=== PATIENT | female | born 1930 | race Caucasian/White ===

== ENCOUNTER 2019-02-03 09:00 | Inpatient (IN) | payer OTHER, MEDICARE ==
--- NOTE | 2019-02-03 14:09 | R.PREADM ---
SCREENING DATE AND TIME 02/03/2019 11:10 (CDT) ANTICIPATED REHAB ADMISSION DATE 02/05/2019 REFERRING FACILITY [facility] REFERRAL DATE AND TIME 02/03/2019 11:11 (CDT) ACUTE ADMIT DATE 02/01/2019 Previous Rehabilitation(s): No. ACUTE MEDIA MANAGER/DC PERFORMANCE ENGINEER Prasanna Booth REFERRING PHYSICIAN Parisa Brito REHAB FACILITY [facility] CLINICAL LIAISON Thomas Orourke PHYSICIAN REVIEWER Dr. Conor Cervantes M.D. MR# [id number] NAME RADHA MOLINA ADDRESS [address] [facility] PHONE [facility] [address] DATE OF 1930 AGE 88 SSN# [id number] GENDER female MARITAL STATUS RACE white ADMIT FROM 02 - [facility] PRE-HOSPITAL LIVING SETTING 01 - Home (private home/apt. board/care, assisted living, senior living, transitional living) HOME TYPE AND DETAILS Type of home: single family house # of levels in the residence: 1 # of steps within the residence: 0 # of steps to enter the residence: 0 PRE-HOSPITAL LIVING WITH Family/Relatives FAMILY SUPPORT Yes PRIMARY FAMILY CONTACT NAME Stephanie Gonzalez PRIMARY FAMILY CONTACT PHONE PRIMARY FAMILY CONTACT ALT. PHONE PRIMARY FAMILY CONTACT RELATIONSHIP Daughter PHONE PRIMARY FAMILY CONTACT ON ADM.? no IS PRIMARY FAMILY CONTACT AUTH. REP.? no 1ST EMERGENCY CONTACT Stephanie Gonzalez 1ST CONTACT PHONE 1ST CONTACT ALT. PHONE 1ST CONTACT RELATIONSHIP Daughter PHONE 1ST CONTACT ON ADM. no IS 1ST CONTACT AUTH. REP.? no PHONE 2ND CONTACT ON ADM.? no PATIENT EMPLOYMENT STATUS Retired (for age) PATIENT EMPLOYER No Employer PAYOR INFORMATION: 1ST PAYOR NAME MEDICARE 1ST PAYOR PHONE [phone] 1ST PAYOR INJURY/ILLNESS DUE TO ACCIDENT? No ANOTHER GREEN PARTY RESPONSIBLE? 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 is a 88 yo Right-handed white female. 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 Pre-morbidly, Pt. was independent/mod-I in Self-Care, Sphincter Control, Transfers Control, Locomotio n, Communication, and Social Cognition; and she had good Sphincter Control. Currently, she has deficits of Self-Care, Transfers Control, Locomotion, Communication, Social Cognit ion, Endurance, Balance, and Safety Awareness. Pt. is now referred to [facility] for acute in-patient rehabilitation in order to maximize patient's functional independence in activities of daily living, strength, ROM, and mobi lity. Patient has realistic goal of being discharged at assistance level 6-Caroline to reside at Home with Fam mic/Relatives. PAST MEDICAL HISTORY Anxiety Asthma Constipation Edema Insomnia Unspecified vitamin D deficiency PAST SURGICAL HISTORY: Breast Surgery Cholecystectomy Colon Surgery Hysterectomy MEDICATION ALLERGIES: No Known Drug Allergies (NKDA) ENVIRONMENTAL ALLERGIES: None Known - Substance Allergies None Known - Other Allergies None Known CODE STATUS: Full code WEIGHT/HEIGHT/BMI: WEIGHT 184 lbs HEIGHT 5' 4" BMI 31.6 DIET: - Diet Type Regular - Diet - Solid Texture Regular - Diet - Liquid Texture Regular - Tube Feed N/A REVIEW OF SYSTEMS: - Gen Alert and awake Lying in bed No apparent distress Oriented to: person, time, and place - Vital Signs Temperature: 97.8 F SBP/DBP: 111/60 Pulse: 92 Resp: 16 Vital signs stable, afebrile - CVS RRR VITAL SIGNS Temperature: 97.8 F SBP/DBP: 111/60 Pulse: 92 Resp: 16 Vital signs stable, afebrile CURRENT SPHINCTER CONTROL: Pre-hospital bladder status: continent # of bladder accidents in the last 7 days prior to screenin Pre-hospital bowel status: continent # of bowel accidents in the last 7 days prior to screenin Last Bowel Movement Date: DETAILED CURRENT FUNCTIONAL STATUS: - Bladder accident frequency: Ind - No accidents in the past 7 days - Bowel accident frequency: Ind - No accidents in the past 7 days - Walking score based on distance walked: 1(<=50ft) - Wheelchair score based on distance traveled: 0(N/A) FUNCTIONAL STATUS: - Self-Care A. Eating Ind sup B. Grooming Ind sup C. Bathing Ind maxA D. Dressing - Upper Ind maxA E. Dressing - Lower Ind maxA F. Toileting Ind maxA - Sphincter Control G: Bladder control Ind Ind H: Bowel control Ind Ind - Transfers Control I. Bed/Chair/Wheelchair Ind Radha J. Toilet Ind Radha K. Tub/Shower Ind ADNO - Locomotion L. Walk/Wheelchair (B) Ind maxA M. Stairs Ind ADNO - Communication N. Comprehension (B) Ind Radha O. Expression (B) Ind Radha - Social Cognition P. Social Interaction Ind Rdaha Q. Problem Solving Ind Radha R. Memory Ind min-to-modA - Endurance Fair - Balance Fair - Safety Awareness Fair CURRENT FUNC. DEFICITS: Self-Care, Transfers Control, Locomotion, Communication, Social Cognition, Endurance, Balance, and Sa fety Awareness THERAPY NOTES FROM ACUTE CARE: Attached. SPECIAL NEEDS: - Safety Concerns Skin breakdown precautions needed due to skin breakdown risk PATIENT NEEDS ACTIVE AND ONGOING THERAPEUTIC INTERVENTION OF MULTIPLE THERAPY DISCIPLINES, INCLUDING: - Orthotics/Prosthetics Splinting/Casting. Orthotic Evaluation. - Occupational Therapy Evaluate and Treat. - Physical Therapy Evaluate and Treat. PATIENT NEEDS CLOSE MEDICAL SUPERVISION BY A REHABILITATION PHYSICIAN FOR: Bowel and Bladder Management Coordination of Treatment Team Medical and Co-Morbidity Management Sleep Problems Pain Management DVT Management PATIENT REQUIRES 24X7 REHAB NURSING FOR MEDICAL AND FUNCTIONAL MGT. OF THE FOLLOWING DEFICITS: ADL's Ambulation Bowel and Bladder Management Cognition Communication Disease Management Medication Management Patient/Family Education Providing Safe Environment Transfers Pain Management Skin Integrity PATIENT REQUIRES INTENSIVE, COORDINATED INTERDISCIPLINARY APPROACH TO REHAB: Arranging Home Equipment/Services Discharge Planning Family Intervention/Training Ice Rink Attendant/Case Management PATIENT REHAB POTENTIAL: Expected level of measurable improvement will be of a practical value to patient's functional capacit y or adaptations to impairments Has a viable Discharge Plan Medically appropriate; condition is sufficiently stable to participate in intensive rehab program Patient is able and expected to receive 3 hours of individualized therapy daily on at least 5 of ever y 7 days Patient's prognosis for significant practical improvement within a reasonable period of time appears Good DISCHARGE PLAN: - Estimated Length of Stay (days) 27. - Consensus on plan Discharge plan has been discussed with primary caregiver. Patient/Family is in agreement with the magaly n. Primary caregiver is in agreement with the plan. - Patient/Family Goals Return home with assistance. - Planned Living Setting Upon Discharge Home, to live with Family/Relatives. Transitional Living. RECOMMENDED CARE LEVEL: IRF RECOMMENDATION DETAILS: Recommended Admission to Comprehensive Rehabilitation Program to Increase Functional [place] SCREENER'S COMPLETENESS CONFIRMATION: - Screening Confirmation The patient data collection on this preadmission screening form is finished PHYSICIANS REVIEW AND ADMISSION DETERMINATION Admit - Based on my review of the Pre-Admission Screening results, in my medical judgment and experie nce, I concur with the findings and recommend admission to [facility], as this patient requires an IRF level of care. SIGNATURE PANEL: Clinical Liaison - [electronically] signed by Thomas Orourke on 02/03/2019 at 13:39 (CDT) Physician Reviewer - [electronically] signed by Dr. Conor Cervantes M.D. on 02/03/2019 at 14:08 (CDT )
--- OUTSIDE RECORDS SUMMARY | 2019-02-03 18:10 | XMS REPORT ---
:1930 [facility] Address [address] [place] [address] Care Team Providers Name Role Phone Unavailable Unavailable Unavailable Problems This patient has no known problems. Allergies, Adverse Reactions, Alerts This patient has no known allergies or adverse reactions. Medications This patient has no known medications.
[2019-02-03] MEDS ORDERED: ALBUTEROL 2.5 MG/3 ML NEB SOL NEB PRN (18:48)
[2019-02-03] MEDS ORDERED: LACTULOSE 20 GM/30 ML UCUP PO PRN (18:48)
[2019-02-03] MEDS ORDERED: IPRATROPIUM BROM 0.5MG/2.5ML NEB PRN (18:48)
[2019-02-03] MEDS ORDERED: FLEET ENEMA ADULT PR PRN (19:58)
[2019-02-03] MEDS ORDERED: DOCUSATE NA/SENNA CONC 1 TAB PO PRN (19:59)
[2019-02-03] MEDS: NYSTATIN PWDR 100000 UNIT/GM TOP SCH (20:00)
--- NOTE | 2019-02-03 20:03 | R.HP ---
FACILITY: [facility] ENCOUNTER DATE AND TIME: 02/03/2019 19:57 (CDT) MR#: [id number] NAME RADHA MOLINA ADDRESS: [address] [place] [address]: [place] [address] PHONE: DATE OF : 1930 AGE: 88 SSN# [id number] GENDER: Female DEXTERITY Right-handed MARITAL STATUS RACE White PRE-HOSPITAL LIVING SETTING 01 - Home (private home/apt. board/care, assisted living, chcf, transitional living) PRE-HOSPITAL LIVING WITH Family/Relatives ENCOUNTER PHYSICIAN: Dr. Conor Cervantes M.D. REFERRING DOCTOR: Alisha matthew DATE OF ADMISSION: 02/03/2019 19:57 (Central Daylight Time) REFERRING FACILITY [facility] HOME TYPE AND DETAILS: Type of home: single family house # of levels in the residence: 1 # of steps within the residence: 0 # of steps to enter the residence: 0 ADMISSION DIAGNOSIS: T12 Compression Fracture ONSET DATE: 02/01/2019 PRIMARY DIAGNOSIS-RELATED SURGERIES: N/A SECONDARY/COMORBID DIAGNOSES (TIERED): - N/A Anxiety Asthma Constipation Edema Insomnia Unspecified vitamin D deficiency HISTORY OF PRESENT ILLNESS (HPI): Pt. is a 88 yo Right-handed white female. 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 230). Pre-morbidly, Pt. was independent/mod-I in Self-Care, Sphincter Control, Transfers Control, Locomotio n, Communication, and Social Cognition; and she had good Sphincter Control. Currently, she has deficits of Self-Care, Transfers Control, Locomotion, Communication, Social Cognit ion, Endurance, Balance, and Safety Awareness. Pt. is now referred to [facility] for acute in-patient rehabilitation in order to maximize patient's functional independence in activities of daily living, strength, ROM, and mobi lity. Patient has realistic goal of being discharged at assistance level 6-Caroline to reside at Home with Fam mic/Relatives. MEDICATION ALLERGIES: No Known Drug Allergies (NKDA) ENVIRONMENTAL ALLERGIES: None Known - Substance Allergies None Known - Other Allergies None Known PAST MEDICAL HISTORY: Anxiety Asthma Constipation Edema Insomnia Unspecified vitamin D deficiency PAST SURGICAL HISTORY: Breast Surgery Cholecystectomy Colon Surgery Hysterectomy FAMILY HISTORY: Family history is not contributory. SOCIAL HISTORY: - Home Living Family/Relatives REVIEW OF SYSTEMS: - Gen No Chills Fatigue No Fever - Eyes No Double Vision No itchiness - ENMT No Difficulty Swallowing - CVS No Chest Discomfort No Chest Pain Fatigue No Weight Gain - Resp No Cough No Shortness of Breath - GI Incontinent No Abdominal Pain Constipation No Diarrhea - Continent No Kidney Pain No Painful Urination No Urinary Urgency - MSK No Joint Pain No Muscle Cramps Stiffness - Skin No Itching Rash in left groin. No Suspicious Lesions - Neuro No Coordination Difficulty Difficulty with Concentration No Memory Loss No Seizures Weakness - Psych No Anxiety No Depression No HIV Exposure No Persistent Infections No Seasonal Allergies - Endo No Cold/Heat Intolerance No Excessive Hunger No Excessive Thirst No Excessive Urination PHYSICAL EXAM - Gen Alert and awake Lying in bed No apparent distress Oriented to: person, time, and place - Skin Rash in left groin No abnormalities - Eyes No abnormalities - ENMT No abnormalities - Neck No abnormalities - CVS RRR - Chest No abnormalities - Abd +bowel sounds - GI Soft Deferred - Urinary incontinence - Ext No significant edema. - MSK 4+/5 weakness in both lower extremities. Back muscle spasms. Back shell brace is in place. - Neuro No focal neurological deficits - Psych No abnormalities VITAL SIGNS Temperature: 97.8 F SBP/DBP: 111/60 Pulse: 92 Resp: 16 NURSING: - Shower allowing shower - Bladder care per protocol - Skin care per protocol ACTIVITIES OOB only with supervision FUNCTIONAL STATUS: - Self-Care A. Eating Ind sup B. Grooming Ind sup C. Bathing Ind maxA D. Dressing - Upper Ind maxA E. Dressing - Lower Ind maxA F. Toileting Ind maxA - Sphincter Control G: Bladder control Ind Ind H: Bowel control Ind Ind - Transfers Control I. Bed/Chair/Wheelchair Ind Radha J. Toilet Ind Radha K. Tub/Shower Ind ADNO - Locomotion L. Walk/Wheelchair (B) Ind maxA M. Stairs Ind ADNO - Communication N. Comprehension (B) Ind Radha O. Expression (B) Ind Radha - Social Cognition P. Social Interaction Ind Radha Q. Problem Solving Ind Radha R. Memory Ind min-to-modA - Endurance Fair - Balance Fair - Safety Awareness Fair CURRENT FUNC. DEFICITS: Self-Care, Transfers Control, Locomotion, Communication, Social Cognition, Endurance, Balance, and Sa fety Awareness ASSESSMENT: Pt. is a 88 yo Right-handed white female.Her impairment category is Spinal Cord Dysfunction 04 - Ot er Traumatic Spinal Cord Dysfunction ().Pre-morbidly, Pt. was independent/mod-I in Self-Care, S phincter Control, Transfers Control, Locomotion, Communication, and Social Cognition; and she had goo d Sphincter Control.Currently, she has deficits of Self-Care, Transfers Control, Locomotion, Communic ation, Social Cognition, Endurance, Balance, and Safety Awareness.Pt. is now referred to [facility] for acute in-patient rehabilitation in order to maximize patient's functional i ndependence in activities of daily living, strength, ROM, and mobility.- Rehab Goal Patient has realistic goal of being discharged at assistance level 6-Caroline to reside at Home with Fam mic/Relatives. REHAB PLAN: - Physical Therapy Gait dysfunction - to improve, our physical therapists will perform initial evaluation of pt's status upon admission and devise an individualized program for Gait Training, and Wheel Chair mobility Inability to transfer - to improve, our physical therapists will perform initial evaluation of pt's s tatus upon admission and devise an individualized program for Bed mobility Need for home safety evaluation - to improve, our physical therapists will perform initial evaluation of pt's status upon admission and devise an individualized program for Home Evaluation Need in caregiver upon discharge - to improve, our physical therapists will perform initial evaluatio n of pt's status upon admission and devise an individualized program for Caregiver Training New precaution - to improve, our physical therapists will perform initial evaluation of pt's status u armando admission and devise an individualized program for Patient precaution education Edema - to improve, our physical therapists will perform initial evaluation of pt's status upon admi ssion and devise an individualized program for Elevation Training, and Lymphedema Therapy Poor balance - to improve, our physical therapists will perform initial evaluation of pt's status upo n admission and devise an individualized program for Balance Training Poor endurance - to improve, our physical therapists will perform initial evaluation of pt's status u armando admission and devise an individualized program for Endurance Training Weakness - to improve, our physical therapists will perform initial evaluation of pt's status upon ad mission and devise an individualized program for Aquatic Therapy, Neuromuscular Reeducation, and Stre ngthening Achieving independence - to improve, our physical therapists will perform initial evaluation of pt's status upon admission and devise an individualized program for Community Reintegration Activities - Occupational Therapy ADL deficits - to improve, our occupation therapists will perform initial evaluation of pt's status u armando admission and devise an individualized program for Bathing, Bed mobility, Community Reintegration , Cooking, Dressing, Eating, Fine Motor Skills, Grooming, Homemaking, Kitchen Mobility, Laundry, Micki ent Education, Safety Awareness, Splinting - Positioning, Transfers(Toilet, Tub, Shower), and Wheel C hair Management Cognitive deficits - to improve, our occupation therapists will perform initial evaluation of pt's st atus upon admission and devise an individualized program for Cognition - orientation Need for respiratory care program director - to improve, our occupation therapists will perform initial evaluation of pt's s tatus upon admission and devise an individualized program for Caregiver Training Weakness - to improve, our occupation therapists will perform initial evaluation of pt's status upon admission and devise an individualized program for Aquatic Therapy, Balance, Endurance, UE ROM, and U E strengthening MEDICAL PLAN: - Diet Type Start Regular - Diet - Liquid Texture Start Regular - Tube Feed Start N/A - Bladder care per protocol - Skin care per protocol - Diet - Solid Texture Regular - Shower shower DISCHARGE PLAN: - Estimated Length of Stay (days) 27. - Consensus on plan Discharge plan has been discussed with primary caregiver. Patient/Family is in agreement with the magaly n. Primary caregiver is in agreement with the plan. - Patient/Family Goals Return home with assistance. - Planned Living Setting Upon Discharge Home, to live with Family/Relatives. Transitional Living. SIGNATURE PANEL: (CDT)
--- NOTE | 2019-02-03 20:04 | PAPE ---
PATIENT: [facility] MR# [id number] REFERRING DOCTOR Alisha, march EVALUATION DATE AND TIME 02/03/2019 20:02 (CDT) NAME RADHA MOLINA DATE OF 1930 AGE 88 PHONE SSN# [id number] GENDER female EVALUATING PHYSICIAN Dr. Conor Cervantes M.D. ADMISSION DIAGNOSIS: T12 Compression Fracture ONSET DATE 02/01/2019 SECONDARY/COMORBID DIAGNOSES TIERED: - N/A Anxiety Asthma Constipation Edema Insomnia Unspecified vitamin D deficiency POST-ADMISSION FUNCTIONAL/MEDICAL STATUS: - Bladder Same accident frequency: Ind - No accidents in the past 7 days - Bowel Same accident frequency: Ind - No accidents in the past 7 days - Walking Same score based on distance walked: 1(<=50ft) - Wheelchair Same score based on distance traveled: 0(N/A) STATUS CHANGE EVALUATION: No change in Functional or Medical Status is identified compared with Pre-Admission screening. PATIENT NEEDS CLOSE MEDICAL SUPERVISION BY A REHABILITATION PHYSICIAN FOR: Bowel and Bladder Management Coordination of Treatment Team Medical and Co-Morbidity Management Sleep Problems Pain Management DVT Management PATIENT REQUIRES 24X7 REHAB NURSING FOR MEDICAL AND FUNCTIONAL MGT. OF THE FOLLOWING DEFICITS: ADL's Ambulation Bowel and Bladder Management Cognition Communication Disease Management Medication Management Patient/Family Education Providing Safe Environment Transfers Pain Management Skin Integrity PATIENT REQUIRES INTENSIVE, COORDINATED INTERDISCIPLINARY APPROACH TO REHAB: Arranging Home Equipment/Services Discharge Planning Family Intervention/Training Table Tender/Case Management LIST OF IDENTIFIED AND POTENTIAL PROBLEMS: Alteration in Sleep Alteration in leisure activities Bladder, Incontinence Bowel, Constipation Bowel, Incontinence Infection, Actual or Potential Mobility Impaired Pain, Alteration in Comfort Self Care Deficit Skin Integrity, Actual or Potential Urinary Tract Infection (UTI), Actual or Potential RISK FOR COMPLICATIONS - Asthma Hypoxia. Metabolic acidosis. Worsening of asthma. INTERVENTIONS - Asthma ABG's. Inhalers. Medications. Nebulizers. Respiratory therapy. X-Rays. PATIENT COULD BE AT RISK FOR COMPLICATIONS FROM ADVERSE MEDICAL CONDITIONS DUE TO HIS/HER COMORBIDITI ES AND THE RIGORS OF THE INTENSIVE REHABILLITATION PROGRAM. METHODS OR INTERVENTIONS TO AVOID COMPLIC ATIONS INCLUDE: - Deep Vein Thrombosis (DVT) Prophylaxis therapy for prevention . Sequential Compression Device (SCD). TE D Hose. - Infection Clinical staff to assess and manage the signs and symptoms of infection including fever, redness, war mth, etc. - Urinary Tract Infection - Falls Patient will be evaluated for Fall Precautions and will be placed on Fall Precautions as indicated pe r protocol. - Skin Breakdown Nursing will assess skin daily using assessment tool and will place on Skin Breakdown Precautions as indicated per protocol. - Pain Clinical staff may employ non-medication methods such as massage, distraction, decrease stimulus, etc . as needed. Clinical staff will assess patient's pain level every shift per protocol to assess and e nsure pain management effectiveness. Medications will be given and the pain level re-assessed. PRELIMINARY PLAN OF CARE: - Physical Therapy Patient needs Physical Therapy for a daily minimum of 1.5 hours at least 5 out of 7 days, to improve: Mobility, Strengthening, Transfers, Stretching, ROM, Endurance, Ability to manage stairs, Gait, and Balance. - Speech Therapy Patient needs Speech Therapy for a daily minimum of 0.5 hours at least 5 out of 7 days, to improve: S wallowing, Cognition, Language Skills, and Compensatory Strategies. - Rehabilitation Nursing Patient requires 24x7 Rehabilitation Nursing for: Pain Issues, Identifying and preventing risk factor s, Monitoring and reporting current medical conditions, Assisting with ambulation and transfer, Hillary ting with all ADL-s, Teaching patients about disease process and medications, Family teaching, Provid ing safe environment, Bowel and Bladder Issues, Skin Integrity, and Medication Management. Patient needs Table Tender and/or Case Management for: Discharge Planning, Arranging Home Equipmen t or Services, and Family Interventions. - Dietary and Nutrition Services Patient needs Dietary and Nutrition Services for: Adequate Nutrition, Nutritional Supplements, and Nu tritional Education. - Occupational Therapy Patient needs Occupational Therapy for a daily minimum of 1.5 hours at least 5 out of 7 days, to impr ove Activities of Daily Living, including: Eating, Grooming, Bathing, Dressing, Toileting, Toilet Tra nsfers, Community Reintegration, Higher functional activities, Adaptive Equipment, Splinting, Househo ld Tasks, and Other activities as determined. POTENTIAL FUNCTIONAL GOALS FOR PATIENT TO ACHIEVE BY DISCHARGE: - Safety Precaution Patient will remain free from falls or injury at time of discharge. - Bed Mobility Patient will perform bed mobility at 4-Radha level of assistance. - Transfers Patient will complete transfers from bed to chair at 4-Radha level of assistance. - Mobility Patient will ambulate 150 ft with 4-Radha level of assistance with RW. PATIENT REHAB POTENTIAL Expected level of measurable improvement will be of a practical value to patient's functional capacit y or adaptations to impairments Has a viable Discharge Plan Medically appropriate; condition is sufficiently stable to participate in intensive rehab program Patient is able and expected to receive 3 hours of individualized therapy daily on at least 5 of ever y 7 days Patient's prognosis for significant practical improvement within a reasonable period of time appears Good DISCHARGE PLAN: - Estimated Length of Stay (days) 27. - Consensus on plan Discharge plan has been discussed with primary caregiver. Patient/Family is in agreement with the magaly n. Primary caregiver is in agreement with the plan. - Patient/Family Goals Return home with assistance. - Planned Living Setting Upon Discharge Home, to live with Family/Relatives. Transitional Living. CONCLUSION ON REHABILITATION NECESSITY: I have evaluated patient's pre-admission functional status and, comparing it to the patient's post-ad mission functional status now, I conclude that the pre-admission assessment was accurate. Patient's c ondition on admission supports the medical necessity of admission to IRF. It is safe to proceed with patient's therapy program. SIGNATURE PANEL: (CDT)
[2019-02-03] MEDS: AMITRIPTYLINE 25 MG TAB PO SCH (21:00)
[2019-02-03] MEDS ORDERED: AMITRIPTYLINE 25 MG TAB PO SCH (21:00)
[2019-02-03] MEDS ORDERED: MELATONIN 5 MG TABLET PO SCH (21:00)
[2019-02-03] MEDS: BENZONATATE 100 MG CAP PO SCH (21:13)
[2019-02-03] MEDS: TRAMADOL HCL 50 MG TAB PO SCH (21:14)
[2019-02-03] MEDS: APIXABAN 2.5 MG TABLET PO SCH (21:14)
[2019-02-03 21:31] LABS: Urine Appearance CLEAR; Urine Blood NEGATIVE (NEG); Urine Color YELLOW; Urine Glucose NEGATIVE (NEG); Urine Protein NEGATIVE (NEG); Urine Urobilinogen 0.2 mg/dL (0.2-1.0); Urine pH 5.5 (5.0-7.0)
[2019-02-03 21:43] LABS: Urine Bilirubin NEGATIVE (NEG)
[2019-02-03 21:54] LABS: Urine Bacteria <20 /HPF (<20); Urine Culture Reflex Order NOT NEEDED; Urine RBC <5 /HPF (NONE SEEN)
[2019-02-03] MEDS: ACETAMINOPHEN 325 MG TABLET PO PRN (22:50)
--- NOTE | 2019-02-04 01:16 | FAST ---
SHIFT START DATE/TIME: 02/03/2019 19:00 (CDT) SHIFT END DATE/TIME: 02/04/2019 07:00 (CDT) NAME RADHA MOLINA DATE OF : 1930 DATE OF ADMISSION: 02/03/2019 19:57 (CDT) PHONE: AGE: 88 N# [id number] GENDER: Female ENCOUNTER PHYSICIAN: Dr. Conor Cervantes M.D. 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 EATING: Activity did not occur on this shift EATING - SCORE: 0-UNK GROOMING: Activity did not occur on this shift GROOMING - SCORE: 0-UNK BATHING: Activity did not occur on this shift BATHING - SCORE: 0-UNK DRESSING - UPPER BODY: Activity did not occur on this shift ARTICLES SCORE Total number of steps: 0 DRESSING - UPPER BODY - SCORE: 0-UNK DRESSING - LOWER BODY: Activity did not occur on this shift ARTICLES SCORE Total number of steps: 0 DRESSING - LOWER BODY - SCORE: 0-UNK TOILETING: TOILETING - STEP 1: Does the patient require the assistance of a person or device, or need extra time with toileting? Yes . TOILETING - STEP 2: Does the patient require the assistance of a helper? Yes. TOILETING - STEP 3: How much assistance does the patient require from the helper? Hands-on assistance from the helper TOILETING - STEP 4: Of the 3 tasks: 1) Adjusting clothing prior to use, 2) Cleansing of perineal area, 3) Adjusting clot loni after use; How many tasks does the patient perform WITHOUT assistance of the helper? Two tasks TOILETING - SCORE: 3-MOD BLADDER MANAGEMENT: BLADDER MANAGEMENT - STEP 1: Does the patient control the bladder completely and intentionally without equipment or devices or med ications, and is always continent? No. BLADDER MANAGEMENT - STEP 2: Does the patient require the assistance of a helper? Yes. BLADDER MANAGEMENT - STEP 3: How much assistance does the patient require from the helper? Patient requires contact assistance fro m the helper BLADDER MANAGEMENT - STEP 4: How much contact assistance does the patient require from the helper? Patient requires minimal assist ance to maintain an external device - by positioning, and the patient performs 75% or more of bladder management tasks, while the helper provides less than 25% of the assistance to position patient on / off bedpan BLADDER MANAGEMENT - SCORE: 4-MIN BOWEL MANAGEMENT: Activity did not occur on this shift BOWEL MANAGEMENT - SCORE: 7-IND TRANSFERS: BED, CHAIR, WHEELCHAIR: TRANSFERS: BED, CHAIR, WHEELCHAIR - STEP 1: Does the patient require assistance of a person or device, or need extra time with bed, chair, or whe elchair transfers? Yes. TRANSFERS: BED, CHAIR, WHEELCHAIR - STEP 2: Does the patient require the assistance of a helper? Yes. TRANSFERS: BED, CHAIR, WHEELCHAIR - STEP 3: How much assistance does the patient require from the helper? Lifting of the legs TRANSFERS: BED, CHAIR, WHEELCHAIR - STEP 4: How many legs does the patient require the helper to lift? both legs TRANSFERS: BED, CHAIR, WHEELCHAIR - SCORE: 3-MOD TRANSFERS: TOILET: TRANSFERS: TOILET - STEP 1: Does the patient require the assistance of a person or device, or need extra time with toilet transfe rs? Yes. TRANSFERS: TOILET - STEP 2: Does the patient require the assistance of a helper? Yes. TRANSFERS: TOILET - STEP 3: How much assistance does the patient require from the helper? Patient performs half or more of the tr ansferring tasks TRANSFERS: TOILET - STEP 4: Does the patient need only incidental help such as contact guard or steadying during toilet transfer? No. Patient needs more than incidental help TRANSFERS: TOILET - SCORE: 3-MOD TRANSFERS: SHOWER: Activity did not occur on this shift TRANSFERS: SHOWER - SCORE: 0-UNK TRANSFERS: TUB: Activity did not occur on this shift TRANSFERS: TUB - SCORE: 0-UNK LOCOMOTION: WALK: Activity did not occur on this shift LOCOMOTION: WALK - SCORE: 0-UNK LOCOMOTION: WHEELCHAIR: Activity did not occur on this shift LOCOMOTION: WHEELCHAIR - SCORE: 0-UNK COMPREHENSION: COMPREHENSION: TYPE: Both COMPREHENSION - STEP 1: Does the patient require help from a person or device, or need extra time to understand complex and a bstract ideas (such as current events, finances, discharge planning, medical issues, relationships, e tc)? Yes. COMPREHENSION - STEP 2: Does the patient require help to understand questions or statements about basic needs or ideas (such as hunger, thirst, sleep, safety, daily schedule, room location, or discomfort) half or more of the t shirley? No. COMPREHENSION - STEP 3: How often does the patient need help to understand directions and conversation about basic needs? Les s than 10% of the time COMPREHENSION - SCORE: 5-SUP EXPRESSION EXPRESSION: TYPE: Both EXPRESSION - STEP 1: Does the patient require help from a person or device, or need extra time expressing complex and abst ract ideas (such as current events, finances, discharge planning, medical issues, relationships, etc) ? Yes. EXPRESSION - STEP 2: Does the patient require help to express basic necessities or ideas (such as hunger, thirst, sleep, s afety, daily schedule, room location, or discomfort) half or more of the time? No. EXPRESSION - STEP 3: How often does the patient need help to express directions and conversation about basic needs? Less t locke 10% of the time EXPRESSION - SCORE: 5-SUP SOCIAL INTERACTION: SOCIAL INTERACTION - STEP 1: Does the patient require a helper to interact with others in social and therapeutic situations? No. SOCIAL INTERACTION - STEP 2: Does the patient need extra time in social situations, OR does s/he interact with staff, other patien ts, and family members ONLY in structured environments, OR does s/he require medication for social in teraction? Yes, patient requires medication for social interaction SOCIAL INTERACTION - SCORE: 6-SIRI PROBLEM SOLVING: Patient requires bed/chair alarms due to attempts to get up unassisted when helper is needed. PROBLEM SOLVING - STEP 1: How often do the bed/chair alarms go off? Occasionally - the alarms go off about 25% or less PROBLEM SOLVING - SCORE: 4-MIN MEMORY: MEMORY - STEP 1: How often do the bed/chair alarms go off? Occasionally - the alarms go off about 25% of the time or l ess MEMORY - SCORE: 4-MIN SIGNATURE PANEL: The following modified sections: Eating - Score, Grooming - Score, Bathing - Score, Dressing - Upper Body - Score, Dressing - Lower Body - Score, Toileting - Score, Bladder Management - Score, Bowel Man agement - Score, Transfers: Bed, Chair, Wheelchair - Score, Transfers: Toilet - Score, Transfers: Ping wer - Score, Transfers: Tub - Score, Locomotion: Walk - Score, Locomotion: Wheelchair - Score, Compre hension - Score, Expression - Score, Social Interaction - Score, Problem Solving - Score, Memory - Sc ore were [electronically] signed by Delicia Ham RN on FriFeb 04 2019 01:15:52 T-0500 ([facility] Time)
[2019-02-04] MEDS: TRAMADOL HCL 50 MG TAB PO SCH ×4 (01:36→19:27)
[2019-02-04 06:07] LABS: Absolute Lymphocytes (CBC) 1.2 K/uL (0.7-4.9); Absolute Monocytes 0.7 K/uL (0.1-1.3); Absolute Neutrophil 7.8 K/uL (1.8-8.0); Basophils % 0.3 % (0-1.3); Eosinophils % 3.2 % (0-4.4); Hematocrit 46.1 % (36.0-45.0); Lymphocytes % 11.7 % (15.3-44.8); MPV 8.2 fL (7.6-11.3); Monocytes % 7.1 % (3.3-12.3); RBC Red Blood Cell Count 5.26 M/uL (3.86-4.86)
[2019-02-04 06:18] LABS: Albumin 2.7 g/dL (3.4-5.0); BUN Blood Urea Nitrogen 13 mg/dL (7-18); Bicarbonate 32 mmol/L (21-32); Glucose Level 103 mg/dL (74-106); Magnesium 2.4 mg/dL (1.8-2.4); Potassium 3.7 mmol/L (3.5-5.1); Prealbumin 15.1 mg/dL (20-40); Sodium Level 135 mmol/L (136-145)
[2019-02-04] MEDS: LEVOTHYROXINE SOD 0.05 MG TABLET PO SCH (07:04)
[2019-02-04] MEDS: LEVOTHYROXINE SOD 0.1 MG TAB PO SCH (07:04)
[2019-02-04] MEDS ORDERED: DOCUSATE NA/SENNA CONC 1 TAB PO SCH (08:00)
[2019-02-04] MEDS: FUROSEMIDE 20 MG TABLET PO SCH (08:21)
[2019-02-04] MEDS: DOCUSATE NA 100 MG CAP PO SCH (08:21)
[2019-02-04] MEDS: APIXABAN 2.5 MG TABLET PO SCH ×2 (08:22→19:26)
[2019-02-04] MEDS: POLYETHYL GLY 3350 17 GM/DOSE PO SCH (08:22)
--- NOTE | 2019-02-04 10:32 | FAST ---
SHIFT START DATE/TIME: 02/04/2019 07:00 (CDT) SHIFT END DATE/TIME: 02/04/2019 19:00 (CDT) NAME RADHA MOLINA DATE OF : 1930 DATE OF ADMISSION: 02/03/2019 19:57 (CDT) PHONE: AGE: 88 N# [id number] GENDER: Female ENCOUNTER PHYSICIAN: Dr. Conor Cervantes M.D. 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 EATING: EATING - STEP 1: Does the patient require the assistance of a person or device, or need extra time when eating? Yes. EATING - STEP 2: Does the patient require the assistance of a helper? Yes. EATING - STEP 3: Does the patient perform half or more of the eating tasks? Yes. EATING - STEP 4: Does the patient need only supervision, cuing, coaxing OR help to apply an orthosis OR help to cut fo od, open containers, pour liquids, or butter bread? Yes. EATING - SCORE: 5-SUP GROOMING: Comb/brush hair Oral care GROOMING - STEP 1: Does the patient require the assistance of a person or device, or need extra time when grooming? Yes. GROOMING - STEP 2: Does the patient require the assistance of a helper? Yes. GROOMING - STEP 3: How much assistance does the patient require from the helper? Only prior equipment preparation/set up from the helper GROOMING - SCORE: 5-SUP BATHING: Activity did not occur on this shift BATHING - SCORE: 0-UNK DRESSING - UPPER BODY: Activity did not occur on this shift ARTICLES SCORE Total number of steps: 0 DRESSING - UPPER BODY - SCORE: 0-UNK DRESSING - LOWER BODY: Activity did not occur on this shift ARTICLES SCORE Total number of steps: 0 DRESSING - LOWER BODY - SCORE: 0-UNK TOILETING: TOILETING - STEP 1: Does the patient require the assistance of a person or device, or need extra time with toileting? Yes . TOILETING - STEP 2: Does the patient require the assistance of a helper? Yes. TOILETING - STEP 3: How much assistance does the patient require from the helper? Hands-on assistance from the helper TOILETING - STEP 4: Of the 3 tasks: 1) Adjusting clothing prior to use, 2) Cleansing of perineal area, 3) Adjusting clot loni after use; How many tasks does the patient perform WITHOUT assistance of the helper? Two tasks TOILETING - SCORE: 3-MOD BLADDER MANAGEMENT: BLADDER MANAGEMENT - STEP 1: Does the patient control the bladder completely and intentionally without equipment or devices or med ications, and is always continent? No. BLADDER MANAGEMENT - STEP 2: Does the patient require the assistance of a helper? No, patient requires and independently uses an a ssistive device, such as a urinal, bedpan, bedside commode, catheter, absorbent pad, or collecting de vice BLADDER MANAGEMENT - SCORE: 6-SIRI BOWEL MANAGEMENT: BOWEL MANAGEMENT - STEP 1: Does the patient control bowels completely and intentionally without equipment devices or medications AND is always continent? No. BOWEL MANAGEMENT - STEP 2: Does the patient require the assistance of a helper? No, patient requires and manages independently a n assistive device such as a bedpan, bedside commode, absorbent pad, incontinent device, or collectin g device BOWEL MANAGEMENT - SCORE: 6-SIRI TRANSFERS: BED, CHAIR, WHEELCHAIR: TRANSFERS: BED, CHAIR, WHEELCHAIR - STEP 1: Does the patient require assistance of a person or device, or need extra time with bed, chair, or whe elchair transfers? Yes. TRANSFERS: BED, CHAIR, WHEELCHAIR - STEP 2: Does the patient require the assistance of a helper? Yes. TRANSFERS: BED, CHAIR, WHEELCHAIR - STEP 3: How much assistance does the patient require from the helper? Steadying/guiding assistance TRANSFERS: BED, CHAIR, WHEELCHAIR - SCORE: 4-MIN TRANSFERS: TOILET: TRANSFERS: TOILET - STEP 1: Does the patient require the assistance of a person or device, or need extra time with toilet transfe rs? Yes. TRANSFERS: TOILET - STEP 2: Does the patient require the assistance of a helper? Yes. TRANSFERS: TOILET - STEP 3: How much assistance does the patient require from the helper? Patient performs half or more of the tr ansferring tasks TRANSFERS: TOILET - STEP 4: Does the patient need only incidental help such as contact guard or steadying during toilet transfer? No. Patient needs more than incidental help TRANSFERS: TOILET - SCORE: 3-MOD TRANSFERS: SHOWER: Activity did not occur on this shift TRANSFERS: SHOWER - SCORE: 0-UNK TRANSFERS: TUB: Activity did not occur on this shift TRANSFERS: TUB - SCORE: 0-UNK LOCOMOTION: WALK: Activity did not occur on this shift LOCOMOTION: WALK - SCORE: 0-UNK LOCOMOTION: WHEELCHAIR: Activity did not occur on this shift LOCOMOTION: WHEELCHAIR - SCORE: 0-UNK COMPREHENSION: COMPREHENSION: TYPE: Both COMPREHENSION - STEP 1: Does the patient require help from a person or device, or need extra time to understand complex and a bstract ideas (such as current events, finances, discharge planning, medical issues, relationships, e tc)? Yes. COMPREHENSION - STEP 2: Does the patient require help to understand questions or statements about basic needs or ideas (such as hunger, thirst, sleep, safety, daily schedule, room location, or discomfort) half or more of the t shirley? No. COMPREHENSION - STEP 3: How often does the patient need help to understand directions and conversation about basic needs? Les s than 10% of the time COMPREHENSION - SCORE: 5-SUP EXPRESSION EXPRESSION: TYPE: Both EXPRESSION - STEP 1: Does the patient require help from a person or device, or need extra time expressing complex and abst ract ideas (such as current events, finances, discharge planning, medical issues, relationships, etc) ? Yes. EXPRESSION - STEP 2: Does the patient require help to express basic necessities or ideas (such as hunger, thirst, sleep, s afety, daily schedule, room location, or discomfort) half or more of the time? No. EXPRESSION - STEP 3: How often does the patient need help to express directions and conversation about basic needs? Less t locke 10% of the time EXPRESSION - SCORE: 5-SUP SOCIAL INTERACTION: SOCIAL INTERACTION - STEP 1: Does the patient require a helper to interact with others in social and therapeutic situations? Yes. SOCIAL INTERACTION - STEP 2: Does the patient interact appropriately half or more of the time? Yes. SOCIAL INTERACTION - STEP 3: How often does the patient need help to interact appropriately? 10-24% of the time SOCIAL INTERACTION - SCORE: 4-MIN PROBLEM SOLVING: PROBLEM SOLVING - STEP 1: Does the patient need help from a person or device, or need extra time to solve complex problems such as managing a checking account or confronting interpersonal problems? Yes. PROBLEM SOLVING - STEP 2: Does the patient solve basic routine problems half or more of the time? Yes. PROBLEM SOLVING - STEP 3: How often does the patient need help to solve basic routine problems? Less than 10% of the time PROBLEM SOLVING - SCORE: 5-SUP MEMORY: MEMORY - STEP 1: Does the patient need help from a person or device, or need extra time to remember frequently encount ered people, daily routines, and executing requests? Yes. MEMORY - STEP 2: How often does the patient need help to remember frequently encountered people, daily routines, and e xecuting requests? Less than 10% of the time MEMORY - SCORE: 5-SUP SIGNATURE PANEL: The following modified sections: Eating - Score, Grooming - Score, Bathing - Score, Dressing - Upper Body - Score, Dressing - Lower Body - Score, Toileting - Score, Bladder Management - Score, Bowel Man agement - Score, Transfers: Bed, Chair, Wheelchair - Score, Transfers: Toilet - Score, Transfers: Ping wer - Score, Transfers: Tub - Score, Locomotion: Walk - Score, Locomotion: Wheelchair - Score, Compre hension - Score, Expression - Score, Social Interaction - Score, Problem Solving - Score, Memory - Sc ore were [electronically] signed by Reyes Hernandez on FriFeb 04 2019 10:31:39 T-0500 (Central Daylight Time)
[2019-02-04] MEDS: NYSTATIN PWDR 100000 UNIT/GM TOP SCH ×2 (10:35→19:27)
--- NOTE | 2019-02-04 11:53 | RAD REPORT ---
EXAM DESCRIPTION: RAD - Abdomen 1 View (KUB) - 02/04/2019 11:30 am CLINICAL HISTORY: Abdomen pain. FINDINGS: A large amount of stool is present throughout the colon. The colon is mildly dilated. A fecal impaction is present which obstructs the colon.
[2019-02-04] MEDS: BISACODYL 10 MG RECTAL SUPP PR PRN (14:00)
[2019-02-04 14:38] VITALS: BMI 31.2
--- NOTE | 2019-02-04 15:14 | FAST ---
ENCOUNTER DATE AND TIME: 02/04/2019 08:00 (CDT) NAME RADHA MOLINA DATE OF : 1930 DATE OF ADMISSION: 02/03/2019 19:57 (CDT) PHONE: AGE: 88 N# [id number] GENDER: Female ENCOUNTER PHYSICIAN: Dr. Conor Cervantes M.D. 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 EATING: Activity did not occur on this shift EATING - SCORE: 0-UNK GROOMING: Activity did not occur on this shift GROOMING - SCORE: 0-UNK BATHING: Activity did not occur on this shift BATHING - SCORE: 0-UNK DRESSING - UPPER BODY: Activity did not occur on this shift Patient is not dressing in public clothing ARTICLES SCORE Total number of steps: 0 DRESSING - UPPER BODY - SCORE: 0-UNK DRESSING - LOWER BODY: Activity did not occur on this shift Patient is not dressing in public clothing ARTICLES SCORE Total number of steps: 0 DRESSING - LOWER BODY - SCORE: 0-UNK TOILETING: Activity did not occur on this shift TOILETING - SCORE: 0-UNK BLADDER MANAGEMENT: Activity did not occur on this shift BLADDER MANAGEMENT - SCORE: 7-IND BOWEL MANAGEMENT: Activity did not occur on this shift BOWEL MANAGEMENT - SCORE: 7-IND TRANSFERS: BED, CHAIR, WHEELCHAIR: TRANSFERS: BED, CHAIR, WHEELCHAIR - STEP 1: Does the patient require assistance of a person or device, or need extra time with bed, chair, or whe elchair transfers? Yes. TRANSFERS: BED, CHAIR, WHEELCHAIR - STEP 2: Does the patient require the assistance of a helper? Yes. TRANSFERS: BED, CHAIR, WHEELCHAIR - STEP 3: How much assistance does the patient require from the helper? Lifting of the patient TRANSFERS: BED, CHAIR, WHEELCHAIR - STEP 4: Does the helper lift the patient ONLY up? ONLY down? Up AND Down? Up AND Down. TRANSFERS: BED, CHAIR, WHEELCHAIR - SCORE: 2-MAX TRANSFERS: TOILET: Activity did not occur on this shift TRANSFERS: TOILET - SCORE: 0-UNK TRANSFERS: SHOWER: Activity did not occur on this shift TRANSFERS: SHOWER - SCORE: 0-UNK TRANSFERS: TUB: Activity did not occur on this shift TRANSFERS: TUB - SCORE: 0-UNK LOCOMOTION: WALK: LOCOMOTION: WALK - STEP 1: Does the patient need help from a person or device, or need extra time to walk 150 feet? Yes. LOCOMOTION: WALK - STEP 2: How much assistance does the patient require to walk a minimum of 150 feet? Only incidental help such as contact guarding or steadying LOCOMOTION: WALK - SCORE: 4-MIN LOCOMOTION: WHEELCHAIR: Activity did not occur on this shift LOCOMOTION: WHEELCHAIR - SCORE: 0-UNK LOCOMOTION: STAIRS: Activity did not occur on this shift LOCOMOTION: STAIRS - SCORE: 0-UNK COMPREHENSION: COMPREHENSION - SCORE: 0-UNK EXPRESSION EXPRESSION - SCORE: 0-UNK SOCIAL INTERACTION: SOCIAL INTERACTION - SCORE: 0-UNK PROBLEM SOLVING: PROBLEM SOLVING - SCORE: 0-UNK MEMORY: MEMORY - SCORE: 0-UNK SIGNATURE PANEL: The following modified sections: Transfers: Bed, Chair, Wheelchair - Score, Transfers: Toilet - Score , Locomotion: Walk - Score, Locomotion: Wheelchair - Score, Locomotion: Stairs - Score were [electron zully] signed by Derrek Verma, PT on FriFeb 04 2019 15:13:40 T-0500 (Central Daylight Time)
--- NOTE | 2019-02-04 18:06 | R.PN ---
ENCOUNTER DATE AND TIME: 02/04/2019 18:00 (CDT) NAME RADHA MOLINA DATE OF : 1930 DATE OF ADMISSION: 02/03/2019 19:57 (CDT) T12 Compression FractureCHIEF COMPLAINT: T12 compression fracture. SUBJECTIVE: Pt denied any Shortness of Breath. Pt denied any depression. Ambulated 175' with contact guard assistance using a rolling walker. WBC 10.0, Hgb 15.3, prealbumin 15.1. KUB shows a large amount of stool with fecal impaction in the co [place]. Will give fleets enema for disempaction. Ambulated 150' with contact guard assistance with a rolling walker. Up and down 5 steps with contact guard assistance. VITAL SIGNS Temperature: 97.8 F SBP/DBP: 163/72 Pulse: 94 Resp: 16 MEDICATION ALLERGIES: No Known Drug Allergies (NKDA) ENVIRONMENTAL ALLERGIES: None Known - Substance Allergies None Known - Other Allergies None Known NURSING: - Shower allowing shower - Bladder care per protocol - Skin care per protocol ACTIVITIES OOB only with supervision THERAPIES: - Orthotics/Prosthetics Splinting/Casting. Orthotic Evaluation. - Occupational Therapy Evaluate and Treat. - Physical Therapy Evaluate and Treat. PHYSICAL EXAM - Gen Alert and awake Lying in bed No apparent distress Oriented to: person, time, and place - Skin Rash in left groin No abnormalities - Eyes No abnormalities - ENMT No abnormalities - Neck No abnormalities - CVS RRR - Chest No abnormalities - Abd +bowel sounds - GI Soft Deferred - Urinary incontinence - Ext No significant edema. - MSK 4+/5 weakness in both lower extremities. Back muscle spasms. Back shell brace is in place. - Neuro No focal neurological deficits - Psych No abnormalities ASSESSMENT: Pt. 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 was independent/mod-I in Self-Care, S phincter Control, Transfers Control, Locomotion, Communication, and Social Cognition; and she had goo d Sphincter Control.Currently, she has deficits of Self-Care, Transfers Control, Locomotion, Communic ation, Social Cognition, Endurance, Balance, and Safety Awareness.Pt. is now referred to [facility] for acute in-patient rehabilitation in order to maximize patient's functional i ndependence in activities of daily living, strength, ROM, and mobility.- Rehab Goal Patient has realistic goal of being discharged at assistance level 6-Caroline to reside at Home with Fam mic/Relatives. MDM/PLAN: - Physical Therapy Gait dysfunction - to improve, our physical therapists will perform initial evaluation of pt's statu s upon admission and devise an individualized program for Gait Training, and Wheel Chair mobility Inability to transfer - to improve, our physical therapists will perform initial evaluation of pt's status upon admission and devise an individualized program for Bed mobility Need for home safety evaluation - to improve, our physical therapists will perform initial evaluatio n of pt's status upon admission and devise an individualized program for Home Evaluation Need in caregiver upon discharge - to improve, our physical therapists will perform initial evaluati on of pt's status upon admission and devise an individualized program for Caregiver Training Edema - to improve, our physical therapists will perform initial evaluation of pt's status upon admis tiffany and devise an individualized program for Elevation Training, and Lymphedema Therapy New precaution - to improve, our physical therapists will perform initial evaluation of pt's status upon admission and devise an individualized program for Patient precaution education Poor balance - to improve, our physical therapists will perform initial evaluation of pt's status up on admission and devise an individualized program for Balance Training Poor endurance - to improve, our physical therapists will perform initial evaluation of pt's status upon admission and devise an individualized program for Endurance Training Weakness - to improve, our physical therapists will perform initial evaluation of pt's status upon a dmission and devise an individualized program for Aquatic Therapy, Neuromuscular Reeducation, and Str engthening Achieving independence - to improve, our physical therapists will perform initial evaluation of pt's status upon admission and devise an individualized program for Community Reintegration Activities - Occupational Therapy ADL deficits - to improve, our occupation therapists will perform initial evaluation of pt's status upon admission and devise an individualized program for Bathing, Bed mobility, Community Reintegratio n, Cooking, Dressing, Eating, Fine Motor Skills, Grooming, Homemaking, Kitchen Mobility, Laundry, Pat ient Education, Safety Awareness, Splinting - Positioning, Transfers(Toilet, Tub, Shower), and Wheel Chair Management Cognitive deficits - to improve, our occupation therapists will perform initial evaluation of pt's s tatus upon admission and devise an individualized program for Cognition - orientation Need for intensive care unit nurse - to improve, our occupation therapists will perform initial evaluation of pt's status upon admission and devise an individualized program for Caregiver Training Weakness - to improve, our occupation therapists will perform initial evaluation of pt's status upon admission and devise an individualized program for Aquatic Therapy, Balance, Endurance, UE ROM, and UE strengthening - Diet Type Continue Regular - Diet - Liquid Texture Continue Regular - Tube Feed Continue N/A - Bladder care per protocol - Skin care per protocol - Diet - Solid Texture Continue Regular - Shower allowing shower FUNCTIONAL STATUS: UPDATED AT WEEKLY TEAM CONFERENCE - Bladder Same accident frequency: 7-Ind - No accidents in the past 7 days - Bowel Same accident frequency: 7-Ind - No accidents in the past 7 days - Walking Same score based on distance walked: 1(<=50ft) - Wheelchair Same score based on distance traveled: 0(N/A) FUNCTIONAL STATUS: - Self-Care A. Eating sup B. Grooming sup C. Bathing maxA D. Dressing - Upper maxA E. Dressing - Lower maxA F. Toileting maxA - Sphincter Control G: Bladder control Ind H: Bowel control Ind - Transfers Control I. Bed/Chair/Wheelchair Radha J. Toilet Radha K. Tub/Shower ADNO - Locomotion L. Walk/Wheelchair (B) maxA M. Stairs ADNO - Communication N. Comprehension (B) Radha O. Expression (B) Radha - Social Cognition P. Social Interaction Radha Q. Problem Solving Radha R. Memory min-to-modA - Endurance Fair - Balance Fair - Safety Awareness Fair CURRENT FUNC. DEFICITS: Self-Care, Transfers Control, Locomotion, Communication, Social Cognition, Endurance, Balance, and Sa fety Awareness SIGNATURE PANEL: (CDT)
[2019-02-04] MEDS: DOCUSATE NA/SENNA CONC 1 TAB PO SCH (20:45)
[2019-02-04] MEDS: AMITRIPTYLINE 25 MG TAB PO SCH (20:45)
[2019-02-04] MEDS: BENZONATATE 100 MG CAP PO SCH (20:45)
[2019-02-05] MEDS: TRAMADOL HCL 50 MG TAB PO SCH ×4 (01:07→20:14)
--- NOTE | 2019-02-05 01:16 | FAST ---
SHIFT START DATE/TIME: 02/04/2019 19:00 (CDT) SHIFT END DATE/TIME: 02/05/2019 07:00 (CDT) NAME RADHA MOLINA DATE OF : 1930 DATE OF ADMISSION: 02/03/2019 19:57 (CDT) PHONE: AGE: 88 N# [id number] GENDER: Female ENCOUNTER PHYSICIAN: Dr. Conor Cervantes M.D. 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 EATING: Activity did not occur on this shift EATING - SCORE: 0-UNK GROOMING: Activity did not occur on this shift GROOMING - SCORE: 0-UNK BATHING: Activity did not occur on this shift BATHING - SCORE: 0-UNK DRESSING - UPPER BODY: Patient is not dressing in public clothing ARTICLES SCORE Total number of steps: 0 DRESSING - UPPER BODY - SCORE: 0-UNK DRESSING - LOWER BODY: Patient is not dressing in public clothing ARTICLES SCORE Total number of steps: 0 DRESSING - LOWER BODY - SCORE: 0-UNK TOILETING: TOILETING - STEP 1: Does the patient require the assistance of a person or device, or need extra time with toileting? Yes . TOILETING - STEP 2: Does the patient require the assistance of a helper? Yes. TOILETING - STEP 3: How much assistance does the patient require from the helper? Hands-on assistance from the helper TOILETING - STEP 4: Of the 3 tasks: 1) Adjusting clothing prior to use, 2) Cleansing of perineal area, 3) Adjusting clot loni after use; How many tasks does the patient perform WITHOUT assistance of the helper? No tasks; h maty performs all three tasks TOILETING - SCORE: 1-DEP BLADDER MANAGEMENT: BLADDER MANAGEMENT - STEP 1: Does the patient control the bladder completely and intentionally without equipment or devices or med ications, and is always continent? No. BLADDER MANAGEMENT - STEP 2: Does the patient require the assistance of a helper? Yes. BLADDER MANAGEMENT - STEP 3: How much assistance does the patient require from the helper? Patient requires contact assistance fro m the helper BLADDER MANAGEMENT - STEP 4: How much contact assistance does the patient require from the helper? Patient requires maximal assist ance, and only performs 25% to 49% of bladder management tasks BLADDER MANAGEMENT - SCORE: 2-MAX BOWEL MANAGEMENT: Deerton removes incontinent device (depends, pull ups, etc.); cleans the patient after accident / inco ntinent episode; and, applies new device (depends, pull-ups, padding, etc.). BOWEL MANAGEMENT - SCORE: 1-DEP BOWEL MANAGEMENT - FREQUENCY OF ACCIDENTS: BOWEL MANAGEMENT(FA) - STEP 1: How many accidents has the patient had during the current shift? 1 TRANSFERS: BED, CHAIR, WHEELCHAIR: TRANSFERS: BED, CHAIR, WHEELCHAIR - STEP 1: Does the patient require assistance of a person or device, or need extra time with bed, chair, or whe elchair transfers? Yes. TRANSFERS: BED, CHAIR, WHEELCHAIR - STEP 2: Does the patient require the assistance of a helper? Yes. TRANSFERS: BED, CHAIR, WHEELCHAIR - STEP 3: How much assistance does the patient require from the helper? Steadying/guiding assistance TRANSFERS: BED, CHAIR, WHEELCHAIR - SCORE: 4-MIN TRANSFERS: TOILET: TRANSFERS: TOILET - STEP 1: Does the patient require the assistance of a person or device, or need extra time with toilet transfe rs? Yes. TRANSFERS: TOILET - STEP 2: Does the patient require the assistance of a helper? Yes. TRANSFERS: TOILET - STEP 3: How much assistance does the patient require from the helper? Patient performs half or more of the tr ansferring tasks TRANSFERS: TOILET - STEP 4: Does the patient need only incidental help such as contact guard or steadying during toilet transfer? Yes. TRANSFERS: TOILET - SCORE: 4-MIN TRANSFERS: SHOWER: Activity did not occur on this shift TRANSFERS: SHOWER - SCORE: 0-UNK TRANSFERS: TUB: Activity did not occur on this shift TRANSFERS: TUB - SCORE: 0-UNK LOCOMOTION: WALK: Activity did not occur on this shift LOCOMOTION: WALK - SCORE: 0-UNK LOCOMOTION: WHEELCHAIR: Activity did not occur on this shift LOCOMOTION: WHEELCHAIR - SCORE: 0-UNK COMPREHENSION: COMPREHENSION: TYPE: Both COMPREHENSION - STEP 1: Does the patient require help from a person or device, or need extra time to understand complex and a bstract ideas (such as current events, finances, discharge planning, medical issues, relationships, e tc)? Yes. COMPREHENSION - STEP 2: Does the patient require help to understand questions or statements about basic needs or ideas (such as hunger, thirst, sleep, safety, daily schedule, room location, or discomfort) half or more of the t shirley? No. COMPREHENSION - STEP 3: How often does the patient need help to understand directions and conversation about basic needs? Les s than 10% of the time COMPREHENSION - SCORE: 5-SUP EXPRESSION EXPRESSION: TYPE: Both EXPRESSION - STEP 1: Does the patient require help from a person or device, or need extra time expressing complex and abst ract ideas (such as current events, finances, discharge planning, medical issues, relationships, etc) ? Yes. EXPRESSION - STEP 2: Does the patient require help to express basic necessities or ideas (such as hunger, thirst, sleep, s afety, daily schedule, room location, or discomfort) half or more of the time? No. EXPRESSION - STEP 3: How often does the patient need help to express directions and conversation about basic needs? Less t locke 10% of the time EXPRESSION - SCORE: 5-SUP SOCIAL INTERACTION: SOCIAL INTERACTION - STEP 1: Does the patient require a helper to interact with others in social and therapeutic situations? Yes. SOCIAL INTERACTION - STEP 2: Does the patient interact appropriately half or more of the time? Yes. SOCIAL INTERACTION - STEP 3: How often does the patient need help to interact appropriately? Less than 10% of the time SOCIAL INTERACTION - SCORE: 5-SUP PROBLEM SOLVING: Patient requires bed/chair alarms due to attempts to get up unassisted when helper is needed. PROBLEM SOLVING - STEP 1: How often do the bed/chair alarms go off? Occasionally - the alarms go off about 25% or less PROBLEM SOLVING - SCORE: 4-MIN MEMORY: MEMORY - STEP 1: How often do the bed/chair alarms go off? Occasionally - the alarms go off about 25% of the time or l ess MEMORY - SCORE: 4-MIN SIGNATURE PANEL: The following modified sections: Eating - Score, Grooming - Score, Bathing - Score, Dressing - Upper Body - Score, Dressing - Lower Body - Score, Toileting - Score, Bladder Management - Score, Bowel Man agement - Score, Transfers: Bed, Chair, Wheelchair - Score, Transfers: Toilet - Score, Transfers: Ping wer - Score, Transfers: Tub - Score, Locomotion: Walk - Score, Locomotion: Wheelchair - Score, Compre hension - Score, Expression - Score, Social Interaction - Score, Problem Solving - Score, Memory - Sc ore were [electronically] signed by Delicia Ham RN on FriFeb 05 2019 01:15:48 T[facility]0500 [facility]
[2019-02-05] MEDS: METHOCARBAMOL 500 MG TAB PO PRN (03:34)
[2019-02-05] MEDS: LEVOTHYROXINE SOD 0.05 MG TABLET PO SCH (06:24)
[2019-02-05] MEDS: LEVOTHYROXINE SOD 0.1 MG TAB PO SCH (06:24)
[2019-02-05] MEDS: POLYETHYL GLY 3350 17 GM/DOSE PO SCH (08:23)
[2019-02-05] MEDS: APIXABAN 2.5 MG TABLET PO SCH ×2 (08:23→19:41)
[2019-02-05] MEDS: DOCUSATE NA 100 MG CAP PO SCH (08:23)
[2019-02-05] MEDS: NYSTATIN PWDR 100000 UNIT/GM TOP SCH ×2 (08:24→19:41)
[2019-02-05] MEDS: FUROSEMIDE 20 MG TABLET PO SCH (08:25)
--- NOTE | 2019-02-05 09:16 | FAST ---
ENCOUNTER DATE AND TIME: 02/04/2019 08:00 (CDT) NAME RADHA MOLINA DATE OF : 1930 DATE OF ADMISSION: 02/03/2019 19:57 (CDT) PHONE: AGE: 88 N# [id number] GENDER: Female ENCOUNTER PHYSICIAN: Dr. Conor Cervantes M.D. 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 EATING: Activity did not occur on this shift EATING - SCORE: 0-UNK GROOMING: Comb/brush hair Wash, rinse, and dry face Wash, rinse, and dry hands GROOMING - STEP 1: Does the patient require the assistance of a person or device, or need extra time when grooming? Yes. GROOMING - STEP 2: Does the patient require the assistance of a helper? Yes. GROOMING - STEP 3: How much assistance does the patient require from the helper? Cuing, coaxing, instructions, or encour agement for completion of grooming GROOMING - SCORE: 5-SUP BATHING: Abdomen Buttocks Chest Left arm Left lower leg and foot Left upper leg Perineal area Right arm Right lower leg and foot Right upper leg BATHING - STEP 1: Does the patient require the assistance of a person or device, or need extra time when bathing? Yes. BATHING - STEP 2: Does the patient require the assistance of a helper? Yes. BATHING - STEP 3: How much assistance does the patient require from the helper? More than just incidental help BATHING - STEP 4: What percent of the body parts did the patient bathe WITHOUT the helper? Half or more of the body par ts BATHING - SCORE: 3-MOD DRESSING - UPPER BODY: Sweater (four steps) T-shirt/pullover shirt (four steps) ARTICLES SCORE Total number of steps: 8 DRESSING - UPPER BODY - STEP 1: Does the patient require help from a person or device, or need extra time when dressing above the star st? Yes. DRESSING - UPPER BODY - STEP 2: Does the patient require the assistance of a helper? Yes. DRESSING - UPPER BODY - STEP 3: Does the helper touch the patient while dressing? Yes. DRESSING - UPPER BODY - STEP 4: How many of the total steps does the patient complete on his/her own? 6 DRESSING - UPPER BODY - SCORE: 4-MIN DRESSING - LOWER BODY: Elastic waist pants (three steps) Slip-on shoe - Left foot (one step) Slip-on shoe - Right foot (one step) Sock - Left foot (one step) Sock - Right foot (one step) Underwear (three steps) ARTICLES SCORE Total number of steps: 10 DRESSING - LOWER BODY - STEP 1: Does the patient require help from a person or device, or need extra time when dressing below the star st? Yes. DRESSING - LOWER BODY - STEP 2: Does the patient require the assistance of a helper? Yes. DRESSING - LOWER BODY - STEP 3: Does the helper touch the patient while dressing? Yes. DRESSING - LOWER BODY - STEP 4: How many of the total steps does the patient complete on his/her own? 0 DRESSING - LOWER BODY - STEP 5: Does patient require total assistance for dressing below the waist such as the helper holding clothin g and performing basically all the activities? Yes. DRESSING - LOWER BODY - SCORE: 1-DEP TOILETING: Activity did not occur on this shift TOILETING - SCORE: 0-UNK BLADDER MANAGEMENT: Activity did not occur on this shift BLADDER MANAGEMENT - SCORE: 7-IND BOWEL MANAGEMENT: Activity did not occur on this shift BOWEL MANAGEMENT - SCORE: 7-IND TRANSFERS: BED, CHAIR, WHEELCHAIR: Activity did not occur on this shift TRANSFERS: BED, CHAIR, WHEELCHAIR - SCORE: 0-UNK TRANSFERS: TOILET: Activity did not occur on this shift TRANSFERS: TOILET - SCORE: 0-UNK TRANSFERS: SHOWER: TRANSFERS: SHOWER - STEP 1: Does the patient require the assistance of a person or device, or need extra time with shower transfe rs? Yes. TRANSFERS: SHOWER - STEP 2: Does the patient require the assistance of a helper? Yes. TRANSFERS: SHOWER - STEP 3: How much assistance does the patient require from the helper? More than incidental help TRANSFERS: SHOWER - STEP 4: How much more help does the patient require from the helper? Lifting the patient up AND down from the wheelchair onto the shower chair TRANSFERS: SHOWER - SCORE: 2-MAX TRANSFERS: TUB: Activity did not occur on this shift TRANSFERS: TUB - SCORE: 0-UNK LOCOMOTION: WALK: Activity did not occur on this shift LOCOMOTION: WALK - SCORE: 0-UNK LOCOMOTION: WHEELCHAIR: Activity did not occur on this shift LOCOMOTION: WHEELCHAIR - SCORE: 0-UNK LOCOMOTION: STAIRS: Activity did not occur on this shift LOCOMOTION: STAIRS - SCORE: 0-UNK COMPREHENSION: COMPREHENSION: TYPE: Both COMPREHENSION - STEP 1: Does the patient require help from a person or device, or need extra time to understand complex and a bstract ideas (such as current events, finances, discharge planning, medical issues, relationships, e tc)? Yes. COMPREHENSION - STEP 2: Does the patient require help to understand questions or statements about basic needs or ideas (such as hunger, thirst, sleep, safety, daily schedule, room location, or discomfort) half or more of the t shirley? No. COMPREHENSION - STEP 3: How often does the patient need help to understand directions and conversation about basic needs? 10% - 24% of the time COMPREHENSION - SCORE: 4-MIN EXPRESSION EXPRESSION: TYPE: Both EXPRESSION - STEP 1: Does the patient require help from a person or device, or need extra time expressing complex and abst ract ideas (such as current events, finances, discharge planning, medical issues, relationships, etc) ? Yes. EXPRESSION - STEP 2: Does the patient require help to express basic necessities or ideas (such as hunger, thirst, sleep, s afety, daily schedule, room location, or discomfort) half or more of the time? No. EXPRESSION - STEP 3: How often does the patient need help to express directions and conversation about basic needs? Less t locke 10% of the time EXPRESSION - SCORE: 5-SUP SOCIAL INTERACTION: SOCIAL INTERACTION - STEP 1: Does the patient require a helper to interact with others in social and therapeutic situations? Yes. SOCIAL INTERACTION - STEP 2: Does the patient interact appropriately half or more of the time? Yes. SOCIAL INTERACTION - STEP 3: How often does the patient need help to interact appropriately? Less than 10% of the time SOCIAL INTERACTION - SCORE: 5-SUP PROBLEM SOLVING: PROBLEM SOLVING - STEP 1: Does the patient need help from a person or device, or need extra time to solve complex problems such as managing a checking account or confronting interpersonal problems? Yes. PROBLEM SOLVING - STEP 2: Does the patient solve basic routine problems half or more of the time? Yes. PROBLEM SOLVING - STEP 3: How often does the patient need help to solve basic routine problems? 25%-49% of the time PROBLEM SOLVING - SCORE: 3-MOD MEMORY: MEMORY - STEP 1: Does the patient need help from a person or device, or need extra time to remember frequently encount ered people, daily routines, and executing requests? Yes. MEMORY - STEP 2: How often does the patient need help to remember frequently encountered people, daily routines, and e xecuting requests? 25% - 49% of the time MEMORY - SCORE: 3-MOD SIGNATURE PANEL: The following modified sections: Eating - Score, Grooming - Score, Bathing - Score, Dressing - Upper Body - Score, Dressing - Lower Body - Score, Toileting - Score, Transfers: Bed, Chair, Wheelchair - S core, Transfers: Toilet - Score, Transfers: Tub - Score, Transfers: Shower - Score, Comprehension - S core, Expression - Score, Social Interaction - Score, Problem Solving - Score, Memory - Score were [e lectronically] signed by Arlen Shelton OT on FriFeb 05 2019 09:16:25 T-0500 ([facility])
--- NOTE | 2019-02-05 09:43 | P.RH.PN ---
Estimated Length of Stay: 14 Expected Discharge Date: 02/16/19 Discharge Disposition Plan: Home Family Support: Yes Fdc Goal: Mobility, Transfers, Self Care Vital Signs: Last Vital Signs Temp 97.9 F 02/05/19 07:00 Pulse 107 H 02/05/19 08:25 Resp 16 02/05/19 07:00 BP 125/57 L 02/05/19 08:25 Pulse Ox 95 02/05/19 07:00 Laboratory: Laboratory Last Values WBC 10.0 K/uL (4.3-10.9) 02/04/19 05:32 RBC 5.26 M/uL (3.86-4.86) H 02/04/19 05:32 Hgb 15.3 g/dL (12.0-15.0) H 02/04/19 05:32 Hct 46.1 % (36.0-45.0) H 02/04/19 05:32 MCV 87.7 fL (80-100) 02/04/19 05:32 MCH 29.1 pg (27.0-35.0) 02/04/19 05:32 MCHC 33.2 g/dL (32.0-36.0) 02/04/19 05:32 RDW 14.8 % (12.1-15.2) 02/04/19 05:32 Plt Count 370 K/uL (152-406) 02/04/19 05:32 MPV 8.2 fL (7.6-11.3) 02/04/19 05:32 Neutrophils % 77.7 % (41.7-73.7) H 02/04/19 05:32 Lymphocytes % 11.7 % (15.3-44.8) L 02/04/19 05:32 Monocytes % 7.1 % (3.3-12.3) 02/04/19 05:32 Eosinophils % 3.2 % (0-4.4) 02/04/19 05:32 Basophils % 0.3 % (0-1.3) 02/04/19 05:32 Absolute Neutrophils 7.8 K/uL (1.8-8.0) 02/04/19 05:32 Absolute Lymphocytes 1.2 K/uL (0.7-4.9) 02/04/19 05:32 Absolute Monocytes 0.7 K/uL (0.1-1.3) 02/04/19 05:32 Absolute Eosinophils 0.3 K/uL (0-0.5) 02/04/19 05:32 Absolute Basophils 0.0 K/uL (0-0.5) 02/04/19 05:32 Sodium 135 mmol/L (136-145) L 02/04/19 05:32 Potassium 3.7 mmol/L (3.5-5.1) 02/04/19 05:32 Chloride 99 mmol/L (98-107) 02/04/19 05:32 Carbon Dioxide 32 mmol/L (21-32) 02/04/19 05:32 BUN 13 mg/dL (7-18) 02/04/19 05:32 Creatinine 0.61 mg/dL (0.55-1.3) 02/04/19 05:32 Estimated GFR > 90 mL/min (=/>90) 02/04/19 05:32 Glucose 103 mg/dL (74-106) 02/04/19 05:32 Calcium 8.3 mg/dL (8.5-10.1) L 02/04/19 05:32 Magnesium 2.4 mg/dL (1.8-2.4) 02/04/19 05:32 Albumin 2.7 g/dL (3.4-5.0) L 02/04/19 05:32 Prealbumin 15.1 mg/dL (20-40) L 02/04/19 05:32 Urine Color Yellow 02/03/19 20:10 Urine Appearance Clear 02/03/19 20:10 Urine pH 5.5 (5.0-7.0) 02/03/19 20:10 Ur Specific [place] 1.020 (1.005-1.030) 02/03/19 20:10 Urine Ketones 1+ (NEG) H 02/03/19 20:10 Urine Blood Negative (NEG) 02/03/19 20:10 Urine Nitrite Negative (NEG) 02/03/19 20:10 Urine Bilirubin Negative (NEG) 02/03/19 20:10 Urine Urobilinogen 0.2 mg/dL (0.2-1.0) 02/03/19 20:10 Ur Leukocyte Esterase 1+ (NEG) H 02/03/19 20:10 Urine RBC <5 /HPF (NONE SEEN) 02/03/19 20:10 Urine WBC <5 /HPF (<5) 02/03/19 20:10 Ur Squamous Epith Cells <5 /HPF (NONE SEEN) 02/03/19 20:10 Urine Bacteria <20 /HPF (<20) 02/03/19 20:10 Urine Culture Reflexed Not needed 02/03/19 20:10 Urine Glucose Negative (NEG) 02/03/19 20:10 Urine Total Protein Negative (NEG) 02/03/19 20:10 Weight: 182 lb 3.2 oz Wound Present: No Closed Surgical Incision Present: No Negative Pressure Wound Therapy Present: No Physician Update: CBC with differential, BMP are essentially normal. She needs 8 -10 glasses of water daily. She has poor hearing. She requires enc ouragement to keep doing therapy. She is mild to moderate cognitive impairment and requires frequent reminders. She walked 250' with encouragement. Functional Improvement: pt presents with moderate <-> severe strength deficits globally. pt demonstrates poor trunk strength. pt exhibits reduced balance and stability during ambulation and transitional movements. pt experiences reduced tolerance to functional activity due to fatigue, weakness, pain, and reduced motivation. Skilled PT services are necessary to address the above mentioned impairments and functional limitations. Functional Improvement Occupational Therapy: Patient fatigues very quickly and wants to stop activity, then requires max verbal cues and encouragement to continue with tasks. She also is very hard of hearing, making it very difficulty for her to follow instructions. Summary: Patient's care plan and long-term goals have been reviewed and revised as necessary. Please see the Rehabilitation Signature page for all necessary signatures.
[2019-02-05] MEDS: NAPROXEN 250 MG TAB PO PRN (16:05)
--- NOTE | 2019-02-05 17:55 | FAST ---
SHIFT START DATE/TIME: 02/05/2019 07:00 (CDT) SHIFT END DATE/TIME: 02/05/2019 19:00 (CDT) NAME RADHA MOLINA DATE OF : 1930 DATE OF ADMISSION: 02/03/2019 19:57 (CDT) PHONE: AGE: 88 N# [id number] GENDER: Female ENCOUNTER PHYSICIAN: Dr. Conor Cervantes M.D. 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 EATING: EATING - STEP 1: Does the patient require the assistance of a person or device, or need extra time when eating? No. EATING - SCORE: 7-IND GROOMING: Comb/brush hair Wash, rinse, and dry hands GROOMING - STEP 1: Does the patient require the assistance of a person or device, or need extra time when grooming? Yes. GROOMING - STEP 2: Does the patient require the assistance of a helper? No. The patient only requires an assistive devic e, OR takes more than reasonable time to groom, OR there is a concern for safety as the patient groom s GROOMING - SCORE: 6-SIRI BATHING: Activity did not occur on this shift BATHING - SCORE: 0-UNK DRESSING - UPPER BODY: Button down shirt or blouse - NOT tucked in (four steps) ARTICLES SCORE Total number of steps: 4 DRESSING - UPPER BODY - STEP 1: Does the patient require help from a person or device, or need extra time when dressing above the star st? Yes. DRESSING - UPPER BODY - STEP 2: Does the patient require the assistance of a helper? Yes. DRESSING - UPPER BODY - STEP 3: Does the helper touch the patient while dressing? Yes. DRESSING - UPPER BODY - STEP 4: How many of the total steps does the patient complete on his/her own? 2 DRESSING - UPPER BODY - SCORE: 3-MOD DRESSING - LOWER BODY: Elastic waist pants (three steps) Underwear (three steps) ARTICLES SCORE Total number of steps: 6 DRESSING - LOWER BODY - STEP 1: Does the patient require help from a person or device, or need extra time when dressing below the star st? Yes. DRESSING - LOWER BODY - STEP 2: Does the patient require the assistance of a helper? Yes. DRESSING - LOWER BODY - STEP 3: Does the helper touch the patient while dressing? Yes. DRESSING - LOWER BODY - STEP 4: How many of the total steps does the patient complete on his/her own? 4 DRESSING - LOWER BODY - SCORE: 3-MOD TOILETING: TOILETING - STEP 1: Does the patient require the assistance of a person or device, or need extra time with toileting? Yes . TOILETING - STEP 2: Does the patient require the assistance of a helper? Yes. TOILETING - STEP 3: How much assistance does the patient require from the helper? Only supervision TOILETING - SCORE: 5-SUP BLADDER MANAGEMENT: [place] removes incontinent device (Depends, pull ups, etc.); cleans the patient after accident / inco ntinent episode; and, applies new incontinent device. BLADDER MANAGEMENT - SCORE: 1-DEP BLADDER MANAGEMENT - FREQUENCY OF ACCIDENTS: BLADDER MANAGEMENT(FA) - STEP 1: How many accidents has the patient had during the current shift? 2 BOWEL MANAGEMENT: BOWEL MANAGEMENT - STEP 1: Does the patient control bowels completely and intentionally without equipment devices or medications AND is always continent? Yes. BOWEL MANAGEMENT - SCORE: 7-IND BOWEL MANAGEMENT - FREQUENCY OF ACCIDENTS: BOWEL MANAGEMENT(FA) - STEP 1: How many accidents has the patient had during the current shift? 0 TRANSFERS: BED, CHAIR, WHEELCHAIR: TRANSFERS: BED, CHAIR, WHEELCHAIR - STEP 1: Does the patient require assistance of a person or device, or need extra time with bed, chair, or whe elchair transfers? Yes. TRANSFERS: BED, CHAIR, WHEELCHAIR - STEP 2: Does the patient require the assistance of a helper? Yes. TRANSFERS: BED, CHAIR, WHEELCHAIR - STEP 3: How much assistance does the patient require from the helper? Steadying/guiding assistance TRANSFERS: BED, CHAIR, WHEELCHAIR - SCORE: 4-MIN TRANSFERS: TOILET: TRANSFERS: TOILET - STEP 1: Does the patient require the assistance of a person or device, or need extra time with toilet transfe rs? Yes. TRANSFERS: TOILET - STEP 2: Does the patient require the assistance of a helper? Yes. TRANSFERS: TOILET - STEP 3: How much assistance does the patient require from the helper? Patient performs half or more of the tr ansferring tasks TRANSFERS: TOILET - STEP 4: Does the patient need only incidental help such as contact guard or steadying during toilet transfer? Yes. TRANSFERS: TOILET - SCORE: 4-MIN TRANSFERS: SHOWER: Activity did not occur on this shift TRANSFERS: SHOWER - SCORE: 0-UNK TRANSFERS: TUB: Activity did not occur on this shift TRANSFERS: TUB - SCORE: 0-UNK LOCOMOTION: WALK: Activity did not occur on this shift LOCOMOTION: WALK - SCORE: 0-UNK LOCOMOTION: WHEELCHAIR: Activity did not occur on this shift LOCOMOTION: WHEELCHAIR - SCORE: 0-UNK COMPREHENSION: COMPREHENSION - SCORE: 0-UNK EXPRESSION EXPRESSION - SCORE: 0-UNK SOCIAL INTERACTION: SOCIAL INTERACTION - SCORE: 0-UNK PROBLEM SOLVING: PROBLEM SOLVING - SCORE: 0-UNK MEMORY: MEMORY - SCORE: 0-UNK SIGNATURE PANEL: The following modified sections: Eating - Score, Grooming - Score, Bathing - Score, Dressing - Upper Body - Score, Dressing - Lower Body - Score, Toileting - Score, Bladder Management - Score, Bowel Man agement - Score, Transfers: Bed, Chair, Wheelchair - Score, Transfers: Toilet - Score, Transfers: Ping wer - Score, Transfers: Tub - Score, Locomotion: Walk - Score, Locomotion: Wheelchair - Score, Compre hension - Score, Expression - Score, Social Interaction - Score, Problem Solving - Score, Memory - Sc ore were [electronically] signed by Karime Vega CNA on FriFeb 05 2019 17:54:51 GMT-0500 (Centra l Daylight Time)
[2019-02-05] MEDS: MELATONIN 5 MG TABLET PO PRN (20:14)
[2019-02-05] MEDS: DOCUSATE NA/SENNA CONC 1 TAB PO SCH (20:17)
[2019-02-05] MEDS: BENZONATATE 100 MG CAP PO SCH (20:18)
[2019-02-05] MEDS: AMITRIPTYLINE 25 MG TAB PO SCH (20:18)
[2019-02-06] MEDS: TRAMADOL HCL 50 MG TAB PO SCH ×4 (01:32→20:01)
--- NOTE | 2019-02-06 02:10 | FAST ---
SHIFT START DATE/TIME: 02/05/2019 19:00 (CDT) SHIFT END DATE/TIME: 02/06/2019 07:00 (CDT) NAME RADHA MOLINA DATE OF : 1930 DATE OF ADMISSION: 02/03/2019 19:57 (CDT) PHONE: AGE: 88 N# [id number] GENDER: Female ENCOUNTER PHYSICIAN: Dr. Conor Cervantes M.D. 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 EATING: Activity did not occur on this shift EATING - SCORE: 0-UNK GROOMING: Activity did not occur on this shift GROOMING - SCORE: 0-UNK BATHING: Activity did not occur on this shift BATHING - SCORE: 0-UNK DRESSING - UPPER BODY: Patient is not dressing in public clothing ARTICLES SCORE Total number of steps: 0 DRESSING - UPPER BODY - SCORE: 0-UNK DRESSING - LOWER BODY: Patient is not dressing in public clothing ARTICLES SCORE Total number of steps: 0 DRESSING - LOWER BODY - SCORE: 0-UNK TOILETING: TOILETING - STEP 1: Does the patient require the assistance of a person or device, or need extra time with toileting? Yes . TOILETING - STEP 2: Does the patient require the assistance of a helper? Yes. TOILETING - STEP 3: How much assistance does the patient require from the helper? Hands-on assistance from the helper TOILETING - STEP 4: Of the 3 tasks: 1) Adjusting clothing prior to use, 2) Cleansing of perineal area, 3) Adjusting clot loni after use; How many tasks does the patient perform WITHOUT assistance of the helper? Three tasks with steadying assistance from the helper TOILETING - SCORE: 4-MIN BLADDER MANAGEMENT: BLADDER MANAGEMENT - STEP 1: Does the patient control the bladder completely and intentionally without equipment or devices or med ications, and is always continent? No. BLADDER MANAGEMENT - STEP 2: Does the patient require the assistance of a helper? Yes. BLADDER MANAGEMENT - STEP 3: How much assistance does the patient require from the helper? Only set-up of equipment - such as plac ing it within reach of the patient or emptying a device - to maintain either satisfactory voiding pat tern or managing an external device, such as an absorbent pad, ileal device, or catheter BLADDER MANAGEMENT - SCORE: 5-SUP BOWEL MANAGEMENT: Activity did not occur on this shift BOWEL MANAGEMENT - SCORE: 7-IND TRANSFERS: BED, CHAIR, WHEELCHAIR: TRANSFERS: BED, CHAIR, WHEELCHAIR - STEP 1: Does the patient require assistance of a person or device, or need extra time with bed, chair, or whe elchair transfers? Yes. TRANSFERS: BED, CHAIR, WHEELCHAIR - STEP 2: Does the patient require the assistance of a helper? Yes. TRANSFERS: BED, CHAIR, WHEELCHAIR - STEP 3: How much assistance does the patient require from the helper? Lifting of the legs TRANSFERS: BED, CHAIR, WHEELCHAIR - STEP 4: How many legs does the patient require the helper to lift? both legs TRANSFERS: BED, CHAIR, WHEELCHAIR - SCORE: 3-MOD TRANSFERS: TOILET: TRANSFERS: TOILET - STEP 1: Does the patient require the assistance of a person or device, or need extra time with toilet transfe rs? Yes. TRANSFERS: TOILET - STEP 2: Does the patient require the assistance of a helper? Yes. TRANSFERS: TOILET - STEP 3: How much assistance does the patient require from the helper? Only supervision, cuing, coaxing, OR he lp to set out transfer equipment or to lock brakes and/or lift foot rests TRANSFERS: TOILET - SCORE: 5-SUP TRANSFERS: SHOWER: Activity did not occur on this shift TRANSFERS: SHOWER - SCORE: 0-UNK TRANSFERS: TUB: Activity did not occur on this shift TRANSFERS: TUB - SCORE: 0-UNK LOCOMOTION: WALK: Activity did not occur on this shift LOCOMOTION: WALK - SCORE: 0-UNK LOCOMOTION: WHEELCHAIR: Activity did not occur on this shift LOCOMOTION: WHEELCHAIR - SCORE: 0-UNK COMPREHENSION: COMPREHENSION: TYPE: Both COMPREHENSION - STEP 1: Does the patient require help from a person or device, or need extra time to understand complex and a bstract ideas (such as current events, finances, discharge planning, medical issues, relationships, e tc)? No. COMPREHENSION - STEP 2: Does the patient need extra time, require an assistive device (such as glasses for visual comprehensi on or a hearing aid for auditory comprehension) or does s/he have mild difficulty understanding compl ex and abstract information? Yes. COMPREHENSION - SCORE: 6-SIRI EXPRESSION EXPRESSION: TYPE: Both EXPRESSION - STEP 1: Does the patient require help from a person or device, or need extra time expressing complex and abst ract ideas (such as current events, finances, discharge planning, medical issues, relationships, etc) ? No. EXPRESSION - STEP 2: Does the patient need extra time, require an assistive device (such as augmentive communication syste m or a communication board), OR does s/he have mild difficulty expressing complex and abstract ideas (including mild dysarthria or mild word-find problems)? Yes. EXPRESSION - SCORE: 6-SIRI SOCIAL INTERACTION: SOCIAL INTERACTION - STEP 1: Does the patient require a helper to interact with others in social and therapeutic situations? No. SOCIAL INTERACTION - STEP 2: Does the patient need extra time in social situations, OR does s/he interact with staff, other patien ts, and family members ONLY in structured environments, OR does s/he require medication for social in teraction? Yes, patient needs extra time SOCIAL INTERACTION - SCORE: 6-SIRI PROBLEM SOLVING: PROBLEM SOLVING - STEP 1: Does the patient need help from a person or device, or need extra time to solve complex problems such as managing a checking account or confronting interpersonal problems? No. PROBLEM SOLVING - STEP 2: Does the patient require extra time to make decisions or solve problems, OR does s/he have slight dif ficulty reading, initiating, or self-correcting in unfamiliar situations? Yes, patient needs extra ti me. PROBLEM SOLVING - SCORE: 6-SIRI MEMORY: MEMORY - STEP 1: Does the patient need help from a person or device, or need extra time to remember frequently encount ered people, daily routines, and executing requests? No. MEMORY - STEP 2: Does the patient have slight difficulty recognizing frequently encountered people, daily routines, or executing requests without the need for repetition or using self-initiated or environmental cues to remember? Yes. MEMORY - SCORE: 6-SIRI
[2019-02-06] MEDS: LEVOTHYROXINE SOD 0.1 MG TAB PO SCH (06:47)
[2019-02-06] MEDS: LEVOTHYROXINE SOD 0.05 MG TABLET PO SCH (06:47)
[2019-02-06] MEDS: NYSTATIN PWDR 100000 UNIT/GM TOP SCH ×2 (08:00→20:00)
[2019-02-06] MEDS: POLYETHYL GLY 3350 17 GM/DOSE PO SCH (08:25)
[2019-02-06] MEDS: FUROSEMIDE 20 MG TABLET PO SCH (08:26)
[2019-02-06] MEDS: DOCUSATE NA 100 MG CAP PO SCH (08:26)
[2019-02-06] MEDS: APIXABAN 2.5 MG TABLET PO SCH ×2 (08:26→20:01)
--- NOTE | 2019-02-06 14:44 | FAST ---
SHIFT START DATE/TIME: 02/06/2019 07:00 (CDT) SHIFT END DATE/TIME: 02/06/2019 19:00 (CDT) NAME RADHA MOLINA DATE OF : 1930 DATE OF ADMISSION: 02/03/2019 19:57 (CDT) PHONE: AGE: 88 N# [id number] GENDER: Female ENCOUNTER PHYSICIAN: Dr. Conor Cervantes M.D. 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 EATING: EATING - STEP 1: Does the patient require the assistance of a person or device, or need extra time when eating? Yes. EATING - STEP 2: Does the patient require the assistance of a helper? Yes. EATING - STEP 3: Does the patient perform half or more of the eating tasks? Yes. EATING - STEP 4: Does the patient need only supervision, cuing, coaxing OR help to apply an orthosis OR help to cut fo od, open containers, pour liquids, or butter bread? Yes. EATING - SCORE: 5-SUP GROOMING: Comb/brush hair Oral care Wash, rinse, and dry face Wash, rinse, and dry hands GROOMING - STEP 1: Does the patient require the assistance of a person or device, or need extra time when grooming? Yes. GROOMING - STEP 2: Does the patient require the assistance of a helper? Yes. GROOMING - STEP 3: How much assistance does the patient require from the helper? Cuing, coaxing, instructions, or encour agement for completion of grooming GROOMING - SCORE: 5-SUP BATHING: Activity did not occur on this shift BATHING - SCORE: 0-UNK DRESSING - UPPER BODY: Activity did not occur on this shift ARTICLES SCORE Total number of steps: 0 DRESSING - UPPER BODY - SCORE: 0-UNK DRESSING - LOWER BODY: Activity did not occur on this shift ARTICLES SCORE Total number of steps: 0 DRESSING - LOWER BODY - SCORE: 0-UNK TOILETING: TOILETING - STEP 1: Does the patient require the assistance of a person or device, or need extra time with toileting? Yes . TOILETING - STEP 2: Does the patient require the assistance of a helper? Yes. TOILETING - STEP 3: How much assistance does the patient require from the helper? Only supervision TOILETING - SCORE: 5-SUP BLADDER MANAGEMENT: BLADDER MANAGEMENT - STEP 1: Does the patient control the bladder completely and intentionally without equipment or devices or med ications, and is always continent? Yes. BLADDER MANAGEMENT - SCORE: 7-IND BLADDER MANAGEMENT - FREQUENCY OF ACCIDENTS: BLADDER MANAGEMENT(FA) - STEP 1: How many accidents has the patient had during the current shift? 0 BOWEL MANAGEMENT: Activity did not occur on this shift BOWEL MANAGEMENT - SCORE: 7-IND BOWEL MANAGEMENT - FREQUENCY OF ACCIDENTS: BOWEL MANAGEMENT(FA) - STEP 1: How many accidents has the patient had during the current shift? 0 TRANSFERS: BED, CHAIR, WHEELCHAIR: TRANSFERS: BED, CHAIR, WHEELCHAIR - STEP 1: Does the patient require assistance of a person or device, or need extra time with bed, chair, or whe elchair transfers? Yes. TRANSFERS: BED, CHAIR, WHEELCHAIR - STEP 2: Does the patient require the assistance of a helper? Yes. TRANSFERS: BED, CHAIR, WHEELCHAIR - STEP 3: How much assistance does the patient require from the helper? Steadying/guiding assistance TRANSFERS: BED, CHAIR, WHEELCHAIR - SCORE: 4-MIN TRANSFERS: TOILET: TRANSFERS: TOILET - STEP 1: Does the patient require the assistance of a person or device, or need extra time with toilet transfe rs? Yes. TRANSFERS: TOILET - STEP 2: Does the patient require the assistance of a helper? Yes. TRANSFERS: TOILET - STEP 3: How much assistance does the patient require from the helper? Patient performs half or more of the tr ansferring tasks TRANSFERS: TOILET - STEP 4: Does the patient need only incidental help such as contact guard or steadying during toilet transfer? Yes. TRANSFERS: TOILET - SCORE: 4-MIN TRANSFERS: SHOWER: Activity did not occur on this shift TRANSFERS: SHOWER - SCORE: 0-UNK TRANSFERS: TUB: Activity did not occur on this shift TRANSFERS: TUB - SCORE: 0-UNK LOCOMOTION: WALK: Activity did not occur on this shift LOCOMOTION: WALK - SCORE: 0-UNK LOCOMOTION: WHEELCHAIR: Activity did not occur on this shift LOCOMOTION: WHEELCHAIR - SCORE: 0-UNK COMPREHENSION: COMPREHENSION: TYPE: Both COMPREHENSION - STEP 1: Does the patient require help from a person or device, or need extra time to understand complex and a bstract ideas (such as current events, finances, discharge planning, medical issues, relationships, e tc)? Yes. COMPREHENSION - STEP 2: Does the patient require help to understand questions or statements about basic needs or ideas (such as hunger, thirst, sleep, safety, daily schedule, room location, or discomfort) half or more of the t shirley? No. COMPREHENSION - STEP 3: How often does the patient need help to understand directions and conversation about basic needs? Les s than 10% of the time COMPREHENSION - SCORE: 5-SUP EXPRESSION EXPRESSION: TYPE: Both EXPRESSION - STEP 1: Does the patient require help from a person or device, or need extra time expressing complex and abst ract ideas (such as current events, finances, discharge planning, medical issues, relationships, etc) ? Yes. EXPRESSION - STEP 2: Does the patient require help to express basic necessities or ideas (such as hunger, thirst, sleep, s afety, daily schedule, room location, or discomfort) half or more of the time? No. EXPRESSION - STEP 3: How often does the patient need help to express directions and conversation about basic needs? Less t locke 10% of the time EXPRESSION - SCORE: 5-SUP EXPRESSION - COMMENTS: Hard of hearing SOCIAL INTERACTION: SOCIAL INTERACTION - STEP 1: Does the patient require a helper to interact with others in social and therapeutic situations? Yes. SOCIAL INTERACTION - STEP 2: Does the patient interact appropriately half or more of the time? Yes. SOCIAL INTERACTION - STEP 3: How often does the patient need help to interact appropriately? 10-24% of the time SOCIAL INTERACTION - SCORE: 4-MIN COMMENTS: Hard of hearing with hearing aids PROBLEM SOLVING: PROBLEM SOLVING - STEP 1: Does the patient need help from a person or device, or need extra time to solve complex problems such as managing a checking account or confronting interpersonal problems? Yes. PROBLEM SOLVING - STEP 2: Does the patient solve basic routine problems half or more of the time? Yes. PROBLEM SOLVING - STEP 3: How often does the patient need help to solve basic routine problems? Less than 10% of the time PROBLEM SOLVING - SCORE: 5-SUP MEMORY: MEMORY - STEP 1: Does the patient need help from a person or device, or need extra time to remember frequently encount ered people, daily routines, and executing requests? Yes. MEMORY - STEP 2: How often does the patient need help to remember frequently encountered people, daily routines, and e xecuting requests? Less than 10% of the time MEMORY - SCORE: 5-SUP SIGNATURE PANEL: The following modified sections: Eating - Score, Grooming - Score, Bathing - Score, Dressing - Upper Body - Score, Dressing - Lower Body - Score, Toileting - Score, Bladder Management - Score, Bowel Man agement - Score, Transfers: Bed, Chair, Wheelchair - Score, Transfers: Toilet - Score, Transfers: Ping wer - Score, Transfers: Tub - Score, Locomotion: Walk - Score, Locomotion: Wheelchair - Score, Compre hension - Score, Expression - Score, Social Interaction - Score, Comments:, Expression - Comments:Prisca Solving - Score, Memory - Score were [electronically] signed by Lisa Ortega C.N.A. on Sat Ap r 2018 14:43:14 T-0500 (Central Daylight Time)
--- NOTE | 2019-02-06 16:59 | FAST ---
ENCOUNTER DATE AND TIME: 02/06/2019 08:00 (CDT) NAME RADHA MOLINA DATE OF : 1930 DATE OF ADMISSION: 02/03/2019 19:57 (CDT) PHONE: AGE: 88 N# [id number] GENDER: Female ENCOUNTER PHYSICIAN: Dr. Conor Cervantes M.D. 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 EATING: Activity did not occur on this shift EATING - SCORE: 0-UNK GROOMING: Comb/brush hair Oral care GROOMING - STEP 1: Does the patient require the assistance of a person or device, or need extra time when grooming? No. GROOMING - SCORE: 7-IND BATHING: Abdomen Buttocks Chest Left arm Left lower leg and foot Left upper leg Perineal area Right arm Right lower leg and foot Right upper leg BATHING - STEP 1: Does the patient require the assistance of a person or device, or need extra time when bathing? Yes. BATHING - STEP 2: Does the patient require the assistance of a helper? Yes. BATHING - STEP 3: How much assistance does the patient require from the helper? More than just incidental help BATHING - STEP 4: What percent of the body parts did the patient bathe WITHOUT the helper? Half or more of the body par ts BATHING - SCORE: 3-MOD DRESSING - UPPER BODY: Button down shirt or blouse - NOT tucked in (four steps) ARTICLES SCORE Total number of steps: 4 DRESSING - UPPER BODY - STEP 1: Does the patient require help from a person or device, or need extra time when dressing above the star st? Yes. DRESSING - UPPER BODY - STEP 2: Does the patient require the assistance of a helper? Yes. DRESSING - UPPER BODY - STEP 3: Does the helper touch the patient while dressing? Yes. DRESSING - UPPER BODY - STEP 4: How many of the total steps does the patient complete on his/her own? 4 DRESSING - UPPER BODY - SCORE: 4-MIN DRESSING - UPPER BODY - COMMENTS: Pt requires assist with TLSO DRESSING - LOWER BODY: Elastic waist pants (three steps) Sock - Left foot (one step) Sock - Right foot (one step) Underwear (three steps) ARTICLES SCORE Total number of steps: 8 DRESSING - LOWER BODY - STEP 1: Does the patient require help from a person or device, or need extra time when dressing below the star st? Yes. DRESSING - LOWER BODY - STEP 2: Does the patient require the assistance of a helper? Yes. DRESSING - LOWER BODY - STEP 3: Does the helper touch the patient while dressing? Yes. DRESSING - LOWER BODY - STEP 4: How many of the total steps does the patient complete on his/her own? 6 DRESSING - LOWER BODY - SCORE: 4-MIN TOILETING: Activity did not occur on this shift TOILETING - SCORE: 0-UNK BLADDER MANAGEMENT: Activity did not occur on this shift BLADDER MANAGEMENT - SCORE: 7-IND BOWEL MANAGEMENT: Activity did not occur on this shift BOWEL MANAGEMENT - SCORE: 7-IND TRANSFERS: BED, CHAIR, WHEELCHAIR: Activity did not occur on this shift TRANSFERS: BED, CHAIR, WHEELCHAIR - SCORE: 0-UNK TRANSFERS: TOILET: Activity did not occur on this shift TRANSFERS: TOILET - SCORE: 0-UNK TRANSFERS: SHOWER: TRANSFERS: SHOWER - STEP 1: Does the patient require the assistance of a person or device, or need extra time with shower transfe rs? Yes. TRANSFERS: SHOWER - STEP 2: Does the patient require the assistance of a helper? Yes. TRANSFERS: SHOWER - STEP 3: How much assistance does the patient require from the helper? Only incidental help such as contact gu arding or steadying during shower transfers, or help to lift one leg into the shower TRANSFERS: SHOWER - SCORE: 4-MIN TRANSFERS: TUB: Activity did not occur on this shift TRANSFERS: TUB - SCORE: 0-UNK LOCOMOTION: WALK: Activity did not occur on this shift LOCOMOTION: WALK - SCORE: 0-UNK LOCOMOTION: WHEELCHAIR: Activity did not occur on this shift LOCOMOTION: WHEELCHAIR - SCORE: 0-UNK LOCOMOTION: STAIRS: Activity did not occur on this shift LOCOMOTION: STAIRS - SCORE: 0-UNK COMPREHENSION: COMPREHENSION: TYPE: Both COMPREHENSION - STEP 1: Does the patient require help from a person or device, or need extra time to understand complex and a bstract ideas (such as current events, finances, discharge planning, medical issues, relationships, e tc)? Yes. COMPREHENSION - STEP 2: Does the patient require help to understand questions or statements about basic needs or ideas (such as hunger, thirst, sleep, safety, daily schedule, room location, or discomfort) half or more of the t shirley? No. COMPREHENSION - STEP 3: How often does the patient need help to understand directions and conversation about basic needs? Les s than 10% of the time COMPREHENSION - SCORE: 5-SUP EXPRESSION EXPRESSION: TYPE: Vocal EXPRESSION - STEP 1: Does the patient require help from a person or device, or need extra time expressing complex and abst ract ideas (such as current events, finances, discharge planning, medical issues, relationships, etc) ? Yes. EXPRESSION - STEP 2: Does the patient require help to express basic necessities or ideas (such as hunger, thirst, sleep, s afety, daily schedule, room location, or discomfort) half or more of the time? No. EXPRESSION - STEP 3: How often does the patient need help to express directions and conversation about basic needs? Less t locke 10% of the time EXPRESSION - SCORE: 5-SUP SOCIAL INTERACTION: SOCIAL INTERACTION - STEP 1: Does the patient require a helper to interact with others in social and therapeutic situations? No. SOCIAL INTERACTION - STEP 2: Does the patient need extra time in social situations, OR does s/he interact with staff, other patien ts, and family members ONLY in structured environments, OR does s/he require medication for social in teraction? No. SOCIAL INTERACTION - SCORE: 7-IND PROBLEM SOLVING: PROBLEM SOLVING - STEP 1: Does the patient need help from a person or device, or need extra time to solve complex problems such as managing a checking account or confronting interpersonal problems? Yes. PROBLEM SOLVING - STEP 2: Does the patient solve basic routine problems half or more of the time? Yes. PROBLEM SOLVING - STEP 3: How often does the patient need help to solve basic routine problems? 10%-24% of the time PROBLEM SOLVING - SCORE: 4-MIN MEMORY: MEMORY - STEP 1: Does the patient need help from a person or device, or need extra time to remember frequently encount ered people, daily routines, and executing requests? Yes. MEMORY - STEP 2: How often does the patient need help to remember frequently encountered people, daily routines, and e xecuting requests? Less than 10% of the time MEMORY - SCORE: 5-SUP SIGNATURE PANEL: The following modified sections: Eating - Score, Grooming - Score, Bathing - Score, Dressing - Upper Body - Score, Dressing - Upper Body - Comments:, Dressing - Lower Body - Score, Toileting - Score, Tr ansfers: Bed, Chair, Wheelchair - Score, Transfers: Toilet - Score, Transfers: Shower - Score, Transf ers: Tub - Score, Comprehension - Score, Expression - Score, Social Interaction - Score, Problem Solv ing - Score, Memory - Score were [electronically] signed by Chio Oliveira OT on Sat Feb 06 2019 16: 58:18 T-0500 (Central Daylight Time)
[2019-02-06] MEDS ORDERED: PROAIR IH PRN (17:14)
[2019-02-06] MEDS: METHOCARBAMOL 500 MG TAB PO PRN (19:27)
[2019-02-06] MEDS: MELATONIN 5 MG TABLET PO PRN (20:01)
[2019-02-06] MEDS: DOCUSATE NA/SENNA CONC 1 TAB PO SCH (20:01)
[2019-02-06] MEDS: AMITRIPTYLINE 25 MG TAB PO SCH (20:01)
[2019-02-06] MEDS: BENZONATATE 100 MG CAP PO SCH (20:01)
[2019-02-06] MEDS: NAPROXEN 250 MG TAB PO PRN (23:45)
--- NOTE | 2019-02-07 01:12 | FAST ---
SHIFT START DATE/TIME: 02/06/2019 19:00 (CDT) SHIFT END DATE/TIME: 02/07/2019 07:00 (CDT) NAME RADHA MOLINA DATE OF : 1930 DATE OF ADMISSION: 02/03/2019 19:57 (CDT) PHONE: AGE: 88 N# [id number] GENDER: Female ENCOUNTER PHYSICIAN: Dr. Conor Cervantes M.D. 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 EATING: Activity did not occur on this shift EATING - SCORE: 0-UNK GROOMING: Wash, rinse, and dry hands GROOMING - STEP 1: Does the patient require the assistance of a person or device, or need extra time when grooming? Yes. GROOMING - STEP 2: Does the patient require the assistance of a helper? Yes. GROOMING - STEP 3: How much assistance does the patient require from the helper? Only prior equipment preparation/set up from the helper GROOMING - SCORE: 5-SUP BATHING: Activity did not occur on this shift BATHING - SCORE: 0-UNK DRESSING - UPPER BODY: Patient is not dressing in public clothing ARTICLES SCORE Total number of steps: 0 DRESSING - UPPER BODY - SCORE: 0-UNK DRESSING - LOWER BODY: Patient is not dressing in public clothing ARTICLES SCORE Total number of steps: 0 DRESSING - LOWER BODY - SCORE: 0-UNK TOILETING: TOILETING - STEP 1: Does the patient require the assistance of a person or device, or need extra time with toileting? Yes . TOILETING - STEP 2: Does the patient require the assistance of a helper? Yes. TOILETING - STEP 3: How much assistance does the patient require from the helper? Hands-on assistance from the helper TOILETING - STEP 4: Of the 3 tasks: 1) Adjusting clothing prior to use, 2) Cleansing of perineal area, 3) Adjusting clot loni after use; How many tasks does the patient perform WITHOUT assistance of the helper? One task TOILETING - SCORE: 2-MAX BLADDER MANAGEMENT: BLADDER MANAGEMENT - STEP 1: Does the patient control the bladder completely and intentionally without equipment or devices or med ications, and is always continent? No. BLADDER MANAGEMENT - STEP 2: Does the patient require the assistance of a helper? Yes. BLADDER MANAGEMENT - STEP 3: How much assistance does the patient require from the helper? Only set-up of equipment - such as plac ing it within reach of the patient or emptying a device - to maintain either satisfactory voiding pat tern or managing an external device, such as an absorbent pad, ileal device, or catheter BLADDER MANAGEMENT - SCORE: 5-SUP BOWEL MANAGEMENT: Activity did not occur on this shift BOWEL MANAGEMENT - SCORE: 7-IND TRANSFERS: BED, CHAIR, WHEELCHAIR: TRANSFERS: BED, CHAIR, WHEELCHAIR - STEP 1: Does the patient require assistance of a person or device, or need extra time with bed, chair, or whe elchair transfers? Yes. TRANSFERS: BED, CHAIR, WHEELCHAIR - STEP 2: Does the patient require the assistance of a helper? Yes. TRANSFERS: BED, CHAIR, WHEELCHAIR - STEP 3: How much assistance does the patient require from the helper? Steadying/guiding assistance TRANSFERS: BED, CHAIR, WHEELCHAIR - SCORE: 4-MIN TRANSFERS: TOILET: TRANSFERS: TOILET - STEP 1: Does the patient require the assistance of a person or device, or need extra time with toilet transfe rs? Yes. TRANSFERS: TOILET - STEP 2: Does the patient require the assistance of a helper? Yes. TRANSFERS: TOILET - STEP 3: How much assistance does the patient require from the helper? Only supervision, cuing, coaxing, OR he lp to set out transfer equipment or to lock brakes and/or lift foot rests TRANSFERS: TOILET - SCORE: 5-SUP TRANSFERS: SHOWER: Activity did not occur on this shift TRANSFERS: SHOWER - SCORE: 0-UNK TRANSFERS: TUB: Activity did not occur on this shift TRANSFERS: TUB - SCORE: 0-UNK LOCOMOTION: WALK: Activity did not occur on this shift LOCOMOTION: WALK - SCORE: 0-UNK LOCOMOTION: WHEELCHAIR: Activity did not occur on this shift LOCOMOTION: WHEELCHAIR - SCORE: 0-UNK COMPREHENSION: COMPREHENSION: TYPE: Both COMPREHENSION - STEP 1: Does the patient require help from a person or device, or need extra time to understand complex and a bstract ideas (such as current events, finances, discharge planning, medical issues, relationships, e tc)? No. COMPREHENSION - STEP 2: Does the patient need extra time, require an assistive device (such as glasses for visual comprehensi on or a hearing aid for auditory comprehension) or does s/he have mild difficulty understanding compl ex and abstract information? Yes. COMPREHENSION - SCORE: 6-SIRI EXPRESSION EXPRESSION: TYPE: Both EXPRESSION - STEP 1: Does the patient require help from a person or device, or need extra time expressing complex and abst ract ideas (such as current events, finances, discharge planning, medical issues, relationships, etc) ? No. EXPRESSION - STEP 2: Does the patient need extra time, require an assistive device (such as augmentive communication syste m or a communication board), OR does s/he have mild difficulty expressing complex and abstract ideas (including mild dysarthria or mild word-find problems)? Yes. EXPRESSION - SCORE: 6-SIRI SOCIAL INTERACTION: SOCIAL INTERACTION - STEP 1: Does the patient require a helper to interact with others in social and therapeutic situations? No. SOCIAL INTERACTION - STEP 2: Does the patient need extra time in social situations, OR does s/he interact with staff, other patien ts, and family members ONLY in structured environments, OR does s/he require medication for social in teraction? Yes, patient needs extra time SOCIAL INTERACTION - SCORE: 6-SIRI PROBLEM SOLVING: PROBLEM SOLVING - STEP 1: Does the patient need help from a person or device, or need extra time to solve complex problems such as managing a checking account or confronting interpersonal problems? Yes. PROBLEM SOLVING - STEP 2: Does the patient solve basic routine problems half or more of the time? Yes. PROBLEM SOLVING - STEP 3: How often does the patient need help to solve basic routine problems? 10%-24% of the time PROBLEM SOLVING - SCORE: 4-MIN MEMORY: MEMORY - STEP 1: Does the patient need help from a person or device, or need extra time to remember frequently encount ered people, daily routines, and executing requests? No. MEMORY - STEP 2: Does the patient have slight difficulty recognizing frequently encountered people, daily routines, or executing requests without the need for repetition or using self-initiated or environmental cues to remember? Yes. MEMORY - SCORE: 6-SIRI SIGNATURE PANEL: The following modified sections: Eating - Score, Grooming - Score, Dressing - Upper Body - Score, Juan José ssing - Lower Body - Score, Toileting - Score, Bladder Management - Score, Bowel Management - Score, Transfers: Bed, Chair, Wheelchair - Score, Transfers: Toilet - Score, Transfers: Shower - Score, Milton sfers: Tub - Score, Locomotion: Walk - Score, Locomotion: Wheelchair - Score, Comprehension - Score, Expression - Score, Social Interaction - Score, Problem Solving - Score, Memory - Score were [electro nically] signed by Tasha Dunne CNA on FriFeb 07 2019 01:11:08 GMT-0500 (Central Daylight Time)
[2019-02-07] MEDS: TRAMADOL HCL 50 MG TAB PO SCH ×4 (01:39→20:06)
[2019-02-07] MEDS: LEVOTHYROXINE SOD 0.1 MG TAB PO SCH (06:56)
[2019-02-07] MEDS: LEVOTHYROXINE SOD 0.05 MG TABLET PO SCH (06:56)
[2019-02-07] MEDS: DOCUSATE NA 100 MG CAP PO SCH (08:00)
[2019-02-07] MEDS: NYSTATIN PWDR 100000 UNIT/GM TOP SCH ×2 (08:00→20:00)
[2019-02-07] MEDS: FUROSEMIDE 20 MG TABLET PO SCH (09:08)
[2019-02-07] MEDS: POLYETHYL GLY 3350 17 GM/DOSE PO SCH (09:08)
[2019-02-07] MEDS: APIXABAN 2.5 MG TABLET PO SCH ×2 (09:08→20:06)
[2019-02-07] MEDS: BISACODYL 10 MG RECTAL SUPP PR PRN (13:35)
[2019-02-07] MEDS: AMITRIPTYLINE 25 MG TAB PO SCH (20:07)
[2019-02-07] MEDS: PROMOD 30 ML DOSE PO SCH (20:07)
[2019-02-07] MEDS: BENZONATATE 100 MG CAP PO SCH (20:07)
[2019-02-07] MEDS: DOCUSATE NA/SENNA CONC 1 TAB PO SCH (20:08)
--- NOTE | 2019-02-08 00:19 | FAST ---
SHIFT START DATE/TIME: 02/07/2019 19:00 (CDT) SHIFT END DATE/TIME: 02/08/2019 07:00 (CDT) NAME RADHA MOLINA DATE OF : 1930 DATE OF ADMISSION: 02/03/2019 19:57 (CDT) PHONE: AGE: 88 N# [id number] GENDER: Female ENCOUNTER PHYSICIAN: Dr. Conor Cervantes M.D. 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 EATING: Activity did not occur on this shift EATING - SCORE: 0-UNK GROOMING: Wash, rinse, and dry hands GROOMING - STEP 1: Does the patient require the assistance of a person or device, or need extra time when grooming? Yes. GROOMING - STEP 2: Does the patient require the assistance of a helper? Yes. GROOMING - STEP 3: How much assistance does the patient require from the helper? Only prior equipment preparation/set up from the helper GROOMING - SCORE: 5-SUP BATHING: Activity did not occur on this shift BATHING - SCORE: 0-UNK DRESSING - UPPER BODY: Patient is not dressing in public clothing ARTICLES SCORE Total number of steps: 0 DRESSING - UPPER BODY - SCORE: 0-UNK DRESSING - LOWER BODY: Patient is not dressing in public clothing ARTICLES SCORE Total number of steps: 0 DRESSING - LOWER BODY - SCORE: 0-UNK TOILETING: TOILETING - STEP 1: Does the patient require the assistance of a person or device, or need extra time with toileting? Yes . TOILETING - STEP 2: Does the patient require the assistance of a helper? Yes. TOILETING - STEP 3: How much assistance does the patient require from the helper? Hands-on assistance from the helper TOILETING - STEP 4: Of the 3 tasks: 1) Adjusting clothing prior to use, 2) Cleansing of perineal area, 3) Adjusting clot loni after use; How many tasks does the patient perform WITHOUT assistance of the helper? One task TOILETING - SCORE: 2-MAX BLADDER MANAGEMENT: BLADDER MANAGEMENT - STEP 1: Does the patient control the bladder completely and intentionally without equipment or devices or med ications, and is always continent? No. BLADDER MANAGEMENT - STEP 2: Does the patient require the assistance of a helper? No, patient only requires extra time BLADDER MANAGEMENT - SCORE: 6-SIRI BOWEL MANAGEMENT: Activity did not occur on this shift BOWEL MANAGEMENT - SCORE: 7-IND TRANSFERS: BED, CHAIR, WHEELCHAIR: TRANSFERS: BED, CHAIR, WHEELCHAIR - STEP 1: Does the patient require assistance of a person or device, or need extra time with bed, chair, or whe elchair transfers? Yes. TRANSFERS: BED, CHAIR, WHEELCHAIR - STEP 2: Does the patient require the assistance of a helper? Yes. TRANSFERS: BED, CHAIR, WHEELCHAIR - STEP 3: How much assistance does the patient require from the helper? Steadying/guiding assistance TRANSFERS: BED, CHAIR, WHEELCHAIR - SCORE: 4-MIN TRANSFERS: TOILET: TRANSFERS: TOILET - STEP 1: Does the patient require the assistance of a person or device, or need extra time with toilet transfe rs? Yes. TRANSFERS: TOILET - STEP 2: Does the patient require the assistance of a helper? Yes. TRANSFERS: TOILET - STEP 3: How much assistance does the patient require from the helper? Only supervision, cuing, coaxing, OR he lp to set out transfer equipment or to lock brakes and/or lift foot rests TRANSFERS: TOILET - SCORE: 5-SUP TRANSFERS: SHOWER: Activity did not occur on this shift TRANSFERS: SHOWER - SCORE: 0-UNK TRANSFERS: TUB: Activity did not occur on this shift TRANSFERS: TUB - SCORE: 0-UNK LOCOMOTION: WALK: Activity did not occur on this shift LOCOMOTION: WALK - SCORE: 0-UNK LOCOMOTION: WHEELCHAIR: Activity did not occur on this shift LOCOMOTION: WHEELCHAIR - SCORE: 0-UNK COMPREHENSION: COMPREHENSION: TYPE: Both COMPREHENSION - STEP 1: Does the patient require help from a person or device, or need extra time to understand complex and a bstract ideas (such as current events, finances, discharge planning, medical issues, relationships, e tc)? No. COMPREHENSION - STEP 2: Does the patient need extra time, require an assistive device (such as glasses for visual comprehensi on or a hearing aid for auditory comprehension) or does s/he have mild difficulty understanding compl ex and abstract information? Yes. COMPREHENSION - SCORE: 6-SIRI EXPRESSION EXPRESSION: TYPE: Both EXPRESSION - STEP 1: Does the patient require help from a person or device, or need extra time expressing complex and abst ract ideas (such as current events, finances, discharge planning, medical issues, relationships, etc) ? No. EXPRESSION - STEP 2: Does the patient need extra time, require an assistive device (such as augmentive communication syste m or a communication board), OR does s/he have mild difficulty expressing complex and abstract ideas (including mild dysarthria or mild word-find problems)? Yes. EXPRESSION - SCORE: 6-SIRI SOCIAL INTERACTION: SOCIAL INTERACTION - STEP 1: Does the patient require a helper to interact with others in social and therapeutic situations? No. SOCIAL INTERACTION - STEP 2: Does the patient need extra time in social situations, OR does s/he interact with staff, other patien ts, and family members ONLY in structured environments, OR does s/he require medication for social in teraction? Yes, patient requires medication for social interaction SOCIAL INTERACTION - SCORE: 6-SIRI PROBLEM SOLVING: PROBLEM SOLVING - STEP 1: Does the patient need help from a person or device, or need extra time to solve complex problems such as managing a checking account or confronting interpersonal problems? Yes. PROBLEM SOLVING - STEP 2: Does the patient solve basic routine problems half or more of the time? Yes. PROBLEM SOLVING - STEP 3: How often does the patient need help to solve basic routine problems? Less than 10% of the time PROBLEM SOLVING - SCORE: 5-SUP MEMORY: MEMORY - STEP 1: Does the patient need help from a person or device, or need extra time to remember frequently encount ered people, daily routines, and executing requests? No. MEMORY - STEP 2: Does the patient have slight difficulty recognizing frequently encountered people, daily routines, or executing requests without the need for repetition or using self-initiated or environmental cues to remember? Yes. MEMORY - SCORE: 6-SIRI SIGNATURE PANEL: The following modified sections: Eating - Score, Grooming - Score, Dressing - Upper Body - Score, Juan José ssing - Lower Body - Score, Toileting - Score, Bladder Management - Score, Bowel Management - Score, Transfers: Bed, Chair, Wheelchair - Score, Transfers: Toilet - Score, Transfers: Shower - Score, Milton sfers: Tub - Score, Locomotion: Walk - Score, Locomotion: Wheelchair - Score, Comprehension - Score, Expression - Score, Social Interaction - Score, Problem Solving - Score, Memory - Score were [electro nically] signed by Tasha Dunne CNA on FriFeb 08 2019 00:18:49 GMT-0500 (Central Daylight Time)
[2019-02-08] MEDS: TRAMADOL HCL 50 MG TAB PO SCH ×4 (02:28→19:32)
[2019-02-08] MEDS: METHOCARBAMOL 500 MG TAB PO PRN ×2 (03:58→11:00)
[2019-02-08] MEDS: LEVOTHYROXINE SOD 0.1 MG TAB PO SCH (06:32)
[2019-02-08] MEDS: LEVOTHYROXINE SOD 0.05 MG TABLET PO SCH (06:32)
[2019-02-08] MEDS: NAPROXEN 250 MG TAB PO PRN (06:47)
[2019-02-08 07:41] LABS: BUN Blood Urea Nitrogen 16 mg/dL (7-18); Bicarbonate 34 mmol/L (21-32); Glucose Level 111 mg/dL (74-106); Potassium 3.7 mmol/L (3.5-5.1); Sodium Level 138 mmol/L (136-145)
[2019-02-08] MEDS: NYSTATIN PWDR 100000 UNIT/GM TOP SCH ×2 (08:00→19:32)
[2019-02-08] MEDS: POLYETHYL GLY 3350 17 GM/DOSE PO SCH (08:07)
[2019-02-08] MEDS: APIXABAN 2.5 MG TABLET PO SCH ×2 (08:08→19:33)
[2019-02-08] MEDS: FUROSEMIDE 20 MG TABLET PO SCH (08:08)
[2019-02-08] MEDS: DOCUSATE NA 100 MG CAP PO SCH (08:08)
[2019-02-08] MEDS: PROMOD 30 ML DOSE PO SCH ×2 (08:09→19:29)
[2019-02-08] MEDS: LIDOCAINE 5% PATCH TOP SCH (13:19)
--- NOTE | 2019-02-08 14:45 | FAST ---
SHIFT START DATE/TIME: 02/07/2019 07:00 (CDT) SHIFT END DATE/TIME: 02/07/2019 19:00 (CDT) NAME RADHA MOLINA DATE OF : 1930 DATE OF ADMISSION: 02/03/2019 19:57 (CDT) PHONE: AGE: 88 N# [id number] GENDER: Female ENCOUNTER PHYSICIAN: Dr. Conor Cervantes M.D. 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 EATING: EATING - STEP 1: Does the patient require the assistance of a person or device, or need extra time when eating? Yes. EATING - STEP 2: Does the patient require the assistance of a helper? Yes. EATING - STEP 3: Does the patient perform half or more of the eating tasks? Yes. EATING - STEP 4: Does the patient need only supervision, cuing, coaxing OR help to apply an orthosis OR help to cut fo od, open containers, pour liquids, or butter bread? Yes. EATING - SCORE: 5-SUP GROOMING: Comb/brush hair Oral care Wash, rinse, and dry face Wash, rinse, and dry hands GROOMING - STEP 1: Does the patient require the assistance of a person or device, or need extra time when grooming? Yes. GROOMING - STEP 2: Does the patient require the assistance of a helper? No. The patient only requires an assistive devic e, OR takes more than reasonable time to groom, OR there is a concern for safety as the patient groom s GROOMING - SCORE: 6-SIRI BATHING: Activity did not occur on this shift BATHING - SCORE: 0-UNK DRESSING - UPPER BODY: T-shirt/pullover shirt (four steps) ARTICLES SCORE Total number of steps: 4 DRESSING - UPPER BODY - STEP 1: Does the patient require help from a person or device, or need extra time when dressing above the star st? Yes. DRESSING - UPPER BODY - STEP 2: Does the patient require the assistance of a helper? Yes. DRESSING - UPPER BODY - STEP 3: Does the helper touch the patient while dressing? Yes. DRESSING - UPPER BODY - STEP 4: How many of the total steps does the patient complete on his/her own? 2 DRESSING - UPPER BODY - SCORE: 3-MOD DRESSING - LOWER BODY: Elastic waist pants (three steps) ARTICLES SCORE Total number of steps: 3 DRESSING - LOWER BODY - STEP 1: Does the patient require help from a person or device, or need extra time when dressing below the star st? Yes. DRESSING - LOWER BODY - STEP 2: Does the patient require the assistance of a helper? Yes. DRESSING - LOWER BODY - STEP 3: Does the helper touch the patient while dressing? Yes. DRESSING - LOWER BODY - STEP 4: How many of the total steps does the patient complete on his/her own? 3 DRESSING - LOWER BODY - SCORE: 4-MIN TOILETING: TOILETING - STEP 1: Does the patient require the assistance of a person or device, or need extra time with toileting? Yes . TOILETING - STEP 2: Does the patient require the assistance of a helper? Yes. TOILETING - STEP 3: How much assistance does the patient require from the helper? Only supervision TOILETING - SCORE: 5-SUP BLADDER MANAGEMENT: BLADDER MANAGEMENT - STEP 1: Does the patient control the bladder completely and intentionally without equipment or devices or med ications, and is always continent? No. BLADDER MANAGEMENT - STEP 2: Does the patient require the assistance of a helper? Yes. BLADDER MANAGEMENT - STEP 3: How much assistance does the patient require from the helper? Only supervision, stand-by, cuing, or c oaxing BLADDER MANAGEMENT - SCORE: 5-SUP BLADDER MANAGEMENT - FREQUENCY OF ACCIDENTS: BLADDER MANAGEMENT(FA) - STEP 1: How many accidents has the patient had during the current shift? 0 BOWEL MANAGEMENT: Activity did not occur on this shift BOWEL MANAGEMENT - SCORE: 7-IND BOWEL MANAGEMENT - FREQUENCY OF ACCIDENTS: BOWEL MANAGEMENT(FA) - STEP 1: How many accidents has the patient had during the current shift? 0 TRANSFERS: BED, CHAIR, WHEELCHAIR: TRANSFERS: BED, CHAIR, WHEELCHAIR - STEP 1: Does the patient require assistance of a person or device, or need extra time with bed, chair, or whe elchair transfers? Yes. TRANSFERS: BED, CHAIR, WHEELCHAIR - STEP 2: Does the patient require the assistance of a helper? Yes. TRANSFERS: BED, CHAIR, WHEELCHAIR - STEP 3: How much assistance does the patient require from the helper? Steadying/guiding assistance TRANSFERS: BED, CHAIR, WHEELCHAIR - SCORE: 4-MIN TRANSFERS: TOILET: TRANSFERS: TOILET - STEP 1: Does the patient require the assistance of a person or device, or need extra time with toilet transfe rs? Yes. TRANSFERS: TOILET - STEP 2: Does the patient require the assistance of a helper? Yes. TRANSFERS: TOILET - STEP 3: How much assistance does the patient require from the helper? Patient performs half or more of the tr ansferring tasks TRANSFERS: TOILET - STEP 4: Does the patient need only incidental help such as contact guard or steadying during toilet transfer? Yes. TRANSFERS: TOILET - SCORE: 4-MIN TRANSFERS: SHOWER: Activity did not occur on this shift TRANSFERS: SHOWER - SCORE: 0-UNK TRANSFERS: TUB: Activity did not occur on this shift TRANSFERS: TUB - SCORE: 0-UNK LOCOMOTION: WALK: Activity did not occur on this shift LOCOMOTION: WALK - SCORE: 0-UNK LOCOMOTION: WHEELCHAIR: Activity did not occur on this shift LOCOMOTION: WHEELCHAIR - SCORE: 0-UNK COMPREHENSION: COMPREHENSION: TYPE: Both COMPREHENSION - STEP 1: Does the patient require help from a person or device, or need extra time to understand complex and a bstract ideas (such as current events, finances, discharge planning, medical issues, relationships, e tc)? Yes. COMPREHENSION - STEP 2: Does the patient require help to understand questions or statements about basic needs or ideas (such as hunger, thirst, sleep, safety, daily schedule, room location, or discomfort) half or more of the t shirley? No. COMPREHENSION - STEP 3: How often does the patient need help to understand directions and conversation about basic needs? Les s than 10% of the time COMPREHENSION - SCORE: 5-SUP EXPRESSION EXPRESSION: TYPE: Both EXPRESSION - STEP 1: Does the patient require help from a person or device, or need extra time expressing complex and abst ract ideas (such as current events, finances, discharge planning, medical issues, relationships, etc) ? Yes. EXPRESSION - STEP 2: Does the patient require help to express basic necessities or ideas (such as hunger, thirst, sleep, s afety, daily schedule, room location, or discomfort) half or more of the time? No. EXPRESSION - STEP 3: How often does the patient need help to express directions and conversation about basic needs? Less t locke 10% of the time EXPRESSION - SCORE: 5-SUP SOCIAL INTERACTION: SOCIAL INTERACTION - STEP 1: Does the patient require a helper to interact with others in social and therapeutic situations? Yes. SOCIAL INTERACTION - STEP 2: Does the patient interact appropriately half or more of the time? Yes. SOCIAL INTERACTION - STEP 3: How often does the patient need help to interact appropriately? 10-24% of the time SOCIAL INTERACTION - SCORE: 4-MIN PROBLEM SOLVING: PROBLEM SOLVING - STEP 1: Does the patient need help from a person or device, or need extra time to solve complex problems such as managing a checking account or confronting interpersonal problems? Yes. PROBLEM SOLVING - STEP 2: Does the patient solve basic routine problems half or more of the time? Yes. PROBLEM SOLVING - STEP 3: How often does the patient need help to solve basic routine problems? Less than 10% of the time PROBLEM SOLVING - SCORE: 5-SUP MEMORY: MEMORY - STEP 1: Does the patient need help from a person or device, or need extra time to remember frequently encount ered people, daily routines, and executing requests? Yes. MEMORY - STEP 2: How often does the patient need help to remember frequently encountered people, daily routines, and e xecuting requests? Less than 10% of the time MEMORY - SCORE: 5-SUP SIGNATURE PANEL: The following modified sections: Eating - Score, Grooming - Score, Bathing - Score, Dressing - Upper Body - Score, Toileting - Score, Bladder Management - Score, Bowel Management - Score, Transfers: Bed , Chair, Wheelchair - Score, Transfers: Toilet - Score, Transfers: Shower - Score, Transfers: Tub - S core, Locomotion: Walk - Score, Locomotion: Wheelchair - Score, Comprehension - Score, Expression - S core, Social Interaction - Score, Problem Solving - Score, Memory - Score, Dressing - Lower Body - Sc ore were [electronically] signed by Lisa Ortega C.N.A. on FriFeb 08 2019 14:44:16 T-0500 ([facility] Day[facility] Time)
--- NOTE | 2019-02-08 14:52 | FAST ---
ENCOUNTER DATE AND TIME: 02/08/2019 08:00 (CDT) NAME RADHA MOLINA DATE OF : 1930 DATE OF ADMISSION: 02/03/2019 19:57 (CDT) PHONE: AGE: 88 N# [id number] GENDER: Female ENCOUNTER PHYSICIAN: Dr. Conor Cervantes M.D. 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 EATING: EATING - STEP 1: Does the patient require the assistance of a person or device, or need extra time when eating? No. EATING - SCORE: 7-IND GROOMING: Comb/brush hair Wash, rinse, and dry face Wash, rinse, and dry hands GROOMING - STEP 1: Does the patient require the assistance of a person or device, or need extra time when grooming? No. GROOMING - SCORE: 7-IND BATHING: Abdomen Buttocks Chest Left arm Left lower leg and foot Left upper leg Perineal area Right arm Right lower leg and foot Right upper leg BATHING - STEP 1: Does the patient require the assistance of a person or device, or need extra time when bathing? Yes. BATHING - STEP 2: Does the patient require the assistance of a helper? Yes. BATHING - STEP 3: How much assistance does the patient require from the helper? Only incidental help such as placement of a wash cloth in his/her hand a few times as s/he bathes OR help to bathe just one or two areas of the body BATHING - SCORE: 4-MIN DRESSING - UPPER BODY: T-shirt/pullover shirt (four steps) ARTICLES SCORE Total number of steps: 4 DRESSING - UPPER BODY - STEP 1: Does the patient require help from a person or device, or need extra time when dressing above the star st? Yes. DRESSING - UPPER BODY - STEP 2: Does the patient require the assistance of a helper? Yes. DRESSING - UPPER BODY - STEP 3: Does the helper touch the patient while dressing? No. DRESSING - UPPER BODY - SCORE: 5-SUP DRESSING - LOWER BODY: Elastic waist pants (three steps) Sock - Left foot (one step) Sock - Right foot (one step) Underwear (three steps) ARTICLES SCORE Total number of steps: 8 DRESSING - LOWER BODY - STEP 1: Does the patient require help from a person or device, or need extra time when dressing below the star st? Yes. DRESSING - LOWER BODY - STEP 2: Does the patient require the assistance of a helper? Yes. DRESSING - LOWER BODY - STEP 3: Does the helper touch the patient while dressing? Yes. DRESSING - LOWER BODY - STEP 4: How many of the total steps does the patient complete on his/her own? 6 DRESSING - LOWER BODY - SCORE: 4-MIN TOILETING: TOILETING - STEP 1: Does the patient require the assistance of a person or device, or need extra time with toileting? Yes . TOILETING - STEP 2: Does the patient require the assistance of a helper? Yes. TOILETING - STEP 3: How much assistance does the patient require from the helper? Only supervision TOILETING - SCORE: 5-SUP BLADDER MANAGEMENT: Activity did not occur on this shift BLADDER MANAGEMENT - SCORE: 7-IND BOWEL MANAGEMENT: Activity did not occur on this shift BOWEL MANAGEMENT - SCORE: 7-IND TRANSFERS: BED, CHAIR, WHEELCHAIR: Activity did not occur on this shift TRANSFERS: BED, CHAIR, WHEELCHAIR - SCORE: 0-UNK TRANSFERS: TOILET: TRANSFERS: TOILET - STEP 1: Does the patient require the assistance of a person or device, or need extra time with toilet transfe rs? Yes. TRANSFERS: TOILET - STEP 2: Does the patient require the assistance of a helper? Yes. TRANSFERS: TOILET - STEP 3: How much assistance does the patient require from the helper? Only supervision, cuing, coaxing, OR he lp to set out transfer equipment or to lock brakes and/or lift foot rests TRANSFERS: TOILET - SCORE: 5-SUP TRANSFERS: SHOWER: TRANSFERS: SHOWER - STEP 1: Does the patient require the assistance of a person or device, or need extra time with shower transfe rs? Yes. TRANSFERS: SHOWER - STEP 2: Does the patient require the assistance of a helper? Yes. TRANSFERS: SHOWER - STEP 3: How much assistance does the patient require from the helper? Only incidental help such as contact gu arding or steadying during shower transfers, or help to lift one leg into the shower TRANSFERS: SHOWER - SCORE: 4-MIN TRANSFERS: TUB: Activity did not occur on this shift TRANSFERS: TUB - SCORE: 0-UNK LOCOMOTION: WALK: Activity did not occur on this shift LOCOMOTION: WALK - SCORE: 0-UNK LOCOMOTION: WHEELCHAIR: Activity did not occur on this shift LOCOMOTION: WHEELCHAIR - SCORE: 0-UNK LOCOMOTION: STAIRS: Activity did not occur on this shift LOCOMOTION: STAIRS - SCORE: 0-UNK COMPREHENSION: COMPREHENSION: TYPE: Both COMPREHENSION - STEP 1: Does the patient require help from a person or device, or need extra time to understand complex and a bstract ideas (such as current events, finances, discharge planning, medical issues, relationships, e tc)? Yes. COMPREHENSION - STEP 2: Does the patient require help to understand questions or statements about basic needs or ideas (such as hunger, thirst, sleep, safety, daily schedule, room location, or discomfort) half or more of the t shirley? No. COMPREHENSION - STEP 3: How often does the patient need help to understand directions and conversation about basic needs? 10% - 24% of the time COMPREHENSION - SCORE: 4-MIN EXPRESSION EXPRESSION: TYPE: Both EXPRESSION - STEP 1: Does the patient require help from a person or device, or need extra time expressing complex and abst ract ideas (such as current events, finances, discharge planning, medical issues, relationships, etc) ? No. EXPRESSION - STEP 2: Does the patient need extra time, require an assistive device (such as augmentive communication syste m or a communication board), OR does s/he have mild difficulty expressing complex and abstract ideas (including mild dysarthria or mild word-find problems)? Yes. EXPRESSION - SCORE: 6-SIRI SOCIAL INTERACTION: SOCIAL INTERACTION - STEP 1: Does the patient require a helper to interact with others in social and therapeutic situations? Yes. SOCIAL INTERACTION - STEP 2: Does the patient interact appropriately half or more of the time? Yes. SOCIAL INTERACTION - STEP 3: How often does the patient need help to interact appropriately? Less than 10% of the time SOCIAL INTERACTION - SCORE: 5-SUP PROBLEM SOLVING: PROBLEM SOLVING - STEP 1: Does the patient need help from a person or device, or need extra time to solve complex problems such as managing a checking account or confronting interpersonal problems? Yes. PROBLEM SOLVING - STEP 2: Does the patient solve basic routine problems half or more of the time? Yes. PROBLEM SOLVING - STEP 3: How often does the patient need help to solve basic routine problems? 25%-49% of the time PROBLEM SOLVING - SCORE: 3-MOD MEMORY: MEMORY - STEP 1: Does the patient need help from a person or device, or need extra time to remember frequently encount ered people, daily routines, and executing requests? Yes. MEMORY - STEP 2: How often does the patient need help to remember frequently encountered people, daily routines, and e xecuting requests? 25% - 49% of the time MEMORY - SCORE: 3-MOD SIGNATURE PANEL: The following modified sections: Eating - Score, Grooming - Score, Bathing - Score, Dressing - Upper Body - Score, Dressing - Lower Body - Score, Toileting - Score, Transfers: Bed, Chair, Wheelchair - S core, Transfers: Toilet - Score, Transfers: Tub - Score, Transfers: Shower - Score, Expression - Scor e, Comprehension - Score, Social Interaction - Score, Problem Solving - Score, Memory - Score were [e lectronically] signed by Arlen Shelton OT on FriFeb 08 2019 14:50:50 T-0500 (Central Daylight T shirley)
--- NOTE | 2019-02-08 14:59 | FAST ---
ENCOUNTER DATE AND TIME: 02/08/2019 08:00 (CDT) NAME RADHA MOLINA DATE OF : 1930 DATE OF ADMISSION: 02/03/2019 19:57 (CDT) PHONE: AGE: 88 N# [id number] GENDER: Female ENCOUNTER PHYSICIAN: Dr. Conor Cervantes M.D. 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 EATING: Activity did not occur on this shift EATING - SCORE: 0-UNK GROOMING: Activity did not occur on this shift GROOMING - SCORE: 0-UNK BATHING: Activity did not occur on this shift BATHING - SCORE: 0-UNK DRESSING - UPPER BODY: Activity did not occur on this shift Patient is not dressing in public clothing ARTICLES SCORE Total number of steps: 0 DRESSING - UPPER BODY - SCORE: 0-UNK DRESSING - LOWER BODY: Activity did not occur on this shift Patient is not dressing in public clothing ARTICLES SCORE Total number of steps: 0 DRESSING - LOWER BODY - SCORE: 0-UNK TOILETING: Activity did not occur on this shift TOILETING - SCORE: 0-UNK BLADDER MANAGEMENT: Activity did not occur on this shift BLADDER MANAGEMENT - SCORE: 7-IND BOWEL MANAGEMENT: Activity did not occur on this shift BOWEL MANAGEMENT - SCORE: 7-IND TRANSFERS: BED, CHAIR, WHEELCHAIR: TRANSFERS: BED, CHAIR, WHEELCHAIR - STEP 1: Does the patient require assistance of a person or device, or need extra time with bed, chair, or whe elchair transfers? Yes. TRANSFERS: BED, CHAIR, WHEELCHAIR - STEP 2: Does the patient require the assistance of a helper? Yes. TRANSFERS: BED, CHAIR, WHEELCHAIR - STEP 3: How much assistance does the patient require from the helper? Steadying/guiding assistance TRANSFERS: BED, CHAIR, WHEELCHAIR - SCORE: 4-MIN TRANSFERS: TOILET: Activity did not occur on this shift TRANSFERS: TOILET - SCORE: 0-UNK TRANSFERS: SHOWER: Activity did not occur on this shift TRANSFERS: SHOWER - SCORE: 0-UNK TRANSFERS: TUB: Activity did not occur on this shift TRANSFERS: TUB - SCORE: 0-UNK LOCOMOTION: WALK: LOCOMOTION: WALK - STEP 1: Does the patient need help from a person or device, or need extra time to walk 150 feet? Yes. LOCOMOTION: WALK - STEP 2: How much assistance does the patient require to walk a minimum of 150 feet? Only supervision, cuing, or coaxing LOCOMOTION: WALK - SCORE: 5-SUP LOCOMOTION: WHEELCHAIR: LOCOMOTION: WHEELCHAIR - STEP 1: Does the patient need help to go 150 feet in a wheelchair? Yes. LOCOMOTION: WHEELCHAIR - STEP 2: How much assistance does the patient need from the helper? Only supervision, cuing, or coaxing LOCOMOTION: WHEELCHAIR - SCORE: 5-SUP LOCOMOTION: STAIRS: Activity did not occur on this shift LOCOMOTION: STAIRS - SCORE: 0-UNK COMPREHENSION: COMPREHENSION - SCORE: 0-UNK EXPRESSION EXPRESSION - SCORE: 0-UNK SOCIAL INTERACTION: SOCIAL INTERACTION - SCORE: 0-UNK PROBLEM SOLVING: PROBLEM SOLVING - SCORE: 0-UNK MEMORY: MEMORY - SCORE: 0-UNK SIGNATURE PANEL: The following modified sections: Transfers: Bed, Chair, Wheelchair - Score, Transfers: Toilet - Score , Locomotion: Walk - Score, Locomotion: Wheelchair - Score, Locomotion: Stairs - Score were [lucinda andrea] signed by Lester Esposito PTA on FriFeb 08 2019 14:58:14 T-0500 (Central Daylight Time)
--- NOTE | 2019-02-08 15:00 | FAST ---
SHIFT START DATE/TIME: 02/08/2019 07:00 (CDT) SHIFT END DATE/TIME: 02/08/2019 19:00 (CDT) NAME RADHA MOLINA DATE OF : 1930 DATE OF ADMISSION: 02/03/2019 19:57 (CDT) PHONE: AGE: 88 N# [id number] GENDER: Female ENCOUNTER PHYSICIAN: Dr. Conor Cervantes M.D. 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 EATING: EATING - STEP 1: Does the patient require the assistance of a person or device, or need extra time when eating? Yes. EATING - STEP 2: Does the patient require the assistance of a helper? Yes. EATING - STEP 3: Does the patient perform half or more of the eating tasks? Yes. EATING - STEP 4: Does the patient need only supervision, cuing, coaxing OR help to apply an orthosis OR help to cut fo od, open containers, pour liquids, or butter bread? Yes. EATING - SCORE: 5-SUP GROOMING: Comb/brush hair Oral care Wash, rinse, and dry face Wash, rinse, and dry hands GROOMING - STEP 1: Does the patient require the assistance of a person or device, or need extra time when grooming? Yes. GROOMING - STEP 2: Does the patient require the assistance of a helper? No. The patient only requires an assistive devic e, OR takes more than reasonable time to groom, OR there is a concern for safety as the patient groom s GROOMING - SCORE: 6-SIRI BATHING: Activity did not occur on this shift BATHING - SCORE: 0-UNK DRESSING - UPPER BODY: Activity did not occur on this shift ARTICLES SCORE Total number of steps: 0 DRESSING - UPPER BODY - SCORE: 0-UNK DRESSING - LOWER BODY: Activity did not occur on this shift ARTICLES SCORE Total number of steps: 0 DRESSING - LOWER BODY - SCORE: 0-UNK TOILETING: TOILETING - STEP 1: Does the patient require the assistance of a person or device, or need extra time with toileting? Yes . TOILETING - STEP 2: Does the patient require the assistance of a helper? Yes. TOILETING - STEP 3: How much assistance does the patient require from the helper? Only supervision TOILETING - SCORE: 5-SUP BLADDER MANAGEMENT: BLADDER MANAGEMENT - STEP 1: Does the patient control the bladder completely and intentionally without equipment or devices or med ications, and is always continent? No. BLADDER MANAGEMENT - STEP 2: Does the patient require the assistance of a helper? Yes. BLADDER MANAGEMENT - STEP 3: How much assistance does the patient require from the helper? Only supervision, stand-by, cuing, or c oaxing BLADDER MANAGEMENT - SCORE: 5-SUP BLADDER MANAGEMENT - FREQUENCY OF ACCIDENTS: BLADDER MANAGEMENT(FA) - STEP 1: How many accidents has the patient had during the current shift? 0 BOWEL MANAGEMENT: Activity did not occur on this shift BOWEL MANAGEMENT - SCORE: 7-IND BOWEL MANAGEMENT - FREQUENCY OF ACCIDENTS: BOWEL MANAGEMENT(FA) - STEP 1: How many accidents has the patient had during the current shift? 0 TRANSFERS: BED, CHAIR, WHEELCHAIR: TRANSFERS: BED, CHAIR, WHEELCHAIR - STEP 1: Does the patient require assistance of a person or device, or need extra time with bed, chair, or whe elchair transfers? Yes. TRANSFERS: BED, CHAIR, WHEELCHAIR - STEP 2: Does the patient require the assistance of a helper? Yes. TRANSFERS: BED, CHAIR, WHEELCHAIR - STEP 3: How much assistance does the patient require from the helper? Steadying/guiding assistance TRANSFERS: BED, CHAIR, WHEELCHAIR - SCORE: 4-MIN TRANSFERS: TOILET: TRANSFERS: TOILET - STEP 1: Does the patient require the assistance of a person or device, or need extra time with toilet transfe rs? Yes. TRANSFERS: TOILET - STEP 2: Does the patient require the assistance of a helper? Yes. TRANSFERS: TOILET - STEP 3: How much assistance does the patient require from the helper? Patient performs half or more of the tr ansferring tasks TRANSFERS: TOILET - STEP 4: Does the patient need only incidental help such as contact guard or steadying during toilet transfer? Yes. TRANSFERS: TOILET - SCORE: 4-MIN TRANSFERS: SHOWER: Activity did not occur on this shift TRANSFERS: SHOWER - SCORE: 0-UNK TRANSFERS: TUB: Activity did not occur on this shift TRANSFERS: TUB - SCORE: 0-UNK LOCOMOTION: WALK: Activity did not occur on this shift LOCOMOTION: WALK - SCORE: 0-UNK LOCOMOTION: WHEELCHAIR: LOCOMOTION: WHEELCHAIR - STEP 1: Does the patient need help to go 150 feet in a wheelchair? Yes. LOCOMOTION: WHEELCHAIR - STEP 2: How much assistance does the patient need from the helper? Only supervision, cuing, or coaxing LOCOMOTION: WHEELCHAIR - SCORE: 5-SUP COMPREHENSION: COMPREHENSION: TYPE: Both COMPREHENSION - STEP 1: Does the patient require help from a person or device, or need extra time to understand complex and a bstract ideas (such as current events, finances, discharge planning, medical issues, relationships, e tc)? Yes. COMPREHENSION - STEP 2: Does the patient require help to understand questions or statements about basic needs or ideas (such as hunger, thirst, sleep, safety, daily schedule, room location, or discomfort) half or more of the t shirley? No. COMPREHENSION - STEP 3: How often does the patient need help to understand directions and conversation about basic needs? Les s than 10% of the time COMPREHENSION - SCORE: 5-SUP EXPRESSION EXPRESSION: TYPE: Both EXPRESSION - STEP 1: Does the patient require help from a person or device, or need extra time expressing complex and abst ract ideas (such as current events, finances, discharge planning, medical issues, relationships, etc) ? Yes. EXPRESSION - STEP 2: Does the patient require help to express basic necessities or ideas (such as hunger, thirst, sleep, s afety, daily schedule, room location, or discomfort) half or more of the time? No. EXPRESSION - STEP 3: How often does the patient need help to express directions and conversation about basic needs? Less t locke 10% of the time EXPRESSION - SCORE: 5-SUP SOCIAL INTERACTION: SOCIAL INTERACTION - STEP 1: Does the patient require a helper to interact with others in social and therapeutic situations? Yes. SOCIAL INTERACTION - STEP 2: Does the patient interact appropriately half or more of the time? Yes. SOCIAL INTERACTION - STEP 3: How often does the patient need help to interact appropriately? 10-24% of the time SOCIAL INTERACTION - SCORE: 4-MIN PROBLEM SOLVING: PROBLEM SOLVING - STEP 1: Does the patient need help from a person or device, or need extra time to solve complex problems such as managing a checking account or confronting interpersonal problems? Yes. PROBLEM SOLVING - STEP 2: Does the patient solve basic routine problems half or more of the time? Yes. PROBLEM SOLVING - STEP 3: How often does the patient need help to solve basic routine problems? Less than 10% of the time PROBLEM SOLVING - SCORE: 5-SUP MEMORY: MEMORY - STEP 1: Does the patient need help from a person or device, or need extra time to remember frequently encount ered people, daily routines, and executing requests? Yes. MEMORY - STEP 2: How often does the patient need help to remember frequently encountered people, daily routines, and e xecuting requests? Less than 10% of the time MEMORY - SCORE: 5-SUP SIGNATURE PANEL: The following modified sections: Eating - Score, Grooming - Score, Bathing - Score, Dressing - Upper Body - Score, Dressing - Lower Body - Score, Toileting - Score, Bladder Management - Score, Bowel Man agement - Score, Transfers: Bed, Chair, Wheelchair - Score, Transfers: Toilet - Score, Transfers: Ping wer - Score, Transfers: Tub - Score, Locomotion: Walk - Score, Locomotion: Wheelchair - Score, Compre hension - Score, Expression - Score, Social Interaction - Score, Problem Solving - Score, Memory - Sc ore were [electronically] signed by Jm DenneyNRobin on FriFeb 08 2019 14:58:56 T-0500 ([place])
--- NOTE | 2019-02-08 17:51 | R.PN ---
ENCOUNTER DATE AND TIME: 02/08/2019 17:45 (CDT) NAME RADHA MOLINA DATE OF : 1930 DATE OF ADMISSION: 02/03/2019 19:57 (CDT) T12 Compression FractureCHIEF COMPLAINT: T12 compression fracture. SUBJECTIVE: Pt denied any Shortness of Breath. Pt denied any depression. Ambulated 520' with standby assistance using a rolling walker. Self-propelled wheelchair 200' with st andby assistance. WBC 10.0, Hgb 15.3, Na 138, glucose 103 to 111, prealbumin 15.1. KUB shows a large amount of stool wi th fecal impaction in the colon. Will give fleets enema for disempaction. VITAL SIGNS Temperature: 97.8 F SBP/DBP: 127/64 Pulse: 92 Resp: 16 MEDICATION ALLERGIES: No Known Drug Allergies (NKDA) ENVIRONMENTAL ALLERGIES: None Known - Substance Allergies None Known - Other Allergies None Known NURSING: - Shower allowing shower - Bladder care per protocol - Skin care per protocol ACTIVITIES OOB only with supervision THERAPIES: - Orthotics/Prosthetics Splinting/Casting. Orthotic Evaluation. - Occupational Therapy Evaluate and Treat. - Physical Therapy Evaluate and Treat. PHYSICAL EXAM - Gen Alert and awake Lying in bed No apparent distress Oriented to: person, time, and place - Skin Rash in left groin No abnormalities - Eyes No abnormalities - ENMT No abnormalities - Neck No abnormalities - CVS RRR - Chest No abnormalities - Abd +bowel sounds - GI Soft Deferred - Urinary incontinence - Ext No significant edema. - MSK 4+/5 weakness in both lower extremities. Back muscle spasms. Back shell brace is in place. - Neuro No focal neurological deficits - Psych No abnormalities ASSESSMENT: Pt. 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 was independent/mod-I in Self-Care, S phincter Control, Transfers Control, Locomotion, Communication, and Social Cognition; and she had goo d Sphincter Control.Currently, she has deficits of Self-Care, Transfers Control, Locomotion, Communic ation, Social Cognition, Endurance, Balance, and Safety Awareness.Pt. is now referred to [facility] for acute in-patient rehabilitation in order to maximize patient's functional i ndependence in activities of daily living, strength, ROM, and mobility.- Rehab Goal Patient has realistic goal of being discharged at assistance level 6-Caroline to reside at Home with Fam mic/Relatives. MDM/PLAN: - Physical Therapy Gait dysfunction - to improve, our physical therapists will perform initial evaluation of pt's statu s upon admission and devise an individualized program for Gait Training, and Wheel Chair mobility Inability to transfer - to improve, our physical therapists will perform initial evaluation of pt's status upon admission and devise an individualized program for Bed mobility Need for home safety evaluation - to improve, our physical therapists will perform initial evaluatio n of pt's status upon admission and devise an individualized program for Home Evaluation Need in caregiver upon discharge - to improve, our physical therapists will perform initial evaluati on of pt's status upon admission and devise an individualized program for Caregiver Training Edema - to improve, our physical therapists will perform initial evaluation of pt's status upon admi ssion and devise an individualized program for Elevation Training, and Lymphedema Therapy New precaution - to improve, our physical therapists will perform initial evaluation of pt's status upon admission and devise an individualized program for Patient precaution education Poor balance - to improve, our physical therapists will perform initial evaluation of pt's status up on admission and devise an individualized program for Balance Training Poor endurance - to improve, our physical therapists will perform initial evaluation of pt's status upon admission and devise an individualized program for Endurance Training Weakness - to improve, our physical therapists will perform initial evaluation of pt's status upon a dmission and devise an individualized program for Aquatic Therapy, Neuromuscular Reeducation, and Str engthening Achieving independence - to improve, our physical therapists will perform initial evaluation of pt's status upon admission and devise an individualized program for Community Reintegration Activities - Occupational Therapy ADL deficits - to improve, our occupation therapists will perform initial evaluation of pt's status upon admission and devise an individualized program for Bathing, Bed mobility, Community Reintegratio n, Cooking, Dressing, Eating, Fine Motor Skills, Grooming, Homemaking, Kitchen Mobility, Laundry, Pat ient Education, Safety Awareness, Splinting - Positioning, Transfers(Toilet, Tub, Shower), and Wheel Chair Management Cognitive deficits - to improve, our occupation therapists will perform initial evaluation of pt's s tatus upon admission and devise an individualized program for Cognition - orientation Need for critical care nurse specialist - to improve, our occupation therapists will perform initial evaluation of pt's status upon admission and devise an individualized program for Caregiver Training Weakness - to improve, our occupation therapists will perform initial evaluation of pt's status upon admission and devise an individualized program for Aquatic Therapy, Balance, Endurance, UE ROM, and UE strengthening - Diet Type Continue Regular - Diet - Liquid Texture Continue Regular - Tube Feed Continue N/A - Bladder care per protocol - Skin care per protocol - Diet - Solid Texture Continue Regular - Shower allowing shower FUNCTIONAL STATUS: UPDATED AT WEEKLY TEAM CONFERENCE - Bladder Same accident frequency: 7-Ind - No accidents in the past 7 days - Bowel Same accident frequency: 7-Ind - No accidents in the past 7 days - Walking Same score based on distance walked: 1(<=50ft) - Wheelchair Same score based on distance traveled: 0(N/A) FUNCTIONAL STATUS: - Self-Care A. Eating sup B. Grooming sup C. Bathing maxA D. Dressing - Upper maxA E. Dressing - Lower maxA F. Toileting maxA - Sphincter Control G: Bladder control Ind H: Bowel control Ind - Transfers Control I. Bed/Chair/Wheelchair Radha J. Toilet Radha K. Tub/Shower ADNO - Locomotion L. Walk/Wheelchair (B) maxA M. Stairs ADNO - Communication N. Comprehension (B) Radha O. Expression (B) Radha - Social Cognition P. Social Interaction Radha Q. Problem Solving Radha R. Memory min-to-modA - Endurance Fair - Balance Fair - Safety Awareness Fair CURRENT FUNC. DEFICITS: Self-Care, Transfers Control, Locomotion, Communication, Social Cognition, Endurance, Balance, and Sa fety Awareness SIGNATURE PANEL: (CDT)
[2019-02-08] MEDS: BENZONATATE 100 MG CAP PO SCH (20:12)
[2019-02-08] MEDS: AMITRIPTYLINE 25 MG TAB PO SCH (20:13)
[2019-02-08] MEDS: DOCUSATE NA/SENNA CONC 1 TAB PO SCH (20:13)
[2019-02-08] MEDS: MELATONIN 5 MG TABLET PO PRN (21:53)
[2019-02-09] MEDS: TRAMADOL HCL 50 MG TAB PO SCH ×4 (02:00→20:28)
--- NOTE | 2019-02-09 02:26 | FAST ---
SHIFT START DATE/TIME: 02/08/2019 19:00 (CDT) SHIFT END DATE/TIME: 02/09/2019 07:00 (CDT) NAME RADHA MOLINA DATE OF : 1930 DATE OF ADMISSION: 02/03/2019 19:57 (CDT) PHONE: AGE: 88 N# [id number] GENDER: Female ENCOUNTER PHYSICIAN: Dr. Conor Cervantes M.D. 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 EATING: Activity did not occur on this shift EATING - SCORE: 0-UNK GROOMING: Activity did not occur on this shift GROOMING - SCORE: 0-UNK BATHING: Activity did not occur on this shift BATHING - SCORE: 0-UNK DRESSING - UPPER BODY: Patient is not dressing in public clothing ARTICLES SCORE Total number of steps: 0 DRESSING - UPPER BODY - SCORE: 0-UNK DRESSING - LOWER BODY: Patient is not dressing in public clothing ARTICLES SCORE Total number of steps: 0 DRESSING - LOWER BODY - SCORE: 0-UNK TOILETING: TOILETING - STEP 1: Does the patient require the assistance of a person or device, or need extra time with toileting? Yes . TOILETING - STEP 2: Does the patient require the assistance of a helper? Yes. TOILETING - STEP 3: How much assistance does the patient require from the helper? Hands-on assistance from the helper TOILETING - STEP 4: Of the 3 tasks: 1) Adjusting clothing prior to use, 2) Cleansing of perineal area, 3) Adjusting clot loni after use; How many tasks does the patient perform WITHOUT assistance of the helper? Three tasks with steadying assistance from the helper TOILETING - SCORE: 4-MIN BLADDER MANAGEMENT: BLADDER MANAGEMENT - STEP 1: Does the patient control the bladder completely and intentionally without equipment or devices or med ications, and is always continent? No. BLADDER MANAGEMENT - STEP 2: Does the patient require the assistance of a helper? Yes. BLADDER MANAGEMENT - STEP 3: How much assistance does the patient require from the helper? Patient requires contact assistance fro m the helper BLADDER MANAGEMENT - STEP 4: How much contact assistance does the patient require from the helper? Patient requires moderate bret tance, and performs 50% to 75% of bladder management tasks - [place] positions AND holds urinal or bed ackerman BLADDER MANAGEMENT - SCORE: 3-MOD BOWEL MANAGEMENT: Activity did not occur on this shift BOWEL MANAGEMENT - SCORE: 7-IND TRANSFERS: BED, CHAIR, WHEELCHAIR: TRANSFERS: BED, CHAIR, WHEELCHAIR - STEP 1: Does the patient require assistance of a person or device, or need extra time with bed, chair, or whe elchair transfers? Yes. TRANSFERS: BED, CHAIR, WHEELCHAIR - STEP 2: Does the patient require the assistance of a helper? Yes. TRANSFERS: BED, CHAIR, WHEELCHAIR - STEP 3: How much assistance does the patient require from the helper? Lifting of the legs TRANSFERS: BED, CHAIR, WHEELCHAIR - STEP 4: How many legs does the patient require the helper to lift? both legs TRANSFERS: BED, CHAIR, WHEELCHAIR - SCORE: 3-MOD TRANSFERS: TOILET: TRANSFERS: TOILET - STEP 1: Does the patient require the assistance of a person or device, or need extra time with toilet transfe rs? Yes. TRANSFERS: TOILET - STEP 2: Does the patient require the assistance of a helper? Yes. TRANSFERS: TOILET - STEP 3: How much assistance does the patient require from the helper? Patient performs half or more of the tr ansferring tasks TRANSFERS: TOILET - STEP 4: Does the patient need only incidental help such as contact guard or steadying during toilet transfer? Yes. TRANSFERS: TOILET - SCORE: 4-MIN TRANSFERS: SHOWER: Activity did not occur on this shift TRANSFERS: SHOWER - SCORE: 0-UNK TRANSFERS: TUB: Activity did not occur on this shift TRANSFERS: TUB - SCORE: 0-UNK LOCOMOTION: WALK: Activity did not occur on this shift LOCOMOTION: WALK - SCORE: 0-UNK LOCOMOTION: WHEELCHAIR: Activity did not occur on this shift LOCOMOTION: WHEELCHAIR - SCORE: 0-UNK COMPREHENSION: COMPREHENSION: TYPE: Both COMPREHENSION - STEP 1: Does the patient require help from a person or device, or need extra time to understand complex and a bstract ideas (such as current events, finances, discharge planning, medical issues, relationships, e tc)? No. COMPREHENSION - STEP 2: Does the patient need extra time, require an assistive device (such as glasses for visual comprehensi on or a hearing aid for auditory comprehension) or does s/he have mild difficulty understanding compl ex and abstract information? Yes. COMPREHENSION - SCORE: 6-SIRI EXPRESSION EXPRESSION: TYPE: Both EXPRESSION - STEP 1: Does the patient require help from a person or device, or need extra time expressing complex and abst ract ideas (such as current events, finances, discharge planning, medical issues, relationships, etc) ? No. EXPRESSION - STEP 2: Does the patient need extra time, require an assistive device (such as augmentive communication syste m or a communication board), OR does s/he have mild difficulty expressing complex and abstract ideas (including mild dysarthria or mild word-find problems)? No. EXPRESSION - SCORE: 7-IND SOCIAL INTERACTION: SOCIAL INTERACTION - STEP 1: Does the patient require a helper to interact with others in social and therapeutic situations? No. SOCIAL INTERACTION - STEP 2: Does the patient need extra time in social situations, OR does s/he interact with staff, other patien ts, and family members ONLY in structured environments, OR does s/he require medication for social in teraction? Yes, patient requires medication for social interaction SOCIAL INTERACTION - SCORE: 6-SIRI PROBLEM SOLVING: Patient requires bed/chair alarms due to attempts to get up unassisted when helper is needed. PROBLEM SOLVING - STEP 1: How often do the bed/chair alarms go off? Occasionally - the alarms go off about 25% or less PROBLEM SOLVING - SCORE: 4-MIN MEMORY: MEMORY - STEP 1: How often do the bed/chair alarms go off? Occasionally - the alarms go off about 25% of the time or l ess MEMORY - SCORE: 4-MIN SIGNATURE PANEL: The following modified sections: Eating - Score, Grooming - Score, Bathing - Score, Dressing - Upper Body - Score, Dressing - Lower Body - Score, Toileting - Score, Bladder Management - Score, Bowel Man agement - Score, Transfers: Bed, Chair, Wheelchair - Score, Transfers: Toilet - Score, Transfers: Ping wer - Score, Transfers: Tub - Score, Locomotion: Walk - Score, Locomotion: Wheelchair - Score, Compre hension - Score, Expression - Score, Social Interaction - Score, Problem Solving - Score, Memory - Sc ore were [electronically] signed by Yasmine Meza CNA on FriFeb 09 2019 02:25:49 GMT-0500 ([place] Da [place] Time)
[2019-02-09] MEDS: LEVOTHYROXINE SOD 0.05 MG TABLET PO SCH (06:46)
[2019-02-09] MEDS: LEVOTHYROXINE SOD 0.1 MG TAB PO SCH (06:46)
[2019-02-09] MEDS: LIDOCAINE 5% PATCH TOP SCH (06:47)
[2019-02-09] MEDS: NYSTATIN PWDR 100000 UNIT/GM TOP SCH ×2 (08:00→20:00)
[2019-02-09] MEDS: DOCUSATE NA 100 MG CAP PO SCH (08:07)
[2019-02-09] MEDS: POLYETHYL GLY 3350 17 GM/DOSE PO SCH (08:08)
[2019-02-09] MEDS: APIXABAN 2.5 MG TABLET PO SCH ×2 (08:08→20:28)
[2019-02-09] MEDS: FUROSEMIDE 20 MG TABLET PO SCH (08:08)
[2019-02-09] MEDS: PROMOD 30 ML DOSE PO SCH ×2 (08:09→20:29)
--- NOTE | 2019-02-09 13:07 | FAST ---
SHIFT START DATE/TIME: 02/09/2019 07:00 (CDT) SHIFT END DATE/TIME: 02/09/2019 19:00 (CDT) NAME RADHA MOLINA DATE OF : 1930 DATE OF ADMISSION: 02/03/2019 19:57 (CDT) PHONE: AGE: 88 N# [id number] GENDER: Female ENCOUNTER PHYSICIAN: Dr. Conor Cervantes M.D. 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 EATING: EATING - STEP 1: Does the patient require the assistance of a person or device, or need extra time when eating? Yes. EATING - STEP 2: Does the patient require the assistance of a helper? Yes. EATING - STEP 3: Does the patient perform half or more of the eating tasks? Yes. EATING - STEP 4: Does the patient need only supervision, cuing, coaxing OR help to apply an orthosis OR help to cut fo od, open containers, pour liquids, or butter bread? Yes. EATING - SCORE: 5-SUP GROOMING: Comb/brush hair Oral care Wash, rinse, and dry face Wash, rinse, and dry hands GROOMING - STEP 1: Does the patient require the assistance of a person or device, or need extra time when grooming? Yes. GROOMING - STEP 2: Does the patient require the assistance of a helper? Yes. GROOMING - STEP 3: How much assistance does the patient require from the helper? Only prior equipment preparation/set up from the helper GROOMING - SCORE: 5-SUP BATHING: Activity did not occur on this shift BATHING - SCORE: 0-UNK DRESSING - UPPER BODY: T-shirt/pullover shirt (four steps) ARTICLES SCORE Total number of steps: 4 DRESSING - UPPER BODY - STEP 1: Does the patient require help from a person or device, or need extra time when dressing above the star st? Yes. DRESSING - UPPER BODY - STEP 2: Does the patient require the assistance of a helper? Yes. DRESSING - UPPER BODY - STEP 3: Does the helper touch the patient while dressing? Yes. DRESSING - UPPER BODY - STEP 4: How many of the total steps does the patient complete on his/her own? 2 DRESSING - UPPER BODY - SCORE: 3-MOD DRESSING - LOWER BODY: ARTICLES SCORE Total number of steps: 3 DRESSING - LOWER BODY - STEP 1: Does the patient require help from a person or device, or need extra time when dressing below the star st? Yes. DRESSING - LOWER BODY - STEP 2: Does the patient require the assistance of a helper? Yes. DRESSING - LOWER BODY - STEP 3: Does the helper touch the patient while dressing? Yes. DRESSING - LOWER BODY - STEP 4: How many of the total steps does the patient complete on his/her own? 2 DRESSING - LOWER BODY - SCORE: 3-MOD TOILETING: TOILETING - STEP 1: Does the patient require the assistance of a person or device, or need extra time with toileting? Yes . TOILETING - STEP 2: Does the patient require the assistance of a helper? Yes. TOILETING - STEP 3: How much assistance does the patient require from the helper? Hands-on assistance from the helper TOILETING - STEP 4: Of the 3 tasks: 1) Adjusting clothing prior to use, 2) Cleansing of perineal area, 3) Adjusting clot loni after use; How many tasks does the patient perform WITHOUT assistance of the helper? Three tasks with steadying assistance from the helper TOILETING - SCORE: 4-MIN BLADDER MANAGEMENT: BLADDER MANAGEMENT - STEP 1: Does the patient control the bladder completely and intentionally without equipment or devices or med ications, and is always continent? No. BLADDER MANAGEMENT - STEP 2: Does the patient require the assistance of a helper? No, patient requires and independently uses an a ssistive device, such as a urinal, bedpan, bedside commode, catheter, absorbent pad, or collecting de vice BLADDER MANAGEMENT - SCORE: 6-SIRI BOWEL MANAGEMENT: BOWEL MANAGEMENT - STEP 1: Does the patient control bowels completely and intentionally without equipment devices or medications AND is always continent? No. BOWEL MANAGEMENT - STEP 2: Does the patient require the assistance of a helper? No, patient requires medication for control such as stool softeners, suppositories, laxatives, enemas, or OTC medications BOWEL MANAGEMENT - SCORE: 6-SIRI TRANSFERS: BED, CHAIR, WHEELCHAIR: TRANSFERS: BED, CHAIR, WHEELCHAIR - STEP 1: Does the patient require assistance of a person or device, or need extra time with bed, chair, or whe elchair transfers? Yes. TRANSFERS: BED, CHAIR, WHEELCHAIR - STEP 2: Does the patient require the assistance of a helper? Yes. TRANSFERS: BED, CHAIR, WHEELCHAIR - STEP 3: How much assistance does the patient require from the helper? Steadying/guiding assistance TRANSFERS: BED, CHAIR, WHEELCHAIR - SCORE: 4-MIN TRANSFERS: TOILET: TRANSFERS: TOILET - STEP 1: Does the patient require the assistance of a person or device, or need extra time with toilet transfe rs? Yes. TRANSFERS: TOILET - STEP 2: Does the patient require the assistance of a helper? Yes. TRANSFERS: TOILET - STEP 3: How much assistance does the patient require from the helper? Patient performs half or more of the tr ansferring tasks TRANSFERS: TOILET - STEP 4: Does the patient need only incidental help such as contact guard or steadying during toilet transfer? Yes. TRANSFERS: TOILET - SCORE: 4-MIN TRANSFERS: SHOWER: Activity did not occur on this shift TRANSFERS: SHOWER - SCORE: 0-UNK TRANSFERS: TUB: Activity did not occur on this shift TRANSFERS: TUB - SCORE: 0-UNK LOCOMOTION: WALK: Activity did not occur on this shift LOCOMOTION: WALK - SCORE: 0-UNK LOCOMOTION: WHEELCHAIR: Activity did not occur on this shift LOCOMOTION: WHEELCHAIR - SCORE: 0-UNK COMPREHENSION: COMPREHENSION: TYPE: Both COMPREHENSION - STEP 1: Does the patient require help from a person or device, or need extra time to understand complex and a bstract ideas (such as current events, finances, discharge planning, medical issues, relationships, e tc)? No. COMPREHENSION - STEP 2: Does the patient need extra time, require an assistive device (such as glasses for visual comprehensi on or a hearing aid for auditory comprehension) or does s/he have mild difficulty understanding compl ex and abstract information? Yes. COMPREHENSION - SCORE: 6-SIRI EXPRESSION EXPRESSION: TYPE: Both EXPRESSION - STEP 1: Does the patient require help from a person or device, or need extra time expressing complex and abst ract ideas (such as current events, finances, discharge planning, medical issues, relationships, etc) ? No. EXPRESSION - STEP 2: Does the patient need extra time, require an assistive device (such as augmentive communication syste m or a communication board), OR does s/he have mild difficulty expressing complex and abstract ideas (including mild dysarthria or mild word-find problems)? Yes. EXPRESSION - SCORE: 6-SIRI SOCIAL INTERACTION: SOCIAL INTERACTION - STEP 1: Does the patient require a helper to interact with others in social and therapeutic situations? No. SOCIAL INTERACTION - STEP 2: Does the patient need extra time in social situations, OR does s/he interact with staff, other patien ts, and family members ONLY in structured environments, OR does s/he require medication for social in teraction? Yes, patient needs extra time SOCIAL INTERACTION - SCORE: 6-SIRI PROBLEM SOLVING: PROBLEM SOLVING - STEP 1: Does the patient need help from a person or device, or need extra time to solve complex problems such as managing a checking account or confronting interpersonal problems? No. PROBLEM SOLVING - STEP 2: Does the patient require extra time to make decisions or solve problems, OR does s/he have slight dif ficulty reading, initiating, or self-correcting in unfamiliar situations? Yes, patient needs extra ti me. PROBLEM SOLVING - SCORE: 6-SIRI MEMORY: MEMORY - STEP 1: Does the patient need help from a person or device, or need extra time to remember frequently encount ered people, daily routines, and executing requests? Yes. MEMORY - STEP 2: How often does the patient need help to remember frequently encountered people, daily routines, and e xecuting requests? Less than 10% of the time MEMORY - SCORE: 5-SUP SIGNATURE PANEL: The following modified sections: Eating - Score, Grooming - Score, Bathing - Score, Dressing - Upper Body - Score, Dressing - Lower Body - Score, Toileting - Score, Bladder Management - Score, Bowel Man agement - Score, Transfers: Bed, Chair, Wheelchair - Score, Transfers: Toilet - Score, Transfers: Ping wer - Score, Transfers: Tub - Score, Locomotion: Walk - Score, Locomotion: Wheelchair - Score, Compre hension - Score, Expression - Score, Social Interaction - Score, Problem Solving - Score, Memory - Sc ore were [electronically] signed by Reyes Hernandez on FriFeb 09 2019 13:05:37 GMT-0500 (Central Daylight Time)
--- NOTE | 2019-02-09 15:24 | FAST ---
ENCOUNTER DATE AND TIME: 02/09/2019 08:00 (CDT) NAME RADHA MOLINA DATE OF : 1930 DATE OF ADMISSION: 02/03/2019 19:57 (CDT) PHONE: AGE: 88 N# [id number] GENDER: Female ENCOUNTER PHYSICIAN: Dr. Conor Cervantes M.D. 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 EATING: Activity did not occur on this shift EATING - SCORE: 0-UNK GROOMING: Activity did not occur on this shift GROOMING - SCORE: 0-UNK BATHING: Activity did not occur on this shift BATHING - SCORE: 0-UNK DRESSING - UPPER BODY: Activity did not occur on this shift Patient is not dressing in public clothing ARTICLES SCORE Total number of steps: 0 DRESSING - UPPER BODY - SCORE: 0-UNK DRESSING - LOWER BODY: Activity did not occur on this shift Patient is not dressing in public clothing ARTICLES SCORE Total number of steps: 0 DRESSING - LOWER BODY - SCORE: 0-UNK TOILETING: Activity did not occur on this shift TOILETING - SCORE: 0-UNK BLADDER MANAGEMENT: Activity did not occur on this shift BLADDER MANAGEMENT - SCORE: 7-IND BOWEL MANAGEMENT: Activity did not occur on this shift BOWEL MANAGEMENT - SCORE: 7-IND TRANSFERS: BED, CHAIR, WHEELCHAIR: TRANSFERS: BED, CHAIR, WHEELCHAIR - STEP 1: Does the patient require assistance of a person or device, or need extra time with bed, chair, or whe elchair transfers? Yes. TRANSFERS: BED, CHAIR, WHEELCHAIR - STEP 2: Does the patient require the assistance of a helper? Yes. TRANSFERS: BED, CHAIR, WHEELCHAIR - STEP 3: How much assistance does the patient require from the helper? Steadying/guiding assistance TRANSFERS: BED, CHAIR, WHEELCHAIR - SCORE: 4-MIN TRANSFERS: TOILET: Activity did not occur on this shift TRANSFERS: TOILET - SCORE: 0-UNK TRANSFERS: SHOWER: Activity did not occur on this shift TRANSFERS: SHOWER - SCORE: 0-UNK TRANSFERS: TUB: Activity did not occur on this shift TRANSFERS: TUB - SCORE: 0-UNK LOCOMOTION: WALK: LOCOMOTION: WALK - STEP 1: Does the patient need help from a person or device, or need extra time to walk 150 feet? Yes. LOCOMOTION: WALK - STEP 2: How much assistance does the patient require to walk a minimum of 150 feet? Only supervision, cuing, or coaxing LOCOMOTION: WALK - SCORE: 5-SUP LOCOMOTION: WHEELCHAIR: LOCOMOTION: WHEELCHAIR - STEP 1: Does the patient need help to go 150 feet in a wheelchair? Yes. LOCOMOTION: WHEELCHAIR - STEP 2: How much assistance does the patient need from the helper? Only supervision, cuing, or coaxing LOCOMOTION: WHEELCHAIR - SCORE: 5-SUP LOCOMOTION: STAIRS: LOCOMOTION: STAIRS - STEP 1: Does the patient need help to go up and down 12 to 14 stairs? Yes. LOCOMOTION: STAIRS - STEP 2: How much assistance does the patient need from the helper to go a minimum of 12 to 14 stairs? The pat ient goes less than 12 stairs, but at least 4 stairs LOCOMOTION: STAIRS - SCORE: 2-MAX COMPREHENSION: COMPREHENSION - SCORE: 0-UNK EXPRESSION EXPRESSION - SCORE: 0-UNK SOCIAL INTERACTION: SOCIAL INTERACTION - SCORE: 0-UNK PROBLEM SOLVING: PROBLEM SOLVING - SCORE: 0-UNK MEMORY: MEMORY - SCORE: 0-UNK SIGNATURE PANEL: The following modified sections: Transfers: Bed, Chair, Wheelchair - Score, Transfers: Toilet - Score , Locomotion: Walk - Score, Locomotion: Wheelchair - Score, Locomotion: Stairs - Score were [lucinda andrea] signed by Lester Esposito PTA on FriFeb 09 2019 15:23:03 GMT-0500 (Central Daylight Time)
[2019-02-09] MEDS: METHOCARBAMOL 500 MG TAB PO PRN (18:30)
--- NOTE | 2019-02-09 18:46 | R.PN ---
ENCOUNTER DATE AND TIME: 02/09/2019 18:44 (CDT) NAME RADHA MOLINA DATE OF : 1930 DATE OF ADMISSION: 02/03/2019 19:57 (CDT) T12 Compression FractureCHIEF COMPLAINT: T12 compression fracture. SUBJECTIVE: Pt denied any Shortness of Breath. Pt denied any depression. Ambulated 520' with standby assistance using a rolling walker. Self-propelled wheelchair 200' with st andby assistance. WBC 10.0, Hgb 15.3, Na 138, glucose 103 to 111, prealbumin 15.1. KUB shows a large amount of stool wi th fecal impaction in the colon. Will give fleets enema for disempaction. VITAL SIGNS Temperature: 97.8 F SBP/DBP: 110/63 Pulse: 89 Resp: 16 MEDICATION ALLERGIES: No Known Drug Allergies (NKDA) ENVIRONMENTAL ALLERGIES: None Known - Substance Allergies None Known - Other Allergies None Known NURSING: - Shower allowing shower - Bladder care per protocol - Skin care per protocol ACTIVITIES OOB only with supervision THERAPIES: - Orthotics/Prosthetics Splinting/Casting. Orthotic Evaluation. - Occupational Therapy Evaluate and Treat. - Physical Therapy Evaluate and Treat. PHYSICAL EXAM - Gen Alert and awake Lying in bed No apparent distress Oriented to: person, time, and place - Skin Rash in left groin No abnormalities - Eyes No abnormalities - ENMT No abnormalities - Neck No abnormalities - CVS RRR - Chest No abnormalities - Abd +bowel sounds - GI Soft Deferred - Urinary incontinence - Ext No significant edema. - MSK 4+/5 weakness in both lower extremities. Back muscle spasms. Back shell brace is in place. - Neuro No focal neurological deficits - Psych No abnormalities ASSESSMENT: Pt. 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 was independent/mod-I in Self-Care, S phincter Control, Transfers Control, Locomotion, Communication, and Social Cognition; and she had goo d Sphincter Control.Currently, she has deficits of Self-Care, Transfers Control, Locomotion, Communic ation, Social Cognition, Endurance, Balance, and Safety Awareness.Pt. is now referred to [facility] for acute in-patient rehabilitation in order to maximize patient's functional i ndependence in activities of daily living, strength, ROM, and mobility.- Rehab Goal Patient has realistic goal of being discharged at assistance level 6-Caroline to reside at Home with Fam mic/Relatives. MDM/PLAN: - Physical Therapy Gait dysfunction - to improve, our physical therapists will perform initial evaluation of pt's statu s upon admission and devise an individualized program for Gait Training, and Wheel Chair mobility Inability to transfer - to improve, our physical therapists will perform initial evaluation of pt's status upon admission and devise an individualized program for Bed mobility Need for home safety evaluation - to improve, our physical therapists will perform initial evaluatio n of pt's status upon admission and devise an individualized program for Home Evaluation Need in caregiver upon discharge - to improve, our physical therapists will perform initial evaluati on of pt's status upon admission and devise an individualized program for Caregiver Training Edema - to improve, our physical therapists will perform initial evaluation of pt's status upon admi ssion and devise an individualized program for Elevation Training, and Lymphedema Therapy New precaution - to improve, our physical therapists will perform initial evaluation of pt's status upon admission and devise an individualized program for Patient precaution education Poor balance - to improve, our physical therapists will perform initial evaluation of pt's status up on admission and devise an individualized program for Balance Training Poor endurance - to improve, our physical therapists will perform initial evaluation of pt's status upon admission and devise an individualized program for Endurance Training Weakness - to improve, our physical therapists will perform initial evaluation of pt's status upon a dmission and devise an individualized program for Aquatic Therapy, Neuromuscular Reeducation, and Str engthening Achieving independence - to improve, our physical therapists will perform initial evaluation of pt's status upon admission and devise an individualized program for Community Reintegration Activities - Occupational Therapy ADL deficits - to improve, our occupation therapists will perform initial evaluation of pt's status upon admission and devise an individualized program for Bathing, Bed mobility, Community Reintegratio n, Cooking, Dressing, Eating, Fine Motor Skills, Grooming, Homemaking, Kitchen Mobility, Laundry, Pat ient Education, Safety Awareness, Splinting - Positioning, Transfers(Toilet, Tub, Shower), and Wheel Chair Management Cognitive deficits - to improve, our occupation therapists will perform initial evaluation of pt's s tatus upon admission and devise an individualized program for Cognition - orientation Need for manager wound care - to improve, our occupation therapists will perform initial evaluation of pt's status upon admission and devise an individualized program for Caregiver Training Weakness - to improve, our occupation therapists will perform initial evaluation of pt's status upon admission and devise an individualized program for Aquatic Therapy, Balance, Endurance, UE ROM, and UE strengthening - Diet Type Continue Regular - Diet - Liquid Texture Continue Regular - Tube Feed Continue N/A - Bladder care per protocol - Skin care per protocol - Diet - Solid Texture Continue Regular - Shower allowing shower FUNCTIONAL STATUS: UPDATED AT WEEKLY TEAM CONFERENCE - Bladder Same accident frequency: 7-Ind - No accidents in the past 7 days - Bowel Same accident frequency: 7-Ind - No accidents in the past 7 days - Walking Same score based on distance walked: 1(<=50ft) - Wheelchair Same score based on distance traveled: 0(N/A) FUNCTIONAL STATUS: - Self-Care A. Eating sup B. Grooming sup C. Bathing maxA D. Dressing - Upper maxA E. Dressing - Lower maxA F. Toileting maxA - Sphincter Control G: Bladder control Ind H: Bowel control Ind - Transfers Control I. Bed/Chair/Wheelchair Radha J. Toilet Radha K. Tub/Shower ADNO - Locomotion L. Walk/Wheelchair (B) maxA M. Stairs ADNO - Communication N. Comprehension (B) Radha O. Expression (B) Radha - Social Cognition P. Social Interaction Radha Q. Problem Solving Radha R. Memory min-to-modA - Endurance Fair - Balance Fair - Safety Awareness Fair CURRENT FUNC. DEFICITS: Self-Care, Transfers Control, Locomotion, Communication, Social Cognition, Endurance, Balance, and Sa fety Awareness SIGNATURE PANEL: (CDT)
[2019-02-09] MEDS: BENZONATATE 100 MG CAP PO SCH (20:28)
[2019-02-09] MEDS: DOCUSATE NA/SENNA CONC 1 TAB PO SCH (20:28)
[2019-02-09] MEDS: MELATONIN 5 MG TABLET PO PRN (20:28)
[2019-02-09] MEDS: AMITRIPTYLINE 25 MG TAB PO SCH (20:29)
[2019-02-10] MEDS: TRAMADOL HCL 50 MG TAB PO SCH ×4 (02:18→20:00)
--- NOTE | 2019-02-10 03:29 | FAST ---
SHIFT START DATE/TIME: 02/09/2019 19:00 (CDT) SHIFT END DATE/TIME: 02/10/2019 07:00 (CDT) NAME RADHA MOLINA DATE OF : 1930 DATE OF ADMISSION: 02/03/2019 19:57 (CDT) PHONE: AGE: 88 N# [id number] GENDER: Female ENCOUNTER PHYSICIAN: Dr. Conor Cervantes M.D. 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 EATING: Activity did not occur on this shift EATING - SCORE: 0-UNK GROOMING: Activity did not occur on this shift GROOMING - SCORE: 0-UNK BATHING: Activity did not occur on this shift BATHING - SCORE: 0-UNK DRESSING - UPPER BODY: Patient is not dressing in public clothing ARTICLES SCORE Total number of steps: 0 DRESSING - UPPER BODY - SCORE: 0-UNK DRESSING - LOWER BODY: Patient is not dressing in public clothing ARTICLES SCORE Total number of steps: 0 DRESSING - LOWER BODY - SCORE: 0-UNK TOILETING: TOILETING - STEP 1: Does the patient require the assistance of a person or device, or need extra time with toileting? Yes . TOILETING - STEP 2: Does the patient require the assistance of a helper? Yes. TOILETING - STEP 3: How much assistance does the patient require from the helper? Hands-on assistance from the helper TOILETING - STEP 4: Of the 3 tasks: 1) Adjusting clothing prior to use, 2) Cleansing of perineal area, 3) Adjusting clot loni after use; How many tasks does the patient perform WITHOUT assistance of the helper? Three tasks with steadying assistance from the helper TOILETING - SCORE: 4-MIN BLADDER MANAGEMENT: BLADDER MANAGEMENT - STEP 1: Does the patient control the bladder completely and intentionally without equipment or devices or med ications, and is always continent? Yes. BLADDER MANAGEMENT - SCORE: 7-IND BOWEL MANAGEMENT: Activity did not occur on this shift BOWEL MANAGEMENT - SCORE: 7-IND TRANSFERS: BED, CHAIR, WHEELCHAIR: TRANSFERS: BED, CHAIR, WHEELCHAIR - STEP 1: Does the patient require assistance of a person or device, or need extra time with bed, chair, or whe elchair transfers? Yes. TRANSFERS: BED, CHAIR, WHEELCHAIR - STEP 2: Does the patient require the assistance of a helper? Yes. TRANSFERS: BED, CHAIR, WHEELCHAIR - STEP 3: How much assistance does the patient require from the helper? Steadying/guiding assistance TRANSFERS: BED, CHAIR, WHEELCHAIR - SCORE: 4-MIN TRANSFERS: TOILET: TRANSFERS: TOILET - STEP 1: Does the patient require the assistance of a person or device, or need extra time with toilet transfe rs? Yes. TRANSFERS: TOILET - STEP 2: Does the patient require the assistance of a helper? Yes. TRANSFERS: TOILET - STEP 3: How much assistance does the patient require from the helper? Patient performs half or more of the tr ansferring tasks TRANSFERS: TOILET - STEP 4: Does the patient need only incidental help such as contact guard or steadying during toilet transfer? Yes. TRANSFERS: TOILET - SCORE: 4-MIN TRANSFERS: SHOWER: Activity did not occur on this shift TRANSFERS: SHOWER - SCORE: 0-UNK TRANSFERS: TUB: Activity did not occur on this shift TRANSFERS: TUB - SCORE: 0-UNK LOCOMOTION: WALK: Activity did not occur on this shift LOCOMOTION: WALK - SCORE: 0-UNK LOCOMOTION: WHEELCHAIR: Activity did not occur on this shift LOCOMOTION: WHEELCHAIR - SCORE: 0-UNK COMPREHENSION: COMPREHENSION: TYPE: Both COMPREHENSION - STEP 1: Does the patient require help from a person or device, or need extra time to understand complex and a bstract ideas (such as current events, finances, discharge planning, medical issues, relationships, e tc)? No. COMPREHENSION - STEP 2: Does the patient need extra time, require an assistive device (such as glasses for visual comprehensi on or a hearing aid for auditory comprehension) or does s/he have mild difficulty understanding compl ex and abstract information? Yes. COMPREHENSION - SCORE: 6-SIRI EXPRESSION EXPRESSION: TYPE: Both EXPRESSION - STEP 1: Does the patient require help from a person or device, or need extra time expressing complex and abst ract ideas (such as current events, finances, discharge planning, medical issues, relationships, etc) ? No. EXPRESSION - STEP 2: Does the patient need extra time, require an assistive device (such as augmentive communication syste m or a communication board), OR does s/he have mild difficulty expressing complex and abstract ideas (including mild dysarthria or mild word-find problems)? No. EXPRESSION - SCORE: 7-IND SOCIAL INTERACTION: SOCIAL INTERACTION - STEP 1: Does the patient require a helper to interact with others in social and therapeutic situations? No. SOCIAL INTERACTION - STEP 2: Does the patient need extra time in social situations, OR does s/he interact with staff, other patien ts, and family members ONLY in structured environments, OR does s/he require medication for social in teraction? Yes, patient requires medication for social interaction SOCIAL INTERACTION - SCORE: 6-SIRI PROBLEM SOLVING: Patient requires bed/chair alarms due to attempts to get up unassisted when helper is needed. PROBLEM SOLVING - STEP 1: How often do the bed/chair alarms go off? Occasionally - the alarms go off about 25% or less PROBLEM SOLVING - SCORE: 4-MIN MEMORY: MEMORY - STEP 1: How often do the bed/chair alarms go off? Occasionally - the alarms go off about 25% of the time or l ess MEMORY - SCORE: 4-MIN SIGNATURE PANEL: The following modified sections: Eating - Score, Grooming - Score, Bathing - Score, Dressing - Upper Body - Score, Dressing - Lower Body - Score, Toileting - Score, Bladder Management - Score, Bowel Man agement - Score, Transfers: Bed, Chair, Wheelchair - Score, Transfers: Toilet - Score, Transfers: Ping wer - Score, Transfers: Tub - Score, Locomotion: Walk - Score, Locomotion: Wheelchair - Score, Compre hension - Score, Expression - Score, Social Interaction - Score, Problem Solving - Score, Memory - Sc ore were [electronically] signed by Yasmine Meza CNA on FriFeb 10 2019 03:28:26 T-0500 ([place] Da ylight Time)
[2019-02-10] MEDS: LEVOTHYROXINE SOD 0.1 MG TAB PO SCH (05:12)
[2019-02-10] MEDS: LEVOTHYROXINE SOD 0.05 MG TABLET PO SCH (05:12)
[2019-02-10] MEDS: METHOCARBAMOL 500 MG TAB PO PRN (05:12)
[2019-02-10] MEDS: NYSTATIN PWDR 100000 UNIT/GM TOP SCH ×2 (08:00→20:00)
[2019-02-10] MEDS: LIDOCAINE 5% PATCH TOP SCH (08:14)
[2019-02-10] MEDS: DOCUSATE NA 100 MG CAP PO SCH (08:14)
[2019-02-10] MEDS: POLYETHYL GLY 3350 17 GM/DOSE PO SCH (08:14)
[2019-02-10] MEDS: APIXABAN 2.5 MG TABLET PO SCH ×2 (08:15→20:01)
[2019-02-10] MEDS: FUROSEMIDE 20 MG TABLET PO SCH (08:15)
[2019-02-10] MEDS: PROMOD 30 ML DOSE PO SCH ×2 (08:15→20:02)
[2019-02-10] MEDS ORDERED: MAGNESIUM HYDROXIDE 8% 30 ML PO PRN (13:21)
--- NOTE | 2019-02-10 13:46 | FAST ---
SHIFT START DATE/TIME: 02/10/2019 07:00 (CDT) SHIFT END DATE/TIME: 02/10/2019 19:00 (CDT) NAME RADHA MOLINA DATE OF : 1930 DATE OF ADMISSION: 02/03/2019 19:57 (CDT) PHONE: AGE: 88 N# [id number] GENDER: Female ENCOUNTER PHYSICIAN: Dr. Conor Cervantes M.D. 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 EATING: EATING - STEP 1: Does the patient require the assistance of a person or device, or need extra time when eating? Yes. EATING - STEP 2: Does the patient require the assistance of a helper? Yes. EATING - STEP 3: Does the patient perform half or more of the eating tasks? Yes. EATING - STEP 4: Does the patient need only supervision, cuing, coaxing OR help to apply an orthosis OR help to cut fo od, open containers, pour liquids, or butter bread? Yes. EATING - SCORE: 5-SUP GROOMING: Comb/brush hair Oral care Wash, rinse, and dry face Wash, rinse, and dry hands GROOMING - STEP 1: Does the patient require the assistance of a person or device, or need extra time when grooming? Yes. GROOMING - STEP 2: Does the patient require the assistance of a helper? No. The patient only requires an assistive devic e, OR takes more than reasonable time to groom, OR there is a concern for safety as the patient groom s GROOMING - SCORE: 6-SIRI BATHING: Activity did not occur on this shift BATHING - SCORE: 0-UNK DRESSING - UPPER BODY: T-shirt/pullover shirt (four steps) ARTICLES SCORE Total number of steps: 4 DRESSING - UPPER BODY - STEP 1: Does the patient require help from a person or device, or need extra time when dressing above the star st? Yes. DRESSING - UPPER BODY - STEP 2: Does the patient require the assistance of a helper? Yes. DRESSING - UPPER BODY - STEP 3: Does the helper touch the patient while dressing? Yes. DRESSING - UPPER BODY - STEP 4: How many of the total steps does the patient complete on his/her own? 0 DRESSING - UPPER BODY - STEP 5: Does Patient require total assistance for dressing above the waist such as the helper holding clothin g and performing basically all the activities? Yes. DRESSING - UPPER BODY - SCORE: 1-DEP DRESSING - UPPER BODY - COMMENTS: Pt requires assistance to remove TLSO brace and to thread clothes on her body and replace and secure her TLSO brace DRESSING - LOWER BODY: Elastic waist pants (three steps) Underwear (three steps) ARTICLES SCORE Total number of steps: 6 DRESSING - LOWER BODY - STEP 1: Does the patient require help from a person or device, or need extra time when dressing below the star st? Yes. DRESSING - LOWER BODY - STEP 2: Does the patient require the assistance of a helper? Yes. DRESSING - LOWER BODY - STEP 3: Does the helper touch the patient while dressing? Yes. DRESSING - LOWER BODY - STEP 4: How many of the total steps does the patient complete on his/her own? 2 DRESSING - LOWER BODY - STEP 5: Does patient require total assistance for dressing below the waist such as the helper holding clothin g and performing basically all the activities? Yes. DRESSING - LOWER BODY - SCORE: 1-DEP DRESSING - LOWER BODY - COMMENTS: Pt has difficulty reaching over her TLSO brace to hold clothes and thread feet into clothes- pt has d ifficulty pulling clothes up over her hips TOILETING: TOILETING - STEP 1: Does the patient require the assistance of a person or device, or need extra time with toileting? Yes . TOILETING - STEP 2: Does the patient require the assistance of a helper? Yes. TOILETING - STEP 3: How much assistance does the patient require from the helper? Hands-on assistance from the helper TOILETING - STEP 4: Of the 3 tasks: 1) Adjusting clothing prior to use, 2) Cleansing of perineal area, 3) Adjusting clot loni after use; How many tasks does the patient perform WITHOUT assistance of the helper? One task TOILETING - SCORE: 2-MAX BLADDER MANAGEMENT: BLADDER MANAGEMENT - STEP 1: Does the patient control the bladder completely and intentionally without equipment or devices or med ications, and is always continent? No. BLADDER MANAGEMENT - STEP 2: Does the patient require the assistance of a helper? No, patient only requires extra time BLADDER MANAGEMENT - SCORE: 6-SIRI BLADDER MANAGEMENT - FREQUENCY OF ACCIDENTS: BLADDER MANAGEMENT(FA) - STEP 1: How many accidents has the patient had during the current shift? 0 BOWEL MANAGEMENT: Activity did not occur on this shift BOWEL MANAGEMENT - SCORE: 7-IND BOWEL MANAGEMENT - FREQUENCY OF ACCIDENTS: BOWEL MANAGEMENT(FA) - STEP 1: How many accidents has the patient had during the current shift? 0 TRANSFERS: BED, CHAIR, WHEELCHAIR: TRANSFERS: BED, CHAIR, WHEELCHAIR - STEP 1: Does the patient require assistance of a person or device, or need extra time with bed, chair, or whe elchair transfers? Yes. TRANSFERS: BED, CHAIR, WHEELCHAIR - STEP 2: Does the patient require the assistance of a helper? Yes. TRANSFERS: BED, CHAIR, WHEELCHAIR - STEP 3: How much assistance does the patient require from the helper? Steadying/guiding assistance TRANSFERS: BED, CHAIR, WHEELCHAIR - SCORE: 4-MIN TRANSFERS: TOILET: TRANSFERS: TOILET - STEP 1: Does the patient require the assistance of a person or device, or need extra time with toilet transfe rs? Yes. TRANSFERS: TOILET - STEP 2: Does the patient require the assistance of a helper? Yes. TRANSFERS: TOILET - STEP 3: How much assistance does the patient require from the helper? Patient performs half or more of the tr ansferring tasks TRANSFERS: TOILET - STEP 4: Does the patient need only incidental help such as contact guard or steadying during toilet transfer? Yes. TRANSFERS: TOILET - SCORE: 4-MIN TRANSFERS: SHOWER: Activity did not occur on this shift TRANSFERS: SHOWER - SCORE: 0-UNK TRANSFERS: TUB: Activity did not occur on this shift TRANSFERS: TUB - SCORE: 0-UNK LOCOMOTION: WALK: Activity did not occur on this shift LOCOMOTION: WALK - SCORE: 0-UNK LOCOMOTION: WHEELCHAIR: Activity did not occur on this shift LOCOMOTION: WHEELCHAIR - SCORE: 0-UNK COMPREHENSION: COMPREHENSION: TYPE: Both COMPREHENSION - STEP 1: Does the patient require help from a person or device, or need extra time to understand complex and a bstract ideas (such as current events, finances, discharge planning, medical issues, relationships, e tc)? No. COMPREHENSION - STEP 2: Does the patient need extra time, require an assistive device (such as glasses for visual comprehensi on or a hearing aid for auditory comprehension) or does s/he have mild difficulty understanding compl ex and abstract information? Yes. COMPREHENSION - SCORE: 6-SIRI EXPRESSION EXPRESSION: TYPE: Both EXPRESSION - STEP 1: Does the patient require help from a person or device, or need extra time expressing complex and abst ract ideas (such as current events, finances, discharge planning, medical issues, relationships, etc) ? No. EXPRESSION - STEP 2: Does the patient need extra time, require an assistive device (such as augmentive communication syste m or a communication board), OR does s/he have mild difficulty expressing complex and abstract ideas (including mild dysarthria or mild word-find problems)? Yes. EXPRESSION - SCORE: 6-SIRI SOCIAL INTERACTION: SOCIAL INTERACTION - STEP 1: Does the patient require a helper to interact with others in social and therapeutic situations? No. SOCIAL INTERACTION - STEP 2: Does the patient need extra time in social situations, OR does s/he interact with staff, other patien ts, and family members ONLY in structured environments, OR does s/he require medication for social in teraction? Yes, patient needs extra time SOCIAL INTERACTION - SCORE: 6-SIRI PROBLEM SOLVING: PROBLEM SOLVING - STEP 1: Does the patient need help from a person or device, or need extra time to solve complex problems such as managing a checking account or confronting interpersonal problems? No. PROBLEM SOLVING - STEP 2: Does the patient require extra time to make decisions or solve problems, OR does s/he have slight dif ficulty reading, initiating, or self-correcting in unfamiliar situations? Yes, patient needs extra ti me. PROBLEM SOLVING - SCORE: 6-SIRI MEMORY: MEMORY - STEP 1: Does the patient need help from a person or device, or need extra time to remember frequently encount ered people, daily routines, and executing requests? Yes. MEMORY - STEP 2: How often does the patient need help to remember frequently encountered people, daily routines, and e xecuting requests? Less than 10% of the time MEMORY - SCORE: 5-SUP SIGNATURE PANEL: The following modified sections: Eating - Score, Grooming - Score, Bathing - Score, Dressing - Upper Body - Score, Dressing - Upper Body - Comments:, Dressing - Lower Body - Score, Dressing - Lower Body - Comments:, Toileting - Score, Bladder Management - Score, Bowel Management - Score, Transfers: Bed , Chair, Wheelchair - Score, Transfers: Toilet - Score, Transfers: Shower - Score, Transfers: Tub - S core, Locomotion: Walk - Score, Locomotion: Wheelchair - Score, Comprehension - Score, Expression - S core, Social Interaction - Score, Problem Solving - Score, Memory - Score were [electronically] flynn d by Lisa Ortega C.N.A. on FriFeb 10 2019 13:45:27 [facility]-0500 (Central Daylight Time)
--- NOTE | 2019-02-10 15:18 | FAST ---
ENCOUNTER DATE AND TIME: 02/10/2019 08:00 (CDT) NAME RADHA MOLINA DATE OF : 1930 DATE OF ADMISSION: 02/03/2019 19:57 (CDT) PHONE: AGE: 88 N# [id number] GENDER: Female ENCOUNTER PHYSICIAN: Dr. Conor Cervantes M.D. 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 EATING: Activity did not occur on this shift EATING - SCORE: 0-UNK GROOMING: Activity did not occur on this shift GROOMING - SCORE: 0-UNK BATHING: Activity did not occur on this shift BATHING - SCORE: 0-UNK DRESSING - UPPER BODY: Activity did not occur on this shift Patient is not dressing in public clothing ARTICLES SCORE Total number of steps: 0 DRESSING - UPPER BODY - SCORE: 0-UNK DRESSING - LOWER BODY: Activity did not occur on this shift Patient is not dressing in public clothing ARTICLES SCORE Total number of steps: 0 DRESSING - LOWER BODY - SCORE: 0-UNK TOILETING: Activity did not occur on this shift TOILETING - SCORE: 0-UNK BLADDER MANAGEMENT: Activity did not occur on this shift BLADDER MANAGEMENT - SCORE: 7-IND BOWEL MANAGEMENT: Activity did not occur on this shift BOWEL MANAGEMENT - SCORE: 7-IND TRANSFERS: BED, CHAIR, WHEELCHAIR: TRANSFERS: BED, CHAIR, WHEELCHAIR - STEP 1: Does the patient require assistance of a person or device, or need extra time with bed, chair, or whe elchair transfers? Yes. TRANSFERS: BED, CHAIR, WHEELCHAIR - STEP 2: Does the patient require the assistance of a helper? Yes. TRANSFERS: BED, CHAIR, WHEELCHAIR - STEP 3: How much assistance does the patient require from the helper? Only supervision TRANSFERS: BED, CHAIR, WHEELCHAIR - SCORE: 5-SUP TRANSFERS: TOILET: Activity did not occur on this shift TRANSFERS: TOILET - SCORE: 0-UNK TRANSFERS: SHOWER: Activity did not occur on this shift TRANSFERS: SHOWER - SCORE: 0-UNK TRANSFERS: TUB: Activity did not occur on this shift TRANSFERS: TUB - SCORE: 0-UNK LOCOMOTION: WALK: LOCOMOTION: WALK - STEP 1: Does the patient need help from a person or device, or need extra time to walk 150 feet? Yes. LOCOMOTION: WALK - STEP 2: How much assistance does the patient require to walk a minimum of 150 feet? Only supervision, cuing, or coaxing LOCOMOTION: WALK - SCORE: 5-SUP LOCOMOTION: WHEELCHAIR: LOCOMOTION: WHEELCHAIR - STEP 1: Does the patient need help to go 150 feet in a wheelchair? Yes. LOCOMOTION: WHEELCHAIR - STEP 2: How much assistance does the patient need from the helper? Only supervision, cuing, or coaxing LOCOMOTION: WHEELCHAIR - SCORE: 5-SUP LOCOMOTION: STAIRS: LOCOMOTION: STAIRS - STEP 1: Does the patient need help to go up and down 12 to 14 stairs? Yes. LOCOMOTION: STAIRS - STEP 2: How much assistance does the patient need from the helper to go a minimum of 12 to 14 stairs? The pat ient goes less than 12 stairs, but at least 4 stairs LOCOMOTION: STAIRS - SCORE: 2-MAX COMPREHENSION: COMPREHENSION - SCORE: 0-UNK EXPRESSION EXPRESSION - SCORE: 0-UNK SOCIAL INTERACTION: SOCIAL INTERACTION - SCORE: 0-UNK PROBLEM SOLVING: PROBLEM SOLVING - SCORE: 0-UNK MEMORY: MEMORY - SCORE: 0-UNK SIGNATURE PANEL: The following modified sections: Transfers: Bed, Chair, Wheelchair - Score, Transfers: Toilet - Score , Locomotion: Walk - Score, Locomotion: Wheelchair - Score, Locomotion: Stairs - Score were [electron zully] signed by Lester Esposito PTA on FriFeb 10 2019 15:16:54 GMT-0500 (Central Daylight Time)
[2019-02-10] MEDS: BISACODYL 10 MG RECTAL SUPP PR PRN (15:25)
--- NOTE | 2019-02-10 17:50 | R.PN ---
ENCOUNTER DATE AND TIME: 02/10/2019 17:47 (CDT) NAME RADHA MOLINA DATE OF : 1930 DATE OF ADMISSION: 02/03/2019 19:57 (CDT) T12 Compression FractureCHIEF COMPLAINT: T12 compression fracture. SUBJECTIVE: Pt denied any Shortness of Breath. Pt denied any depression. Ambulated 770' with standby assistance using a rolling walker. Self-propelled wheelchair 250' with st andby assistance. Up and down 5 steps with contact guard assistance. WBC 10.0, Hgb 15.3, Na 138, glucose 103 to 111, prealbumin 15.1. KUB shows a large amount of stool wi th fecal impaction in the colon. Will give fleets enema for disempaction. VITAL SIGNS Temperature: 97.8 F SBP/DBP: 128/50 Pulse: 90 Resp: 16 MEDICATION ALLERGIES: No Known Drug Allergies (NKDA) ENVIRONMENTAL ALLERGIES: None Known - Substance Allergies None Known - Other Allergies None Known NURSING: - Shower allowing shower - Bladder care per protocol - Skin care per protocol ACTIVITIES OOB only with supervision THERAPIES: - Orthotics/Prosthetics Splinting/Casting. Orthotic Evaluation. - Occupational Therapy Evaluate and Treat. - Physical Therapy Evaluate and Treat. PHYSICAL EXAM - Gen Alert and awake Lying in bed No apparent distress Oriented to: person, time, and place - Skin Rash in left groin No abnormalities - Eyes No abnormalities - ENMT No abnormalities - Neck No abnormalities - CVS RRR - Chest No abnormalities - Abd +bowel sounds - GI Soft Deferred - Urinary incontinence - Ext No significant edema. - MSK 4+/5 weakness in both lower extremities. Back muscle spasms. Back shell brace is in place. - Neuro No focal neurological deficits - Psych No abnormalities ASSESSMENT: Pt. 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 was independent/mod-I in Self-Care, S phincter Control, Transfers Control, Locomotion, Communication, and Social Cognition; and she had goo d Sphincter Control.Currently, she has deficits of Self-Care, Transfers Control, Locomotion, Communic ation, Social Cognition, Endurance, Balance, and Safety Awareness.Pt. is now referred to [facility] for acute in-patient rehabilitation in order to maximize patient's functional i ndependence in activities of daily living, strength, ROM, and mobility.- Rehab Goal Patient has realistic goal of being discharged at assistance level 6-Caroline to reside at Home with Fam mic/Relatives. MDM/PLAN: - Physical Therapy Gait dysfunction - to improve, our physical therapists will perform initial evaluation of pt's statu s upon admission and devise an individualized program for Gait Training, and Wheel Chair mobility Inability to transfer - to improve, our physical therapists will perform initial evaluation of pt's status upon admission and devise an individualized program for Bed mobility Need for home safety evaluation - to improve, our physical therapists will perform initial evaluatio n of pt's status upon admission and devise an individualized program for Home Evaluation Need in caregiver upon discharge - to improve, our physical therapists will perform initial evaluati on of pt's status upon admission and devise an individualized program for Caregiver Training Edema - to improve, our physical therapists will perform initial evaluation of pt's status upon admi ssion and devise an individualized program for Elevation Training, and Lymphedema Therapy New precaution - to improve, our physical therapists will perform initial evaluation of pt's status upon admission and devise an individualized program for Patient precaution education Poor balance - to improve, our physical therapists will perform initial evaluation of pt's status up on admission and devise an individualized program for Balance Training Poor endurance - to improve, our physical therapists will perform initial evaluation of pt's status upon admission and devise an individualized program for Endurance Training Weakness - to improve, our physical therapists will perform initial evaluation of pt's status upon a dmission and devise an individualized program for Aquatic Therapy, Neuromuscular Reeducation, and Str engthening Achieving independence - to improve, our physical therapists will perform initial evaluation of pt's status upon admission and devise an individualized program for Community Reintegration Activities - Occupational Therapy ADL deficits - to improve, our occupation therapists will perform initial evaluation of pt's status upon admission and devise an individualized program for Bathing, Bed mobility, Community Reintegratio n, Cooking, Dressing, Eating, Fine Motor Skills, Grooming, Homemaking, Kitchen Mobility, Laundry, Pat ient Education, Safety Awareness, Splinting - Positioning, Transfers(Toilet, Tub, Shower), and Wheel Chair Management Cognitive deficits - to improve, our occupation therapists will perform initial evaluation of pt's s tatus upon admission and devise an individualized program for Cognition - orientation Need for acute care occupational therapist - to improve, our occupation therapists will perform initial evaluation of pt's status upon admission and devise an individualized program for Caregiver Training Weakness - to improve, our occupation therapists will perform initial evaluation of pt's status upon admission and devise an individualized program for Aquatic Therapy, Balance, Endurance, UE ROM, and UE strengthening - Diet Type Continue Regular - Diet - Liquid Texture Continue Regular - Tube Feed Continue N/A - Bladder care per protocol - Skin care per protocol - Diet - Solid Texture Continue Regular - Shower allowing shower FUNCTIONAL STATUS: UPDATED AT WEEKLY TEAM CONFERENCE - Bladder Same accident frequency: 7-Ind - No accidents in the past 7 days - Bowel Same accident frequency: 7-Ind - No accidents in the past 7 days - Walking Same score based on distance walked: 1(<=50ft) - Wheelchair Same score based on distance traveled: 0(N/A) FUNCTIONAL STATUS: - Self-Care A. Eating sup B. Grooming sup C. Bathing maxA D. Dressing - Upper maxA E. Dressing - Lower maxA F. Toileting maxA - Sphincter Control G: Bladder control Ind H: Bowel control Ind - Transfers Control I. Bed/Chair/Wheelchair Radha J. Toilet Radha K. Tub/Shower ADNO - Locomotion L. Walk/Wheelchair (B) maxA M. Stairs ADNO - Communication N. Comprehension (B) Radha O. Expression (B) Radha - Social Cognition P. Social Interaction Radha Q. Problem Solving Radha R. Memory min-to-modA - Endurance Fair - Balance Fair - Safety Awareness Fair CURRENT FUNC. DEFICITS: Self-Care, Transfers Control, Locomotion, Communication, Social Cognition, Endurance, Balance, and Sa fety Awareness SIGNATURE PANEL: (CDT)
[2019-02-10] MEDS: AMITRIPTYLINE 25 MG TAB PO SCH (20:02)
[2019-02-10] MEDS: BENZONATATE 100 MG CAP PO SCH (20:03)
[2019-02-10] MEDS: DOCUSATE NA/SENNA CONC 1 TAB PO SCH (20:03)
[2019-02-11] MEDS: TRAMADOL HCL 50 MG TAB PO SCH ×4 (01:50→20:04)
[2019-02-11] MEDS: LEVOTHYROXINE SOD 0.05 MG TABLET PO SCH (06:26)
[2019-02-11] MEDS: LEVOTHYROXINE SOD 0.1 MG TAB PO SCH (06:26)
[2019-02-11 06:46] LABS: Absolute Lymphocytes (CBC) 1.2 K/uL (0.7-4.9); Absolute Monocytes 0.5 K/uL (0.1-1.3); Absolute Neutrophil 4.6 K/uL (1.8-8.0); Basophils % 0.7 % (0-1.3); Eosinophils % 6.1 % (0-4.4); Hematocrit 41.9 % (36.0-45.0); Lymphocytes % 17.1 % (15.3-44.8); MPV 8.9 fL (7.6-11.3); Monocytes % 7.8 % (3.3-12.3); RBC Red Blood Cell Count 4.76 M/uL (3.86-4.86)
[2019-02-11 07:04] LABS: Albumin 2.6 g/dL (3.4-5.0); BUN Blood Urea Nitrogen 18 mg/dL (7-18); Bicarbonate 35 mmol/L (21-32); Glucose Level 111 mg/dL (74-106); Potassium 3.6 mmol/L (3.5-5.1); Prealbumin 19.5 mg/dL (20-40); Sodium Level 139 mmol/L (136-145)
[2019-02-11] MEDS: NYSTATIN PWDR 100000 UNIT/GM TOP SCH ×2 (08:00→20:00)
[2019-02-11] MEDS: APIXABAN 2.5 MG TABLET PO SCH ×2 (08:17→20:05)
[2019-02-11] MEDS: FUROSEMIDE 20 MG TABLET PO SCH (08:17)
[2019-02-11] MEDS: LIDOCAINE 5% PATCH TOP SCH (08:17)
[2019-02-11] MEDS: POLYETHYL GLY 3350 17 GM/DOSE PO SCH (08:17)
[2019-02-11] MEDS: DOCUSATE NA 100 MG CAP PO SCH (08:17)
[2019-02-11] MEDS: PROMOD 30 ML DOSE PO SCH ×2 (08:18→20:06)
--- NOTE | 2019-02-11 14:25 | FAST ---
SHIFT START DATE/TIME: 02/11/2019 07:00 (CDT) SHIFT END DATE/TIME: 02/11/2019 19:00 (CDT) NAME RADHA MOLINA DATE OF : 1930 DATE OF ADMISSION: 02/03/2019 19:57 (CDT) PHONE: AGE: 88 N# [id number] GENDER: Female ENCOUNTER PHYSICIAN: Dr. Conor Cervantes M.D. 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 EATING: EATING - STEP 1: Does the patient require the assistance of a person or device, or need extra time when eating? Yes. EATING - STEP 2: Does the patient require the assistance of a helper? Yes. EATING - STEP 3: Does the patient perform half or more of the eating tasks? Yes. EATING - STEP 4: Does the patient need only supervision, cuing, coaxing OR help to apply an orthosis OR help to cut fo od, open containers, pour liquids, or butter bread? Yes. EATING - SCORE: 5-SUP GROOMING: Comb/brush hair Wash, rinse, and dry face Wash, rinse, and dry hands GROOMING - STEP 1: Does the patient require the assistance of a person or device, or need extra time when grooming? Yes. GROOMING - STEP 2: Does the patient require the assistance of a helper? No. The patient only requires an assistive devic e, OR takes more than reasonable time to groom, OR there is a concern for safety as the patient groom s GROOMING - SCORE: 6-SIRI BATHING: Activity did not occur on this shift BATHING - SCORE: 0-UNK DRESSING - UPPER BODY: T-shirt/pullover shirt (four steps) ARTICLES SCORE Total number of steps: 4 DRESSING - UPPER BODY - STEP 1: Does the patient require help from a person or device, or need extra time when dressing above the star st? Yes. DRESSING - UPPER BODY - STEP 2: Does the patient require the assistance of a helper? Yes. DRESSING - UPPER BODY - STEP 3: Does the helper touch the patient while dressing? Yes. DRESSING - UPPER BODY - STEP 4: How many of the total steps does the patient complete on his/her own? 3 DRESSING - UPPER BODY - SCORE: 4-MIN DRESSING - LOWER BODY: Elastic waist pants (three steps) Underwear (three steps) ARTICLES SCORE Total number of steps: 6 DRESSING - LOWER BODY - STEP 1: Does the patient require help from a person or device, or need extra time when dressing below the star st? Yes. DRESSING - LOWER BODY - STEP 2: Does the patient require the assistance of a helper? Yes. DRESSING - LOWER BODY - STEP 3: Does the helper touch the patient while dressing? Yes. DRESSING - LOWER BODY - STEP 4: How many of the total steps does the patient complete on his/her own? 3 DRESSING - LOWER BODY - SCORE: 3-MOD TOILETING: TOILETING - STEP 1: Does the patient require the assistance of a person or device, or need extra time with toileting? Yes . TOILETING - STEP 2: Does the patient require the assistance of a helper? Yes. TOILETING - STEP 3: How much assistance does the patient require from the helper? Hands-on assistance from the helper TOILETING - STEP 4: Of the 3 tasks: 1) Adjusting clothing prior to use, 2) Cleansing of perineal area, 3) Adjusting clot loni after use; How many tasks does the patient perform WITHOUT assistance of the helper? One task TOILETING - SCORE: 2-MAX BLADDER MANAGEMENT: BLADDER MANAGEMENT - STEP 1: Does the patient control the bladder completely and intentionally without equipment or devices or med ications, and is always continent? No. BLADDER MANAGEMENT - STEP 2: Does the patient require the assistance of a helper? No, patient only requires extra time BLADDER MANAGEMENT - SCORE: 6-SIRI BLADDER MANAGEMENT - FREQUENCY OF ACCIDENTS: BLADDER MANAGEMENT(FA) - STEP 1: How many accidents has the patient had during the current shift? 0 BOWEL MANAGEMENT: Activity did not occur on this shift BOWEL MANAGEMENT - SCORE: 7-IND BOWEL MANAGEMENT - FREQUENCY OF ACCIDENTS: BOWEL MANAGEMENT(FA) - STEP 1: How many accidents has the patient had during the current shift? 0 TRANSFERS: BED, CHAIR, WHEELCHAIR: TRANSFERS: BED, CHAIR, WHEELCHAIR - STEP 1: Does the patient require assistance of a person or device, or need extra time with bed, chair, or whe elchair transfers? Yes. TRANSFERS: BED, CHAIR, WHEELCHAIR - STEP 2: Does the patient require the assistance of a helper? Yes. TRANSFERS: BED, CHAIR, WHEELCHAIR - STEP 3: How much assistance does the patient require from the helper? Steadying/guiding assistance TRANSFERS: BED, CHAIR, WHEELCHAIR - SCORE: 4-MIN TRANSFERS: TOILET: TRANSFERS: TOILET - STEP 1: Does the patient require the assistance of a person or device, or need extra time with toilet transfe rs? Yes. TRANSFERS: TOILET - STEP 2: Does the patient require the assistance of a helper? Yes. TRANSFERS: TOILET - STEP 3: How much assistance does the patient require from the helper? Patient performs half or more of the tr ansferring tasks TRANSFERS: TOILET - STEP 4: Does the patient need only incidental help such as contact guard or steadying during toilet transfer? Yes. TRANSFERS: TOILET - SCORE: 4-MIN TRANSFERS: SHOWER: Activity did not occur on this shift TRANSFERS: SHOWER - SCORE: 0-UNK TRANSFERS: TUB: Activity did not occur on this shift TRANSFERS: TUB - SCORE: 0-UNK LOCOMOTION: WALK: Activity did not occur on this shift LOCOMOTION: WALK - SCORE: 0-UNK LOCOMOTION: WHEELCHAIR: Activity did not occur on this shift LOCOMOTION: WHEELCHAIR - SCORE: 0-UNK COMPREHENSION: COMPREHENSION: TYPE: Both COMPREHENSION - STEP 1: Does the patient require help from a person or device, or need extra time to understand complex and a bstract ideas (such as current events, finances, discharge planning, medical issues, relationships, e tc)? No. COMPREHENSION - STEP 2: Does the patient need extra time, require an assistive device (such as glasses for visual comprehensi on or a hearing aid for auditory comprehension) or does s/he have mild difficulty understanding compl ex and abstract information? Yes. COMPREHENSION - SCORE: 6-SIRI EXPRESSION EXPRESSION: TYPE: Both EXPRESSION - STEP 1: Does the patient require help from a person or device, or need extra time expressing complex and abst ract ideas (such as current events, finances, discharge planning, medical issues, relationships, etc) ? No. EXPRESSION - STEP 2: Does the patient need extra time, require an assistive device (such as augmentive communication syste m or a communication board), OR does s/he have mild difficulty expressing complex and abstract ideas (including mild dysarthria or mild word-find problems)? Yes. EXPRESSION - SCORE: 6-SIRI SOCIAL INTERACTION: SOCIAL INTERACTION - STEP 1: Does the patient require a helper to interact with others in social and therapeutic situations? No. SOCIAL INTERACTION - STEP 2: Does the patient need extra time in social situations, OR does s/he interact with staff, other patien ts, and family members ONLY in structured environments, OR does s/he require medication for social in teraction? Yes, patient needs extra time SOCIAL INTERACTION - SCORE: 6-SIRI PROBLEM SOLVING: PROBLEM SOLVING - STEP 1: Does the patient need help from a person or device, or need extra time to solve complex problems such as managing a checking account or confronting interpersonal problems? No. PROBLEM SOLVING - STEP 2: Does the patient require extra time to make decisions or solve problems, OR does s/he have slight dif ficulty reading, initiating, or self-correcting in unfamiliar situations? Yes, patient needs extra ti me. PROBLEM SOLVING - SCORE: 6-SIRI MEMORY: MEMORY - STEP 1: Does the patient need help from a person or device, or need extra time to remember frequently encount ered people, daily routines, and executing requests? Yes. MEMORY - STEP 2: How often does the patient need help to remember frequently encountered people, daily routines, and e xecuting requests? Less than 10% of the time MEMORY - SCORE: 5-SUP SIGNATURE PANEL: The following modified sections: Eating - Score, Grooming - Score, Bathing - Score, Dressing - Upper Body - Score, Dressing - Lower Body - Score, Toileting - Score, Bladder Management - Score, Bowel Man agement - Score, Transfers: Bed, Chair, Wheelchair - Score, Transfers: Toilet - Score, Transfers: Ping wer - Score, Transfers: Tub - Score, Locomotion: Walk - Score, Locomotion: Wheelchair - Score, Compre hension - Score, Expression - Score, Social Interaction - Score, Problem Solving - Score, Memory - Sc ore were [electronically] signed by Lisa Ortega C.N.A. on FriFeb 11 2019 14:25:10 T-0500 (Centra [place] Daylight Time)
--- NOTE | 2019-02-11 14:54 | FAST ---
ENCOUNTER DATE AND TIME: 02/11/2019 08:00 (CDT) NAME RADHA MOLINA DATE OF : 1930 DATE OF ADMISSION: 02/03/2019 19:57 (CDT) PHONE: AGE: 88 N# [id number] GENDER: Female ENCOUNTER PHYSICIAN: Dr. Conor Cervantes M.D. 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 EATING: Activity did not occur on this shift EATING - SCORE: 0-UNK GROOMING: Activity did not occur on this shift GROOMING - SCORE: 0-UNK BATHING: Activity did not occur on this shift BATHING - SCORE: 0-UNK DRESSING - UPPER BODY: Activity did not occur on this shift Patient is not dressing in public clothing ARTICLES SCORE Total number of steps: 0 DRESSING - UPPER BODY - SCORE: 0-UNK DRESSING - LOWER BODY: Activity did not occur on this shift Patient is not dressing in public clothing ARTICLES SCORE Total number of steps: 0 DRESSING - LOWER BODY - SCORE: 0-UNK TOILETING: Activity did not occur on this shift TOILETING - SCORE: 0-UNK BLADDER MANAGEMENT: Activity did not occur on this shift BLADDER MANAGEMENT - SCORE: 7-IND BOWEL MANAGEMENT: Activity did not occur on this shift BOWEL MANAGEMENT - SCORE: 7-IND TRANSFERS: BED, CHAIR, WHEELCHAIR: TRANSFERS: BED, CHAIR, WHEELCHAIR - STEP 1: Does the patient require assistance of a person or device, or need extra time with bed, chair, or whe elchair transfers? Yes. TRANSFERS: BED, CHAIR, WHEELCHAIR - STEP 2: Does the patient require the assistance of a helper? Yes. TRANSFERS: BED, CHAIR, WHEELCHAIR - STEP 3: How much assistance does the patient require from the helper? Steadying/guiding assistance TRANSFERS: BED, CHAIR, WHEELCHAIR - SCORE: 4-MIN TRANSFERS: TOILET: Activity did not occur on this shift TRANSFERS: TOILET - SCORE: 0-UNK TRANSFERS: SHOWER: Activity did not occur on this shift TRANSFERS: SHOWER - SCORE: 0-UNK TRANSFERS: TUB: Activity did not occur on this shift TRANSFERS: TUB - SCORE: 0-UNK LOCOMOTION: WALK: LOCOMOTION: WALK - STEP 1: Does the patient need help from a person or device, or need extra time to walk 150 feet? Yes. LOCOMOTION: WALK - STEP 2: How much assistance does the patient require to walk a minimum of 150 feet? Only incidental help such as contact guarding or steadying LOCOMOTION: WALK - SCORE: 4-MIN LOCOMOTION: WHEELCHAIR: Activity did not occur on this shift LOCOMOTION: WHEELCHAIR - SCORE: 0-UNK LOCOMOTION: STAIRS: Activity did not occur on this shift LOCOMOTION: STAIRS - SCORE: 0-UNK COMPREHENSION: COMPREHENSION - SCORE: 0-UNK EXPRESSION EXPRESSION - SCORE: 0-UNK SOCIAL INTERACTION: SOCIAL INTERACTION - SCORE: 0-UNK PROBLEM SOLVING: PROBLEM SOLVING - SCORE: 0-UNK MEMORY: MEMORY - SCORE: 0-UNK SIGNATURE PANEL: The following modified sections: Transfers: Bed, Chair, Wheelchair - Score, Transfers: Toilet - Score , Locomotion: Walk - Score, Locomotion: Wheelchair - Score, Locomotion: Stairs - Score were [electron [email or web address]] signed by Derrek Verma PT on FriFeb 11 2019 14:53:53 T-0500 (Central Daylight Time)
--- NOTE | 2019-02-11 17:02 | R.PN ---
ENCOUNTER DATE AND TIME: 02/11/2019 16:57 (CDT) NAME RADHA MOLINA DATE OF : 1930 DATE OF ADMISSION: 02/03/2019 19:57 (CDT) T12 Compression FractureCHIEF COMPLAINT: T12 compression fracture. SUBJECTIVE: Pt denied any Shortness of Breath. Pt denied any depression. Ambulated 750' with standby assistance using a rolling walker. Self-propelled wheelchair 250' with st andby assistance. Up and down 5 steps with contact guard assistance. WBC 6.8, Hgb 14, prealbumin 19.5. Had good BM today. fecal impaction in the colon. Will give fleets e nema for disempaction. VITAL SIGNS Temperature: 97.8 F SBP/DBP: 139/62 Pulse: 90 Resp: 16 MEDICATION ALLERGIES: No Known Drug Allergies (NKDA) ENVIRONMENTAL ALLERGIES: None Known - Substance Allergies None Known - Other Allergies None Known NURSING: - Shower allowing shower - Bladder care per protocol - Skin care per protocol ACTIVITIES OOB only with supervision THERAPIES: - Orthotics/Prosthetics Splinting/Casting. Orthotic Evaluation. - Occupational Therapy Evaluate and Treat. - Physical Therapy Evaluate and Treat. PHYSICAL EXAM - Gen Alert and awake Lying in bed No apparent distress Oriented to: person, time, and place - Skin Rash in left groin No abnormalities - Eyes No abnormalities - ENMT No abnormalities - Neck No abnormalities - CVS RRR - Chest No abnormalities - Abd +bowel sounds - GI Soft Deferred - Urinary incontinence - Ext No significant edema. - MSK 4+/5 weakness in both lower extremities. Back muscle spasms. Back shell brace is in place. - Neuro No focal neurological deficits - Psych No abnormalities ASSESSMENT: Pt. 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 was independent/mod-I in Self-Care, S phincter Control, Transfers Control, Locomotion, Communication, and Social Cognition; and she had goo d Sphincter Control.Currently, she has deficits of Self-Care, Transfers Control, Locomotion, Communic ation, Social Cognition, Endurance, Balance, and Safety Awareness.Pt. is now referred to [facility] for acute in-patient rehabilitation in order to maximize patient's functional i ndependence in activities of daily living, strength, ROM, and mobility.- Rehab Goal Patient has realistic goal of being discharged at assistance level 6-Caroline to reside at Home with Fam mic/Relatives. MDM/PLAN: - Physical Therapy Gait dysfunction - to improve, our physical therapists will perform initial evaluation of pt's statu s upon admission and devise an individualized program for Gait Training, and Wheel Chair mobility Inability to transfer - to improve, our physical therapists will perform initial evaluation of pt's status upon admission and devise an individualized program for Bed mobility Need for home safety evaluation - to improve, our physical therapists will perform initial evaluatio n of pt's status upon admission and devise an individualized program for Home Evaluation Need in caregiver upon discharge - to improve, our physical therapists will perform initial evaluati on of pt's status upon admission and devise an individualized program for Caregiver Training Edema - to improve, our physical therapists will perform initial evaluation of pt's status upon admi ssion and devise an individualized program for Elevation Training, and Lymphedema Therapy New precaution - to improve, our physical therapists will perform initial evaluation of pt's status upon admission and devise an individualized program for Patient precaution education Poor balance - to improve, our physical therapists will perform initial evaluation of pt's status up on admission and devise an individualized program for Balance Training Poor endurance - to improve, our physical therapists will perform initial evaluation of pt's status upon admission and devise an individualized program for Endurance Training Weakness - to improve, our physical therapists will perform initial evaluation of pt's status upon a dmission and devise an individualized program for Aquatic Therapy, Neuromuscular Reeducation, and Str engthening Achieving independence - to improve, our physical therapists will perform initial evaluation of pt's status upon admission and devise an individualized program for Community Reintegration Activities - Occupational Therapy ADL deficits - to improve, our occupation therapists will perform initial evaluation of pt's status upon admission and devise an individualized program for Bathing, Bed mobility, Community Reintegratio n, Cooking, Dressing, Eating, Fine Motor Skills, Grooming, Homemaking, Kitchen Mobility, Laundry, Pat ient Education, Safety Awareness, Splinting - Positioning, Transfers(Toilet, Tub, Shower), and Wheel Chair Management Cognitive deficits - to improve, our occupation therapists will perform initial evaluation of pt's s tatus upon admission and devise an individualized program for Cognition - orientation Need for animal care giver - to improve, our occupation therapists will perform initial evaluation of pt's status upon admission and devise an individualized program for Caregiver Training Weakness - to improve, our occupation therapists will perform initial evaluation of pt's status upon admission and devise an individualized program for Aquatic Therapy, Balance, Endurance, UE ROM, and UE strengthening - Diet Type Continue Regular - Diet - Liquid Texture Continue Regular - Tube Feed Continue N/A - Bladder care per protocol - Skin care per protocol - Diet - Solid Texture Continue Regular - Shower allowing shower FUNCTIONAL STATUS: UPDATED AT WEEKLY TEAM CONFERENCE - Bladder Same accident frequency: 7-Ind - No accidents in the past 7 days - Bowel Same accident frequency: 7-Ind - No accidents in the past 7 days - Walking Same score based on distance walked: 1(<=50ft) - Wheelchair Same score based on distance traveled: 0(N/A) FUNCTIONAL STATUS: - Self-Care A. Eating sup B. Grooming sup C. Bathing maxA D. Dressing - Upper maxA E. Dressing - Lower maxA F. Toileting maxA - Sphincter Control G: Bladder control Ind H: Bowel control Ind - Transfers Control I. Bed/Chair/Wheelchair Radha J. Toilet Radha K. Tub/Shower ADNO - Locomotion L. Walk/Wheelchair (B) maxA M. Stairs ADNO - Communication N. Comprehension (B) Radha O. Expression (B) Radha - Social Cognition P. Social Interaction Radha Q. Problem Solving Radha R. Memory min-to-modA - Endurance Fair - Balance Fair - Safety Awareness Fair CURRENT FUNC. DEFICITS: Self-Care, Transfers Control, Locomotion, Communication, Social Cognition, Endurance, Balance, and Sa fety Awareness SIGNATURE PANEL: (CDT)
[2019-02-11] MEDS: AMITRIPTYLINE 25 MG TAB PO SCH (20:05)
[2019-02-11] MEDS: DOCUSATE NA/SENNA CONC 1 TAB PO SCH (20:05)
[2019-02-11] MEDS: BENZONATATE 100 MG CAP PO SCH (20:06)
--- NOTE | 2019-02-12 00:50 | FAST ---
SHIFT START DATE/TIME: 02/11/2019 19:00 (CDT) SHIFT END DATE/TIME: 02/12/2019 07:00 (CDT) NAME RADHA MOLINA DATE OF : 1930 DATE OF ADMISSION: 02/03/2019 19:57 (CDT) PHONE: AGE: 88 N# [id number] GENDER: Female ENCOUNTER PHYSICIAN: Dr. Conor Cervantes M.D. 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 EATING: Activity did not occur on this shift EATING - SCORE: 0-UNK GROOMING: Oral care Wash, rinse, and dry hands GROOMING - STEP 1: Does the patient require the assistance of a person or device, or need extra time when grooming? Yes. GROOMING - STEP 2: Does the patient require the assistance of a helper? Yes. GROOMING - STEP 3: How much assistance does the patient require from the helper? Only prior equipment preparation/set up from the helper GROOMING - SCORE: 5-SUP BATHING: Activity did not occur on this shift BATHING - SCORE: 0-UNK DRESSING - UPPER BODY: Patient is not dressing in public clothing ARTICLES SCORE Total number of steps: 0 DRESSING - UPPER BODY - SCORE: 0-UNK DRESSING - LOWER BODY: Patient is not dressing in public clothing ARTICLES SCORE Total number of steps: 0 DRESSING - LOWER BODY - SCORE: 0-UNK TOILETING: TOILETING - STEP 1: Does the patient require the assistance of a person or device, or need extra time with toileting? Yes . TOILETING - STEP 2: Does the patient require the assistance of a helper? Yes. TOILETING - STEP 3: How much assistance does the patient require from the helper? Hands-on assistance from the helper TOILETING - STEP 4: Of the 3 tasks: 1) Adjusting clothing prior to use, 2) Cleansing of perineal area, 3) Adjusting clot loni after use; How many tasks does the patient perform WITHOUT assistance of the helper? Two tasks TOILETING - SCORE: 3-MOD BLADDER MANAGEMENT: BLADDER MANAGEMENT - STEP 1: Does the patient control the bladder completely and intentionally without equipment or devices or med ications, and is always continent? No. BLADDER MANAGEMENT - STEP 2: Does the patient require the assistance of a helper? Yes. BLADDER MANAGEMENT - STEP 3: How much assistance does the patient require from the helper? Only supervision, stand-by, cuing, or c oaxing BLADDER MANAGEMENT - SCORE: 5-SUP BOWEL MANAGEMENT: Activity did not occur on this shift BOWEL MANAGEMENT - SCORE: 7-IND TRANSFERS: BED, CHAIR, WHEELCHAIR: TRANSFERS: BED, CHAIR, WHEELCHAIR - STEP 1: Does the patient require assistance of a person or device, or need extra time with bed, chair, or whe elchair transfers? Yes. TRANSFERS: BED, CHAIR, WHEELCHAIR - STEP 2: Does the patient require the assistance of a helper? Yes. TRANSFERS: BED, CHAIR, WHEELCHAIR - STEP 3: How much assistance does the patient require from the helper? Steadying/guiding assistance TRANSFERS: BED, CHAIR, WHEELCHAIR - SCORE: 4-MIN TRANSFERS: TOILET: TRANSFERS: TOILET - STEP 1: Does the patient require the assistance of a person or device, or need extra time with toilet transfe rs? Yes. TRANSFERS: TOILET - STEP 2: Does the patient require the assistance of a helper? Yes. TRANSFERS: TOILET - STEP 3: How much assistance does the patient require from the helper? Only supervision, cuing, coaxing, OR he lp to set out transfer equipment or to lock brakes and/or lift foot rests TRANSFERS: TOILET - SCORE: 5-SUP TRANSFERS: SHOWER: Activity did not occur on this shift TRANSFERS: SHOWER - SCORE: 0-UNK TRANSFERS: TUB: Activity did not occur on this shift TRANSFERS: TUB - SCORE: 0-UNK LOCOMOTION: WALK: Activity did not occur on this shift LOCOMOTION: WALK - SCORE: 0-UNK LOCOMOTION: WHEELCHAIR: Activity did not occur on this shift LOCOMOTION: WHEELCHAIR - SCORE: 0-UNK COMPREHENSION: COMPREHENSION: TYPE: Both COMPREHENSION - STEP 1: Does the patient require help from a person or device, or need extra time to understand complex and a bstract ideas (such as current events, finances, discharge planning, medical issues, relationships, e tc)? No. COMPREHENSION - STEP 2: Does the patient need extra time, require an assistive device (such as glasses for visual comprehensi on or a hearing aid for auditory comprehension) or does s/he have mild difficulty understanding compl ex and abstract information? Yes. COMPREHENSION - SCORE: 6-SIRI EXPRESSION EXPRESSION: TYPE: Both EXPRESSION - STEP 1: Does the patient require help from a person or device, or need extra time expressing complex and abst ract ideas (such as current events, finances, discharge planning, medical issues, relationships, etc) ? No. EXPRESSION - STEP 2: Does the patient need extra time, require an assistive device (such as augmentive communication syste m or a communication board), OR does s/he have mild difficulty expressing complex and abstract ideas (including mild dysarthria or mild word-find problems)? Yes. EXPRESSION - SCORE: 6-SIRI SOCIAL INTERACTION: SOCIAL INTERACTION - STEP 1: Does the patient require a helper to interact with others in social and therapeutic situations? No. SOCIAL INTERACTION - STEP 2: Does the patient need extra time in social situations, OR does s/he interact with staff, other patien ts, and family members ONLY in structured environments, OR does s/he require medication for social in teraction? Yes, patient requires medication for social interaction SOCIAL INTERACTION - SCORE: 6-SIRI PROBLEM SOLVING: PROBLEM SOLVING - STEP 1: Does the patient need help from a person or device, or need extra time to solve complex problems such as managing a checking account or confronting interpersonal problems? No. PROBLEM SOLVING - STEP 2: Does the patient require extra time to make decisions or solve problems, OR does s/he have slight dif ficulty reading, initiating, or self-correcting in unfamiliar situations? Yes, patient needs extra ti me. PROBLEM SOLVING - SCORE: 6-SIRI MEMORY: MEMORY - STEP 1: Does the patient need help from a person or device, or need extra time to remember frequently encount ered people, daily routines, and executing requests? No. MEMORY - STEP 2: Does the patient have slight difficulty recognizing frequently encountered people, daily routines, or executing requests without the need for repetition or using self-initiated or environmental cues to remember? Yes. MEMORY - SCORE: 6-SIRI SIGNATURE PANEL: The following modified sections: Eating - Score, Grooming - Score, Dressing - Upper Body - Score, Juan José ssing - Lower Body - Score, Toileting - Score, Bladder Management - Score, Bowel Management - Score, Transfers: Bed, Chair, Wheelchair - Score, Transfers: Toilet - Score, Transfers: Shower - Score, [place] sfers: Tub - Score, Locomotion: Walk - Score, Locomotion: Wheelchair - Score, Comprehension - Score, Expression - Score, Social Interaction - Score, Problem Solving - Score, Memory - Score were [electro nically] signed by Tasha Dunne CNA on FriFeb 12 2019 00:48:47 GMT-0500 (Central Daylight Time)
[2019-02-12] MEDS: TRAMADOL HCL 50 MG TAB PO SCH ×4 (02:00→20:22)
[2019-02-12] MEDS: LEVOTHYROXINE SOD 0.1 MG TAB PO SCH (06:55)
[2019-02-12] MEDS: LEVOTHYROXINE SOD 0.05 MG TABLET PO SCH (06:55)
[2019-02-12] MEDS: LIDOCAINE 5% PATCH TOP SCH (07:08)
[2019-02-12] MEDS: NYSTATIN PWDR 100000 UNIT/GM TOP SCH ×2 (08:00→20:00)
[2019-02-12] MEDS: FUROSEMIDE 20 MG TABLET PO SCH (08:00)
[2019-02-12] MEDS: APIXABAN 2.5 MG TABLET PO SCH ×2 (08:18→20:22)
[2019-02-12] MEDS: DOCUSATE NA 100 MG CAP PO SCH (08:18)
[2019-02-12] MEDS: POLYETHYL GLY 3350 17 GM/DOSE PO SCH (08:20)
[2019-02-12] MEDS: PROMOD 30 ML DOSE PO SCH ×2 (08:25→20:23)
--- NOTE | 2019-02-12 09:33 | P.RH.PN ---
Estimated Length of Stay: 18 Expected Discharge Date: 02/20/19 Discharge Disposition Plan: Home Family Support: Yes Alf Goal: Mobility, Transfers, Self Care Vital Signs: Last Vital Signs Temp 97.6 F 02/11/19 20:00 Pulse 111 H 02/12/19 08:00 Resp 18 02/11/19 20:00 BP 98/52 L 02/12/19 08:00 Pulse Ox 98 02/11/19 20:00 Laboratory: Laboratory Last Values WBC 6.8 K/uL (4.3-10.9) D 02/11/19 06:08 RBC 4.76 M/uL (3.86-4.86) 02/11/19 06:08 Hgb 14.0 g/dL (12.0-15.0) 02/11/19 06:08 Hct 41.9 % (36.0-45.0) 02/11/19 06:08 MCV 88.0 fL (80-100) 02/11/19 06:08 MCH 29.3 pg (27.0-35.0) 02/11/19 06:08 MCHC 33.3 g/dL (32.0-36.0) 02/11/19 06:08 RDW 15.2 % (12.1-15.2) 02/11/19 06:08 Plt Count 345 K/uL (152-406) 02/11/19 06:08 MPV 8.9 fL (7.6-11.3) 02/11/19 06:08 Neutrophils % 68.3 % (41.7-73.7) 02/11/19 06:08 Lymphocytes % 17.1 % (15.3-44.8) 02/11/19 06:08 Monocytes % 7.8 % (3.3-12.3) 02/11/19 06:08 Eosinophils % 6.1 % (0-4.4) H 02/11/19 06:08 Basophils % 0.7 % (0-1.3) 02/11/19 06:08 Absolute Neutrophils 4.6 K/uL (1.8-8.0) 02/11/19 06:08 Absolute Lymphocytes 1.2 K/uL (0.7-4.9) 02/11/19 06:08 Absolute Monocytes 0.5 K/uL (0.1-1.3) 02/11/19 06:08 Absolute Eosinophils 0.4 K/uL (0-0.5) 02/11/19 06:08 Absolute Basophils 0.0 K/uL (0-0.5) 02/11/19 06:08 Sodium 139 mmol/L (136-145) 02/11/19 06:08 Potassium 3.6 mmol/L (3.5-5.1) 02/11/19 06:08 Chloride 100 mmol/L (98-107) 02/11/19 06:08 Carbon Dioxide 35 mmol/L (21-32) H 02/11/19 06:08 BUN 18 mg/dL (7-18) 02/11/19 06:08 Creatinine 0.60 mg/dL (0.55-1.3) 02/11/19 06:08 Estimated GFR > 90 mL/min (=/>90) 02/11/19 06:08 Glucose 111 mg/dL (74-106) H 02/11/19 06:08 Calcium 8.6 mg/dL (8.5-10.1) 02/11/19 06:08 Magnesium 2.4 mg/dL (1.8-2.4) 02/04/19 05:32 Albumin 2.6 g/dL (3.4-5.0) L 02/11/19 06:08 Prealbumin 19.5 mg/dL (20-40) L 02/11/19 06:08 Urine Color Yellow 02/03/19 20:10 Urine Appearance Clear 02/03/19 20:10 Urine pH 5.5 (5.0-7.0) 02/03/19 20:10 Ur Specific Pierson 1.020 (1.005-1.030) 02/03/19 20:10 Urine Ketones 1+ (NEG) H 02/03/19 20:10 Urine Blood Negative (NEG) 02/03/19 20:10 Urine Nitrite Negative (NEG) 02/03/19 20:10 Urine Bilirubin Negative (NEG) 02/03/19 20:10 Urine Urobilinogen 0.2 mg/dL (0.2-1.0) 02/03/19 20:10 Ur Leukocyte Esterase 1+ (NEG) H 02/03/19 20:10 Urine RBC <5 /HPF (NONE SEEN) 02/03/19 20:10 Urine WBC <5 /HPF (<5) 02/03/19 20:10 Ur Squamous Epith Cells <5 /HPF (NONE SEEN) 02/03/19 20:10 Urine Bacteria <20 /HPF (<20) 02/03/19 20:10 Urine Culture Reflexed Not needed 02/03/19 20:10 Urine Glucose Negative (NEG) 02/03/19 20:10 Urine Total Protein Negative (NEG) 02/03/19 20:10 Weight: 174 lb 12.8 oz Wound Present: No Closed Surgical Incision Present: No Negative Pressure Wound Therapy Present: No Physician Update: Labs have been reviewed and are stable. prealbumin is 19.5. She is at moderate assistance with occupational therapy due to mild cognitive impairment and poor hearing. She walks 500' standby assistance. Up and down 5 stairs. She does not want to participate fully. She enjoys speech therapy but requires frequent ques to recall proper precautions for her T12 fracture. Pain Issues: Lidoderm patch 2 patch daily. Tramadol 50mg Q6H PRN Functional Improvement: pt has demonstrated progress throughout the week. She does require some initial persuation to participate in therapy session; however , she does perform tasks well. Skilled PT services are necessary to continue enhancing functional performance. Functional Improvement Occupational Therapy: pt can benifit with further therapy to address pt's safety and energy conservation techniques while cont to instruct and educate the pt by providing demo/tactile and v/c's for safety when using A/E as needed for Bathing and LB dressing tasks. pt doesn't adhere to back precautions, but cont to monitor and educate. Cont to increase pt's endurance and activity tolerance for all adl and functional tasks by addressing pt's pain and providing rest breaks at times pt does require some encouragement to particpate during therapy esspecially when pt gets overwhelmed and starts to get increase pain in the lower/middle back, when completing certain tasks. Cont to increase pt's static standing balance for adl tasks and for functional transfers. Cont with the POC and the goals by the supervising OTR. Speech Therapy Update: Patient requires SUPV for Auditory Comprehension of complex information, primarily due to her hearing loss. While she employs consistent use of speech reading, eye contact with speaker, and active- listening tasks she cont. to require moderate repetition of complex information. Patient is at MOD I for Verbal Expression and Social Interaction. She requires SUPV for Problem Solving and MIN A for Memory. Summary: Patient's care plan and floor installation mechanic goals have been reviewed and revised as necessary. Please see the Rehabilitation Signature page for all necessary signatures.
--- NOTE | 2019-02-12 12:56 | FAST ---
ENCOUNTER DATE AND TIME: 02/12/2019 08:00 (CDT) NAME RADHA MOLINA DATE OF : 1930 DATE OF ADMISSION: 02/03/2019 19:57 (CDT) PHONE: AGE: 88 N# [id number] GENDER: Female ENCOUNTER PHYSICIAN: Dr. Conor Cervantes M.D. 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 EATING: Activity did not occur on this shift EATING - SCORE: 0-UNK GROOMING: Comb/brush hair Wash, rinse, and dry face Wash, rinse, and dry hands GROOMING - STEP 1: Does the patient require the assistance of a person or device, or need extra time when grooming? Yes. GROOMING - STEP 2: Does the patient require the assistance of a helper? No. The patient only requires an assistive devic e, OR takes more than reasonable time to groom, OR there is a concern for safety as the patient groom s GROOMING - SCORE: 6-SIRI BATHING: Abdomen Buttocks Chest Left arm Left lower leg and foot Left upper leg Perineal area Right arm Right lower leg and foot Right upper leg BATHING - STEP 1: Does the patient require the assistance of a person or device, or need extra time when bathing? Yes. BATHING - STEP 2: Does the patient require the assistance of a helper? Yes. BATHING - STEP 3: How much assistance does the patient require from the helper? Only supervision, cuing, coaxing, instr uctions, encouragement BATHING - SCORE: 5-SUP DRESSING - UPPER BODY: T-shirt/pullover shirt (four steps) ARTICLES SCORE Total number of steps: 4 DRESSING - UPPER BODY - STEP 1: Does the patient require help from a person or device, or need extra time when dressing above the star st? Yes. DRESSING - UPPER BODY - STEP 2: Does the patient require the assistance of a helper? Yes. DRESSING - UPPER BODY - STEP 3: Does the helper touch the patient while dressing? No. DRESSING - UPPER BODY - SCORE: 5-SUP DRESSING - LOWER BODY: Elastic waist pants (three steps) Sock - Left foot (one step) Sock - Right foot (one step) Underwear (three steps) ARTICLES SCORE Total number of steps: 8 DRESSING - LOWER BODY - STEP 1: Does the patient require help from a person or device, or need extra time when dressing below the star st? Yes. DRESSING - LOWER BODY - STEP 2: Does the patient require the assistance of a helper? Yes. DRESSING - LOWER BODY - STEP 3: Does the helper touch the patient while dressing? Yes. DRESSING - LOWER BODY - STEP 4: How many of the total steps does the patient complete on his/her own? 5 DRESSING - LOWER BODY - SCORE: 3-MOD TOILETING: TOILETING - STEP 1: Does the patient require the assistance of a person or device, or need extra time with toileting? Yes . TOILETING - STEP 2: Does the patient require the assistance of a helper? Yes. TOILETING - STEP 3: How much assistance does the patient require from the helper? Only supervision TOILETING - SCORE: 5-SUP BLADDER MANAGEMENT: Activity did not occur on this shift BLADDER MANAGEMENT - SCORE: 7-IND BOWEL MANAGEMENT: Activity did not occur on this shift BOWEL MANAGEMENT - SCORE: 7-IND TRANSFERS: BED, CHAIR, WHEELCHAIR: TRANSFERS: BED, CHAIR, WHEELCHAIR - STEP 1: Does the patient require assistance of a person or device, or need extra time with bed, chair, or whe elchair transfers? Yes. TRANSFERS: BED, CHAIR, WHEELCHAIR - STEP 2: Does the patient require the assistance of a helper? Yes. TRANSFERS: BED, CHAIR, WHEELCHAIR - STEP 3: How much assistance does the patient require from the helper? Only supervision TRANSFERS: BED, CHAIR, WHEELCHAIR - SCORE: 5-SUP TRANSFERS: TOILET: TRANSFERS: TOILET - STEP 1: Does the patient require the assistance of a person or device, or need extra time with toilet transfe rs? Yes. TRANSFERS: TOILET - STEP 2: Does the patient require the assistance of a helper? Yes. TRANSFERS: TOILET - STEP 3: How much assistance does the patient require from the helper? Only supervision, cuing, coaxing, OR he lp to set out transfer equipment or to lock brakes and/or lift foot rests TRANSFERS: TOILET - SCORE: 5-SUP TRANSFERS: SHOWER: TRANSFERS: SHOWER - STEP 1: Does the patient require the assistance of a person or device, or need extra time with shower transfe rs? Yes. TRANSFERS: SHOWER - STEP 2: Does the patient require the assistance of a helper? Yes. TRANSFERS: SHOWER - STEP 3: How much assistance does the patient require from the helper? Only supervision, cuing, coaxing, or he lp to set out transfer equipment or to lock brakes and/or lift foot rests TRANSFERS: SHOWER - SCORE: 5-SUP TRANSFERS: TUB: Activity did not occur on this shift TRANSFERS: TUB - SCORE: 0-UNK LOCOMOTION: WALK: Activity did not occur on this shift LOCOMOTION: WALK - SCORE: 0-UNK LOCOMOTION: WHEELCHAIR: Activity did not occur on this shift LOCOMOTION: WHEELCHAIR - SCORE: 0-UNK LOCOMOTION: STAIRS: Activity did not occur on this shift LOCOMOTION: STAIRS - SCORE: 0-UNK COMPREHENSION: COMPREHENSION: TYPE: Both COMPREHENSION - STEP 1: Does the patient require help from a person or device, or need extra time to understand complex and a bstract ideas (such as current events, finances, discharge planning, medical issues, relationships, e tc)? Yes. COMPREHENSION - STEP 2: Does the patient require help to understand questions or statements about basic needs or ideas (such as hunger, thirst, sleep, safety, daily schedule, room location, or discomfort) half or more of the t shirley? No. COMPREHENSION - STEP 3: How often does the patient need help to understand directions and conversation about basic needs? Les s than 10% of the time COMPREHENSION - SCORE: 5-SUP EXPRESSION EXPRESSION: TYPE: Both EXPRESSION - STEP 1: Does the patient require help from a person or device, or need extra time expressing complex and abst ract ideas (such as current events, finances, discharge planning, medical issues, relationships, etc) ? Yes. EXPRESSION - STEP 2: Does the patient require help to express basic necessities or ideas (such as hunger, thirst, sleep, s afety, daily schedule, room location, or discomfort) half or more of the time? No. EXPRESSION - STEP 3: How often does the patient need help to express directions and conversation about basic needs? Less t locke 10% of the time EXPRESSION - SCORE: 5-SUP SOCIAL INTERACTION: SOCIAL INTERACTION - STEP 1: Does the patient require a helper to interact with others in social and therapeutic situations? No. SOCIAL INTERACTION - STEP 2: Does the patient need extra time in social situations, OR does s/he interact with staff, other patien ts, and family members ONLY in structured environments, OR does s/he require medication for social in teraction? Yes, patient needs extra time SOCIAL INTERACTION - SCORE: 6-SIRI PROBLEM SOLVING: PROBLEM SOLVING - STEP 1: Does the patient need help from a person or device, or need extra time to solve complex problems such as managing a checking account or confronting interpersonal problems? Yes. PROBLEM SOLVING - STEP 2: Does the patient solve basic routine problems half or more of the time? Yes. PROBLEM SOLVING - STEP 3: How often does the patient need help to solve basic routine problems? 10%-24% of the time PROBLEM SOLVING - SCORE: 4-MIN MEMORY: MEMORY - STEP 1: Does the patient need help from a person or device, or need extra time to remember frequently encount ered people, daily routines, and executing requests? Yes. MEMORY - STEP 2: How often does the patient need help to remember frequently encountered people, daily routines, and e xecuting requests? 10% - 24% of the time MEMORY - SCORE: 4-MIN SIGNATURE PANEL: The following modified sections: Eating - Score, Grooming - Score, Bathing - Score, Dressing - Upper Body - Score, Dressing - Lower Body - Score, Toileting - Score, Transfers: Bed, Chair, Wheelchair - S core, Transfers: Toilet - Score, Transfers: Shower - Score, Transfers: Tub - Score, Comprehension - S core, Expression - Score, Social Interaction - Score, Problem Solving - Score, Memory - Score were [e lectronically] signed by Josi Marcus OT on FriFeb 12 2019 12:55:08 [facility]00 ([facility] Time)
--- NOTE | 2019-02-12 17:34 | FAST ---
SHIFT START DATE/TIME: 02/12/2019 07:00 (CDT) SHIFT END DATE/TIME: 02/12/2019 19:00 (CDT) NAME RADHA MOLINA DATE OF : 1930 DATE OF ADMISSION: 02/03/2019 19:57 (CDT) PHONE: AGE: 88 N# [id number] GENDER: Female ENCOUNTER PHYSICIAN: Dr. Conor Cervantes M.D. 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 EATING: EATING - STEP 1: Does the patient require the assistance of a person or device, or need extra time when eating? No. EATING - SCORE: 7-IND GROOMING: Comb/brush hair Wash, rinse, and dry face GROOMING - STEP 1: Does the patient require the assistance of a person or device, or need extra time when grooming? Yes. GROOMING - STEP 2: Does the patient require the assistance of a helper? Yes. GROOMING - STEP 3: How much assistance does the patient require from the helper? Only prior equipment preparation/set up from the helper GROOMING - SCORE: 5-SUP BATHING: Activity did not occur on this shift BATHING - SCORE: 0-UNK DRESSING - UPPER BODY: Button down shirt or blouse - NOT tucked in (four steps) ARTICLES SCORE Total number of steps: 4 DRESSING - UPPER BODY - STEP 1: Does the patient require help from a person or device, or need extra time when dressing above the star st? Yes. DRESSING - UPPER BODY - STEP 2: Does the patient require the assistance of a helper? Yes. DRESSING - UPPER BODY - STEP 3: Does the helper touch the patient while dressing? Yes. DRESSING - UPPER BODY - STEP 4: How many of the total steps does the patient complete on his/her own? 1 DRESSING - UPPER BODY - STEP 5: Does Patient require total assistance for dressing above the waist such as the helper holding clothin g and performing basically all the activities? No. DRESSING - UPPER BODY - SCORE: 2-MAX DRESSING - LOWER BODY: Elastic waist pants (three steps) ARTICLES SCORE Total number of steps: 3 DRESSING - LOWER BODY - STEP 1: Does the patient require help from a person or device, or need extra time when dressing below the star st? Yes. DRESSING - LOWER BODY - STEP 2: Does the patient require the assistance of a helper? Yes. DRESSING - LOWER BODY - STEP 3: Does the helper touch the patient while dressing? Yes. DRESSING - LOWER BODY - STEP 4: How many of the total steps does the patient complete on his/her own? 3 DRESSING - LOWER BODY - SCORE: 4-MIN TOILETING: TOILETING - STEP 1: Does the patient require the assistance of a person or device, or need extra time with toileting? Yes . TOILETING - STEP 2: Does the patient require the assistance of a helper? No. TOILETING - SCORE: 6-SIRI BLADDER MANAGEMENT: BLADDER MANAGEMENT - STEP 1: Does the patient control the bladder completely and intentionally without equipment or devices or med ications, and is always continent? No. BLADDER MANAGEMENT - STEP 2: Does the patient require the assistance of a helper? Yes. BLADDER MANAGEMENT - STEP 3: How much assistance does the patient require from the helper? Only set-up of equipment - such as plac ing it within reach of the patient or emptying a device - to maintain either satisfactory voiding pat tern or managing an external device, such as an absorbent pad, ileal device, or catheter BLADDER MANAGEMENT - SCORE: 5-SUP BLADDER MANAGEMENT - FREQUENCY OF ACCIDENTS: BLADDER MANAGEMENT(FA) - STEP 1: How many accidents has the patient had during the current shift? 0 BOWEL MANAGEMENT: BOWEL MANAGEMENT - STEP 1: Does the patient control bowels completely and intentionally without equipment devices or medications AND is always continent? Yes. BOWEL MANAGEMENT - SCORE: 7-IND BOWEL MANAGEMENT - FREQUENCY OF ACCIDENTS: BOWEL MANAGEMENT(FA) - STEP 1: How many accidents has the patient had during the current shift? 0 TRANSFERS: BED, CHAIR, WHEELCHAIR: TRANSFERS: BED, CHAIR, WHEELCHAIR - STEP 1: Does the patient require assistance of a person or device, or need extra time with bed, chair, or whe elchair transfers? Yes. TRANSFERS: BED, CHAIR, WHEELCHAIR - STEP 2: Does the patient require the assistance of a helper? Yes. TRANSFERS: BED, CHAIR, WHEELCHAIR - STEP 3: How much assistance does the patient require from the helper? Steadying/guiding assistance TRANSFERS: BED, CHAIR, WHEELCHAIR - SCORE: 4-MIN TRANSFERS: TOILET: TRANSFERS: TOILET - STEP 1: Does the patient require the assistance of a person or device, or need extra time with toilet transfe rs? Yes. TRANSFERS: TOILET - STEP 2: Does the patient require the assistance of a helper? Yes. TRANSFERS: TOILET - STEP 3: How much assistance does the patient require from the helper? Patient performs half or more of the tr ansferring tasks TRANSFERS: TOILET - STEP 4: Does the patient need only incidental help such as contact guard or steadying during toilet transfer? Yes. TRANSFERS: TOILET - SCORE: 4-MIN TRANSFERS: SHOWER: Activity did not occur on this shift TRANSFERS: SHOWER - SCORE: 0-UNK TRANSFERS: TUB: Activity did not occur on this shift TRANSFERS: TUB - SCORE: 0-UNK LOCOMOTION: WALK: Activity did not occur on this shift LOCOMOTION: WALK - SCORE: 0-UNK LOCOMOTION: WHEELCHAIR: Activity did not occur on this shift LOCOMOTION: WHEELCHAIR - SCORE: 0-UNK COMPREHENSION: COMPREHENSION - SCORE: 0-UNK EXPRESSION EXPRESSION - SCORE: 0-UNK SOCIAL INTERACTION: SOCIAL INTERACTION - SCORE: 0-UNK PROBLEM SOLVING: PROBLEM SOLVING - SCORE: 0-UNK MEMORY: MEMORY - SCORE: 0-UNK SIGNATURE PANEL: The following modified sections: Eating - Score, Grooming - Score, Bathing - Score, Dressing - Upper Body - Score, Dressing - Lower Body - Score, Toileting - Score, Bladder Management - Score, Bowel Man agement - Score, Transfers: Bed, Chair, Wheelchair - Score, Transfers: Toilet - Score, Transfers: Ping wer - Score, Transfers: Tub - Score, Locomotion: Walk - Score, Locomotion: Wheelchair - Score, Compre hension - Score, Expression - Score, Social Interaction - Score, Problem Solving - Score, Memory - Sc ore were [electronically] signed by Karime Vega CNA on FriFeb 12 2019 17:34:00 GMT-0500 ([facility])
[2019-02-12] MEDS: BENZONATATE 100 MG CAP PO SCH (20:22)
[2019-02-12] MEDS: DOCUSATE NA/SENNA CONC 1 TAB PO SCH (20:23)
[2019-02-12] MEDS: AMITRIPTYLINE 25 MG TAB PO SCH (20:23)
[2019-02-13] MEDS: TRAMADOL HCL 50 MG TAB PO SCH ×4 (01:42→20:21)
--- NOTE | 2019-02-13 02:24 | FAST ---
SHIFT START DATE/TIME: 02/12/2019 19:00 (CDT) SHIFT END DATE/TIME: 02/13/2019 07:00 (CDT) NAME RADHA MOLINA DATE OF : 1930 DATE OF ADMISSION: 02/03/2019 19:57 (CDT) PHONE: AGE: 88 N# [id number] GENDER: Female ENCOUNTER PHYSICIAN: Dr. Conor Cervantes M.D. 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 EATING: Activity did not occur on this shift EATING - SCORE: 0-UNK GROOMING: Oral care Wash, rinse, and dry face Wash, rinse, and dry hands GROOMING - STEP 1: Does the patient require the assistance of a person or device, or need extra time when grooming? Yes. GROOMING - STEP 2: Does the patient require the assistance of a helper? Yes. GROOMING - STEP 3: How much assistance does the patient require from the helper? Only prior equipment preparation/set up from the helper GROOMING - SCORE: 5-SUP BATHING: Activity did not occur on this shift BATHING - SCORE: 0-UNK DRESSING - UPPER BODY: Patient is not dressing in public clothing ARTICLES SCORE Total number of steps: 0 DRESSING - UPPER BODY - SCORE: 0-UNK DRESSING - LOWER BODY: Patient is not dressing in public clothing ARTICLES SCORE Total number of steps: 0 DRESSING - LOWER BODY - SCORE: 0-UNK TOILETING: TOILETING - STEP 1: Does the patient require the assistance of a person or device, or need extra time with toileting? Yes . TOILETING - STEP 2: Does the patient require the assistance of a helper? Yes. TOILETING - STEP 3: How much assistance does the patient require from the helper? Hands-on assistance from the helper TOILETING - STEP 4: Of the 3 tasks: 1) Adjusting clothing prior to use, 2) Cleansing of perineal area, 3) Adjusting clot loni after use; How many tasks does the patient perform WITHOUT assistance of the helper? Three tasks with steadying assistance from the helper TOILETING - SCORE: 4-MIN BLADDER MANAGEMENT: BLADDER MANAGEMENT - STEP 1: Does the patient control the bladder completely and intentionally without equipment or devices or med ications, and is always continent? No. BLADDER MANAGEMENT - STEP 2: Does the patient require the assistance of a helper? Yes. BLADDER MANAGEMENT - STEP 3: How much assistance does the patient require from the helper? Only set-up of equipment - such as plac ing it within reach of the patient or emptying a device - to maintain either satisfactory voiding pat tern or managing an external device, such as an absorbent pad, ileal device, or catheter BLADDER MANAGEMENT - SCORE: 5-SUP BOWEL MANAGEMENT: Activity did not occur on this shift BOWEL MANAGEMENT - SCORE: 7-IND TRANSFERS: BED, CHAIR, WHEELCHAIR: TRANSFERS: BED, CHAIR, WHEELCHAIR - STEP 1: Does the patient require assistance of a person or device, or need extra time with bed, chair, or whe elchair transfers? Yes. TRANSFERS: BED, CHAIR, WHEELCHAIR - STEP 2: Does the patient require the assistance of a helper? Yes. TRANSFERS: BED, CHAIR, WHEELCHAIR - STEP 3: How much assistance does the patient require from the helper? Lifting of the legs TRANSFERS: BED, CHAIR, WHEELCHAIR - STEP 4: How many legs does the patient require the helper to lift? both legs TRANSFERS: BED, CHAIR, WHEELCHAIR - SCORE: 3-MOD TRANSFERS: TOILET: TRANSFERS: TOILET - STEP 1: Does the patient require the assistance of a person or device, or need extra time with toilet transfe rs? Yes. TRANSFERS: TOILET - STEP 2: Does the patient require the assistance of a helper? Yes. TRANSFERS: TOILET - STEP 3: How much assistance does the patient require from the helper? Patient performs half or more of the tr ansferring tasks TRANSFERS: TOILET - STEP 4: Does the patient need only incidental help such as contact guard or steadying during toilet transfer? Yes. TRANSFERS: TOILET - SCORE: 4-MIN TRANSFERS: SHOWER: Activity did not occur on this shift TRANSFERS: SHOWER - SCORE: 0-UNK TRANSFERS: TUB: Activity did not occur on this shift TRANSFERS: TUB - SCORE: 0-UNK LOCOMOTION: WALK: Activity did not occur on this shift LOCOMOTION: WALK - SCORE: 0-UNK LOCOMOTION: WHEELCHAIR: Activity did not occur on this shift LOCOMOTION: WHEELCHAIR - SCORE: 0-UNK COMPREHENSION: COMPREHENSION: TYPE: Both COMPREHENSION - STEP 1: Does the patient require help from a person or device, or need extra time to understand complex and a bstract ideas (such as current events, finances, discharge planning, medical issues, relationships, e tc)? No. COMPREHENSION - STEP 2: Does the patient need extra time, require an assistive device (such as glasses for visual comprehensi on or a hearing aid for auditory comprehension) or does s/he have mild difficulty understanding compl ex and abstract information? Yes. COMPREHENSION - SCORE: 6-SIRI EXPRESSION EXPRESSION: TYPE: Both EXPRESSION - STEP 1: Does the patient require help from a person or device, or need extra time expressing complex and abst ract ideas (such as current events, finances, discharge planning, medical issues, relationships, etc) ? No. EXPRESSION - STEP 2: Does the patient need extra time, require an assistive device (such as augmentive communication syste m or a communication board), OR does s/he have mild difficulty expressing complex and abstract ideas (including mild dysarthria or mild word-find problems)? Yes. EXPRESSION - SCORE: 6-SIRI SOCIAL INTERACTION: SOCIAL INTERACTION - STEP 1: Does the patient require a helper to interact with others in social and therapeutic situations? No. SOCIAL INTERACTION - STEP 2: Does the patient need extra time in social situations, OR does s/he interact with staff, other patien ts, and family members ONLY in structured environments, OR does s/he require medication for social in teraction? Yes, patient needs extra time SOCIAL INTERACTION - SCORE: 6-SIRI PROBLEM SOLVING: PROBLEM SOLVING - STEP 1: Does the patient need help from a person or device, or need extra time to solve complex problems such as managing a checking account or confronting interpersonal problems? Yes. PROBLEM SOLVING - STEP 2: Does the patient solve basic routine problems half or more of the time? Yes. PROBLEM SOLVING - STEP 3: How often does the patient need help to solve basic routine problems? Less than 10% of the time PROBLEM SOLVING - SCORE: 5-SUP MEMORY: MEMORY - STEP 1: Does the patient need help from a person or device, or need extra time to remember frequently encount ered people, daily routines, and executing requests? Yes. MEMORY - STEP 2: How often does the patient need help to remember frequently encountered people, daily routines, and e xecuting requests? Less than 10% of the time MEMORY - SCORE: 5-SUP
[2019-02-13] MEDS: LEVOTHYROXINE SOD 0.05 MG TABLET PO SCH (06:43)
[2019-02-13] MEDS: LEVOTHYROXINE SOD 0.1 MG TAB PO SCH (06:43)
[2019-02-13] MEDS: LIDOCAINE 5% PATCH TOP SCH (06:44)
[2019-02-13] MEDS: NYSTATIN PWDR 100000 UNIT/GM TOP SCH ×2 (06:45→19:20)
[2019-02-13] MEDS: DOCUSATE NA 100 MG CAP PO SCH (08:10)
[2019-02-13] MEDS: FUROSEMIDE 20 MG TABLET PO SCH (08:10)
[2019-02-13] MEDS: PROMOD 30 ML DOSE PO SCH ×2 (08:11→19:20)
[2019-02-13] MEDS: POLYETHYL GLY 3350 17 GM/DOSE PO SCH (08:11)
[2019-02-13] MEDS: APIXABAN 2.5 MG TABLET PO SCH ×2 (08:11→19:21)
--- NOTE | 2019-02-13 09:24 | FAST ---
SHIFT START DATE/TIME: 02/13/2019 07:00 (CDT) SHIFT END DATE/TIME: 02/13/2019 19:00 (CDT) NAME RADHA MOLINA DATE OF : 1930 DATE OF ADMISSION: 02/03/2019 19:57 (CDT) PHONE: AGE: 88 N# [id number] GENDER: Female ENCOUNTER PHYSICIAN: Dr. Conor Cervantes M.D. 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 EATING: EATING - STEP 1: Does the patient require the assistance of a person or device, or need extra time when eating? Yes. EATING - STEP 2: Does the patient require the assistance of a helper? Yes. EATING - STEP 3: Does the patient perform half or more of the eating tasks? Yes. EATING - STEP 4: Does the patient need only supervision, cuing, coaxing OR help to apply an orthosis OR help to cut fo od, open containers, pour liquids, or butter bread? Yes. EATING - SCORE: 5-SUP GROOMING: Comb/brush hair Oral care Wash, rinse, and dry face Wash, rinse, and dry hands GROOMING - STEP 1: Does the patient require the assistance of a person or device, or need extra time when grooming? Yes. GROOMING - STEP 2: Does the patient require the assistance of a helper? Yes. GROOMING - STEP 3: How much assistance does the patient require from the helper? Only prior equipment preparation/set up from the helper GROOMING - SCORE: 5-SUP BATHING: Activity did not occur on this shift BATHING - SCORE: 0-UNK DRESSING - UPPER BODY: T-shirt/pullover shirt (four steps) ARTICLES SCORE Total number of steps: 4 DRESSING - UPPER BODY - STEP 1: Does the patient require help from a person or device, or need extra time when dressing above the star st? Yes. DRESSING - UPPER BODY - STEP 2: Does the patient require the assistance of a helper? Yes. DRESSING - UPPER BODY - STEP 3: Does the helper touch the patient while dressing? Yes. DRESSING - UPPER BODY - STEP 4: How many of the total steps does the patient complete on his/her own? 3 DRESSING - UPPER BODY - SCORE: 4-MIN DRESSING - LOWER BODY: ARTICLES SCORE Total number of steps: 3 DRESSING - LOWER BODY - STEP 1: Does the patient require help from a person or device, or need extra time when dressing below the star st? Yes. DRESSING - LOWER BODY - STEP 2: Does the patient require the assistance of a helper? Yes. DRESSING - LOWER BODY - STEP 3: Does the helper touch the patient while dressing? Yes. DRESSING - LOWER BODY - STEP 4: How many of the total steps does the patient complete on his/her own? 2 DRESSING - LOWER BODY - SCORE: 3-MOD TOILETING: TOILETING - STEP 1: Does the patient require the assistance of a person or device, or need extra time with toileting? Yes . TOILETING - STEP 2: Does the patient require the assistance of a helper? Yes. TOILETING - STEP 3: How much assistance does the patient require from the helper? Hands-on assistance from the helper TOILETING - STEP 4: Of the 3 tasks: 1) Adjusting clothing prior to use, 2) Cleansing of perineal area, 3) Adjusting clot loni after use; How many tasks does the patient perform WITHOUT assistance of the helper? Three tasks with steadying assistance from the helper TOILETING - SCORE: 4-MIN BLADDER MANAGEMENT: BLADDER MANAGEMENT - STEP 1: Does the patient control the bladder completely and intentionally without equipment or devices or med ications, and is always continent? No. BLADDER MANAGEMENT - STEP 2: Does the patient require the assistance of a helper? No, patient requires and independently uses an a ssistive device, such as a urinal, bedpan, bedside commode, catheter, absorbent pad, or collecting de vice BLADDER MANAGEMENT - SCORE: 6-SIRI BOWEL MANAGEMENT: Activity did not occur on this shift BOWEL MANAGEMENT - SCORE: 7-IND TRANSFERS: BED, CHAIR, WHEELCHAIR: TRANSFERS: BED, CHAIR, WHEELCHAIR - STEP 1: Does the patient require assistance of a person or device, or need extra time with bed, chair, or whe elchair transfers? Yes. TRANSFERS: BED, CHAIR, WHEELCHAIR - STEP 2: Does the patient require the assistance of a helper? Yes. TRANSFERS: BED, CHAIR, WHEELCHAIR - STEP 3: How much assistance does the patient require from the helper? Steadying/guiding assistance TRANSFERS: BED, CHAIR, WHEELCHAIR - SCORE: 4-MIN TRANSFERS: TOILET: TRANSFERS: TOILET - STEP 1: Does the patient require the assistance of a person or device, or need extra time with toilet transfe rs? Yes. TRANSFERS: TOILET - STEP 2: Does the patient require the assistance of a helper? Yes. TRANSFERS: TOILET - STEP 3: How much assistance does the patient require from the helper? Patient performs half or more of the tr ansferring tasks TRANSFERS: TOILET - STEP 4: Does the patient need only incidental help such as contact guard or steadying during toilet transfer? No. Patient needs more than incidental help TRANSFERS: TOILET - SCORE: 3-MOD TRANSFERS: SHOWER: Activity did not occur on this shift TRANSFERS: SHOWER - SCORE: 0-UNK TRANSFERS: TUB: Activity did not occur on this shift TRANSFERS: TUB - SCORE: 0-UNK LOCOMOTION: WALK: Activity did not occur on this shift LOCOMOTION: WALK - SCORE: 0-UNK LOCOMOTION: WHEELCHAIR: Activity did not occur on this shift LOCOMOTION: WHEELCHAIR - SCORE: 0-UNK COMPREHENSION: COMPREHENSION: TYPE: Both COMPREHENSION - STEP 1: Does the patient require help from a person or device, or need extra time to understand complex and a bstract ideas (such as current events, finances, discharge planning, medical issues, relationships, e tc)? No. COMPREHENSION - STEP 2: Does the patient need extra time, require an assistive device (such as glasses for visual comprehensi on or a hearing aid for auditory comprehension) or does s/he have mild difficulty understanding compl ex and abstract information? Yes. COMPREHENSION - SCORE: 6-SIRI EXPRESSION EXPRESSION: TYPE: Both EXPRESSION - STEP 1: Does the patient require help from a person or device, or need extra time expressing complex and abst ract ideas (such as current events, finances, discharge planning, medical issues, relationships, etc) ? No. EXPRESSION - STEP 2: Does the patient need extra time, require an assistive device (such as augmentive communication syste m or a communication board), OR does s/he have mild difficulty expressing complex and abstract ideas (including mild dysarthria or mild word-find problems)? Yes. EXPRESSION - SCORE: 6-SIRI SOCIAL INTERACTION: SOCIAL INTERACTION - STEP 1: Does the patient require a helper to interact with others in social and therapeutic situations? No. SOCIAL INTERACTION - STEP 2: Does the patient need extra time in social situations, OR does s/he interact with staff, other patien ts, and family members ONLY in structured environments, OR does s/he require medication for social in teraction? Yes, patient needs extra time SOCIAL INTERACTION - SCORE: 6-SIRI PROBLEM SOLVING: PROBLEM SOLVING - STEP 1: Does the patient need help from a person or device, or need extra time to solve complex problems such as managing a checking account or confronting interpersonal problems? No. PROBLEM SOLVING - STEP 2: Does the patient require extra time to make decisions or solve problems, OR does s/he have slight dif ficulty reading, initiating, or self-correcting in unfamiliar situations? Yes, patient needs extra ti me. PROBLEM SOLVING - SCORE: 6-SIRI MEMORY: MEMORY - STEP 1: Does the patient need help from a person or device, or need extra time to remember frequently encount ered people, daily routines, and executing requests? No. MEMORY - STEP 2: Does the patient have slight difficulty recognizing frequently encountered people, daily routines, or executing requests without the need for repetition or using self-initiated or environmental cues to remember? Yes. MEMORY - SCORE: 6-SIRI SIGNATURE PANEL: The following modified sections: Eating - Score, Grooming - Score, Bathing - Score, Dressing - Upper Body - Score, Dressing - Lower Body - Score, Toileting - Score, Bladder Management - Score, Bowel Man agement - Score, Transfers: Bed, Chair, Wheelchair - Score, Transfers: Toilet - Score, Transfers: Ping wer - Score, Transfers: Tub - Score, Locomotion: Walk - Score, Locomotion: Wheelchair - Score, Compre hension - Score, Expression - Score, Social Interaction - Score, Problem Solving - Score, Memory - Sc ore were [electronically] signed by Reyes Hernandez on Sat Feb 13 2019 09:23:41 GMT-0500 (Central Daylight Time)
[2019-02-13] MEDS: BENZONATATE 100 MG CAP PO SCH (20:20)
[2019-02-13] MEDS: AMITRIPTYLINE 25 MG TAB PO SCH (20:20)
[2019-02-13] MEDS: DOCUSATE NA/SENNA CONC 1 TAB PO SCH (20:21)
[2019-02-14] MEDS: MELATONIN 5 MG TABLET PO PRN (01:07)
[2019-02-14] MEDS: TRAMADOL HCL 50 MG TAB PO SCH ×4 (01:53→19:11)
--- NOTE | 2019-02-14 03:01 | FAST ---
SHIFT START DATE/TIME: 02/13/2019 19:00 (CDT) SHIFT END DATE/TIME: 02/14/2019 07:00 (CDT) NAME RADHA MOLINA DATE OF : 1930 DATE OF ADMISSION: 02/03/2019 19:57 (CDT) PHONE: AGE: 88 N# [id number] GENDER: Female ENCOUNTER PHYSICIAN: Dr. Conor Cervantes M.D. 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 EATING: Activity did not occur on this shift EATING - SCORE: 0-UNK GROOMING: Activity did not occur on this shift GROOMING - SCORE: 0-UNK BATHING: Activity did not occur on this shift BATHING - SCORE: 0-UNK DRESSING - UPPER BODY: Patient is not dressing in public clothing ARTICLES SCORE Total number of steps: 0 DRESSING - UPPER BODY - SCORE: 0-UNK DRESSING - LOWER BODY: Patient is not dressing in public clothing ARTICLES SCORE Total number of steps: 0 DRESSING - LOWER BODY - SCORE: 0-UNK TOILETING: TOILETING - STEP 1: Does the patient require the assistance of a person or device, or need extra time with toileting? Yes . TOILETING - STEP 2: Does the patient require the assistance of a helper? Yes. TOILETING - STEP 3: How much assistance does the patient require from the helper? Hands-on assistance from the helper TOILETING - STEP 4: Of the 3 tasks: 1) Adjusting clothing prior to use, 2) Cleansing of perineal area, 3) Adjusting clot loni after use; How many tasks does the patient perform WITHOUT assistance of the helper? Three tasks with steadying assistance from the helper TOILETING - SCORE: 4-MIN BLADDER MANAGEMENT: BLADDER MANAGEMENT - STEP 1: Does the patient control the bladder completely and intentionally without equipment or devices or med ications, and is always continent? Yes. BLADDER MANAGEMENT - SCORE: 7-IND BOWEL MANAGEMENT: Activity did not occur on this shift BOWEL MANAGEMENT - SCORE: 7-IND TRANSFERS: BED, CHAIR, WHEELCHAIR: TRANSFERS: BED, CHAIR, WHEELCHAIR - STEP 1: Does the patient require assistance of a person or device, or need extra time with bed, chair, or whe elchair transfers? Yes. TRANSFERS: BED, CHAIR, WHEELCHAIR - STEP 2: Does the patient require the assistance of a helper? Yes. TRANSFERS: BED, CHAIR, WHEELCHAIR - STEP 3: How much assistance does the patient require from the helper? Steadying/guiding assistance TRANSFERS: BED, CHAIR, WHEELCHAIR - SCORE: 4-MIN TRANSFERS: TOILET: TRANSFERS: TOILET - STEP 1: Does the patient require the assistance of a person or device, or need extra time with toilet transfe rs? Yes. TRANSFERS: TOILET - STEP 2: Does the patient require the assistance of a helper? Yes. TRANSFERS: TOILET - STEP 3: How much assistance does the patient require from the helper? Patient performs half or more of the tr ansferring tasks TRANSFERS: TOILET - STEP 4: Does the patient need only incidental help such as contact guard or steadying during toilet transfer? Yes. TRANSFERS: TOILET - SCORE: 4-MIN TRANSFERS: SHOWER: Activity did not occur on this shift TRANSFERS: SHOWER - SCORE: 0-UNK TRANSFERS: TUB: Activity did not occur on this shift TRANSFERS: TUB - SCORE: 0-UNK LOCOMOTION: WALK: Activity did not occur on this shift LOCOMOTION: WALK - SCORE: 0-UNK LOCOMOTION: WHEELCHAIR: Activity did not occur on this shift LOCOMOTION: WHEELCHAIR - SCORE: 0-UNK COMPREHENSION: COMPREHENSION: TYPE: Both COMPREHENSION - STEP 1: Does the patient require help from a person or device, or need extra time to understand complex and a bstract ideas (such as current events, finances, discharge planning, medical issues, relationships, e tc)? No. COMPREHENSION - STEP 2: Does the patient need extra time, require an assistive device (such as glasses for visual comprehensi on or a hearing aid for auditory comprehension) or does s/he have mild difficulty understanding compl ex and abstract information? Yes. COMPREHENSION - SCORE: 6-SIRI EXPRESSION EXPRESSION: TYPE: Both EXPRESSION - STEP 1: Does the patient require help from a person or device, or need extra time expressing complex and abst ract ideas (such as current events, finances, discharge planning, medical issues, relationships, etc) ? No. EXPRESSION - STEP 2: Does the patient need extra time, require an assistive device (such as augmentive communication syste m or a communication board), OR does s/he have mild difficulty expressing complex and abstract ideas (including mild dysarthria or mild word-find problems)? No. EXPRESSION - SCORE: 7-IND SOCIAL INTERACTION: SOCIAL INTERACTION - STEP 1: Does the patient require a helper to interact with others in social and therapeutic situations? No. SOCIAL INTERACTION - STEP 2: Does the patient need extra time in social situations, OR does s/he interact with staff, other patien ts, and family members ONLY in structured environments, OR does s/he require medication for social in teraction? Yes, patient requires medication for social interaction SOCIAL INTERACTION - SCORE: 6-SIRI PROBLEM SOLVING: Patient requires bed/chair alarms due to attempts to get up unassisted when helper is needed. PROBLEM SOLVING - STEP 1: How often do the bed/chair alarms go off? Occasionally - the alarms go off about 25% or less PROBLEM SOLVING - SCORE: 4-MIN MEMORY: MEMORY - STEP 1: How often do the bed/chair alarms go off? Occasionally - the alarms go off about 25% of the time or l ess MEMORY - SCORE: 4-MIN SIGNATURE PANEL: The following modified sections: Eating - Score, Grooming - Score, Bathing - Score, Dressing - Upper Body - Score, Dressing - Lower Body - Score, Toileting - Score, Bladder Management - Score, Bowel Man agement - Score, Transfers: Bed, Chair, Wheelchair - Score, Transfers: Toilet - Score, Transfers: Ping wer - Score, Transfers: Tub - Score, Locomotion: Walk - Score, Locomotion: Wheelchair - Score, Compre hension - Score, Expression - Score, Social Interaction - Score, Problem Solving - Score, Memory - Sc ore were [electronically] signed by Yasmine Meza CNA on FriFeb 14 2019 03:00:40 GMT-0500 (Central Da ylight Time)
[2019-02-14] MEDS: LEVOTHYROXINE SOD 0.05 MG TABLET PO SCH (06:08)
[2019-02-14] MEDS: LEVOTHYROXINE SOD 0.1 MG TAB PO SCH (06:08)
[2019-02-14] MEDS: NAPROXEN 250 MG TAB PO PRN (06:09)
[2019-02-14] MEDS: LIDOCAINE 5% PATCH TOP SCH (06:09)
[2019-02-14] MEDS: NYSTATIN PWDR 100000 UNIT/GM TOP SCH ×2 (06:11→19:11)
[2019-02-14] MEDS: POLYETHYL GLY 3350 17 GM/DOSE PO SCH (08:01)
[2019-02-14] MEDS: DOCUSATE NA 100 MG CAP PO SCH (08:02)
[2019-02-14] MEDS: FUROSEMIDE 20 MG TABLET PO SCH (08:02)
[2019-02-14] MEDS: APIXABAN 2.5 MG TABLET PO SCH ×2 (08:02→19:11)
[2019-02-14] MEDS: PROMOD 30 ML DOSE PO SCH ×2 (08:03→19:10)
[2019-02-14] MEDS: BISACODYL 10 MG RECTAL SUPP PR PRN (09:42)
[2019-02-14] MEDS: AMITRIPTYLINE 25 MG TAB PO SCH (20:09)
[2019-02-14] MEDS: BENZONATATE 100 MG CAP PO SCH (20:09)
[2019-02-14] MEDS: DOCUSATE NA/SENNA CONC 1 TAB PO SCH (20:09)
[2019-02-15] MEDS: TRAMADOL HCL 50 MG TAB PO SCH ×4 (02:00→20:02)
[2019-02-15] MEDS: NAPROXEN 250 MG TAB PO PRN (04:22)
[2019-02-15] MEDS: LEVOTHYROXINE SOD 0.05 MG TABLET PO SCH (06:51)
[2019-02-15] MEDS: LEVOTHYROXINE SOD 0.1 MG TAB PO SCH (06:51)
[2019-02-15] MEDS: FUROSEMIDE 20 MG TABLET PO SCH ×2 (08:00)
[2019-02-15] MEDS: NYSTATIN PWDR 100000 UNIT/GM TOP SCH ×2 (08:00→20:00)
[2019-02-15] MEDS: POLYETHYL GLY 3350 17 GM/DOSE PO SCH (08:10)
[2019-02-15] MEDS: APIXABAN 2.5 MG TABLET PO SCH ×2 (08:12→20:02)
[2019-02-15] MEDS: DOCUSATE NA 100 MG CAP PO SCH (08:12)
[2019-02-15] MEDS: PROMOD 30 ML DOSE PO SCH ×2 (08:13→20:00)
[2019-02-15] MEDS: LIDOCAINE 5% PATCH TOP SCH (08:14)
--- NOTE | 2019-02-15 16:26 | FAST ---
ENCOUNTER DATE AND TIME: 02/15/2019 08:00 (CDT) NAME RADHA MOLINA DATE OF : 1930 DATE OF ADMISSION: 02/03/2019 19:57 (CDT) PHONE: AGE: 88 N# [id number] GENDER: Female ENCOUNTER PHYSICIAN: Dr. Conor Cervantes M.D. 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 EATING: Activity did not occur on this shift EATING - SCORE: 0-UNK GROOMING: Activity did not occur on this shift GROOMING - SCORE: 0-UNK BATHING: Activity did not occur on this shift BATHING - SCORE: 0-UNK DRESSING - UPPER BODY: Activity did not occur on this shift Patient is not dressing in public clothing ARTICLES SCORE Total number of steps: 0 DRESSING - UPPER BODY - SCORE: 0-UNK DRESSING - LOWER BODY: Activity did not occur on this shift Patient is not dressing in public clothing ARTICLES SCORE Total number of steps: 0 DRESSING - LOWER BODY - SCORE: 0-UNK TOILETING: Activity did not occur on this shift TOILETING - SCORE: 0-UNK BLADDER MANAGEMENT: Activity did not occur on this shift BLADDER MANAGEMENT - SCORE: 7-IND BOWEL MANAGEMENT: Activity did not occur on this shift BOWEL MANAGEMENT - SCORE: 7-IND TRANSFERS: BED, CHAIR, WHEELCHAIR: TRANSFERS: BED, CHAIR, WHEELCHAIR - STEP 1: Does the patient require assistance of a person or device, or need extra time with bed, chair, or whe elchair transfers? Yes. TRANSFERS: BED, CHAIR, WHEELCHAIR - STEP 2: Does the patient require the assistance of a helper? Yes. TRANSFERS: BED, CHAIR, WHEELCHAIR - STEP 3: How much assistance does the patient require from the helper? Steadying/guiding assistance TRANSFERS: BED, CHAIR, WHEELCHAIR - SCORE: 4-MIN TRANSFERS: TOILET: Activity did not occur on this shift TRANSFERS: TOILET - SCORE: 0-UNK TRANSFERS: SHOWER: Activity did not occur on this shift TRANSFERS: SHOWER - SCORE: 0-UNK TRANSFERS: TUB: Activity did not occur on this shift TRANSFERS: TUB - SCORE: 0-UNK LOCOMOTION: WALK: LOCOMOTION: WALK - STEP 1: Does the patient need help from a person or device, or need extra time to walk 150 feet? Yes. LOCOMOTION: WALK - STEP 2: How much assistance does the patient require to walk a minimum of 150 feet? Only incidental help such as contact guarding or steadying LOCOMOTION: WALK - SCORE: 4-MIN LOCOMOTION: WHEELCHAIR: Activity did not occur on this shift LOCOMOTION: WHEELCHAIR - SCORE: 0-UNK LOCOMOTION: STAIRS: Activity did not occur on this shift LOCOMOTION: STAIRS - SCORE: 0-UNK COMPREHENSION: COMPREHENSION - SCORE: 0-UNK EXPRESSION EXPRESSION - SCORE: 0-UNK SOCIAL INTERACTION: SOCIAL INTERACTION - SCORE: 0-UNK PROBLEM SOLVING: PROBLEM SOLVING - SCORE: 0-UNK MEMORY: MEMORY - SCORE: 0-UNK SIGNATURE PANEL: The following modified sections: Transfers: Bed, Chair, Wheelchair - Score, Transfers: Toilet - Score , Locomotion: Walk - Score, Locomotion: Wheelchair - Score, Locomotion: Stairs - Score were [electron [email or web address]] signed by Derrek Verma PT on FriFeb 15 2019 16:25:41 T-0500 (Central Daylight Time)
--- NOTE | 2019-02-15 17:30 | R.PN ---
ENCOUNTER DATE AND TIME: 02/15/2019 17:27 (CDT) NAME RADHA MOLINA DATE OF : 1930 DATE OF ADMISSION: 02/03/2019 19:57 (CDT) T12 Compression FractureCHIEF COMPLAINT: T12 compression fracture. SUBJECTIVE: Pt denied any Shortness of Breath. Pt denied any depression. Ambulated 1500' with modified independence using a rolling walker. Self-propelled wheelchair 250' wit h standby assistance. Up and down 5 steps with contact guard assistance. WBC 6.8, Hgb 14, prealbumin 19.5. VITAL SIGNS Temperature: 97.8 F SBP/DBP: 148/71 Pulse: 94 Resp: 16 MEDICATION ALLERGIES: No Known Drug Allergies (NKDA) ENVIRONMENTAL ALLERGIES: None Known - Substance Allergies None Known - Other Allergies None Known NURSING: - Shower allowing shower - Bladder care per protocol - Skin care per protocol ACTIVITIES OOB only with supervision THERAPIES: - Orthotics/Prosthetics Splinting/Casting. Orthotic Evaluation. - Occupational Therapy Evaluate and Treat. - Physical Therapy Evaluate and Treat. PHYSICAL EXAM - Gen Alert and awake Lying in bed No apparent distress Oriented to: person, time, and place - Skin Rash in left groin No abnormalities - Eyes No abnormalities - ENMT No abnormalities - Neck No abnormalities - CVS RRR - Chest No abnormalities - Abd +bowel sounds - GI Soft Deferred - Urinary incontinence - Ext No significant edema. - MSK 4+/5 weakness in both lower extremities. Back muscle spasms. Back shell brace is in place. - Neuro No focal neurological deficits - Psych No abnormalities ASSESSMENT: Pt. 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 was independent/mod-I in Self-Care, S phincter Control, Transfers Control, Locomotion, Communication, and Social Cognition; and she had goo d Sphincter Control.Currently, she has deficits of Self-Care, Transfers Control, Locomotion, Communic ation, Social Cognition, Endurance, Balance, and Safety Awareness.Pt. is now referred to [facility] for acute in-patient rehabilitation in order to maximize patient's functional i ndependence in activities of daily living, strength, ROM, and mobility.- Rehab Goal Patient has realistic goal of being discharged at assistance level 6-Caroline to reside at Home with Fam mic/Relatives. MDM/PLAN: - Physical Therapy Gait dysfunction - to improve, our physical therapists will perform initial evaluation of pt's statu s upon admission and devise an individualized program for Gait Training, and Wheel Chair mobility Inability to transfer - to improve, our physical therapists will perform initial evaluation of pt's status upon admission and devise an individualized program for Bed mobility Need for home safety evaluation - to improve, our physical therapists will perform initial evaluatio n of pt's status upon admission and devise an individualized program for Home Evaluation Need in caregiver upon discharge - to improve, our physical therapists will perform initial evaluati on of pt's status upon admission and devise an individualized program for Caregiver Training Edema - to improve, our physical therapists will perform initial evaluation of pt's status upon admi ssion and devise an individualized program for Elevation Training, and Lymphedema Therapy New precaution - to improve, our physical therapists will perform initial evaluation of pt's status upon admission and devise an individualized program for Patient precaution education Poor balance - to improve, our physical therapists will perform initial evaluation of pt's status up on admission and devise an individualized program for Balance Training Poor endurance - to improve, our physical therapists will perform initial evaluation of pt's status upon admission and devise an individualized program for Endurance Training Weakness - to improve, our physical therapists will perform initial evaluation of pt's status upon a dmission and devise an individualized program for Aquatic Therapy, Neuromuscular Reeducation, and Str engthening Achieving independence - to improve, our physical therapists will perform initial evaluation of pt's status upon admission and devise an individualized program for Community Reintegration Activities - Occupational Therapy ADL deficits - to improve, our occupation therapists will perform initial evaluation of pt's status upon admission and devise an individualized program for Bathing, Bed mobility, Community Reintegratio n, Cooking, Dressing, Eating, Fine Motor Skills, Grooming, Homemaking, Kitchen Mobility, Laundry, Pat ient Education, Safety Awareness, Splinting - Positioning, Transfers(Toilet, Tub, Shower), and Wheel Chair Management Cognitive deficits - to improve, our occupation therapists will perform initial evaluation of pt's s tatus upon admission and devise an individualized program for Cognition - orientation Need for pet care associate - to improve, our occupation therapists will perform initial evaluation of pt's status upon admission and devise an individualized program for Caregiver Training Weakness - to improve, our occupation therapists will perform initial evaluation of pt's status upon admission and devise an individualized program for Aquatic Therapy, Balance, Endurance, UE ROM, and UE strengthening - Diet Type Continue Regular - Diet - Liquid Texture Continue Regular - Tube Feed Continue N/A - Bladder care per protocol - Skin care per protocol - Diet - Solid Texture Continue Regular - Shower allowing shower FUNCTIONAL STATUS: UPDATED AT WEEKLY TEAM CONFERENCE - Bladder Same accident frequency: 7-Ind - No accidents in the past 7 days - Bowel Same accident frequency: 7-Ind - No accidents in the past 7 days - Walking Same score based on distance walked: 1(<=50ft) - Wheelchair Same score based on distance traveled: 0(N/A) FUNCTIONAL STATUS: - Self-Care A. Eating sup B. Grooming sup C. Bathing maxA D. Dressing - Upper maxA E. Dressing - Lower maxA F. Toileting maxA - Sphincter Control G: Bladder control Ind H: Bowel control Ind - Transfers Control I. Bed/Chair/Wheelchair Radha J. Toilet Radha K. Tub/Shower ADNO - Locomotion L. Walk/Wheelchair (B) maxA M. Stairs ADNO - Communication N. Comprehension (B) Radha O. Expression (B) Radha - Social Cognition P. Social Interaction Radha Q. Problem Solving Radha R. Memory min-to-modA - Endurance Fair - Balance Fair - Safety Awareness Fair CURRENT [facility]. DEFICITS: Self-Care, Transfers Control, Locomotion, Communication, Social Cognition, Endurance, Balance, and Sa fety Awareness SIGNATURE PANEL: (CDT)
[2019-02-15] MEDS: AMITRIPTYLINE 25 MG TAB PO SCH (20:02)
[2019-02-15] MEDS: BENZONATATE 100 MG CAP PO SCH (20:02)
[2019-02-15] MEDS: DOCUSATE NA/SENNA CONC 1 TAB PO SCH (20:03)
[2019-02-16] MEDS: TRAMADOL HCL 50 MG TAB PO SCH ×4 (02:00→20:02)
--- NOTE | 2019-02-16 03:29 | FAST ---
SHIFT START DATE/TIME: 02/15/2019 19:00 (CDT) SHIFT END DATE/TIME: 02/16/2019 07:00 (CDT) NAME RADHA MOLINA DATE OF : 1930 DATE OF ADMISSION: 02/03/2019 19:57 (CDT) PHONE: AGE: 88 N# [id number] GENDER: Female ENCOUNTER PHYSICIAN: Dr. Conor Cervantes M.D. 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 EATING: Activity did not occur on this shift EATING - SCORE: 0-UNK GROOMING: Activity did not occur on this shift GROOMING - SCORE: 0-UNK BATHING: Activity did not occur on this shift BATHING - SCORE: 0-UNK DRESSING - UPPER BODY: Patient is not dressing in public clothing ARTICLES SCORE Total number of steps: 0 DRESSING - UPPER BODY - SCORE: 0-UNK DRESSING - LOWER BODY: Patient is not dressing in public clothing ARTICLES SCORE Total number of steps: 0 DRESSING - LOWER BODY - SCORE: 0-UNK TOILETING: TOILETING - STEP 1: Does the patient require the assistance of a person or device, or need extra time with toileting? Yes . TOILETING - STEP 2: Does the patient require the assistance of a helper? Yes. TOILETING - STEP 3: How much assistance does the patient require from the helper? Only supervision TOILETING - SCORE: 5-SUP BLADDER MANAGEMENT: BLADDER MANAGEMENT - STEP 1: Does the patient control the bladder completely and intentionally without equipment or devices or med ications, and is always continent? Yes. BLADDER MANAGEMENT - SCORE: 7-IND BOWEL MANAGEMENT: Activity did not occur on this shift BOWEL MANAGEMENT - SCORE: 7-IND TRANSFERS: BED, CHAIR, WHEELCHAIR: TRANSFERS: BED, CHAIR, WHEELCHAIR - STEP 1: Does the patient require assistance of a person or device, or need extra time with bed, chair, or whe elchair transfers? Yes. TRANSFERS: BED, CHAIR, WHEELCHAIR - STEP 2: Does the patient require the assistance of a helper? Yes. TRANSFERS: BED, CHAIR, WHEELCHAIR - STEP 3: How much assistance does the patient require from the helper? Steadying/guiding assistance TRANSFERS: BED, CHAIR, WHEELCHAIR - SCORE: 4-MIN TRANSFERS: TOILET: TRANSFERS: TOILET - STEP 1: Does the patient require the assistance of a person or device, or need extra time with toilet transfe rs? Yes. TRANSFERS: TOILET - STEP 2: Does the patient require the assistance of a helper? Yes. TRANSFERS: TOILET - STEP 3: How much assistance does the patient require from the helper? Only supervision, cuing, coaxing, OR he lp to set out transfer equipment or to lock brakes and/or lift foot rests TRANSFERS: TOILET - SCORE: 5-SUP TRANSFERS: SHOWER: Activity did not occur on this shift TRANSFERS: SHOWER - SCORE: 0-UNK TRANSFERS: TUB: Activity did not occur on this shift TRANSFERS: TUB - SCORE: 0-UNK LOCOMOTION: WALK: Activity did not occur on this shift LOCOMOTION: WALK - SCORE: 0-UNK LOCOMOTION: WHEELCHAIR: Activity did not occur on this shift LOCOMOTION: WHEELCHAIR - SCORE: 0-UNK COMPREHENSION: COMPREHENSION: TYPE: Both COMPREHENSION - STEP 1: Does the patient require help from a person or device, or need extra time to understand complex and a bstract ideas (such as current events, finances, discharge planning, medical issues, relationships, e tc)? No. COMPREHENSION - STEP 2: Does the patient need extra time, require an assistive device (such as glasses for visual comprehensi on or a hearing aid for auditory comprehension) or does s/he have mild difficulty understanding compl ex and abstract information? Yes. COMPREHENSION - SCORE: 6-SIRI EXPRESSION EXPRESSION: TYPE: Both EXPRESSION - STEP 1: Does the patient require help from a person or device, or need extra time expressing complex and abst ract ideas (such as current events, finances, discharge planning, medical issues, relationships, etc) ? No. EXPRESSION - STEP 2: Does the patient need extra time, require an assistive device (such as augmentive communication syste m or a communication board), OR does s/he have mild difficulty expressing complex and abstract ideas (including mild dysarthria or mild word-find problems)? No. EXPRESSION - SCORE: 7-IND SOCIAL INTERACTION: SOCIAL INTERACTION - STEP 1: Does the patient require a helper to interact with others in social and therapeutic situations? No. SOCIAL INTERACTION - STEP 2: Does the patient need extra time in social situations, OR does s/he interact with staff, other patien ts, and family members ONLY in structured environments, OR does s/he require medication for social in teraction? Yes, patient requires medication for social interaction SOCIAL INTERACTION - SCORE: 6-SIRI PROBLEM SOLVING: Patient requires bed/chair alarms due to attempts to get up unassisted when helper is needed. PROBLEM SOLVING - STEP 1: How often do the bed/chair alarms go off? Occasionally - the alarms go off about 25% or less PROBLEM SOLVING - SCORE: 4-MIN MEMORY: MEMORY - STEP 1: How often do the bed/chair alarms go off? Occasionally - the alarms go off about 25% of the time or l ess MEMORY - SCORE: 4-MIN SIGNATURE PANEL: The following modified sections: Eating - Score, Grooming - Score, Bathing - Score, Dressing - Upper Body - Score, Dressing - Lower Body - Score, Toileting - Score, Bladder Management - Score, Bowel Man agement - Score, Transfers: Bed, Chair, Wheelchair - Score, Transfers: Toilet - Score, Transfers: Ping wer - Score, Transfers: Tub - Score, Locomotion: Walk - Score, Locomotion: Wheelchair - Score, Compre hension - Score, Expression - Score, Social Interaction - Score, Problem Solving - Score, Memory - Sc ore were [electronically] signed by Yasmine Meza CNA on FriFeb 16 2019 03:29:07 T-0500 ([place] Da [place]light Time)
[2019-02-16] MEDS: LEVOTHYROXINE SOD 0.1 MG TAB PO SCH (06:45)
[2019-02-16] MEDS: LEVOTHYROXINE SOD 0.05 MG TABLET PO SCH (06:45)
[2019-02-16] MEDS: NYSTATIN PWDR 100000 UNIT/GM TOP SCH ×2 (08:00→20:00)
[2019-02-16] MEDS: POLYETHYL GLY 3350 17 GM/DOSE PO SCH (08:30)
[2019-02-16] MEDS: FUROSEMIDE 20 MG TABLET PO SCH (08:31)
[2019-02-16] MEDS: DOCUSATE NA 100 MG CAP PO SCH (08:31)
[2019-02-16] MEDS: APIXABAN 2.5 MG TABLET PO SCH ×2 (08:32→20:03)
[2019-02-16] MEDS: PROMOD 30 ML DOSE PO SCH ×2 (08:32→20:00)
[2019-02-16] MEDS: LIDOCAINE 5% PATCH TOP SCH (08:59)
--- NOTE | 2019-02-16 14:54 | FAST ---
SHIFT START DATE/TIME: 02/16/2019 07:00 (CDT) SHIFT END DATE/TIME: 02/16/2019 19:00 (CDT) NAME RADHA MOLINA DATE OF : 1930 DATE OF ADMISSION: 02/03/2019 19:57 (CDT) PHONE: AGE: 88 N# [id number] GENDER: Female ENCOUNTER PHYSICIAN: Dr. Conor Cervantes M.D. 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 EATING: EATING - STEP 1: Does the patient require the assistance of a person or device, or need extra time when eating? Yes. EATING - STEP 2: Does the patient require the assistance of a helper? Yes. EATING - STEP 3: Does the patient perform half or more of the eating tasks? Yes. EATING - STEP 4: Does the patient need only supervision, cuing, coaxing OR help to apply an orthosis OR help to cut fo od, open containers, pour liquids, or butter bread? Yes. EATING - SCORE: 5-SUP GROOMING: Comb/brush hair Oral care Wash, rinse, and dry face Wash, rinse, and dry hands GROOMING - STEP 1: Does the patient require the assistance of a person or device, or need extra time when grooming? Yes. GROOMING - STEP 2: Does the patient require the assistance of a helper? No. The patient only requires an assistive devic e, OR takes more than reasonable time to groom, OR there is a concern for safety as the patient groom s GROOMING - SCORE: 6-SIRI BATHING: Activity did not occur on this shift BATHING - SCORE: 0-UNK DRESSING - UPPER BODY: Button down shirt or blouse - NOT tucked in (four steps) ARTICLES SCORE Total number of steps: 4 DRESSING - UPPER BODY - STEP 1: Does the patient require help from a person or device, or need extra time when dressing above the star st? Yes. DRESSING - UPPER BODY - STEP 2: Does the patient require the assistance of a helper? Yes. DRESSING - UPPER BODY - STEP 3: Does the helper touch the patient while dressing? Yes. DRESSING - UPPER BODY - STEP 4: How many of the total steps does the patient complete on his/her own? 2 DRESSING - UPPER BODY - SCORE: 3-MOD DRESSING - LOWER BODY: Elastic waist pants (three steps) Slip-on shoe - Left foot (one step) Slip-on shoe - Right foot (one step) ARTICLES SCORE Total number of steps: 5 DRESSING - LOWER BODY - STEP 1: Does the patient require help from a person or device, or need extra time when dressing below the star st? Yes. DRESSING - LOWER BODY - STEP 2: Does the patient require the assistance of a helper? Yes. DRESSING - LOWER BODY - STEP 3: Does the helper touch the patient while dressing? No. DRESSING - LOWER BODY - SCORE: 5-SUP TOILETING: TOILETING - STEP 1: Does the patient require the assistance of a person or device, or need extra time with toileting? Yes . TOILETING - STEP 2: Does the patient require the assistance of a helper? Yes. TOILETING - STEP 3: How much assistance does the patient require from the helper? Hands-on assistance from the helper TOILETING - STEP 4: Of the 3 tasks: 1) Adjusting clothing prior to use, 2) Cleansing of perineal area, 3) Adjusting clot loni after use; How many tasks does the patient perform WITHOUT assistance of the helper? Three tasks with steadying assistance from the helper TOILETING - SCORE: 4-MIN BLADDER MANAGEMENT: BLADDER MANAGEMENT - STEP 1: Does the patient control the bladder completely and intentionally without equipment or devices or med ications, and is always continent? No. BLADDER MANAGEMENT - STEP 2: Does the patient require the assistance of a helper? No, patient only requires extra time BLADDER MANAGEMENT - SCORE: 6-SIRI BLADDER MANAGEMENT - FREQUENCY OF ACCIDENTS: BLADDER MANAGEMENT(FA) - STEP 1: How many accidents has the patient had during the current shift? 0 BOWEL MANAGEMENT: Activity did not occur on this shift BOWEL MANAGEMENT - SCORE: 7-IND BOWEL MANAGEMENT - FREQUENCY OF ACCIDENTS: BOWEL MANAGEMENT(FA) - STEP 1: How many accidents has the patient had during the current shift? 0 TRANSFERS: BED, CHAIR, WHEELCHAIR: TRANSFERS: BED, CHAIR, WHEELCHAIR - STEP 1: Does the patient require assistance of a person or device, or need extra time with bed, chair, or whe elchair transfers? Yes. TRANSFERS: BED, CHAIR, WHEELCHAIR - STEP 2: Does the patient require the assistance of a helper? Yes. TRANSFERS: BED, CHAIR, WHEELCHAIR - STEP 3: How much assistance does the patient require from the helper? Steadying/guiding assistance TRANSFERS: BED, CHAIR, WHEELCHAIR - SCORE: 4-MIN TRANSFERS: TOILET: TRANSFERS: TOILET - STEP 1: Does the patient require the assistance of a person or device, or need extra time with toilet transfe rs? Yes. TRANSFERS: TOILET - STEP 2: Does the patient require the assistance of a helper? Yes. TRANSFERS: TOILET - STEP 3: How much assistance does the patient require from the helper? Patient performs half or more of the tr ansferring tasks TRANSFERS: TOILET - STEP 4: Does the patient need only incidental help such as contact guard or steadying during toilet transfer? Yes. TRANSFERS: TOILET - SCORE: 4-MIN TRANSFERS: SHOWER: Activity did not occur on this shift TRANSFERS: SHOWER - SCORE: 0-UNK TRANSFERS: TUB: Activity did not occur on this shift TRANSFERS: TUB - SCORE: 0-UNK LOCOMOTION: WALK: Activity did not occur on this shift LOCOMOTION: WALK - SCORE: 0-UNK LOCOMOTION: WHEELCHAIR: Activity did not occur on this shift LOCOMOTION: WHEELCHAIR - SCORE: 0-UNK COMPREHENSION: COMPREHENSION: TYPE: Both COMPREHENSION - STEP 1: Does the patient require help from a person or device, or need extra time to understand complex and a bstract ideas (such as current events, finances, discharge planning, medical issues, relationships, e tc)? No. COMPREHENSION - STEP 2: Does the patient need extra time, require an assistive device (such as glasses for visual comprehensi on or a hearing aid for auditory comprehension) or does s/he have mild difficulty understanding compl ex and abstract information? Yes. COMPREHENSION - SCORE: 6-SIRI EXPRESSION EXPRESSION: TYPE: Both EXPRESSION - STEP 1: Does the patient require help from a person or device, or need extra time expressing complex and abst ract ideas (such as current events, finances, discharge planning, medical issues, relationships, etc) ? No. EXPRESSION - STEP 2: Does the patient need extra time, require an assistive device (such as augmentive communication syste m or a communication board), OR does s/he have mild difficulty expressing complex and abstract ideas (including mild dysarthria or mild word-find problems)? Yes. EXPRESSION - SCORE: 6-SIRI SOCIAL INTERACTION: SOCIAL INTERACTION - STEP 1: Does the patient require a helper to interact with others in social and therapeutic situations? No. SOCIAL INTERACTION - STEP 2: Does the patient need extra time in social situations, OR does s/he interact with staff, other patien ts, and family members ONLY in structured environments, OR does s/he require medication for social in teraction? Yes, patient needs extra time SOCIAL INTERACTION - SCORE: 6-SIRI PROBLEM SOLVING: PROBLEM SOLVING - STEP 1: Does the patient need help from a person or device, or need extra time to solve complex problems such as managing a checking account or confronting interpersonal problems? No. PROBLEM SOLVING - STEP 2: Does the patient require extra time to make decisions or solve problems, OR does s/he have slight dif ficulty reading, initiating, or self-correcting in unfamiliar situations? Yes, patient needs extra ti me. PROBLEM SOLVING - SCORE: 6-SIRI MEMORY: MEMORY - STEP 1: Does the patient need help from a person or device, or need extra time to remember frequently encount ered people, daily routines, and executing requests? Yes. MEMORY - STEP 2: How often does the patient need help to remember frequently encountered people, daily routines, and e xecuting requests? Less than 10% of the time MEMORY - SCORE: 5-SUP SIGNATURE PANEL: The following modified sections: Eating - Score, Grooming - Score, Bathing - Score, Dressing - Upper Body - Score, Dressing - Lower Body - Score, Toileting - Score, Bladder Management - Score, Bowel Man agement - Score, Transfers: Bed, Chair, Wheelchair - Score, Transfers: Toilet - Score, Transfers: Ping wer - Score, Transfers: Tub - Score, Locomotion: Walk - Score, Locomotion: Wheelchair - Score, Compre hension - Score, Expression - Score, Social Interaction - Score, Problem Solving - Score, Memory - Sc ore were [electronically] signed by Jm DenneyNRobin on FriFeb 16 2019 14:53:16 T-0500 ([place])
--- NOTE | 2019-02-16 14:55 | FAST ---
SHIFT START DATE/TIME: 02/15/2019 07:00 (CDT) SHIFT END DATE/TIME: 02/15/2019 19:00 (CDT) NAME RADHA MOLINA DATE OF : 1930 DATE OF ADMISSION: 02/03/2019 19:57 (CDT) PHONE: AGE: 88 N# [id number] GENDER: Female ENCOUNTER PHYSICIAN: Dr. Conor Cervantes M.D. 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 EATING: EATING - STEP 1: Does the patient require the assistance of a person or device, or need extra time when eating? Yes. EATING - STEP 2: Does the patient require the assistance of a helper? Yes. EATING - STEP 3: Does the patient perform half or more of the eating tasks? Yes. EATING - STEP 4: Does the patient need only supervision, cuing, coaxing OR help to apply an orthosis OR help to cut fo od, open containers, pour liquids, or butter bread? Yes. EATING - SCORE: 5-SUP GROOMING: Comb/brush hair Oral care Wash, rinse, and dry face Wash, rinse, and dry hands GROOMING - STEP 1: Does the patient require the assistance of a person or device, or need extra time when grooming? Yes. GROOMING - STEP 2: Does the patient require the assistance of a helper? No. The patient only requires an assistive devic e, OR takes more than reasonable time to groom, OR there is a concern for safety as the patient groom s GROOMING - SCORE: 6-SIRI BATHING: Activity did not occur on this shift BATHING - SCORE: 0-UNK DRESSING - UPPER BODY: Button down shirt or blouse - NOT tucked in (four steps) ARTICLES SCORE Total number of steps: 4 DRESSING - UPPER BODY - STEP 1: Does the patient require help from a person or device, or need extra time when dressing above the star st? Yes. DRESSING - UPPER BODY - STEP 2: Does the patient require the assistance of a helper? Yes. DRESSING - UPPER BODY - STEP 3: Does the helper touch the patient while dressing? Yes. DRESSING - UPPER BODY - STEP 4: How many of the total steps does the patient complete on his/her own? 2 DRESSING - UPPER BODY - SCORE: 3-MOD DRESSING - LOWER BODY: Elastic waist pants (three steps) Slip-on shoe - Left foot (one step) Slip-on shoe - Right foot (one step) ARTICLES SCORE Total number of steps: 5 DRESSING - LOWER BODY - STEP 1: Does the patient require help from a person or device, or need extra time when dressing below the star st? Yes. DRESSING - LOWER BODY - STEP 2: Does the patient require the assistance of a helper? Yes. DRESSING - LOWER BODY - STEP 3: Does the helper touch the patient while dressing? Yes. DRESSING - LOWER BODY - STEP 4: How many of the total steps does the patient complete on his/her own? 2 DRESSING - LOWER BODY - STEP 5: Does patient require total assistance for dressing below the waist such as the helper holding clothin g and performing basically all the activities? No. DRESSING - LOWER BODY - SCORE: 2-MAX TOILETING: TOILETING - STEP 1: Does the patient require the assistance of a person or device, or need extra time with toileting? Yes . TOILETING - STEP 2: Does the patient require the assistance of a helper? Yes. TOILETING - STEP 3: How much assistance does the patient require from the helper? Hands-on assistance from the helper TOILETING - STEP 4: Of the 3 tasks: 1) Adjusting clothing prior to use, 2) Cleansing of perineal area, 3) Adjusting clot loni after use; How many tasks does the patient perform WITHOUT assistance of the helper? Three tasks with steadying assistance from the helper TOILETING - SCORE: 4-MIN BLADDER MANAGEMENT: BLADDER MANAGEMENT - STEP 1: Does the patient control the bladder completely and intentionally without equipment or devices or med ications, and is always continent? No. BLADDER MANAGEMENT - STEP 2: Does the patient require the assistance of a helper? No, patient only requires extra time BLADDER MANAGEMENT - SCORE: 6-SIRI BLADDER MANAGEMENT - FREQUENCY OF ACCIDENTS: BLADDER MANAGEMENT(FA) - STEP 1: How many accidents has the patient had during the current shift? 0 BOWEL MANAGEMENT: BOWEL MANAGEMENT - STEP 1: Does the patient control bowels completely and intentionally without equipment devices or medications AND is always continent? Yes. BOWEL MANAGEMENT - SCORE: 7-IND BOWEL MANAGEMENT - FREQUENCY OF ACCIDENTS: BOWEL MANAGEMENT(FA) - STEP 1: How many accidents has the patient had during the current shift? 0 TRANSFERS: BED, CHAIR, WHEELCHAIR: TRANSFERS: BED, CHAIR, WHEELCHAIR - STEP 1: Does the patient require assistance of a person or device, or need extra time with bed, chair, or whe elchair transfers? Yes. TRANSFERS: BED, CHAIR, WHEELCHAIR - STEP 2: Does the patient require the assistance of a helper? Yes. TRANSFERS: BED, CHAIR, WHEELCHAIR - STEP 3: How much assistance does the patient require from the helper? Steadying/guiding assistance TRANSFERS: BED, CHAIR, WHEELCHAIR - SCORE: 4-MIN TRANSFERS: TOILET: TRANSFERS: TOILET - STEP 1: Does the patient require the assistance of a person or device, or need extra time with toilet transfe rs? Yes. TRANSFERS: TOILET - STEP 2: Does the patient require the assistance of a helper? Yes. TRANSFERS: TOILET - STEP 3: How much assistance does the patient require from the helper? Patient performs half or more of the tr ansferring tasks TRANSFERS: TOILET - STEP 4: Does the patient need only incidental help such as contact guard or steadying during toilet transfer? Yes. TRANSFERS: TOILET - SCORE: 4-MIN TRANSFERS: SHOWER: Activity did not occur on this shift TRANSFERS: SHOWER - SCORE: 0-UNK TRANSFERS: TUB: Activity did not occur on this shift TRANSFERS: TUB - SCORE: 0-UNK LOCOMOTION: WALK: Activity did not occur on this shift LOCOMOTION: WALK - SCORE: 0-UNK LOCOMOTION: WHEELCHAIR: LOCOMOTION: WHEELCHAIR - STEP 1: Does the patient need help to go 150 feet in a wheelchair? Yes. LOCOMOTION: WHEELCHAIR - STEP 2: How much assistance does the patient need from the helper? Only supervision, cuing, or coaxing LOCOMOTION: WHEELCHAIR - SCORE: 5-SUP COMPREHENSION: COMPREHENSION: TYPE: Both COMPREHENSION - STEP 1: Does the patient require help from a person or device, or need extra time to understand complex and a bstract ideas (such as current events, finances, discharge planning, medical issues, relationships, e tc)? No. COMPREHENSION - STEP 2: Does the patient need extra time, require an assistive device (such as glasses for visual comprehensi on or a hearing aid for auditory comprehension) or does s/he have mild difficulty understanding compl ex and abstract information? Yes. COMPREHENSION - SCORE: 6-SIRI EXPRESSION EXPRESSION: TYPE: Both EXPRESSION - STEP 1: Does the patient require help from a person or device, or need extra time expressing complex and abst ract ideas (such as current events, finances, discharge planning, medical issues, relationships, etc) ? No. EXPRESSION - STEP 2: Does the patient need extra time, require an assistive device (such as augmentive communication syste m or a communication board), OR does s/he have mild difficulty expressing complex and abstract ideas (including mild dysarthria or mild word-find problems)? Yes. EXPRESSION - SCORE: 6-SIRI SOCIAL INTERACTION: SOCIAL INTERACTION - STEP 1: Does the patient require a helper to interact with others in social and therapeutic situations? No. SOCIAL INTERACTION - STEP 2: Does the patient need extra time in social situations, OR does s/he interact with staff, other patien ts, and family members ONLY in structured environments, OR does s/he require medication for social in teraction? No. SOCIAL INTERACTION - SCORE: 7-IND PROBLEM SOLVING: PROBLEM SOLVING - STEP 1: Does the patient need help from a person or device, or need extra time to solve complex problems such as managing a checking account or confronting interpersonal problems? No. PROBLEM SOLVING - STEP 2: Does the patient require extra time to make decisions or solve problems, OR does s/he have slight dif ficulty reading, initiating, or self-correcting in unfamiliar situations? Yes, patient needs extra ti me. PROBLEM SOLVING - SCORE: 6-SIRI MEMORY: MEMORY - STEP 1: Does the patient need help from a person or device, or need extra time to remember frequently encount ered people, daily routines, and executing requests? Yes. MEMORY - STEP 2: How often does the patient need help to remember frequently encountered people, daily routines, and e xecuting requests? Less than 10% of the time MEMORY - SCORE: 5-SUP SIGNATURE PANEL: The following modified sections: Eating - Score, Grooming - Score, Bathing - Score, Dressing - Upper Body - Score, Dressing - Lower Body - Score, Toileting - Score, Bladder Management - Score, Bowel Man agement - Score, Transfers: Bed, Chair, Wheelchair - Score, Transfers: Toilet - Score, Transfers: Ping wer - Score, Transfers: Tub - Score, Locomotion: Walk - Score, Locomotion: Wheelchair - Score, Compre hension - Score, Expression - Score, Social Interaction - Score, Problem Solving - Score, Memory - Sc ore were [electronically] signed by Lisa Ortega C.N.A. on FriFeb 15 2019 15:18:37 T-0500 ([place])
--- NOTE | 2019-02-16 15:38 | FAST ---
ENCOUNTER DATE AND TIME: 02/16/2019 08:00 (CDT) NAME RADHA MOLINA DATE OF : 1930 DATE OF ADMISSION: 02/03/2019 19:57 (CDT) PHONE: AGE: 88 N# [id number] GENDER: Female ENCOUNTER PHYSICIAN: Dr. Conor Cervantes M.D. 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 EATING: Activity did not occur on this shift EATING - SCORE: 0-UNK GROOMING: Activity did not occur on this shift GROOMING - SCORE: 0-UNK BATHING: Activity did not occur on this shift BATHING - SCORE: 0-UNK DRESSING - UPPER BODY: Activity did not occur on this shift Patient is not dressing in public clothing ARTICLES SCORE Total number of steps: 0 DRESSING - UPPER BODY - SCORE: 0-UNK DRESSING - LOWER BODY: Activity did not occur on this shift Patient is not dressing in public clothing ARTICLES SCORE Total number of steps: 0 DRESSING - LOWER BODY - SCORE: 0-UNK TOILETING: Activity did not occur on this shift TOILETING - SCORE: 0-UNK BLADDER MANAGEMENT: Activity did not occur on this shift BLADDER MANAGEMENT - SCORE: 7-IND BOWEL MANAGEMENT: Activity did not occur on this shift BOWEL MANAGEMENT - SCORE: 7-IND TRANSFERS: BED, CHAIR, WHEELCHAIR: TRANSFERS: BED, CHAIR, WHEELCHAIR - STEP 1: Does the patient require assistance of a person or device, or need extra time with bed, chair, or whe elchair transfers? Yes. TRANSFERS: BED, CHAIR, WHEELCHAIR - STEP 2: Does the patient require the assistance of a helper? No. Patient only requires an assistive device fo r bed, chair, wheelchair transfers such as a sliding board, grab bar, or brace, OR s/he takes more th an reasonable time, OR there is a safety concern when s/he performs the transfers TRANSFERS: BED, CHAIR, WHEELCHAIR - SCORE: 6-SIRI TRANSFERS: TOILET: TRANSFERS: TOILET - STEP 1: Does the patient require the assistance of a person or device, or need extra time with toilet transfe rs? Yes. TRANSFERS: TOILET - STEP 2: Does the patient require the assistance of a helper? No. Patient only requires an assistive device bird ch as a grab bar or special seat, OR s/he takes more than reasonable time to perform toilet transfers , OR there is a safety concern when s/he performs toilet transfers. TRANSFERS: TOILET - SCORE: 6-SIRI TRANSFERS: SHOWER: Activity did not occur on this shift TRANSFERS: SHOWER - SCORE: 0-UNK TRANSFERS: TUB: Activity did not occur on this shift TRANSFERS: TUB - SCORE: 0-UNK LOCOMOTION: WALK: LOCOMOTION: WALK - STEP 1: Does the patient need help from a person or device, or need extra time to walk 150 feet? Yes. LOCOMOTION: WALK - STEP 2: How much assistance does the patient require to walk a minimum of 150 feet? Only supervision, cuing, or coaxing LOCOMOTION: WALK - SCORE: 5-SUP LOCOMOTION: WHEELCHAIR: LOCOMOTION: WHEELCHAIR - STEP 1: Does the patient need help to go 150 feet in a wheelchair? Yes. LOCOMOTION: WHEELCHAIR - STEP 2: How much assistance does the patient need from the helper? Only supervision, cuing, or coaxing LOCOMOTION: WHEELCHAIR - SCORE: 5-SUP LOCOMOTION: STAIRS: Activity did not occur on this shift LOCOMOTION: STAIRS - SCORE: 0-UNK COMPREHENSION: COMPREHENSION - SCORE: 0-UNK EXPRESSION EXPRESSION - SCORE: 0-UNK SOCIAL INTERACTION: SOCIAL INTERACTION - SCORE: 0-UNK PROBLEM SOLVING: PROBLEM SOLVING - SCORE: 0-UNK MEMORY: MEMORY - SCORE: 0-UNK SIGNATURE PANEL: The following modified sections: Transfers: Bed, Chair, Wheelchair - Score, Transfers: Toilet - Score , Locomotion: Walk - Score, Locomotion: Wheelchair - Score, Locomotion: Stairs - Score were [[email or web address] [email or web address]] signed by Josi Harrison PTA on FriFeb 16 2019 15:37:36 GMT-0500 (Central Daylight Time)
--- NOTE | 2019-02-16 18:05 | R.PN ---
ENCOUNTER DATE AND TIME: 02/16/2019 18:01 (CDT) NAME RADHA MOLINA DATE OF : 1930 DATE OF ADMISSION: 02/03/2019 19:57 (CDT) T12 Compression FractureCHIEF COMPLAINT: T12 compression fracture. SUBJECTIVE: Pt denied any Shortness of Breath. Pt denied any depression. Ambulated 950' with standby assistance using a rolling walker. Self-propelled wheelchair 250' with st andby assistance. Up and down 5 steps with contact guard assistance. WBC 6.8, Hgb 14, prealbumin 19.5. VITAL SIGNS Temperature: 97.8 F SBP/DBP: 126/60 Pulse: 89 Resp: 16 MEDICATION ALLERGIES: No Known Drug Allergies (NKDA) ENVIRONMENTAL ALLERGIES: None Known - Substance Allergies None Known - Other Allergies None Known NURSING: - Shower allowing shower - Bladder care per protocol - Skin care per protocol ACTIVITIES OOB only with supervision THERAPIES: - Orthotics/Prosthetics Splinting/Casting. Orthotic Evaluation. - Occupational Therapy Evaluate and Treat. - Physical Therapy Evaluate and Treat. PHYSICAL EXAM - Gen Alert and awake Lying in bed No apparent distress Oriented to: person, time, and place - Skin Rash in left groin No abnormalities - Eyes No abnormalities - ENMT No abnormalities - Neck No abnormalities - CVS RRR - Chest No abnormalities - Abd +bowel sounds - GI Soft Deferred - Urinary incontinence - Ext No significant edema. - MSK 4+/5 weakness in both lower extremities. Back muscle spasms. Back shell brace is in place. - Neuro No focal neurological deficits - Psych No abnormalities ASSESSMENT: Pt. 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 was independent/mod-I in Self-Care, S phincter Control, Transfers Control, Locomotion, Communication, and Social Cognition; and she had goo d Sphincter Control.Currently, she has deficits of Self-Care, Transfers Control, Locomotion, Communic ation, Social Cognition, Endurance, Balance, and Safety Awareness.Pt. is now referred to [facility] for acute in-patient rehabilitation in order to maximize patient's functional i ndependence in activities of daily living, strength, ROM, and mobility.- Rehab Goal Patient has realistic goal of being discharged at assistance level 6-Caroline to reside at Home with Fam mic/Relatives. MDM/PLAN: - Physical Therapy Gait dysfunction - to improve, our physical therapists will perform initial evaluation of pt's statu s upon admission and devise an individualized program for Gait Training, and Wheel Chair mobility Inability to transfer - to improve, our physical therapists will perform initial evaluation of pt's status upon admission and devise an individualized program for Bed mobility Need for home safety evaluation - to improve, our physical therapists will perform initial evaluatio n of pt's status upon admission and devise an individualized program for Home Evaluation Need in caregiver upon discharge - to improve, our physical therapists will perform initial evaluati on of pt's status upon admission and devise an individualized program for Caregiver Training Edema - to improve, our physical therapists will perform initial evaluation of pt's status upon admi ssion and devise an individualized program for Elevation Training, and Lymphedema Therapy New precaution - to improve, our physical therapists will perform initial evaluation of pt's status upon admission and devise an individualized program for Patient precaution education Poor balance - to improve, our physical therapists will perform initial evaluation of pt's status up on admission and devise an individualized program for Balance Training Poor endurance - to improve, our physical therapists will perform initial evaluation of pt's status upon admission and devise an individualized program for Endurance Training Weakness - to improve, our physical therapists will perform initial evaluation of pt's status upon a dmission and devise an individualized program for Aquatic Therapy, Neuromuscular Reeducation, and Str engthening Achieving independence - to improve, our physical therapists will perform initial evaluation of pt's status upon admission and devise an individualized program for Community Reintegration Activities - Occupational Therapy ADL deficits - to improve, our occupation therapists will perform initial evaluation of pt's status upon admission and devise an individualized program for Bathing, Bed mobility, Community Reintegratio n, Cooking, Dressing, Eating, Fine Motor Skills, Grooming, Homemaking, Kitchen Mobility, Laundry, Pat ient Education, Safety Awareness, Splinting - Positioning, Transfers(Toilet, Tub, Shower), and Wheel Chair Management Cognitive deficits - to improve, our occupation therapists will perform initial evaluation of pt's s tatus upon admission and devise an individualized program for Cognition - orientation Need for child care aide - to improve, our occupation therapists will perform initial evaluation of pt's status upon admission and devise an individualized program for Caregiver Training Weakness - to improve, our occupation therapists will perform initial evaluation of pt's status upon admission and devise an individualized program for Aquatic Therapy, Balance, Endurance, UE ROM, and UE strengthening - Diet Type Continue Regular - Diet - Liquid Texture Continue Regular - Tube Feed Continue N/A - Bladder care per protocol - Skin care per protocol - Diet - Solid Texture Continue Regular - Shower allowing shower FUNCTIONAL STATUS: UPDATED AT WEEKLY TEAM CONFERENCE - Bladder Same accident frequency: 7-Ind - No accidents in the past 7 days - Bowel Same accident frequency: 7-Ind - No accidents in the past 7 days - Walking Same score based on distance walked: 1(<=50ft) - Wheelchair Same score based on distance traveled: 0(N/A) FUNCTIONAL STATUS: - Self-Care A. Eating sup B. Grooming sup C. Bathing maxA D. Dressing - Upper maxA E. Dressing - Lower maxA F. Toileting maxA - Sphincter Control G: Bladder control Ind H: Bowel control Ind - Transfers Control I. Bed/Chair/Wheelchair Radha J. Toilet Radha K. Tub/Shower ADNO - Locomotion L. Walk/Wheelchair (B) maxA M. Stairs ADNO - Communication N. Comprehension (B) Radha O. Expression (B) Radha - Social Cognition P. Social Interaction Radha Q. Problem Solving Radha R. Memory min-to-modA - Endurance Fair - Balance Fair - Safety Awareness Fair [facility]RENT [facility] DEFICITS: Self-Care, Transfers Control, Locomotion, Communication, Social Cognition, Endurance, Balance, and Sa fety Awareness SIGNATURE PANEL: (CDT)
[2019-02-16] MEDS: BENZONATATE 100 MG CAP PO SCH (20:02)
[2019-02-16] MEDS: DOCUSATE NA/SENNA CONC 1 TAB PO SCH (20:03)
[2019-02-16] MEDS: AMITRIPTYLINE 25 MG TAB PO SCH (20:03)
[2019-02-16] MEDS: MELATONIN 5 MG TABLET PO PRN (21:36)
[2019-02-17] MEDS: TRAMADOL HCL 50 MG TAB PO SCH ×4 (02:00→19:14)
--- NOTE | 2019-02-17 03:09 | FAST ---
SHIFT START DATE/TIME: 02/16/2019 19:00 (CDT) SHIFT END DATE/TIME: 02/17/2019 07:00 (CDT) NAME RADHA MOLINA DATE OF : 1930 DATE OF ADMISSION: 02/03/2019 19:57 (CDT) PHONE: AGE: 88 N# [id number] GENDER: Female ENCOUNTER PHYSICIAN: Dr. Conor Cervantes M.D. 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 EATING: Activity did not occur on this shift EATING - SCORE: 0-UNK GROOMING: Oral care Wash, rinse, and dry hands GROOMING - STEP 1: Does the patient require the assistance of a person or device, or need extra time when grooming? Yes. GROOMING - STEP 2: Does the patient require the assistance of a helper? Yes. GROOMING - STEP 3: How much assistance does the patient require from the helper? Only prior equipment preparation/set up from the helper GROOMING - SCORE: 5-SUP BATHING: Activity did not occur on this shift BATHING - SCORE: 0-UNK DRESSING - UPPER BODY: Patient is not dressing in public clothing ARTICLES SCORE Total number of steps: 0 DRESSING - UPPER BODY - SCORE: 0-UNK DRESSING - LOWER BODY: Patient is not dressing in public clothing ARTICLES SCORE Total number of steps: 0 DRESSING - LOWER BODY - SCORE: 0-UNK TOILETING: TOILETING - STEP 1: Does the patient require the assistance of a person or device, or need extra time with toileting? Yes . TOILETING - STEP 2: Does the patient require the assistance of a helper? Yes. TOILETING - STEP 3: How much assistance does the patient require from the helper? Hands-on assistance from the helper TOILETING - STEP 4: Of the 3 tasks: 1) Adjusting clothing prior to use, 2) Cleansing of perineal area, 3) Adjusting clot loni after use; How many tasks does the patient perform WITHOUT assistance of the helper? Two tasks TOILETING - SCORE: 3-MOD BLADDER MANAGEMENT: BLADDER MANAGEMENT - STEP 1: Does the patient control the bladder completely and intentionally without equipment or devices or med ications, and is always continent? No. BLADDER MANAGEMENT - STEP 2: Does the patient require the assistance of a helper? Yes. BLADDER MANAGEMENT - STEP 3: How much assistance does the patient require from the helper? Only supervision, stand-by, cuing, or c oaxing BLADDER MANAGEMENT - SCORE: 5-SUP BOWEL MANAGEMENT: Activity did not occur on this shift BOWEL MANAGEMENT - SCORE: 7-IND TRANSFERS: BED, CHAIR, WHEELCHAIR: TRANSFERS: BED, CHAIR, WHEELCHAIR - STEP 1: Does the patient require assistance of a person or device, or need extra time with bed, chair, or whe elchair transfers? Yes. TRANSFERS: BED, CHAIR, WHEELCHAIR - STEP 2: Does the patient require the assistance of a helper? Yes. TRANSFERS: BED, CHAIR, WHEELCHAIR - STEP 3: How much assistance does the patient require from the helper? Steadying/guiding assistance TRANSFERS: BED, CHAIR, WHEELCHAIR - SCORE: 4-MIN TRANSFERS: TOILET: TRANSFERS: TOILET - STEP 1: Does the patient require the assistance of a person or device, or need extra time with toilet transfe rs? Yes. TRANSFERS: TOILET - STEP 2: Does the patient require the assistance of a helper? Yes. TRANSFERS: TOILET - STEP 3: How much assistance does the patient require from the helper? Only supervision, cuing, coaxing, OR he lp to set out transfer equipment or to lock brakes and/or lift foot rests TRANSFERS: TOILET - SCORE: 5-SUP TRANSFERS: SHOWER: Activity did not occur on this shift TRANSFERS: SHOWER - SCORE: 0-UNK TRANSFERS: TUB: Activity did not occur on this shift TRANSFERS: TUB - SCORE: 0-UNK LOCOMOTION: WALK: Activity did not occur on this shift LOCOMOTION: WALK - SCORE: 0-UNK LOCOMOTION: WHEELCHAIR: Activity did not occur on this shift LOCOMOTION: WHEELCHAIR - SCORE: 0-UNK COMPREHENSION: COMPREHENSION: TYPE: Both COMPREHENSION - STEP 1: Does the patient require help from a person or device, or need extra time to understand complex and a bstract ideas (such as current events, finances, discharge planning, medical issues, relationships, e tc)? No. COMPREHENSION - STEP 2: Does the patient need extra time, require an assistive device (such as glasses for visual comprehensi on or a hearing aid for auditory comprehension) or does s/he have mild difficulty understanding compl ex and abstract information? Yes. COMPREHENSION - SCORE: 6-SIRI EXPRESSION EXPRESSION: TYPE: Both EXPRESSION - STEP 1: Does the patient require help from a person or device, or need extra time expressing complex and abst ract ideas (such as current events, finances, discharge planning, medical issues, relationships, etc) ? No. EXPRESSION - STEP 2: Does the patient need extra time, require an assistive device (such as augmentive communication syste m or a communication board), OR does s/he have mild difficulty expressing complex and abstract ideas (including mild dysarthria or mild word-find problems)? Yes. EXPRESSION - SCORE: 6-SIRI SOCIAL INTERACTION: SOCIAL INTERACTION - STEP 1: Does the patient require a helper to interact with others in social and therapeutic situations? No. SOCIAL INTERACTION - STEP 2: Does the patient need extra time in social situations, OR does s/he interact with staff, other patien ts, and family members ONLY in structured environments, OR does s/he require medication for social in teraction? Yes, patient needs extra time SOCIAL INTERACTION - SCORE: 6-SIRI PROBLEM SOLVING: PROBLEM SOLVING - STEP 1: Does the patient need help from a person or device, or need extra time to solve complex problems such as managing a checking account or confronting interpersonal problems? Yes. PROBLEM SOLVING - STEP 2: Does the patient solve basic routine problems half or more of the time? Yes. PROBLEM SOLVING - STEP 3: How often does the patient need help to solve basic routine problems? Less than 10% of the time PROBLEM SOLVING - SCORE: 5-SUP MEMORY: MEMORY - STEP 1: Does the patient need help from a person or device, or need extra time to remember frequently encount ered people, daily routines, and executing requests? No. MEMORY - STEP 2: Does the patient have slight difficulty recognizing frequently encountered people, daily routines, or executing requests without the need for repetition or using self-initiated or environmental cues to remember? Yes. MEMORY - SCORE: 6-SIRI SIGNATURE PANEL: The following modified sections: Eating - Score, Grooming - Score, Dressing - Upper Body - Score, Juan José ssing - Lower Body - Score, Toileting - Score, Bladder Management - Score, Bowel Management - Score, Transfers: Bed, Chair, Wheelchair - Score, Transfers: Toilet - Score, Transfers: Shower - Score, [place] sfers: Tub - Score, Locomotion: Walk - Score, Locomotion: Wheelchair - Score, Comprehension - Score, Expression - Score, Social Interaction - Score, Problem Solving - Score, Memory - Score were [electro nically] signed by Tasha Dunne CNA on FriFeb 17 2019 03:07:57 GMT-0500 (Central Daylight Time)
[2019-02-17] MEDS: ACETAMINOPHEN 325 MG TABLET PO PRN ×2 (03:47→16:41)
[2019-02-17] MEDS: LEVOTHYROXINE SOD 0.05 MG TABLET PO SCH (07:02)
[2019-02-17] MEDS: LEVOTHYROXINE SOD 0.1 MG TAB PO SCH (07:02)
[2019-02-17] MEDS: FUROSEMIDE 20 MG TABLET PO SCH (08:00)
[2019-02-17] MEDS: NYSTATIN PWDR 100000 UNIT/GM TOP SCH ×2 (08:00→19:14)
[2019-02-17] MEDS: POLYETHYL GLY 3350 17 GM/DOSE PO SCH (08:06)
[2019-02-17] MEDS: LIDOCAINE 5% PATCH TOP SCH (08:06)
[2019-02-17] MEDS: APIXABAN 2.5 MG TABLET PO SCH ×2 (08:07→19:14)
[2019-02-17] MEDS: DOCUSATE NA 100 MG CAP PO SCH (08:07)
[2019-02-17] MEDS: PROMOD 30 ML DOSE PO SCH ×2 (08:10→19:13)
[2019-02-17] MEDS: METHOCARBAMOL 500 MG TAB PO PRN (10:55)
--- NOTE | 2019-02-17 10:58 | FAST ---
SHIFT START DATE/TIME: 02/17/2019 07:00 (CDT) SHIFT END DATE/TIME: 02/17/2019 19:00 (CDT) NAME RADHA MOLINA DATE OF : 1930 DATE OF ADMISSION: 02/03/2019 19:57 (CDT) PHONE: AGE: 88 N# [id number] GENDER: Female ENCOUNTER PHYSICIAN: Dr. Conor Cervantes M.D. 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 EATING: EATING - STEP 1: Does the patient require the assistance of a person or device, or need extra time when eating? Yes. EATING - STEP 2: Does the patient require the assistance of a helper? Yes. EATING - STEP 3: Does the patient perform half or more of the eating tasks? Yes. EATING - STEP 4: Does the patient need only supervision, cuing, coaxing OR help to apply an orthosis OR help to cut fo od, open containers, pour liquids, or butter bread? Yes. EATING - SCORE: 5-SUP GROOMING: Activity did not occur on this shift GROOMING - SCORE: 0-UNK BATHING: Activity did not occur on this shift BATHING - SCORE: 0-UNK DRESSING - UPPER BODY: T-shirt/pullover shirt (four steps) ARTICLES SCORE Total number of steps: 4 DRESSING - UPPER BODY - STEP 1: Does the patient require help from a person or device, or need extra time when dressing above the star st? Yes. DRESSING - UPPER BODY - STEP 2: Does the patient require the assistance of a helper? Yes. DRESSING - UPPER BODY - STEP 3: Does the helper touch the patient while dressing? Yes. DRESSING - UPPER BODY - STEP 4: How many of the total steps does the patient complete on his/her own? 2 DRESSING - UPPER BODY - SCORE: 3-MOD DRESSING - LOWER BODY: ARTICLES SCORE Total number of steps: 3 DRESSING - LOWER BODY - STEP 1: Does the patient require help from a person or device, or need extra time when dressing below the star st? Yes. DRESSING - LOWER BODY - STEP 2: Does the patient require the assistance of a helper? Yes. DRESSING - LOWER BODY - STEP 3: Does the helper touch the patient while dressing? Yes. DRESSING - LOWER BODY - STEP 4: How many of the total steps does the patient complete on his/her own? 3 DRESSING - LOWER BODY - SCORE: 4-MIN TOILETING: TOILETING - STEP 1: Does the patient require the assistance of a person or device, or need extra time with toileting? Yes . TOILETING - STEP 2: Does the patient require the assistance of a helper? Yes. TOILETING - STEP 3: How much assistance does the patient require from the helper? Hands-on assistance from the helper TOILETING - STEP 4: Of the 3 tasks: 1) Adjusting clothing prior to use, 2) Cleansing of perineal area, 3) Adjusting clot loni after use; How many tasks does the patient perform WITHOUT assistance of the helper? Two tasks TOILETING - SCORE: 3-MOD BLADDER MANAGEMENT: BLADDER MANAGEMENT - STEP 1: Does the patient control the bladder completely and intentionally without equipment or devices or med ications, and is always continent? No. BLADDER MANAGEMENT - STEP 2: Does the patient require the assistance of a helper? No, patient requires and independently uses an a ssistive device, such as a urinal, bedpan, bedside commode, catheter, absorbent pad, or collecting de vice BLADDER MANAGEMENT - SCORE: 6-SIRI BOWEL MANAGEMENT: Activity did not occur on this shift BOWEL MANAGEMENT - SCORE: 7-IND TRANSFERS: BED, CHAIR, WHEELCHAIR: TRANSFERS: BED, CHAIR, WHEELCHAIR - STEP 1: Does the patient require assistance of a person or device, or need extra time with bed, chair, or whe elchair transfers? Yes. TRANSFERS: BED, CHAIR, WHEELCHAIR - STEP 2: Does the patient require the assistance of a helper? Yes. TRANSFERS: BED, CHAIR, WHEELCHAIR - STEP 3: How much assistance does the patient require from the helper? Steadying/guiding assistance TRANSFERS: BED, CHAIR, WHEELCHAIR - SCORE: 4-MIN TRANSFERS: TOILET: TRANSFERS: TOILET - STEP 1: Does the patient require the assistance of a person or device, or need extra time with toilet transfe rs? Yes. TRANSFERS: TOILET - STEP 2: Does the patient require the assistance of a helper? Yes. TRANSFERS: TOILET - STEP 3: How much assistance does the patient require from the helper? Patient performs half or more of the tr ansferring tasks TRANSFERS: TOILET - STEP 4: Does the patient need only incidental help such as contact guard or steadying during toilet transfer? Yes. TRANSFERS: TOILET - SCORE: 4-MIN TRANSFERS: SHOWER: Activity did not occur on this shift TRANSFERS: SHOWER - SCORE: 0-UNK TRANSFERS: TUB: Activity did not occur on this shift TRANSFERS: TUB - SCORE: 0-UNK LOCOMOTION: WALK: Activity did not occur on this shift LOCOMOTION: WALK - SCORE: 0-UNK LOCOMOTION: WHEELCHAIR: Activity did not occur on this shift LOCOMOTION: WHEELCHAIR - SCORE: 0-UNK COMPREHENSION: COMPREHENSION: TYPE: Both COMPREHENSION - STEP 1: Does the patient require help from a person or device, or need extra time to understand complex and a bstract ideas (such as current events, finances, discharge planning, medical issues, relationships, e tc)? Yes. COMPREHENSION - STEP 2: Does the patient require help to understand questions or statements about basic needs or ideas (such as hunger, thirst, sleep, safety, daily schedule, room location, or discomfort) half or more of the t shirley? No. COMPREHENSION - STEP 3: How often does the patient need help to understand directions and conversation about basic needs? Les s than 10% of the time COMPREHENSION - SCORE: 5-SUP EXPRESSION EXPRESSION: TYPE: Both EXPRESSION - STEP 1: Does the patient require help from a person or device, or need extra time expressing complex and abst ract ideas (such as current events, finances, discharge planning, medical issues, relationships, etc) ? Yes. EXPRESSION - STEP 2: Does the patient require help to express basic necessities or ideas (such as hunger, thirst, sleep, s afety, daily schedule, room location, or discomfort) half or more of the time? No. EXPRESSION - STEP 3: How often does the patient need help to express directions and conversation about basic needs? Less t locke 10% of the time EXPRESSION - SCORE: 5-SUP SOCIAL INTERACTION: SOCIAL INTERACTION - STEP 1: Does the patient require a helper to interact with others in social and therapeutic situations? Yes. SOCIAL INTERACTION - STEP 2: Does the patient interact appropriately half or more of the time? Yes. SOCIAL INTERACTION - STEP 3: How often does the patient need help to interact appropriately? Less than 10% of the time SOCIAL INTERACTION - SCORE: 5-SUP PROBLEM SOLVING: PROBLEM SOLVING - STEP 1: Does the patient need help from a person or device, or need extra time to solve complex problems such as managing a checking account or confronting interpersonal problems? Yes. PROBLEM SOLVING - STEP 2: Does the patient solve basic routine problems half or more of the time? Yes. PROBLEM SOLVING - STEP 3: How often does the patient need help to solve basic routine problems? Less than 10% of the time PROBLEM SOLVING - SCORE: 5-SUP MEMORY: MEMORY - STEP 1: Does the patient need help from a person or device, or need extra time to remember frequently encount ered people, daily routines, and executing requests? Yes. MEMORY - STEP 2: How often does the patient need help to remember frequently encountered people, daily routines, and e xecuting requests? Less than 10% of the time MEMORY - SCORE: 5-SUP SIGNATURE PANEL: The following modified sections: Eating - Score, Grooming - Score, Bathing - Score, Dressing - Upper Body - Score, Dressing - Lower Body - Score, Toileting - Score, Bladder Management - Score, Bowel Man agement - Score, Transfers: Bed, Chair, Wheelchair - Score, Transfers: Toilet - Score, Transfers: Ping wer - Score, Transfers: Tub - Score, Locomotion: Walk - Score, Locomotion: Wheelchair - Score, Compre hension - Score, Expression - Score, Social Interaction - Score, Problem Solving - Score, Memory - Sc ore were [electronically] signed by Reyes Hernandez on FriFeb 17 2019 10:57:34 T-0500 (Central Daylight Time)
--- NOTE | 2019-02-17 15:25 | FAST ---
ENCOUNTER DATE AND TIME: 02/17/2019 08:00 (CDT) NAME RADHA MOLINA DATE OF : 1930 DATE OF ADMISSION: 02/03/2019 19:57 (CDT) PHONE: AGE: 88 N# [id number] GENDER: Female ENCOUNTER PHYSICIAN: Dr. Conor Cervantes M.D. 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 EATING: Activity did not occur on this shift EATING - SCORE: 0-UNK GROOMING: Activity did not occur on this shift GROOMING - SCORE: 0-UNK BATHING: Activity did not occur on this shift BATHING - SCORE: 0-UNK DRESSING - UPPER BODY: Activity did not occur on this shift Patient is not dressing in public clothing ARTICLES SCORE Total number of steps: 0 DRESSING - UPPER BODY - SCORE: 0-UNK DRESSING - LOWER BODY: Activity did not occur on this shift Patient is not dressing in public clothing ARTICLES SCORE Total number of steps: 0 DRESSING - LOWER BODY - SCORE: 0-UNK TOILETING: Activity did not occur on this shift TOILETING - SCORE: 0-UNK BLADDER MANAGEMENT: Activity did not occur on this shift BLADDER MANAGEMENT - SCORE: 7-IND BOWEL MANAGEMENT: Activity did not occur on this shift BOWEL MANAGEMENT - SCORE: 7-IND TRANSFERS: BED, CHAIR, WHEELCHAIR: TRANSFERS: BED, CHAIR, WHEELCHAIR - STEP 1: Does the patient require assistance of a person or device, or need extra time with bed, chair, or whe elchair transfers? Yes. TRANSFERS: BED, CHAIR, WHEELCHAIR - STEP 2: Does the patient require the assistance of a helper? Yes. TRANSFERS: BED, CHAIR, WHEELCHAIR - STEP 3: How much assistance does the patient require from the helper? Steadying/guiding assistance TRANSFERS: BED, CHAIR, WHEELCHAIR - SCORE: 4-MIN TRANSFERS: TOILET: Activity did not occur on this shift TRANSFERS: TOILET - SCORE: 0-UNK TRANSFERS: SHOWER: Activity did not occur on this shift TRANSFERS: SHOWER - SCORE: 0-UNK TRANSFERS: TUB: Activity did not occur on this shift TRANSFERS: TUB - SCORE: 0-UNK LOCOMOTION: WALK: LOCOMOTION: WALK - STEP 1: Does the patient need help from a person or device, or need extra time to walk 150 feet? Yes. LOCOMOTION: WALK - STEP 2: How much assistance does the patient require to walk a minimum of 150 feet? Only supervision, cuing, or coaxing LOCOMOTION: WALK - SCORE: 5-SUP LOCOMOTION: WHEELCHAIR: LOCOMOTION: WHEELCHAIR - STEP 1: Does the patient need help to go 150 feet in a wheelchair? Yes. LOCOMOTION: WHEELCHAIR - STEP 2: How much assistance does the patient need from the helper? Only supervision, cuing, or coaxing LOCOMOTION: WHEELCHAIR - SCORE: 5-SUP LOCOMOTION: STAIRS: LOCOMOTION: STAIRS - STEP 1: Does the patient need help to go up and down 12 to 14 stairs? Yes. LOCOMOTION: STAIRS - STEP 2: How much assistance does the patient need from the helper to go a minimum of 12 to 14 stairs? Only bird pervision, cuing, or coaxing LOCOMOTION: STAIRS - SCORE: 5-SUP COMPREHENSION: COMPREHENSION - SCORE: 0-UNK EXPRESSION EXPRESSION - SCORE: 0-UNK SOCIAL INTERACTION: SOCIAL INTERACTION - SCORE: 0-UNK PROBLEM SOLVING: PROBLEM SOLVING - SCORE: 0-UNK MEMORY: MEMORY - SCORE: 0-UNK SIGNATURE PANEL: The following modified sections: Transfers: Bed, Chair, Wheelchair - Score, Transfers: Toilet - Score , Locomotion: Walk - Score, Locomotion: Wheelchair - Score, Locomotion: Stairs - Score were [lucinda andrea] signed by Lester Esposito PTA on FriFeb 17 2019 15:24:31 T-0500 (Central Daylight Time)
--- NOTE | 2019-02-17 17:46 | R.PN ---
ENCOUNTER DATE AND TIME: 02/17/2019 17:41 (CDT) NAME RADHA MOLINA DATE OF : 1930 DATE OF ADMISSION: 02/03/2019 19:57 (CDT) T12 Compression FractureCHIEF COMPLAINT: T12 compression fracture. SUBJECTIVE: Pt denied any Shortness of Breath. Pt denied any depression. Ambulated 500' with standby assistance using a rolling walker. Self-propelled wheelchair 150' with st andby assistance. Up and down 15 steps with standby assistance. WBC 6.8, Hgb 14, prealbumin 19.5. VITAL SIGNS Temperature: 97.8 F SBP/DBP: 109/50 Pulse: 85 Resp: 16 MEDICATION ALLERGIES: No Known Drug Allergies (NKDA) ENVIRONMENTAL ALLERGIES: None Known - Substance Allergies None Known - Other Allergies None Known NURSING: - Shower allowing shower - Bladder care per protocol - Skin care per protocol ACTIVITIES OOB only with supervision THERAPIES: - Orthotics/Prosthetics Splinting/Casting. Orthotic Evaluation. - Occupational Therapy Evaluate and Treat. - Physical Therapy Evaluate and Treat. PHYSICAL EXAM - Gen Alert and awake Lying in bed No apparent distress Oriented to: person, time, and place - Skin Rash in left groin No abnormalities - Eyes No abnormalities - ENMT No abnormalities - Neck No abnormalities - CVS RRR - Chest No abnormalities - Abd +bowel sounds - GI Soft Deferred - Urinary incontinence - Ext No significant edema. - MSK 4+/5 weakness in both lower extremities. Back muscle spasms. Back shell brace is in place. - Neuro No focal neurological deficits - Psych No abnormalities ASSESSMENT: Pt. is a 88 yo Right-handed white female.Her impairment category is Spinal Cord Dysfunction 04 - [facility] er Traumatic Spinal Cord Dysfunction (04.230).Pre-morbidly, Pt. was independent/mod-I in Self-Care, S phincter Control, Transfers Control, Locomotion, Communication, and Social Cognition; and she had goo d Sphincter Control.Currently, she has deficits of Self-Care, Transfers Control, Locomotion, Communic ation, Social Cognition, Endurance, Balance, and Safety Awareness.Pt. is now referred to [facility] for acute in-patient rehabilitation in order to maximize patient's functional i ndependence in activities of daily living, strength, ROM, and mobility.- Rehab Goal Patient has realistic goal of being discharged at assistance level 6-Caroline to reside at Home with Fam mic/Relatives. MDM/PLAN: - Physical Therapy Gait dysfunction - to improve, our physical therapists will perform initial evaluation of pt's statu s upon admission and devise an individualized program for Gait Training, and Wheel Chair mobility Inability to transfer - to improve, our physical therapists will perform initial evaluation of pt's status upon admission and devise an individualized program for Bed mobility Need for home safety evaluation - to improve, our physical therapists will perform initial evaluatio n of pt's status upon admission and devise an individualized program for Home Evaluation Need in caregiver upon discharge - to improve, our physical therapists will perform initial evaluati on of pt's status upon admission and devise an individualized program for Caregiver Training Edema - to improve, our physical therapists will perform initial evaluation of pt's status upon admi ssion and devise an individualized program for Elevation Training, and Lymphedema Therapy New precaution - to improve, our physical therapists will perform initial evaluation of pt's status upon admission and devise an individualized program for Patient precaution education Poor balance - to improve, our physical therapists will perform initial evaluation of pt's status up on admission and devise an individualized program for Balance Training Poor endurance - to improve, our physical therapists will perform initial evaluation of pt's status upon admission and devise an individualized program for Endurance Training Weakness - to improve, our physical therapists will perform initial evaluation of pt's status upon a dmission and devise an individualized program for Aquatic Therapy, Neuromuscular Reeducation, and Str engthening Achieving independence - to improve, our physical therapists will perform initial evaluation of pt's status upon admission and devise an individualized program for Community Reintegration Activities - Occupational Therapy ADL deficits - to improve, our occupation therapists will perform initial evaluation of pt's status upon admission and devise an individualized program for Bathing, Bed mobility, Community Reintegratio n, Cooking, Dressing, Eating, Fine Motor Skills, Grooming, Homemaking, Kitchen Mobility, Laundry, Pat ient Education, Safety Awareness, Splinting - Positioning, Transfers(Toilet, Tub, Shower), and Wheel Chair Management Cognitive deficits - to improve, our occupation therapists will perform initial evaluation of pt's s tatus upon admission and devise an individualized program for Cognition - orientation Need for career agent - to improve, our occupation therapists will perform initial evaluation of pt's status upon admission and devise an individualized program for Caregiver Training Weakness - to improve, our occupation therapists will perform initial evaluation of pt's status upon admission and devise an individualized program for Aquatic Therapy, Balance, Endurance, UE ROM, and UE strengthening - Diet Type Continue Regular - Diet - Liquid Texture Continue Regular - Tube Feed Continue N/A - Bladder care per protocol - Skin care per protocol - Diet - Solid Texture Continue Regular - Shower allowing shower FUNCTIONAL STATUS: UPDATED AT WEEKLY TEAM CONFERENCE - Bladder Same accident frequency: 7-Ind - No accidents in the past 7 days - Bowel Same accident frequency: 7-Ind - No accidents in the past 7 days - Walking Same score based on distance walked: 1(<=50ft) - Wheelchair Same score based on distance traveled: 0(N/A) FUNCTIONAL STATUS: - Self-Care A. Eating sup B. Grooming sup C. Bathing maxA D. Dressing - Upper maxA E. Dressing - Lower maxA F. Toileting maxA - Sphincter Control G: Bladder control Ind H: Bowel control Ind - Transfers Control I. Bed/Chair/Wheelchair Radha J. Toilet Radha K. Tub/Shower ADNO - Locomotion L. Walk/Wheelchair (B) maxA M. Stairs ADNO - Communication N. Comprehension (B) Radha O. Expression (B) Radha - Social Cognition P. Social Interaction Radha Q. Problem Solving Radha R. Memory min-to-modA - Endurance Fair - Balance Fair - Safety Awareness Fair [facility] DEFICITS: Self-Care, Transfers Control, Locomotion, Communication, Social Cognition, Endurance, Balance, and Sa fety Awareness SIGNATURE PANEL: (CDT)
[2019-02-17] MEDS: AMITRIPTYLINE 25 MG TAB PO SCH (20:25)
[2019-02-17] MEDS: DOCUSATE NA/SENNA CONC 1 TAB PO SCH (20:25)
[2019-02-17] MEDS: BENZONATATE 100 MG CAP PO SCH (20:25)
[2019-02-18] MEDS: MELATONIN 5 MG TABLET PO PRN (01:00)
--- NOTE | 2019-02-18 01:22 | FAST ---
SHIFT START DATE/TIME: 02/17/2019 19:00 (CDT) SHIFT END DATE/TIME: 02/18/2019 07:00 (CDT) NAME RADHA MOLINA DATE OF : 1930 DATE OF ADMISSION: 02/03/2019 19:57 (CDT) PHONE: AGE: 88 N# [id number] GENDER: Female ENCOUNTER PHYSICIAN: Dr. Conor Cervantes M.D. 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 EATING: Activity did not occur on this shift EATING - SCORE: 0-UNK GROOMING: Oral care Wash, rinse, and dry hands GROOMING - STEP 1: Does the patient require the assistance of a person or device, or need extra time when grooming? Yes. GROOMING - STEP 2: Does the patient require the assistance of a helper? Yes. GROOMING - STEP 3: How much assistance does the patient require from the helper? Only prior equipment preparation/set up from the helper GROOMING - SCORE: 5-SUP BATHING: Activity did not occur on this shift BATHING - SCORE: 0-UNK DRESSING - UPPER BODY: Patient is not dressing in public clothing ARTICLES SCORE Total number of steps: 0 DRESSING - UPPER BODY - SCORE: 0-UNK DRESSING - LOWER BODY: Patient is not dressing in public clothing ARTICLES SCORE Total number of steps: 0 DRESSING - LOWER BODY - SCORE: 0-UNK TOILETING: TOILETING - STEP 1: Does the patient require the assistance of a person or device, or need extra time with toileting? Yes . TOILETING - STEP 2: Does the patient require the assistance of a helper? Yes. TOILETING - STEP 3: How much assistance does the patient require from the helper? Hands-on assistance from the helper TOILETING - STEP 4: Of the 3 tasks: 1) Adjusting clothing prior to use, 2) Cleansing of perineal area, 3) Adjusting clot loni after use; How many tasks does the patient perform WITHOUT assistance of the helper? Three tasks with steadying assistance from the helper TOILETING - SCORE: 4-MIN BLADDER MANAGEMENT: BLADDER MANAGEMENT - STEP 1: Does the patient control the bladder completely and intentionally without equipment or devices or med ications, and is always continent? No. BLADDER MANAGEMENT - STEP 2: Does the patient require the assistance of a helper? Yes. BLADDER MANAGEMENT - STEP 3: How much assistance does the patient require from the helper? Only supervision, stand-by, cuing, or c oaxing BLADDER MANAGEMENT - SCORE: 5-SUP BOWEL MANAGEMENT: Activity did not occur on this shift BOWEL MANAGEMENT - SCORE: 7-IND TRANSFERS: BED, CHAIR, WHEELCHAIR: TRANSFERS: BED, CHAIR, WHEELCHAIR - STEP 1: Does the patient require assistance of a person or device, or need extra time with bed, chair, or whe elchair transfers? Yes. TRANSFERS: BED, CHAIR, WHEELCHAIR - STEP 2: Does the patient require the assistance of a helper? Yes. TRANSFERS: BED, CHAIR, WHEELCHAIR - STEP 3: How much assistance does the patient require from the helper? Steadying/guiding assistance TRANSFERS: BED, CHAIR, WHEELCHAIR - SCORE: 4-MIN TRANSFERS: TOILET: TRANSFERS: TOILET - STEP 1: Does the patient require the assistance of a person or device, or need extra time with toilet transfe rs? Yes. TRANSFERS: TOILET - STEP 2: Does the patient require the assistance of a helper? Yes. TRANSFERS: TOILET - STEP 3: How much assistance does the patient require from the helper? Only supervision, cuing, coaxing, OR he lp to set out transfer equipment or to lock brakes and/or lift foot rests TRANSFERS: TOILET - SCORE: 5-SUP TRANSFERS: SHOWER: Activity did not occur on this shift TRANSFERS: SHOWER - SCORE: 0-UNK TRANSFERS: TUB: Activity did not occur on this shift TRANSFERS: TUB - SCORE: 0-UNK LOCOMOTION: WALK: Activity did not occur on this shift LOCOMOTION: WALK - SCORE: 0-UNK LOCOMOTION: WHEELCHAIR: Activity did not occur on this shift LOCOMOTION: WHEELCHAIR - SCORE: 0-UNK COMPREHENSION: COMPREHENSION: TYPE: Both COMPREHENSION - STEP 1: Does the patient require help from a person or device, or need extra time to understand complex and a bstract ideas (such as current events, finances, discharge planning, medical issues, relationships, e tc)? No. COMPREHENSION - STEP 2: Does the patient need extra time, require an assistive device (such as glasses for visual comprehensi on or a hearing aid for auditory comprehension) or does s/he have mild difficulty understanding compl ex and abstract information? Yes. COMPREHENSION - SCORE: 6-SIRI EXPRESSION EXPRESSION: TYPE: Both EXPRESSION - STEP 1: Does the patient require help from a person or device, or need extra time expressing complex and abst ract ideas (such as current events, finances, discharge planning, medical issues, relationships, etc) ? No. EXPRESSION - STEP 2: Does the patient need extra time, require an assistive device (such as augmentive communication syste m or a communication board), OR does s/he have mild difficulty expressing complex and abstract ideas (including mild dysarthria or mild word-find problems)? Yes. EXPRESSION - SCORE: 6-SIRI SOCIAL INTERACTION: SOCIAL INTERACTION - STEP 1: Does the patient require a helper to interact with others in social and therapeutic situations? No. SOCIAL INTERACTION - STEP 2: Does the patient need extra time in social situations, OR does s/he interact with staff, other patien ts, and family members ONLY in structured environments, OR does s/he require medication for social in teraction? Yes, patient needs extra time SOCIAL INTERACTION - SCORE: 6-SIRI PROBLEM SOLVING: PROBLEM SOLVING - STEP 1: Does the patient need help from a person or device, or need extra time to solve complex problems such as managing a checking account or confronting interpersonal problems? Yes. PROBLEM SOLVING - STEP 2: Does the patient solve basic routine problems half or more of the time? Yes. PROBLEM SOLVING - STEP 3: How often does the patient need help to solve basic routine problems? 10%-24% of the time PROBLEM SOLVING - SCORE: 4-MIN MEMORY: MEMORY - STEP 1: Does the patient need help from a person or device, or need extra time to remember frequently encount ered people, daily routines, and executing requests? Yes. MEMORY - STEP 2: How often does the patient need help to remember frequently encountered people, daily routines, and e xecuting requests? 10% - 24% of the time MEMORY - SCORE: 4-MIN SIGNATURE PANEL: The following modified sections: Eating - Score, Grooming - Score, Dressing - Upper Body - Score, Juan José ssing - Lower Body - Score, Toileting - Score, Bladder Management - Score, Bowel Management - Score, Transfers: Bed, Chair, Wheelchair - Score, Transfers: Toilet - Score, Transfers: Shower - Score, [place] sfers: Tub - Score, Locomotion: Walk - Score, Locomotion: Wheelchair - Score, Comprehension - Score, Expression - Score, Social Interaction - Score, Problem Solving - Score, Memory - Score were [electro nically] signed by Tasha Dunne CNA on FriFeb 18 2019 01:21:07 T-0500 (Central Daylight Time)
[2019-02-18] MEDS: TRAMADOL HCL 50 MG TAB PO SCH ×5 (02:00→20:48)
[2019-02-18 06:28] LABS: Absolute Lymphocytes (CBC) 1.2 K/uL (0.7-4.9); Absolute Monocytes 0.5 K/uL (0.1-1.3); Absolute Neutrophil 3.6 K/uL (1.8-8.0); Basophils % 0.5 % (0-1.3); Hematocrit 44.2 % (36.0-45.0); Lymphocytes % 20.9 % (15.3-44.8); MPV 9.3 fL (7.6-11.3); Monocytes % 7.7 % (3.3-12.3); RBC Red Blood Cell Count 4.96 M/uL (3.86-4.86)
[2019-02-18] MEDS: LEVOTHYROXINE SOD 0.1 MG TAB PO SCH (06:39)
[2019-02-18] MEDS: LIDOCAINE 5% PATCH TOP SCH (06:39)
[2019-02-18] MEDS: LEVOTHYROXINE SOD 0.05 MG TABLET PO SCH (06:39)
[2019-02-18] MEDS: NYSTATIN PWDR 100000 UNIT/GM TOP SCH ×2 (06:40→20:47)
[2019-02-18 06:59] LABS: Albumin 2.8 g/dL (3.4-5.0); Potassium 3.4 mmol/L (3.5-5.1); Prealbumin 17.2 mg/dL (20-40)
[2019-02-18] MEDS: FUROSEMIDE 20 MG TABLET PO SCH (08:28)
[2019-02-18] MEDS: APIXABAN 2.5 MG TABLET PO SCH ×2 (08:28→20:48)
[2019-02-18] MEDS: DOCUSATE NA 100 MG CAP PO SCH (08:28)
[2019-02-18] MEDS: PROMOD 30 ML DOSE PO SCH ×2 (08:29→20:47)
[2019-02-18] MEDS: POLYETHYL GLY 3350 17 GM/DOSE PO SCH (08:29)
--- NOTE | 2019-02-18 14:27 | FAST ---
SHIFT START DATE/TIME: 02/18/2019 07:00 (CDT) SHIFT END DATE/TIME: 02/18/2019 19:00 (CDT) NAME RADHA MOLINA DATE OF : 1930 DATE OF ADMISSION: 02/03/2019 19:57 (CDT) PHONE: AGE: 88 N# [id number] GENDER: Female ENCOUNTER PHYSICIAN: Dr. Conor Cervantes M.D. 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 EATING: EATING - STEP 1: Does the patient require the assistance of a person or device, or need extra time when eating? Yes. EATING - STEP 2: Does the patient require the assistance of a helper? Yes. EATING - STEP 3: Does the patient perform half or more of the eating tasks? Yes. EATING - STEP 4: Does the patient need only supervision, cuing, coaxing OR help to apply an orthosis OR help to cut fo od, open containers, pour liquids, or butter bread? Yes. EATING - SCORE: 5-SUP GROOMING: Comb/brush hair Oral care Wash, rinse, and dry face Wash, rinse, and dry hands GROOMING - STEP 1: Does the patient require the assistance of a person or device, or need extra time when grooming? Yes. GROOMING - STEP 2: Does the patient require the assistance of a helper? Yes. GROOMING - STEP 3: How much assistance does the patient require from the helper? Only prior equipment preparation/set up from the helper GROOMING - SCORE: 5-SUP BATHING: Activity did not occur on this shift BATHING - SCORE: 0-UNK DRESSING - UPPER BODY: T-shirt/pullover shirt (four steps) ARTICLES SCORE Total number of steps: 4 DRESSING - UPPER BODY - STEP 1: Does the patient require help from a person or device, or need extra time when dressing above the star st? Yes. DRESSING - UPPER BODY - STEP 2: Does the patient require the assistance of a helper? Yes. DRESSING - UPPER BODY - STEP 3: Does the helper touch the patient while dressing? Yes. DRESSING - UPPER BODY - STEP 4: How many of the total steps does the patient complete on his/her own? 2 DRESSING - UPPER BODY - SCORE: 3-MOD DRESSING - LOWER BODY: ARTICLES SCORE Total number of steps: 3 DRESSING - LOWER BODY - STEP 1: Does the patient require help from a person or device, or need extra time when dressing below the star st? Yes. DRESSING - LOWER BODY - STEP 2: Does the patient require the assistance of a helper? No. Patient requires an assistive device such as a biscuit factory worker. OR s/he takes more than reasonable time as s/he dresses the lower body, OR there is a con cern for safety when s/he dresses the lower body DRESSING - LOWER BODY - SCORE: 6-SIRI TOILETING: TOILETING - STEP 1: Does the patient require the assistance of a person or device, or need extra time with toileting? Yes . TOILETING - STEP 2: Does the patient require the assistance of a helper? Yes. TOILETING - STEP 3: How much assistance does the patient require from the helper? Hands-on assistance from the helper TOILETING - STEP 4: Of the 3 tasks: 1) Adjusting clothing prior to use, 2) Cleansing of perineal area, 3) Adjusting clot loni after use; How many tasks does the patient perform WITHOUT assistance of the helper? Two tasks TOILETING - SCORE: 3-MOD BLADDER MANAGEMENT: BLADDER MANAGEMENT - STEP 1: Does the patient control the bladder completely and intentionally without equipment or devices or med ications, and is always continent? No. BLADDER MANAGEMENT - STEP 2: Does the patient require the assistance of a helper? No, patient requires and independently uses an a ssistive device, such as a urinal, bedpan, bedside commode, catheter, absorbent pad, or collecting de vice BLADDER MANAGEMENT - SCORE: 6-SIRI BOWEL MANAGEMENT: Activity did not occur on this shift BOWEL MANAGEMENT - SCORE: 7-IND TRANSFERS: BED, CHAIR, WHEELCHAIR: TRANSFERS: BED, CHAIR, WHEELCHAIR - STEP 1: Does the patient require assistance of a person or device, or need extra time with bed, chair, or whe elchair transfers? Yes. TRANSFERS: BED, CHAIR, WHEELCHAIR - STEP 2: Does the patient require the assistance of a helper? Yes. TRANSFERS: BED, CHAIR, WHEELCHAIR - STEP 3: How much assistance does the patient require from the helper? Steadying/guiding assistance TRANSFERS: BED, CHAIR, WHEELCHAIR - SCORE: 4-MIN TRANSFERS: TOILET: TRANSFERS: TOILET - STEP 1: Does the patient require the assistance of a person or device, or need extra time with toilet transfe rs? Yes. TRANSFERS: TOILET - STEP 2: Does the patient require the assistance of a helper? Yes. TRANSFERS: TOILET - STEP 3: How much assistance does the patient require from the helper? Patient performs half or more of the tr ansferring tasks TRANSFERS: TOILET - STEP 4: Does the patient need only incidental help such as contact guard or steadying during toilet transfer? Yes. TRANSFERS: TOILET - SCORE: 4-MIN TRANSFERS: SHOWER: Activity did not occur on this shift TRANSFERS: SHOWER - SCORE: 0-UNK TRANSFERS: TUB: Activity did not occur on this shift TRANSFERS: TUB - SCORE: 0-UNK LOCOMOTION: WALK: Activity did not occur on this shift LOCOMOTION: WALK - SCORE: 0-UNK LOCOMOTION: WHEELCHAIR: Activity did not occur on this shift LOCOMOTION: WHEELCHAIR - SCORE: 0-UNK COMPREHENSION: COMPREHENSION: TYPE: Both COMPREHENSION - STEP 1: Does the patient require help from a person or device, or need extra time to understand complex and a bstract ideas (such as current events, finances, discharge planning, medical issues, relationships, e tc)? No. COMPREHENSION - STEP 2: Does the patient need extra time, require an assistive device (such as glasses for visual comprehensi on or a hearing aid for auditory comprehension) or does s/he have mild difficulty understanding compl ex and abstract information? Yes. COMPREHENSION - SCORE: 6-SIRI EXPRESSION EXPRESSION: TYPE: Both EXPRESSION - STEP 1: Does the patient require help from a person or device, or need extra time expressing complex and abst ract ideas (such as current events, finances, discharge planning, medical issues, relationships, etc) ? No. EXPRESSION - STEP 2: Does the patient need extra time, require an assistive device (such as augmentive communication syste m or a communication board), OR does s/he have mild difficulty expressing complex and abstract ideas (including mild dysarthria or mild word-find problems)? Yes. EXPRESSION - SCORE: 6-SIRI SOCIAL INTERACTION: SOCIAL INTERACTION - STEP 1: Does the patient require a helper to interact with others in social and therapeutic situations? Yes. SOCIAL INTERACTION - STEP 2: Does the patient interact appropriately half or more of the time? Yes. SOCIAL INTERACTION - STEP 3: How often does the patient need help to interact appropriately? Less than 10% of the time SOCIAL INTERACTION - SCORE: 5-SUP PROBLEM SOLVING: PROBLEM SOLVING - STEP 1: Does the patient need help from a person or device, or need extra time to solve complex problems such as managing a checking account or confronting interpersonal problems? No. PROBLEM SOLVING - STEP 2: Does the patient require extra time to make decisions or solve problems, OR does s/he have slight dif ficulty reading, initiating, or self-correcting in unfamiliar situations? Yes, patient needs extra ti me. PROBLEM SOLVING - SCORE: 6-SIRI MEMORY: MEMORY - STEP 1: Does the patient need help from a person or device, or need extra time to remember frequently encount ered people, daily routines, and executing requests? Yes. MEMORY - STEP 2: How often does the patient need help to remember frequently encountered people, daily routines, and e xecuting requests? Less than 10% of the time MEMORY - SCORE: 5-SUP SIGNATURE PANEL: The following modified sections: Eating - Score, Grooming - Score, Bathing - Score, Dressing - Upper Body - Score, Dressing - Lower Body - Score, Toileting - Score, Bladder Management - Score, Bowel Man agement - Score, Transfers: Bed, Chair, Wheelchair - Score, Transfers: Toilet - Score, Transfers: Ping wer - Score, Transfers: Tub - Score, Locomotion: Walk - Score, Locomotion: Wheelchair - Score, Compre hension - Score, Expression - Score, Social Interaction - Score, Problem Solving - Score, Memory - Sc ore were [electronically] signed by Reyes Hernandez on FriFeb 18 2019 14:27:34 T-0500 (Central Daylight Time)
--- NOTE | 2019-02-18 15:06 | FAST ---
ENCOUNTER DATE AND TIME: 02/18/2019 08:00 (CDT) NAME RADHA MOLINA DATE OF : 1930 DATE OF ADMISSION: 02/03/2019 19:57 (CDT) PHONE: AGE: 88 N# [id number] GENDER: Female ENCOUNTER PHYSICIAN: Dr. Conor Cervantes M.D. 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 EATING: Activity did not occur on this shift EATING - SCORE: 0-UNK GROOMING: Activity did not occur on this shift GROOMING - SCORE: 0-UNK BATHING: Activity did not occur on this shift BATHING - SCORE: 0-UNK DRESSING - UPPER BODY: Activity did not occur on this shift Patient is not dressing in public clothing ARTICLES SCORE Total number of steps: 0 DRESSING - UPPER BODY - SCORE: 0-UNK DRESSING - LOWER BODY: Activity did not occur on this shift Patient is not dressing in public clothing ARTICLES SCORE Total number of steps: 0 DRESSING - LOWER BODY - SCORE: 0-UNK TOILETING: Activity did not occur on this shift TOILETING - SCORE: 0-UNK BLADDER MANAGEMENT: Activity did not occur on this shift BLADDER MANAGEMENT - SCORE: 7-IND BOWEL MANAGEMENT: Activity did not occur on this shift BOWEL MANAGEMENT - SCORE: 7-IND TRANSFERS: BED, CHAIR, WHEELCHAIR: TRANSFERS: BED, CHAIR, WHEELCHAIR - STEP 1: Does the patient require assistance of a person or device, or need extra time with bed, chair, or whe elchair transfers? Yes. TRANSFERS: BED, CHAIR, WHEELCHAIR - STEP 2: Does the patient require the assistance of a helper? Yes. TRANSFERS: BED, CHAIR, WHEELCHAIR - STEP 3: How much assistance does the patient require from the helper? Only supervision TRANSFERS: BED, CHAIR, WHEELCHAIR - SCORE: 5-SUP TRANSFERS: TOILET: Activity did not occur on this shift TRANSFERS: TOILET - SCORE: 0-UNK TRANSFERS: SHOWER: Activity did not occur on this shift TRANSFERS: SHOWER - SCORE: 0-UNK TRANSFERS: TUB: Activity did not occur on this shift TRANSFERS: TUB - SCORE: 0-UNK LOCOMOTION: WALK: LOCOMOTION: WALK - STEP 1: Does the patient need help from a person or device, or need extra time to walk 150 feet? Yes. LOCOMOTION: WALK - STEP 2: How much assistance does the patient require to walk a minimum of 150 feet? Only supervision, cuing, or coaxing LOCOMOTION: WALK - SCORE: 5-SUP LOCOMOTION: WHEELCHAIR: LOCOMOTION: WHEELCHAIR - STEP 1: Does the patient need help to go 150 feet in a wheelchair? Yes. LOCOMOTION: WHEELCHAIR - STEP 2: How much assistance does the patient need from the helper? Only supervision, cuing, or coaxing LOCOMOTION: WHEELCHAIR - SCORE: 5-SUP LOCOMOTION: STAIRS: LOCOMOTION: STAIRS - STEP 1: Does the patient need help to go up and down 12 to 14 stairs? Yes. LOCOMOTION: STAIRS - STEP 2: How much assistance does the patient need from the helper to go a minimum of 12 to 14 stairs? Only bird pervision, cuing, or coaxing LOCOMOTION: STAIRS - SCORE: 5-SUP COMPREHENSION: COMPREHENSION - SCORE: 0-UNK EXPRESSION EXPRESSION - SCORE: 0-UNK SOCIAL INTERACTION: SOCIAL INTERACTION - SCORE: 0-UNK PROBLEM SOLVING: PROBLEM SOLVING - SCORE: 0-UNK MEMORY: MEMORY - SCORE: 0-UNK SIGNATURE PANEL: The following modified sections: Transfers: Bed, Chair, Wheelchair - Score, Transfers: Toilet - Score , Locomotion: Walk - Score, Locomotion: Wheelchair - Score, Locomotion: Stairs - Score were [lucinda andrea] signed by Lester Esposito PTA on FriFeb 18 2019 15:05:06 GMT-0500 (Central Daylight Time)
[2019-02-18] MEDS: BISACODYL 10 MG RECTAL SUPP PR PRN (15:12)
--- NOTE | 2019-02-18 16:59 | RAD REPORT ---
EXAM DESCRIPTION: RAD - Abdomen 1 View (K[facility]) - 02/18/2019 3:42 pm CLINICAL HISTORY: r/o fecal retention Pain COMPARISON: <Comparisons> FINDINGS: The bowel gas pattern is non-obstructive. No evidence of free air or pneumatosis. No suspi cious calcifications. No significant bony findings. Moderately severe fecal retention in the colon, particularly the right colon. IMPRESSION: Moderately severe fecal retention, particularly right colon.
--- NOTE | 2019-02-18 18:33 | R.PN ---
ENCOUNTER DATE AND TIME: 02/18/2019 18:30 (CDT) NAME RADHA MOLINA DATE OF : 1930 DATE OF ADMISSION: 02/03/2019 19:57 (CDT) T12 Compression FractureCHIEF COMPLAINT: T12 compression fracture. SUBJECTIVE: Pt denied any Shortness of Breath. Pt denied any depression. Ambulated 750' with standby assistance using a rolling walker. Self-propelled wheelchair 150' with st andby assistance. Up and down 15 steps with standby assistance. WBC 6.0, Hgb 14.7, prealbumin 17.2. VITAL SIGNS Temperature: 97.8 F SBP/DBP: 124/50 Pulse: 85 Resp: 16 MEDICATION ALLERGIES: No Known Drug Allergies (NKDA) ENVIRONMENTAL ALLERGIES: None Known - Substance Allergies None Known - Other Allergies None Known NURSING: - Shower allowing shower - Bladder care per protocol - Skin care per protocol ACTIVITIES OOB only with supervision THERAPIES: - Orthotics/Prosthetics Splinting/Casting. Orthotic Evaluation. - Occupational Therapy Evaluate and Treat. - Physical Therapy Evaluate and Treat. PHYSICAL EXAM - Gen Alert and awake Lying in bed No apparent distress Oriented to: person, time, and place - Skin Rash in left groin No abnormalities - Eyes No abnormalities - ENMT No abnormalities - Neck No abnormalities - CVS RRR - Chest No abnormalities - Abd +bowel sounds - GI Soft Deferred - Urinary incontinence - Ext No significant edema. - MSK 4+/5 weakness in both lower extremities. Back muscle spasms. Back shell brace is in place. - Neuro No focal neurological deficits - Psych No abnormalities ASSESSMENT: Pt. 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 was independent/mod-I in Self-Care, S phincter Control, Transfers Control, Locomotion, Communication, and Social Cognition; and she had goo d Sphincter Control.Currently, she has deficits of Self-Care, Transfers Control, Locomotion, Communic ation, Social Cognition, Endurance, Balance, and Safety Awareness.Pt. is now referred to [facility] for acute in-patient rehabilitation in order to maximize patient's functional i ndependence in activities of daily living, strength, ROM, and mobility.- Rehab Goal Patient has realistic goal of being discharged at assistance level 6-Caroline to reside at Home with Fam mic/Relatives. MDM/PLAN: - Physical Therapy Gait dysfunction - to improve, our physical therapists will perform initial evaluation of pt's statu s upon admission and devise an individualized program for Gait Training, and Wheel Chair mobility Inability to transfer - to improve, our physical therapists will perform initial evaluation of pt's status upon admission and devise an individualized program for Bed mobility Need for home safety evaluation - to improve, our physical therapists will perform initial evaluatio n of pt's status upon admission and devise an individualized program for Home Evaluation Need in caregiver upon discharge - to improve, our physical therapists will perform initial evaluati on of pt's status upon admission and devise an individualized program for Caregiver Training Edema - to improve, our physical therapists will perform initial evaluation of pt's status upon admi ssion and devise an individualized program for Elevation Training, and Lymphedema Therapy New precaution - to improve, our physical therapists will perform initial evaluation of pt's status upon admission and devise an individualized program for Patient precaution education Poor balance - to improve, our physical therapists will perform initial evaluation of pt's status up on admission and devise an individualized program for Balance Training Poor endurance - to improve, our physical therapists will perform initial evaluation of pt's status upon admission and devise an individualized program for Endurance Training Weakness - to improve, our physical therapists will perform initial evaluation of pt's status upon a dmission and devise an individualized program for Aquatic Therapy, Neuromuscular Reeducation, and Str engthening Achieving independence - to improve, our physical therapists will perform initial evaluation of pt's status upon admission and devise an individualized program for Community Reintegration Activities - Occupational Therapy ADL deficits - to improve, our occupation therapists will perform initial evaluation of pt's status upon admission and devise an individualized program for Bathing, Bed mobility, Community Reintegratio n, Cooking, Dressing, Eating, Fine Motor Skills, Grooming, Homemaking, Kitchen Mobility, Laundry, Pat ient Education, Safety Awareness, Splinting - Positioning, Transfers(Toilet, Tub, Shower), and Wheel Chair Management Cognitive deficits - to improve, our occupation therapists will perform initial evaluation of pt's s tatus upon admission and devise an individualized program for Cognition - orientation Need for career development associate - to improve, our occupation therapists will perform initial evaluation of pt's status upon admission and devise an individualized program for Caregiver Training Weakness - to improve, our occupation therapists will perform initial evaluation of pt's status upon admission and devise an individualized program for Aquatic Therapy, Balance, Endurance, UE ROM, and UE strengthening - Diet Type Continue Regular - Diet - Liquid Texture Continue Regular - Tube Feed Continue N/A - Bladder care per protocol - Skin care per protocol - Diet - Solid Texture Continue Regular - Shower allowing shower FUNCTIONAL STATUS: UPDATED AT WEEKLY TEAM CONFERENCE - Bladder Same accident frequency: 7-Ind - No accidents in the past 7 days - Bowel Same accident frequency: 7-Ind - No accidents in the past 7 days - Walking Same score based on distance walked: 1(<=50ft) - Wheelchair Same score based on distance traveled: 0(N/A) FUNCTIONAL STATUS: - Self-Care A. Eating sup B. Grooming sup C. Bathing maxA D. Dressing - Upper maxA E. Dressing - Lower maxA F. Toileting maxA - Sphincter Control G: Bladder control Ind H: Bowel control Ind - Transfers Control I. Bed/Chair/Wheelchair Radha J. Toilet Radha K. Tub/Shower ADNO - Locomotion L. Walk/Wheelchair (B) maxA M. Stairs ADNO - Communication N. Comprehension (B) Radha O. Expression (B) Radha - Social Cognition P. Social Interaction Radha Q. Problem Solving Radha R. Memory min-to-modA - Endurance Fair - Balance Fair - Safety Awareness Fair CURRENT [facility]. DEFICITS: Self-Care, Transfers Control, Locomotion, Communication, Social Cognition, Endurance, Balance, and Sa fety Awareness SIGNATURE PANEL: (CDT)
[2019-02-18] MEDS: AMITRIPTYLINE 25 MG TAB PO SCH (20:47)
[2019-02-18] MEDS: DOCUSATE NA/SENNA CONC 1 TAB PO SCH (20:48)
[2019-02-18] MEDS: BENZONATATE 100 MG CAP PO SCH (20:48)
--- NOTE | 2019-02-19 00:51 | FAST ---
SHIFT START DATE/TIME: 02/18/2019 19:00 (CDT) SHIFT END DATE/TIME: 02/19/2019 07:00 (CDT) NAME RADHA MOLINA DATE OF : 1930 DATE OF ADMISSION: 02/03/2019 19:57 (CDT) PHONE: AGE: 88 N# [id number] GENDER: Female ENCOUNTER PHYSICIAN: Dr. Conor Cervantes M.D. 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 EATING: Activity did not occur on this shift EATING - SCORE: 0-UNK GROOMING: Activity did not occur on this shift GROOMING - SCORE: 0-UNK BATHING: Activity did not occur on this shift BATHING - SCORE: 0-UNK DRESSING - UPPER BODY: Patient is not dressing in public clothing ARTICLES SCORE Total number of steps: 0 DRESSING - UPPER BODY - SCORE: 0-UNK DRESSING - LOWER BODY: Patient is not dressing in public clothing ARTICLES SCORE Total number of steps: 0 DRESSING - LOWER BODY - SCORE: 0-UNK TOILETING: TOILETING - STEP 1: Does the patient require the assistance of a person or device, or need extra time with toileting? Yes . TOILETING - STEP 2: Does the patient require the assistance of a helper? Yes. TOILETING - STEP 3: How much assistance does the patient require from the helper? Hands-on assistance from the helper TOILETING - STEP 4: Of the 3 tasks: 1) Adjusting clothing prior to use, 2) Cleansing of perineal area, 3) Adjusting clot loni after use; How many tasks does the patient perform WITHOUT assistance of the helper? Three tasks with steadying assistance from the helper TOILETING - SCORE: 4-MIN BLADDER MANAGEMENT: BLADDER MANAGEMENT - STEP 1: Does the patient control the bladder completely and intentionally without equipment or devices or med ications, and is always continent? Yes. BLADDER MANAGEMENT - SCORE: 7-IND BOWEL MANAGEMENT: BOWEL MANAGEMENT - STEP 1: Does the patient control bowels completely and intentionally without equipment devices or medications AND is always continent? No. BOWEL MANAGEMENT - STEP 2: Does the patient require the assistance of a helper? Yes. BOWEL MANAGEMENT - STEP 3: How much assistance does the patient require from the helper? Patient requires moderate assistance - performs 50% to 74% of bowel management tasks BOWEL MANAGEMENT - SCORE: 3-MOD TRANSFERS: BED, CHAIR, WHEELCHAIR: TRANSFERS: BED, CHAIR, WHEELCHAIR - STEP 1: Does the patient require assistance of a person or device, or need extra time with bed, chair, or whe elchair transfers? Yes. TRANSFERS: BED, CHAIR, WHEELCHAIR - STEP 2: Does the patient require the assistance of a helper? Yes. TRANSFERS: BED, CHAIR, WHEELCHAIR - STEP 3: How much assistance does the patient require from the helper? Steadying/guiding assistance TRANSFERS: BED, CHAIR, WHEELCHAIR - SCORE: 4-MIN TRANSFERS: TOILET: TRANSFERS: TOILET - STEP 1: Does the patient require the assistance of a person or device, or need extra time with toilet transfe rs? Yes. TRANSFERS: TOILET - STEP 2: Does the patient require the assistance of a helper? Yes. TRANSFERS: TOILET - STEP 3: How much assistance does the patient require from the helper? Patient performs half or more of the tr ansferring tasks TRANSFERS: TOILET - STEP 4: Does the patient need only incidental help such as contact guard or steadying during toilet transfer? Yes. TRANSFERS: TOILET - SCORE: 4-MIN TRANSFERS: SHOWER: Activity did not occur on this shift TRANSFERS: SHOWER - SCORE: 0-UNK TRANSFERS: TUB: Activity did not occur on this shift TRANSFERS: TUB - SCORE: 0-UNK LOCOMOTION: WALK: Activity did not occur on this shift LOCOMOTION: WALK - SCORE: 0-UNK LOCOMOTION: WHEELCHAIR: Activity did not occur on this shift LOCOMOTION: WHEELCHAIR - SCORE: 0-UNK COMPREHENSION: COMPREHENSION: TYPE: Both COMPREHENSION - STEP 1: Does the patient require help from a person or device, or need extra time to understand complex and a bstract ideas (such as current events, finances, discharge planning, medical issues, relationships, e tc)? No. COMPREHENSION - STEP 2: Does the patient need extra time, require an assistive device (such as glasses for visual comprehensi on or a hearing aid for auditory comprehension) or does s/he have mild difficulty understanding compl ex and abstract information? Yes. COMPREHENSION - SCORE: 6-SIRI EXPRESSION EXPRESSION: TYPE: Both EXPRESSION - STEP 1: Does the patient require help from a person or device, or need extra time expressing complex and abst ract ideas (such as current events, finances, discharge planning, medical issues, relationships, etc) ? No. EXPRESSION - STEP 2: Does the patient need extra time, require an assistive device (such as augmentive communication syste m or a communication board), OR does s/he have mild difficulty expressing complex and abstract ideas (including mild dysarthria or mild word-find problems)? No. EXPRESSION - SCORE: 7-IND SOCIAL INTERACTION: SOCIAL INTERACTION - STEP 1: Does the patient require a helper to interact with others in social and therapeutic situations? No. SOCIAL INTERACTION - STEP 2: Does the patient need extra time in social situations, OR does s/he interact with staff, other patien ts, and family members ONLY in structured environments, OR does s/he require medication for social in teraction? Yes, patient requires medication for social interaction SOCIAL INTERACTION - SCORE: 6-SIRI PROBLEM SOLVING: Patient requires bed/chair alarms due to attempts to get up unassisted when helper is needed. PROBLEM SOLVING - STEP 1: How often do the bed/chair alarms go off? Occasionally - the alarms go off about 25% or less PROBLEM SOLVING - SCORE: 4-MIN MEMORY: MEMORY - STEP 1: How often do the bed/chair alarms go off? Occasionally - the alarms go off about 25% of the time or l ess MEMORY - SCORE: 4-MIN SIGNATURE PANEL: The following modified sections: Eating - Score, Grooming - Score, Bathing - Score, Dressing - Upper Body - Score, Dressing - Lower Body - Score, Toileting - Score, Bladder Management - Score, Bowel Man agement - Score, Transfers: Bed, Chair, Wheelchair - Score, Transfers: Toilet - Score, Transfers: Ping wer - Score, Transfers: Tub - Score, Locomotion: Walk - Score, Locomotion: Wheelchair - Score, Compre hension - Score, Expression - Score, Social Interaction - Score, Problem Solving - Score, Memory - Sc ore were [electronically] signed by Yasmine Meza CNA on FriFeb 19 2019 00:50:52 GMT-0500 ([place] Da ylight Time)
[2019-02-19] MEDS: TRAMADOL HCL 50 MG TAB PO SCH ×4 (01:43→20:50)
[2019-02-19] MEDS: LEVOTHYROXINE SOD 0.05 MG TABLET PO SCH (06:45)
[2019-02-19] MEDS: LEVOTHYROXINE SOD 0.1 MG TAB PO SCH (06:45)
[2019-02-19] MEDS: POLYETHYL GLY 3350 17 GM/DOSE PO SCH (08:28)
[2019-02-19] MEDS: FUROSEMIDE 20 MG TABLET PO SCH (08:28)
[2019-02-19] MEDS: DOCUSATE NA 100 MG CAP PO SCH (08:28)
[2019-02-19] MEDS: APIXABAN 2.5 MG TABLET PO SCH ×2 (08:29→20:49)
[2019-02-19] MEDS: PROMOD 30 ML DOSE PO SCH ×2 (08:30→20:50)
--- NOTE | 2019-02-19 09:57 | P.RH.PN ---
Estimated Length of Stay: 18 Expected Discharge Date: 02/20/19 Discharge Disposition Plan: Home Family Support: Yes Longterm Goal: Mobility, Transfers, Self Care Vital Signs: Last Vital Signs Temp 97.5 F 02/19/19 06:45 Pulse 74 02/19/19 08:28 Resp 16 02/19/19 06:45 BP 125/59 L 02/19/19 08:28 Pulse Ox 93 02/19/19 06:45 Laboratory: Laboratory Last Values WBC 6.0 K/uL (4.3-10.9) 02/18/19 06:00 RBC 4.96 M/uL (3.86-4.86) H 02/18/19 06:00 Hgb 14.7 g/dL (12.0-15.0) 02/18/19 06:00 Hct 44.2 % (36.0-45.0) 02/18/19 06:00 MCV 89.1 fL (80-100) 02/18/19 06:00 MCH 29.5 pg (27.0-35.0) 02/18/19 06:00 MCHC 33.2 g/dL (32.0-36.0) 02/18/19 06:00 RDW 15.6 % (12.1-15.2) H 02/18/19 06:00 Plt Count 266 K/uL (152-406) D 02/18/19 06:00 MPV 9.3 fL (7.6-11.3) 02/18/19 06:00 Neutrophils % 59.9 % (41.7-73.7) 02/18/19 06:00 Lymphocytes % 20.9 % (15.3-44.8) 02/18/19 06:00 Monocytes % 7.7 % (3.3-12.3) 02/18/19 06:00 Eosinophils % 11.0 % (0-4.4) H 02/18/19 06:00 Basophils % 0.5 % (0-1.3) 02/18/19 06:00 Absolute Neutrophils 3.6 K/uL (1.8-8.0) 02/18/19 06:00 Absolute Lymphocytes 1.2 K/uL (0.7-4.9) 02/18/19 06:00 Absolute Monocytes 0.5 K/uL (0.1-1.3) 02/18/19 06:00 Absolute Eosinophils 0.7 K/uL (0-0.5) H 02/18/19 06:00 Absolute Basophils 0.0 K/uL (0-0.5) 02/18/19 06:00 Sodium 145 mmol/L (136-145) 02/18/19 06:00 Potassium 3.4 mmol/L (3.5-5.1) L 02/18/19 06:00 Chloride 106 mmol/L (98-107) 02/18/19 06:00 Carbon Dioxide 37 mmol/L (21-32) H 02/18/19 06:00 BUN 19 mg/dL (7-18) H 02/18/19 06:00 Creatinine 0.66 mg/dL (0.55-1.3) 02/18/19 06:00 Estimated GFR 85 mL/min (=/>90) L 02/18/19 06:00 Glucose 102 mg/dL (74-106) 02/18/19 06:00 Calcium 8.5 mg/dL (8.5-10.1) 02/18/19 06:00 Magnesium 2.4 mg/dL (1.8-2.4) 02/04/19 05:32 Albumin 2.8 g/dL (3.4-5.0) L 02/18/19 06:00 Prealbumin 17.2 mg/dL (20-40) L 02/18/19 06:00 Urine Color Yellow 02/03/19 20:10 Urine Appearance Clear 02/03/19 20:10 Urine pH 5.5 (5.0-7.0) 02/03/19 20:10 Ur Specific [place] 1.020 (1.005-1.030) 02/03/19 20:10 Urine Ketones 1+ (NEG) H 02/03/19 20:10 Urine Blood Negative (NEG) 02/03/19 20:10 Urine Nitrite Negative (NEG) 02/03/19 20:10 Urine Bilirubin Negative (NEG) 02/03/19 20:10 Urine Urobilinogen 0.2 mg/dL (0.2-1.0) 02/03/19 20:10 Ur Leukocyte Esterase 1+ (NEG) H 02/03/19 20:10 Urine RBC <5 /HPF (NONE SEEN) 04/10/19 20:10 Urine WBC <5 /HPF (<5) 02/03/19 20:10 Ur Squamous Epith Cells <5 /HPF (NONE SEEN) 02/03/19 20:10 Urine Bacteria <20 /HPF (<20) 02/03/19 20:10 Urine Culture Reflexed Not needed 02/03/19 20:10 Urine Glucose Negative (NEG) 02/03/19 20:10 Urine Total Protein Negative (NEG) 02/03/19 20:10 Weight: 178 lb 9.6 oz Wound Present: No Closed Surgical Incision Present: No Negative Pressure Wound Therapy Present: No Physician Update: Labs have been reviewed. WC 6.0, Hgb 14.7, prealbumin 17.2. She is doing well with physical and occupational therapy. She is walking over 500' with modified independence. Supervision with bathing and minimum assistance with lower body dressing. She with be discharged with home health and keep her shell brace on until neurosurgery followup. Pain Issues: Lidoderm patch 2 patch daily. Tramadol 50mg Q6H PRN Functional Improvement: Patient has met all short-term goals at this time and has progressed well toward long-term goals. Patient has improved very well over the last week w/ her therapy. Functional Improvement Occupational Therapy: pt can benifit with further therapy to address pt's safety and energy conservation techniques while cont to instruct and educate the pt by providing demo/tactile and v/c's for safety when using A/E as needed for Bathing and LB dressing tasks. pt doesn't adhere to back precautions, but cont to monitor and educate. Cont to increase pt's endurance and activity tolerance for all adl and functional tasks by addressing pt's pain and providing rest breaks at times pt does require some encouragement to particpate during therapy esspecially when pt gets overwhelmed and starts to get increase pain in the lower/middle back, when completing certain tasks. Cont to increase pt's static standing balance for adl tasks and for functional transfers. Cont with the POC and the goals by the supervising OTR. Speech Therapy Update: Pt. is at MIN A for Auditory Comprehension (mostly due to hearing impairments), MOD I for Verbal Expression and MOD I for Social Interaction, MIN A for Problem Solving, and MOD A for Memory. Pt. will require close supervision for safety once discharged. Summary: Patient's care plan and joint terminal attack controller goals have been reviewed and revised as necessary. Please see the Rehabilitation Signature page for all necessary signatures.
[2019-02-19] MEDS: LIDOCAINE 5% PATCH TOP SCH (11:45)
[2019-02-19] MEDS: NYSTATIN PWDR 100000 UNIT/GM TOP SCH ×2 (11:46→20:00)
--- NOTE | 2019-02-19 14:11 | FAST ---
ENCOUNTER DATE AND TIME: 02/19/2019 08:00 (CDT) NAME RADHA MOLINA DATE OF : 1930 DATE OF ADMISSION: 02/03/2019 19:57 (CDT) PHONE: AGE: 88 N# [id number] GENDER: Female ENCOUNTER PHYSICIAN: Dr. Conor Cervantes M.D. 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 EATING: Activity did not occur on this shift EATING - SCORE: 0-UNK GROOMING: Activity did not occur on this shift GROOMING - SCORE: 0-UNK BATHING: Activity did not occur on this shift BATHING - SCORE: 0-UNK DRESSING - UPPER BODY: Activity did not occur on this shift Patient is not dressing in public clothing ARTICLES SCORE Total number of steps: 0 DRESSING - UPPER BODY - SCORE: 0-UNK DRESSING - LOWER BODY: Activity did not occur on this shift Patient is not dressing in public clothing ARTICLES SCORE Total number of steps: 0 DRESSING - LOWER BODY - SCORE: 0-UNK TOILETING: Activity did not occur on this shift TOILETING - SCORE: 0-UNK BLADDER MANAGEMENT: Activity did not occur on this shift BLADDER MANAGEMENT - SCORE: 7-IND BOWEL MANAGEMENT: Activity did not occur on this shift BOWEL MANAGEMENT - SCORE: 7-IND TRANSFERS: BED, CHAIR, WHEELCHAIR: TRANSFERS: BED, CHAIR, WHEELCHAIR - STEP 1: Does the patient require assistance of a person or device, or need extra time with bed, chair, or whe elchair transfers? Yes. TRANSFERS: BED, CHAIR, WHEELCHAIR - STEP 2: Does the patient require the assistance of a helper? No. Patient only requires an assistive device fo r bed, chair, wheelchair transfers such as a sliding board, grab bar, or brace, OR s/he takes more th an reasonable time, OR there is a safety concern when s/he performs the transfers TRANSFERS: BED, CHAIR, WHEELCHAIR - SCORE: 6-SIRI TRANSFERS: TOILET: TRANSFERS: TOILET - STEP 1: Does the patient require the assistance of a person or device, or need extra time with toilet transfe rs? Yes. TRANSFERS: TOILET - STEP 2: Does the patient require the assistance of a helper? No. Patient only requires an assistive device bird ch as a grab bar or special seat, OR s/he takes more than reasonable time to perform toilet transfers , OR there is a safety concern when s/he performs toilet transfers. TRANSFERS: TOILET - SCORE: 6-SIRI TRANSFERS: SHOWER: Activity did not occur on this shift TRANSFERS: SHOWER - SCORE: 0-UNK TRANSFERS: TUB: Activity did not occur on this shift TRANSFERS: TUB - SCORE: 0-UNK LOCOMOTION: WALK: LOCOMOTION: WALK - STEP 1: Does the patient need help from a person or device, or need extra time to walk 150 feet? No. LOCOMOTION: WALK - STEP 2: Does the patient need an assistive device (such as an orthosis, prosthesis, crutches, or walker) to g o 150 feet, OR does s/he take more than reasonable time, OR is there a concern for safety? Yes, the p atient needs an assistive device LOCOMOTION: WALK - SCORE: 6-SIRI LOCOMOTION: WHEELCHAIR: LOCOMOTION: WHEELCHAIR - STEP 1: Does the patient need help to go 150 feet in a wheelchair? Yes. LOCOMOTION: WHEELCHAIR - STEP 2: How much assistance does the patient need from the helper? Only supervision, cuing, or coaxing LOCOMOTION: WHEELCHAIR - SCORE: 5-SUP LOCOMOTION: STAIRS: LOCOMOTION: STAIRS - STEP 1: Does the patient need help to go up and down 12 to 14 stairs? Yes. LOCOMOTION: STAIRS - STEP 2: How much assistance does the patient need from the helper to go a minimum of 12 to 14 stairs? Only bird pervision, cuing, or coaxing LOCOMOTION: STAIRS - SCORE: 5-SUP COMPREHENSION: COMPREHENSION - SCORE: 0-UNK EXPRESSION EXPRESSION - SCORE: 0-UNK SOCIAL INTERACTION: SOCIAL INTERACTION - SCORE: 0-UNK PROBLEM SOLVING: PROBLEM SOLVING - SCORE: 0-UNK MEMORY: MEMORY - SCORE: 0-UNK SIGNATURE PANEL: The following modified sections: Transfers: Bed, Chair, Wheelchair - Score, Transfers: Toilet - Score , Locomotion: Walk - Score, Locomotion: Wheelchair - Score, Locomotion: Stairs - Score were [electron zully] signed by Josi Harrison PTA on FriFeb 19 2019 14:10:53 T-0500 (Central Daylight Time)
--- NOTE | 2019-02-19 15:32 | FAST ---
SHIFT START DATE/TIME: 02/19/2019 07:00 (CDT) SHIFT END DATE/TIME: 02/19/2019 19:00 (CDT) NAME RADHA MOLINA DATE OF : 1930 DATE OF ADMISSION: 02/03/2019 19:57 (CDT) PHONE: AGE: 88 N# [id number] GENDER: Female ENCOUNTER PHYSICIAN: Dr. Conor Cervantes M.D. 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 EATING: EATING - STEP 1: Does the patient require the assistance of a person or device, or need extra time when eating? No. EATING - SCORE: 7-IND GROOMING: Comb/brush hair Wash, rinse, and dry face Wash, rinse, and dry hands GROOMING - STEP 1: Does the patient require the assistance of a person or device, or need extra time when grooming? Yes. GROOMING - STEP 2: Does the patient require the assistance of a helper? No. The patient only requires an assistive devic e, OR takes more than reasonable time to groom, OR there is a concern for safety as the patient groom s GROOMING - SCORE: 6-SIRI BATHING: Activity did not occur on this shift BATHING - SCORE: 0-UNK DRESSING - UPPER BODY: Activity did not occur on this shift ARTICLES SCORE Total number of steps: 0 DRESSING - UPPER BODY - SCORE: 0-UNK DRESSING - LOWER BODY: Activity did not occur on this shift ARTICLES SCORE Total number of steps: 0 DRESSING - LOWER BODY - SCORE: 0-UNK TOILETING: TOILETING - STEP 1: Does the patient require the assistance of a person or device, or need extra time with toileting? Yes . TOILETING - STEP 2: Does the patient require the assistance of a helper? No. TOILETING - SCORE: 6-SIRI BLADDER MANAGEMENT: BLADDER MANAGEMENT - STEP 1: Does the patient control the bladder completely and intentionally without equipment or devices or med ications, and is always continent? Yes. BLADDER MANAGEMENT - SCORE: 7-IND BLADDER MANAGEMENT - FREQUENCY OF ACCIDENTS: BLADDER MANAGEMENT(FA) - STEP 1: How many accidents has the patient had during the current shift? 0 BOWEL MANAGEMENT: BOWEL MANAGEMENT - STEP 1: Does the patient control bowels completely and intentionally without equipment devices or medications AND is always continent? No. BOWEL MANAGEMENT - STEP 2: Does the patient require the assistance of a helper? No, patient requires and manages independently a n assistive device such as a bedpan, bedside commode, absorbent pad, incontinent device, or collectin g device BOWEL MANAGEMENT - SCORE: 6-SIRI BOWEL MANAGEMENT - FREQUENCY OF ACCIDENTS: BOWEL MANAGEMENT(FA) - STEP 1: How many accidents has the patient had during the current shift? 1 TRANSFERS: BED, CHAIR, WHEELCHAIR: TRANSFERS: BED, CHAIR, WHEELCHAIR - STEP 1: Does the patient require assistance of a person or device, or need extra time with bed, chair, or whe elchair transfers? Yes. TRANSFERS: BED, CHAIR, WHEELCHAIR - STEP 2: Does the patient require the assistance of a helper? Yes. TRANSFERS: BED, CHAIR, WHEELCHAIR - STEP 3: How much assistance does the patient require from the helper? Steadying/guiding assistance TRANSFERS: BED, CHAIR, WHEELCHAIR - SCORE: 4-MIN TRANSFERS: TOILET: TRANSFERS: TOILET - STEP 1: Does the patient require the assistance of a person or device, or need extra time with toilet transfe rs? Yes. TRANSFERS: TOILET - STEP 2: Does the patient require the assistance of a helper? Yes. TRANSFERS: TOILET - STEP 3: How much assistance does the patient require from the helper? Patient performs half or more of the tr ansferring tasks TRANSFERS: TOILET - STEP 4: Does the patient need only incidental help such as contact guard or steadying during toilet transfer? Yes. TRANSFERS: TOILET - SCORE: 4-MIN TRANSFERS: SHOWER: Activity did not occur on this shift TRANSFERS: SHOWER - SCORE: 0-UNK TRANSFERS: TUB: Activity did not occur on this shift TRANSFERS: TUB - SCORE: 0-UNK LOCOMOTION: WALK: Activity did not occur on this shift LOCOMOTION: WALK - SCORE: 0-UNK LOCOMOTION: WHEELCHAIR: Activity did not occur on this shift LOCOMOTION: WHEELCHAIR - SCORE: 0-UNK COMPREHENSION: COMPREHENSION - SCORE: 0-UNK EXPRESSION EXPRESSION - SCORE: 0-UNK SOCIAL INTERACTION: SOCIAL INTERACTION - SCORE: 0-UNK PROBLEM SOLVING: PROBLEM SOLVING - SCORE: 0-UNK MEMORY: MEMORY - SCORE: 0-UNK SIGNATURE PANEL: The following modified sections: Eating - Score, Grooming - Score, Bathing - Score, Dressing - Upper Body - Score, Dressing - Lower Body - Score, Toileting - Score, Bladder Management - Score, Bowel Man agement - Score, Transfers: Bed, Chair, Wheelchair - Score, Transfers: Toilet - Score, Transfers: Ping wer - Score, Transfers: Tub - Score, Locomotion: Walk - Score, Locomotion: Wheelchair - Score, Compre hension - Score, Expression - Score, Social Interaction - Score, Problem Solving - Score, Memory - Sc ore were [electronically] signed by Karime Vega CNA on FriFeb 19 2019 15:30:51 T-0500 ([facility])
[2019-02-19] MEDS: POTASSIUM CL SA 10 MEQ TAB PO SCH (20:49)
[2019-02-19] MEDS: DOCUSATE NA/SENNA CONC 1 TAB PO SCH (20:49)
[2019-02-19] MEDS: AMITRIPTYLINE 25 MG TAB PO SCH (20:49)
[2019-02-19] MEDS: BENZONATATE 100 MG CAP PO SCH (20:49)
[2019-02-19] MEDS: NAPROXEN 250 MG TAB PO PRN (23:06)
[2019-02-19] MEDS: MELATONIN 5 MG TABLET PO PRN (23:07)
[2019-02-20] MEDS: TRAMADOL HCL 50 MG TAB PO SCH ×2 (01:47→08:27)
--- NOTE | 2019-02-20 02:54 | FAST ---
SHIFT START DATE/TIME: 02/19/2019 19:00 (CDT) SHIFT END DATE/TIME: 02/20/2019 07:00 (CDT) NAME RADHA MOLINA DATE OF : 1930 DATE OF ADMISSION: 02/03/2019 19:57 (CDT) PHONE: AGE: 88 N# [id number] GENDER: Female ENCOUNTER PHYSICIAN: Dr. Conor Cervantes M.D. 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 EATING: Activity did not occur on this shift EATING - SCORE: 0-UNK GROOMING: Activity did not occur on this shift GROOMING - SCORE: 0-UNK BATHING: Activity did not occur on this shift BATHING - SCORE: 0-UNK DRESSING - UPPER BODY: Patient is not dressing in public clothing ARTICLES SCORE Total number of steps: 0 DRESSING - UPPER BODY - SCORE: 0-UNK DRESSING - LOWER BODY: Patient is not dressing in public clothing ARTICLES SCORE Total number of steps: 0 DRESSING - LOWER BODY - SCORE: 0-UNK TOILETING: TOILETING - STEP 1: Does the patient require the assistance of a person or device, or need extra time with toileting? Yes . TOILETING - STEP 2: Does the patient require the assistance of a helper? Yes. TOILETING - STEP 3: How much assistance does the patient require from the helper? Only supervision TOILETING - SCORE: 5-SUP BLADDER MANAGEMENT: BLADDER MANAGEMENT - STEP 1: Does the patient control the bladder completely and intentionally without equipment or devices or med ications, and is always continent? No. BLADDER MANAGEMENT - STEP 2: Does the patient require the assistance of a helper? Yes. BLADDER MANAGEMENT - STEP 3: How much assistance does the patient require from the helper? Only set-up of equipment - such as plac ing it within reach of the patient or emptying a device - to maintain either satisfactory voiding pat tern or managing an external device, such as an absorbent pad, ileal device, or catheter BLADDER MANAGEMENT - SCORE: 5-SUP BOWEL MANAGEMENT: Activity did not occur on this shift BOWEL MANAGEMENT - SCORE: 7-IND TRANSFERS: BED, CHAIR, WHEELCHAIR: TRANSFERS: BED, CHAIR, WHEELCHAIR - STEP 1: Does the patient require assistance of a person or device, or need extra time with bed, chair, or whe elchair transfers? Yes. TRANSFERS: BED, CHAIR, WHEELCHAIR - STEP 2: Does the patient require the assistance of a helper? Yes. TRANSFERS: BED, CHAIR, WHEELCHAIR - STEP 3: How much assistance does the patient require from the helper? Lifting of the legs TRANSFERS: BED, CHAIR, WHEELCHAIR - STEP 4: How many legs does the patient require the helper to lift? both legs TRANSFERS: BED, CHAIR, WHEELCHAIR - SCORE: 3-MOD TRANSFERS: TOILET: TRANSFERS: TOILET - STEP 1: Does the patient require the assistance of a person or device, or need extra time with toilet transfe rs? Yes. TRANSFERS: TOILET - STEP 2: Does the patient require the assistance of a helper? Yes. TRANSFERS: TOILET - STEP 3: How much assistance does the patient require from the helper? Only supervision, cuing, coaxing, OR he lp to set out transfer equipment or to lock brakes and/or lift foot rests TRANSFERS: TOILET - SCORE: 5-SUP TRANSFERS: SHOWER: Activity did not occur on this shift TRANSFERS: SHOWER - SCORE: 0-UNK TRANSFERS: TUB: Activity did not occur on this shift TRANSFERS: TUB - SCORE: 0-UNK LOCOMOTION: WALK: Activity did not occur on this shift LOCOMOTION: WALK - SCORE: 0-UNK LOCOMOTION: WHEELCHAIR: Activity did not occur on this shift LOCOMOTION: WHEELCHAIR - SCORE: 0-UNK COMPREHENSION: COMPREHENSION: TYPE: Both COMPREHENSION - STEP 1: Does the patient require help from a person or device, or need extra time to understand complex and a bstract ideas (such as current events, finances, discharge planning, medical issues, relationships, e tc)? No. COMPREHENSION - STEP 2: Does the patient need extra time, require an assistive device (such as glasses for visual comprehensi on or a hearing aid for auditory comprehension) or does s/he have mild difficulty understanding compl ex and abstract information? Yes. COMPREHENSION - SCORE: 6-SIRI EXPRESSION EXPRESSION: TYPE: Both EXPRESSION - STEP 1: Does the patient require help from a person or device, or need extra time expressing complex and abst ract ideas (such as current events, finances, discharge planning, medical issues, relationships, etc) ? No. EXPRESSION - STEP 2: Does the patient need extra time, require an assistive device (such as augmentive communication syste m or a communication board), OR does s/he have mild difficulty expressing complex and abstract ideas (including mild dysarthria or mild word-find problems)? Yes. EXPRESSION - SCORE: 6-SIRI SOCIAL INTERACTION: SOCIAL INTERACTION - STEP 1: Does the patient require a helper to interact with others in social and therapeutic situations? No. SOCIAL INTERACTION - STEP 2: Does the patient need extra time in social situations, OR does s/he interact with staff, other patien ts, and family members ONLY in structured environments, OR does s/he require medication for social in teraction? Yes, patient needs extra time SOCIAL INTERACTION - SCORE: 6-SIRI PROBLEM SOLVING: PROBLEM SOLVING - STEP 1: Does the patient need help from a person or device, or need extra time to solve complex problems such as managing a checking account or confronting interpersonal problems? No. PROBLEM SOLVING - STEP 2: Does the patient require extra time to make decisions or solve problems, OR does s/he have slight dif ficulty reading, initiating, or self-correcting in unfamiliar situations? Yes, patient needs extra ti me. PROBLEM SOLVING - SCORE: 6-SIRI MEMORY: MEMORY - STEP 1: Does the patient need help from a person or device, or need extra time to remember frequently encount ered people, daily routines, and executing requests? No. MEMORY - STEP 2: Does the patient have slight difficulty recognizing frequently encountered people, daily routines, or executing requests without the need for repetition or using self-initiated or environmental cues to remember? Yes. MEMORY - SCORE: 6-SIRI
[2019-02-20] MEDS: LEVOTHYROXINE SOD 0.05 MG TABLET PO SCH (07:08)
[2019-02-20] MEDS: LEVOTHYROXINE SOD 0.1 MG TAB PO SCH (07:08)
[2019-02-20] MEDS: LIDOCAINE 5% PATCH TOP SCH (07:08)
[2019-02-20] MEDS: NYSTATIN PWDR 100000 UNIT/GM TOP SCH (08:00)
[2019-02-20] MEDS: POLYETHYL GLY 3350 17 GM/DOSE PO SCH (08:25)
[2019-02-20] MEDS: DOCUSATE NA 100 MG CAP PO SCH (08:26)
[2019-02-20] MEDS: FUROSEMIDE 20 MG TABLET PO SCH (08:26)
[2019-02-20] MEDS: APIXABAN 2.5 MG TABLET PO SCH (08:26)
[2019-02-20] MEDS: POTASSIUM CL SA 10 MEQ TAB PO SCH (08:26)
[2019-02-20 08:28] VITALS: BP 120/58
[2019-02-20] MEDS: PROMOD 30 ML DOSE PO SCH (08:28)
[2019-02-20 09:08] VITALS: TEMP 97.6
[2019-02-20 10:08] VITALS: O2SAT 90
--- NOTE | 2019-02-20 14:12 | FAST ---
SHIFT START DATE/TIME: 02/20/2019 07:00 (CDT) SHIFT END DATE/TIME: 02/20/2019 19:00 (CDT) NAME RADHA MOLINA DATE OF : 1930 DATE OF ADMISSION: 02/03/2019 19:57 (CDT) PHONE: AGE: 88 N# [id number] GENDER: Female ENCOUNTER PHYSICIAN: Dr. Conor Cervantes M.D. 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 EATING: EATING - STEP 1: Does the patient require the assistance of a person or device, or need extra time when eating? Yes. EATING - STEP 2: Does the patient require the assistance of a helper? Yes. EATING - STEP 3: Does the patient perform half or more of the eating tasks? Yes. EATING - STEP 4: Does the patient need only supervision, cuing, coaxing OR help to apply an orthosis OR help to cut fo od, open containers, pour liquids, or butter bread? Yes. EATING - SCORE: 5-SUP GROOMING: Comb/brush hair Oral care Wash, rinse, and dry face Wash, rinse, and dry hands GROOMING - STEP 1: Does the patient require the assistance of a person or device, or need extra time when grooming? Yes. GROOMING - STEP 2: Does the patient require the assistance of a helper? Yes. GROOMING - STEP 3: How much assistance does the patient require from the helper? Only prior equipment preparation/set up from the helper GROOMING - SCORE: 5-SUP BATHING: Activity did not occur on this shift BATHING - SCORE: 0-UNK DRESSING - UPPER BODY: T-shirt/pullover shirt (four steps) ARTICLES SCORE Total number of steps: 4 DRESSING - UPPER BODY - STEP 1: Does the patient require help from a person or device, or need extra time when dressing above the star st? Yes. DRESSING - UPPER BODY - STEP 2: Does the patient require the assistance of a helper? Yes. DRESSING - UPPER BODY - STEP 3: Does the helper touch the patient while dressing? No. DRESSING - UPPER BODY - SCORE: 5-SUP DRESSING - LOWER BODY: Elastic waist pants (three steps) ARTICLES SCORE Total number of steps: 3 DRESSING - LOWER BODY - STEP 1: Does the patient require help from a person or device, or need extra time when dressing below the star st? Yes. DRESSING - LOWER BODY - STEP 2: Does the patient require the assistance of a helper? Yes. DRESSING - LOWER BODY - STEP 3: Does the helper touch the patient while dressing? Yes. DRESSING - LOWER BODY - STEP 4: How many of the total steps does the patient complete on his/her own? 3 DRESSING - LOWER BODY - SCORE: 4-MIN TOILETING: TOILETING - STEP 1: Does the patient require the assistance of a person or device, or need extra time with toileting? Yes . TOILETING - STEP 2: Does the patient require the assistance of a helper? Yes. TOILETING - STEP 3: How much assistance does the patient require from the helper? Only supervision TOILETING - SCORE: 5-SUP BLADDER MANAGEMENT: BLADDER MANAGEMENT - STEP 1: Does the patient control the bladder completely and intentionally without equipment or devices or med ications, and is always continent? Yes. BLADDER MANAGEMENT - SCORE: 7-IND BLADDER MANAGEMENT - FREQUENCY OF ACCIDENTS: BLADDER MANAGEMENT(FA) - STEP 1: How many accidents has the patient had during the current shift? 0 BOWEL MANAGEMENT: Activity did not occur on this shift BOWEL MANAGEMENT - SCORE: 7-IND BOWEL MANAGEMENT - FREQUENCY OF ACCIDENTS: BOWEL MANAGEMENT(FA) - STEP 1: How many accidents has the patient had during the current shift? 0 TRANSFERS: BED, CHAIR, WHEELCHAIR: TRANSFERS: BED, CHAIR, WHEELCHAIR - STEP 1: Does the patient require assistance of a person or device, or need extra time with bed, chair, or whe elchair transfers? Yes. TRANSFERS: BED, CHAIR, WHEELCHAIR - STEP 2: Does the patient require the assistance of a helper? Yes. TRANSFERS: BED, CHAIR, WHEELCHAIR - STEP 3: How much assistance does the patient require from the helper? Only supervision TRANSFERS: BED, CHAIR, WHEELCHAIR - SCORE: 5-SUP TRANSFERS: TOILET: TRANSFERS: TOILET - STEP 1: Does the patient require the assistance of a person or device, or need extra time with toilet transfe rs? Yes. TRANSFERS: TOILET - STEP 2: Does the patient require the assistance of a helper? Yes. TRANSFERS: TOILET - STEP 3: How much assistance does the patient require from the helper? Only supervision, cuing, coaxing, OR he lp to set out transfer equipment or to lock brakes and/or lift foot rests TRANSFERS: TOILET - SCORE: 5-SUP TRANSFERS: SHOWER: Activity did not occur on this shift TRANSFERS: SHOWER - SCORE: 0-UNK TRANSFERS: TUB: Activity did not occur on this shift TRANSFERS: TUB - SCORE: 0-UNK LOCOMOTION: WALK: LOCOMOTION: WALK - STEP 1: Does the patient need help from a person or device, or need extra time to walk 150 feet? Yes. LOCOMOTION: WALK - STEP 2: How much assistance does the patient require to walk a minimum of 150 feet? Only supervision, cuing, or coaxing LOCOMOTION: WALK - SCORE: 5-SUP LOCOMOTION: WHEELCHAIR: Activity did not occur on this shift LOCOMOTION: WHEELCHAIR - SCORE: 0-UNK COMPREHENSION: COMPREHENSION: TYPE: Both COMPREHENSION - STEP 1: Does the patient require help from a person or device, or need extra time to understand complex and a bstract ideas (such as current events, finances, discharge planning, medical issues, relationships, e tc)? No. COMPREHENSION - STEP 2: Does the patient need extra time, require an assistive device (such as glasses for visual comprehensi on or a hearing aid for auditory comprehension) or does s/he have mild difficulty understanding compl ex and abstract information? Yes. COMPREHENSION - SCORE: 6-SIRI EXPRESSION EXPRESSION: TYPE: Both EXPRESSION - STEP 1: Does the patient require help from a person or device, or need extra time expressing complex and abst ract ideas (such as current events, finances, discharge planning, medical issues, relationships, etc) ? No. EXPRESSION - STEP 2: Does the patient need extra time, require an assistive device (such as augmentive communication syste m or a communication board), OR does s/he have mild difficulty expressing complex and abstract ideas (including mild dysarthria or mild word-find problems)? Yes. EXPRESSION - SCORE: 6-SIRI SOCIAL INTERACTION: SOCIAL INTERACTION - STEP 1: Does the patient require a helper to interact with others in social and therapeutic situations? No. SOCIAL INTERACTION - STEP 2: Does the patient need extra time in social situations, OR does s/he interact with staff, other patien ts, and family members ONLY in structured environments, OR does s/he require medication for social in teraction? Yes, patient needs extra time SOCIAL INTERACTION - SCORE: 6-SIRI PROBLEM SOLVING: PROBLEM SOLVING - STEP 1: Does the patient need help from a person or device, or need extra time to solve complex problems such as managing a checking account or confronting interpersonal problems? No. PROBLEM SOLVING - STEP 2: Does the patient require extra time to make decisions or solve problems, OR does s/he have slight dif ficulty reading, initiating, or self-correcting in unfamiliar situations? Yes, patient needs extra ti me. PROBLEM SOLVING - SCORE: 6-SIRI MEMORY: MEMORY - STEP 1: Does the patient need help from a person or device, or need extra time to remember frequently encount ered people, daily routines, and executing requests? No. MEMORY - STEP 2: Does the patient have slight difficulty recognizing frequently encountered people, daily routines, or executing requests without the need for repetition or using self-initiated or environmental cues to remember? Yes. MEMORY - SCORE: 6-SIRI SIGNATURE PANEL: The following modified sections: Eating - Score, Grooming - Score, Bathing - Score, Dressing - Upper Body - Score, Dressing - Lower Body - Score, Toileting - Score, Bladder Management - Score, Bowel Man agement - Score, Transfers: Bed, Chair, Wheelchair - Score, Transfers: Toilet - Score, Transfers: Ping wer - Score, Transfers: Tub - Score, Locomotion: Wheelchair - Score, Locomotion: Walk - Score, Compre hension - Score, Expression - Score, Social Interaction - Score, Problem Solving - Score, Memory - Sc ore were [electronically] signed by Lianet Girard RN on Sat Feb 20 2019 14:11:31 T-0500 [facility]
== END 2019-02-20 12:35 | disposition home health service (06) | DRG 950 ==
LOC: 5TH 18:08
PROVIDERS: ADMIT Psychiatry & Neurology Neurology with Special Qualifications in Child Neurology; ATTEND Psychiatry & Neurology Neurology with Special Qualifications in Child Neurology
DX: S24.104D Unspecified injury at T11-T12 level of thoracic spinal cord, subsequent encounter (principal); S22.089D Unspecified fracture of T11-T12 vertebra, subsequent encounter for fracture with routine healing; F41.9 Anxiety disorder, unspecified; K59.00 Constipation, unspecified
CPT/HCPCS: 36415; 74018; 80048; 81001; 82040; 83735; 84132; 84134; 85025; 87086; 87088; 92507; 92508; 92523; 94640; 97110; 97112; 97116; 97150; 97163; 97167; 97530; 97542